=== PATIENT | female | born 1945 | race Hispanic/Latino ===

== ENCOUNTER 2017-07-18 08:02 | Inpatient (IN) | payer MEDICARE, OTHER ==
[2017-07-18 08:16] VITALS: BMI 46.3
--- NOTE | 2017-07-18 08:50 | ED PDOC ---
Arrival/HPI - General Chief Complaint: Lower Extremity Problem/Injury Time Seen by Provider: 07/18/17 08:25 Historian: Patient, Family - History of Present Illness Narrative History of Present Illness (Text): 07/18/17 08:40 72 year old female, whose past medical history include hypertension, diabetes, CVA, chronic renal disorder, and colon polyps, who presents to the emergency department complaining of left leg and foot pain. Family states patient fell out of bed causing the left toe to become injured and has gradually become worse because of erythema and warmth noted. Patient denies fever, nausea, vomiting, or other complaints. PMD: Dr. Thurman Symptom Onset: Gradual Symptom Course: Unchanged Quality: Aching Activities at Onset: Light Context: Home Past Medical History - Provider Review Nursing Documentation Reviewed: Yes - Infectious Disease Hx of Infectious Diseases: None - Tetanus Immunization Tetanus Immunization: Unknown - Reproductive Menopause: Yes - Cardiac Hx Cardiac Disorders: Yes Hx Hypertension: Yes - Pulmonary Hx Respiratory Disorders: No - Neurological HX Cerebrovascular Accident: Yes - HEENT Hx HEENT Disorder: Yes (CATARACT SX) Hx Blind: Yes (RIGHT EYE,HAS RIGHT EYE TUMOR,) - Renal Hx Renal Disorder: No - Endocrine/Metabolic Hx Diabetes Mellitus Type 2: Yes - Hematological/Oncological Hx Blood Disorders: Yes Hx Anemia: Yes - Integumentary Hx Dermatological Disorder: No - Musculoskeletal/Rheumatological Hx Musculoskeletal Disorders: No Hx Falls: Yes - Gastrointestinal Hx Gastrointestinal Disorders: Yes (POLYPS REMOVED,HEMICOLECTOMY 06-28-16) - Genitourinary/Gynecological Hx Genitourinary Disorders: No - Psychiatric Hx Emotional Abuse: No Hx Physical Abuse: No Hx Substance Use: No - Surgical History Other/Comment: LEFT OPEN HEMICOLECTOMY 06-28-16 - Anesthesia Hx Anesthesia Reactions: No Hx Malignant Hyperthermia: No - Suicidal Assessment Feels Threatened In Home Enviroment: No Family/Social History - Physician Review Nursing Documentation Reviewed: Yes Family/Social History: Unknown Family HX Smoking Status: Never Smoked Hx Alcohol Use: No Hx Substance Use: No Hx Substance Use Treatment: No Allergies/Home Meds Allergies/Adverse Reactions: Allergies No Known Allergies Allergy (Verified 06/28/16 22:22) Home Medications: Home Meds Medication Instructions Recorded Confirmed Carvedilol [Coreg] 3.125 mg PO BID 07/18/17 07/18/17 Furosemide [Lasix] 40 mg PO DAILY 07/18/17 07/18/17 Gabapentin [Neurontin] 100 mg PO DAILY 07/18/17 07/18/17 Mirtazapine [Remeron] 15 mg PO HS 07/18/17 07/18/17 Vit D2 50,000 iu PO QWK 07/18/17 07/18/17 hydrALAZINE [hydralazine 10 mg PO TID 07/18/17 07/18/17 Hydrochloride] Review of Systems - Review of Systems Constitutional: absent: Fevers Eyes: absent: Vision Changes Respiratory: absent: SOB Cardiovascular: absent: Chest Pain Gastrointestinal: absent: Abdominal Pain Genitourinary Female: absent: Dysuria Musculoskeletal: Other (left leg and foot pain) Skin: Other (erythema, warmth, on left toe) Neurological: absent: Headache Endocrine: absent: Diaphoresis Physical Exam Vital Signs Reviewed: Yes Vital Signs Temp Pulse Resp BP Pulse Ox 07/18/17 13:12 78 17 147/92 H 99 07/18/17 11:00 81 19 166/78 H 100 07/18/17 10:40 90 163/109 H 07/18/17 10:38 89 18 163/109 H 97 07/18/17 08:42 97.9 F 89 16 148/98 H 98 07/18/17 08:22 98.4 F 94 H 18 183/106 H 100 Temperature: Afebrile Blood Pressure: Hypertensive Pulse: Tachycardic Respiratory Rate: Normal Appearance: Positive for: Well-Appearing, Non-Toxic, Comfortable Pain Distress: None Mental Status: Positive for: Alert and Oriented X 3 Finger Stick Blood Glucose: 363 - Systems Exam Head: Present: Atraumatic, Normocephalic Pupils: Present: PERRL Extroacular Muscles: Present: EOMI Conjunctiva: Present: Normal Respiratory/Chest: Present: Clear to Auscultation, Good Air Exchange. No: Respiratory Distress, Accessory Muscle Use, Wheezes, Rales, Retracting, Rhonchi Cardiovascular: Present: Regular Rate and Rhythm, Normal S1, S2. No: Murmurs Abdomen: Present: Normal Bowel Sounds. No: Tenderness, Distention, Peritoneal Signs, Rebound, Guarding Lower Extremity: Present: Normal ROM, Tenderness (tenderness, redness, and warmth on left foot), Erythema, Neurovascularly Intact, Other (tenderness, redness, and warmth. 1cm area of eschar on left 1st toe and superficial ulcer on 2nd toe) Neurological: Present: GCS=15, CN II-XII Intact, Speech Normal Skin: Present: Warm, Dry, Normal Color. No: Rashes Psychiatric: Present: Alert, Oriented x 3, Normal Insight, Normal Concentration Medical Decision Making ED Course and Treatment: 07/18/17 Impression: 72 year old female with tenderness, redness, and warmth on left foot. 1cm area of eschar on left 1st toe and superficial ulcer on 2nd toe. Differential Diagnosis included but are not limited to: left foot infection r/ o osteomyelitus Plan: -- Labs -- Urinalysis -- Left Foot x-ray -- Ultrasound lower extremity -- Tylenol -- Reassess and disposition Progress Notes: 07/18/17 09:[address] Flores, felt cutting machine operator, who recommends calling the resident. Case discussed with Dr. Scruggs, felt cutting machine operator resident, who will evaluate patient at bedside. 07/18/17 11:34 Dr. Scruggs came to evaluate patient and with doppler identified dorsal pedal pulse. Arterial ultrasound ordered by Podiatry and Dr. Leos and Resident will f/u . They agree with abx regiment and will f/u. Case was discussed with Dr. Thurman for admission. - Lab Interpretations Microbiology Results: Microbiology Results 07/18/17 10:00 Blood Blood Culture - Preliminary NO GROWTH AFTER 4 DAYS 07/18/17 10:00 Blood Blood Culture - Preliminary NO GROWTH AFTER 4 DAYS 07/18/17 08:53 Urine Urine Culture - Final Escherichia Coli Lab Results: 07/18/17 10:00 07/18/17 10:00 Lab Results 07/18/17 11:31: POC Glucose (mg/dL) 284 H 07/18/17 10:00: Sodium 138, Chloride 102, Potassium 4.9, Carbon Dioxide 23, Anion Gap 18, BUN 27 H, Creatinine 1.8 H, Est GFR ( Amer) 34, Est GFR ( Non-Af Amer) 28, Random Glucose 342 H* D, Calcium 9.3, Phosphorus 4.1, Magnesium 1.9, Total Bilirubin 0.4, AST 26, ALT 18, Alkaline Phosphatase 108, Total Protein 8.2, Albumin 3.6, Globulin 4.6, Albumin/Globulin Ratio 0.8 L 07/18/17 10:00: pO2 115 H, VBG pH 7.43, VBG pCO2 38.0 L, VBG HCO3 25.2, VBG Total CO2 26.4, VBG O2 Sat (Calc) 99.4 H, VBG Base Excess 1.0, VBG Potassium 5.0 , Sodium 137.0, Chloride 104.0, Glucose 362 H, Lactate 2.7 H, FiO2 21.0, Venous Blood Potassium 5.0 07/18/17 10:00: PT 11.3, INR 0.98, APTT 27.6 07/18/17 10:00: WBC 10.8, RBC 3.13 L, Hgb 9.6 L, Hct 28.8 L, MCV 92.0, MCH 30.7 , MCHC 33.3, RDW 13.3, Plt Count 230, MPV 10.5, Gran % 81.5 H, Lymph % (Auto) 13.1 L, [place] % (Auto) 3.9, Eos % (Auto) 1.1 L, Baso % (Auto) 0.4, Gran # 8.80 H , Lymph # (Auto) 1.4, [place] # (Auto) 0.4, Eos # (Auto) 0.1, Baso # (Auto) 0.04 07/18/17 08:53: Urine Color Light yellow, Urine Appearance Slight-cloudy, Urine pH 6.5, Ur Specific [place] 1.020, Urine Protein >=300 H, Urine Glucose (UA) 500 H, Urine Ketones 15 H, Urine Blood Moderate H, Urine Nitrate Negative, Urine Bilirubin Negative, Urine Urobilinogen 0.2, Ur Leukocyte Esterase Trace H , Urine RBC 20 - 25, Urine WBC 5 - 10, Ur Epithelial Cells 4 - 5, Amorphous Sediment Few, Urine Bacteria Large, Urine Other Uyeast 07/18/17 08:19: POC Glucose (mg/dL) 363 H I have reviewed the lab results: Yes - RAD Interpretation Radiology Orders: 07/18/17 08:44 DUPLEX LOWER EXTRM VEIN BILAT [US] Stat 07/18/17 08:56 FOOT LEFT 3 VIEWS ROUTINE [RAD] Stat 07/18/17 10:51 LOWER EXT ART NON-INV COMPL [US] Routine Garbage Collector: Radiologist - Medication Orders Current Medication Orders: Amlodipine Besylate (Norvasc) 10 mg PO DAILY [facility] Last Admin: 07/22/17 10:45 Dose: 10 mg MAR Blood Pressure Document 07/22/17 10:45 DSZ (Rec: 07/22/17 10:45 Z [place] [id number]) Blood Pressure Blood Pressure (100/60-150/90) 160/78 Carvedilol (Coreg) 3.125 mg PO BID [facility] Last Admin: 07/22/17 10:44 Dose: 3.125 mg MAR Pulse and Blood Pressure Document 07/22/17 10:44 DSZ (Rec: 07/22/17 10:45 Z [place] [id number]) Pulse Pulse Rate (60-90) 78 Blood Pressure Blood Pressure (100/60-150/90) 160/76 Doxycycline Hyclate (Doryx) 100 mg PO Q12 [facility] PRN Reason: Protocol Last Admin: 07/22/17 10:44 Dose: 100 mg Enoxaparin Sodium (Lovenox) 30 mg SC DAILY [facility] PRN Reason: Protocol Gabapentin (Neurontin) 100 mg PO DAILY [facility] PRN Reason: Protocol Last Admin: 07/22/17 10:45 Dose: 100 mg Behavioural Document 07/22/17 10:45 DS (Rec: 07/22/17 10:45 Z [place] [id number]) Maintenance Maintenance Dose Yes Re-Assess: Reassess Psych Meds Document 07/22/17 11:45 DSZ (Rec: 07/22/17 12:20 DSZ [place] [id number]) Reassess Psych Med Effective Hydralazine HCl (Apresoline) 25 mg PO TID [facility] Last Admin: 07/22/17 13:54 Dose: 25 mg MAR Pulse and Blood Pressure Document 07/22/17 13:54 DSZ (Rec: 07/22/17 13:54 [place] [id number]) Pulse Pulse Rate (60-90) 81 Blood Pressure Blood Pressure (100/60-150/90) 170/60 Piperacillin Sod/Tazobactam Sod (Zosyn 2.25 Gm In 0.9% 100 Ml) 2.25 gm in 100 mls @ 100 mls/hr IVPB Q6 EBEN Stop: 07/26/17 12:01 Last Admin: 07/22/17 12:20 Dose: 100 mls/hr eMAR Start Stop Document 07/22/17 12:20 DSZ (Rec: 07/22/17 12:20 DSZ [facility] [id number]) Intravenous Solution Start Date 07/22/17 Start Time 12:20 Insulin Human Regular (Humulin R Med) 0 units SC ACHS [facility] PRN Reason: Protocol Last Admin: 07/22/17 12:19 Dose: 3 units MAR Blood Glucose Document 07/22/17 12:19 DSZ (Rec: 07/22/17 12:20 DSZ [facility] [id number]) Blood Glucose Finger Stick Blood Glucose (70-120) 222 Subcutaneous Administrations Document 07/22/17 12:19 DSZ (Rec: 07/22/17 12:20 DSZ [facility] [id number]) Injection Site MAR Injection Site Right Arm Charges for Administration # of Subcutaneous Administrations 1 Insulin Lispro Protam/Lispro Human (Humalog Mix 75/25) 12 units SC ACBD [facility] Last Admin: 07/22/17 10:49 Dose: 12 units MAR Blood Glucose Document 07/22/17 10:49 DSZ (Rec: 07/22/17 10:49 DSZ [facility] [id number]) Blood Glucose Finger Stick Blood Glucose (70-120) 217 Subcutaneous Administrations Document 07/22/17 10:49 DSZ (Rec: 07/22/17 10:49 DSZ [facility] [id number]) Injection Site MAR Injection Site Left Arm Charges for Administration # of Subcutaneous Administrations 1 Mirtazapine (Remeron) 15 mg PO HS [facility] Last Admin: 07/21/17 22:51 Dose: 15 mg Mupirocin (Bactroban Ointment) 0 gm TOP DAILY [facility] Last Admin: 07/22/17 10:49 Dose: 1 applic Nystatin (Nystop Topical Powder) 0 gm TOP TID [facility] Last Admin: 07/22/17 10:45 Dose: 1 appl Discontinued Medications Acetaminophen (Tylenol 325mg Tab) 650 mg PO STAT STA Stop: 07/18/17 08:44 Last Admin: 07/18/17 10:40 Dose: 650 mg MAR Pain/Vitals Document 07/18/17 10:40 SF (Rec: 07/18/17 10:40 SF [id number]) Pain Reassessment Is This A Pain ReAssessment? Yes Sleep Is patient sleeping during reassessment? No Presence of Pain Presence of Pain No Enoxaparin Sodium (Lovenox) 40 mg SC DAILY [facility] PRN Reason: Protocol Last Admin: 07/22/17 10:46 Dose: Hydralazine HCl (Apresoline) 10 mg PO TID [facility] Last Admin: 07/20/17 15:17 Dose: Not Given Non-Admin Reason: BP Parameters Not Met Vancomycin HCl (Vancomycin 1gm) 1 gm in 250 mls @ 167 mls/hr IVPB STAT STA PRN Reason: Protocol Stop: 07/18/17 12:10 Last Admin: 07/18/17 11:40 Dose: 167 mls/hr eMAR Start Stop Document 07/18/17 11:40 SF (Rec: 07/18/17 11:41 SF [id number]) Intravenous Solution Start Date 07/18/17 Start Time 11:40 End Date 07/18/17 End time 13:15 Total Infusion Time 95 Piperacillin Sod/Tazobactam Sod (Zosyn 4.5 Gm In Ns 100ml) 4.5 gm in 100 mls @ 200 mls/hr IVPB STAT STA PRN Reason: Protocol Stop: 07/18/17 11:11 Last Admin: 07/18/17 11:00 Dose: 200 mls/hr eMAR Start Stop Document 07/18/17 11:00 SF (Rec: 07/18/17 11:00 SF [id number]) Intravenous Solution Start Date 07/18/17 Start Time 11:00 End Date 07/18/17 End time 11:30 Total Infusion Time 30 Piperacillin Sod/Tazobactam Sod (Zosyn 2.25 Gm Iv Premix) 2.25 gm in 50 mls @ 200 mls/hr IVPB Q6 [facility]EN PRN Reason: Protocol Stop: 07/26/17 12:01 Last Admin: 07/19/17 11:51 Dose: 200 mls/hr eMAR Start Stop Document 07/19/17 11:51 DSZ (Rec: 07/19/17 11:51 DSZ [id number]) Intravenous Solution Start Date 07/19/17 Start Time 11:51 Insulin Human Regular (Humulin R) 5 units SC STAT STA Stop: 07/18/17 11:21 Last Admin: 07/18/17 11:41 Dose: 5 units MAR Blood Glucose Document 07/18/17 11:41 SF (Rec: 07/18/17 11:41 SF [id number]) Blood Glucose Finger Stick Blood Glucose (70-120) 284 Subcutaneous Administrations Document 07/18/17 11:41 SF (Rec: 07/18/17 11:41 SF [id number]) Injection Site MAR Injection Site Left Deltoid Charges for Administration # of Subcutaneous Administrations 1 Insulin Lispro Protam/Lispro Human (Humalog Mix 75/25) 10 units SC ACBD [facility] Last Admin: 07/21/17 07:30 Dose: 10 units Subcutaneous Administrations Document 07/21/17 07:30 ID (Rec: 07/21/17 10:02 ID [facility] [id number]) Charges for Administration # of Subcutaneous Administrations 1 Labetalol HCl (Trandate) 20 mg IV STAT STA Stop: 07/18/17 08:59 Last Admin: 07/18/17 10:40 Dose: 20 mg eMAR Start Stop Document 07/18/17 10:40 SF (Rec: 07/18/17 10:41 SF [id number]) Intravenous Solution Start Date 07/18/17 Start Time 10:41 MAR Pulse and Blood Pressure Document 07/18/17 10:40 SF (Rec: 07/18/17 10:41 SF [id number]) Pulse Pulse Rate (60-90) 90 Blood Pressure Blood Pressure (100/60-150/90) 163/109 Mupirocin (Bactroban Ointment) 1 gm TOP ONCE ONE Stop: 07/18/17 10:52 Last Admin: 07/18/17 11:41 Dose: 1 gm - Scribe Statement The provider has reviewed the documentation as recorded by the Zeynep Aguilar Provider Scribe Attestation: All medical record entries made by the Scribe were at my direction and personally dictated by me. I have reviewed the chart and agree that the record accurately reflects my personal performance of the history, physical exam, medical decision making, and the department course for this patient. I have also personally directed, reviewed, and agree with the discharge instructions and disposition. Disposition/Present on Arrival - Present on Arrival Any Indicators Present on Arrival: No History of DVT/PE: No History of Uncontrolled Diabetes: No Urinary Catheter: No History of Decub. Ulcer: No History Surgical Site Infection Following: None - Disposition Have Diagnosis and Disposition been Completed?: Yes Diagnosis: Foot ulcer due to secondary DM Disposition: HOSPITALIZED Disposition Time: 15:08 Patient Plan: Admission Condition: FAIR
[2017-07-18] MEDS ORDERED: Labetalol 5 mg/ml Inj 20ML IV STA (08:58)
[2017-07-18 09:21] LABS: PH,URINE 6.5 (4.7-8.0); URINE BILIRUBIN NEGATIVE (NEGATIVE); URINE BLOOD MODERATE (NEGATIVE); URINE GLUCOSE (UA) 500 mg/dL (NEGATIVE); URINE LEUKOCYTE ESTERASE TRACE Leu/uL (NEGATIVE); URINE NITRATE NEGATIVE (NEGATIVE); URINE PROTEIN >=300 mg/dL (<30 mg/dL); URINE UROBILINOGEN 0.2 E.U./dL (<1 E.U./dL)
[2017-07-18 09:22] LABS: URINE APPEARANCE SLIGHT-CLOUDY (CLEAR); URINE COLOR LIGHT YELLOW (YELLOW)
[2017-07-18 09:29] LABS: URINE RBC 20 - 25 /hpf (0-2)
[2017-07-18 09:30] LABS: URINE AMORPHOUS SEDIMENT FEW; URINE BACTERIA LARGE (NEG)
[2017-07-18 10:27] LABS: VENOUS BLOOD GAS PO2 115 mm/Hg (30-55); VENOUS BLOOD PH 7.43 (7.32-7.43)
[2017-07-18 10:30] LABS: BASO # 0.04 K/mm3 (0.0-2.0); BASO % 0.4 % (0.0-3.0); EOS # 0.1 (0.0-0.7); EOS % 1.1 % (1.5-5.0); GRAN # 8.8 (1.4-6.5); GRAN % 81.5 % (50.0-68.0); HEMOGLOBIN 9.6 g/dL (12.0-16.0); LYMPH # 1.4 (1.2-3.4); LYMPH % 13.1 % (22.0-35.0); MEAN CORPUSCULAR HEMOGLOBIN 30.7 pg (25.0-35.0); MEAN CORPUSCULAR HGB CONC 33.3 g/dl (31.0-37.0); MEAN PLATELET VOLUME 10.5 fl (7.0-11.0); MONO # 0.4 (0.1-0.6); MONO % 3.9 % (1.0-6.0); RBC 3.13 10^6/uL (3.5-6.1); RED CELL DISTRIBUTION WIDTH 13.3 % (11.5-14.5); WHITE BLOOD COUNT 10.8 10^3/ul (4.5-11.0)
[2017-07-18 10:38] LABS: INR 0.98 (0.93-1.08); PARTIAL THROMBOPLASTIN TIME 27.6 Seconds (25.1-36.5); PROTHROMBIN TIME 11.3 SECONDS (9.4-12.5)
[2017-07-18] MEDS ORDERED: Vancomycin 1gm in NS 250ml 1 GM/250 ML BAG IVPB STA (10:41)
[2017-07-18] MEDS ORDERED: Piperacill/Tazo 4.5gm in NS 4.5 GM/100 ML BAG IVPB STA (10:42)
--- NOTE | 2017-07-18 11:01 | CP.PCM.CON ---
History of Present Illness - History of Present Illness History of Present Illness: Podiatry Consult Note- Dr. Leso 72 y.o female with PMH of DM, HTN, HLD seen and evaluated in the ED. Patient reports having a sore left big toe for the last week. Patient denies trauma or injury but also reports that she does not remember. She reports soreness to her left big toe. She reports that she thinks the toe is looking more red but can't tell because she can't see too well. She denies n/v/sob/cp/chills or f. 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 PMH: DM, HLD, HTN PSH: appendectomy, cataract surgery, right hallux distal tip amputation SH: denies smoking, drinking or illicit drug use; lives with mother, not , no children ALL: NKDA MEDS: see medication list Past Patient History - Infectious Disease Hx of Infectious Diseases: None - Tetanus Immunizations Tetanus Immunization: Unknown - Past Social History Smoking Status: Never Smoked - CARDIAC Hx Cardiac Disorders: Yes Hx Hypertension: Yes - PULMONARY Hx Respiratory Disorders: No - NEUROLOGICAL HX Cerebrovascular Accident: Yes - HEENT Hx HEENT Problems: Yes (CATARACT SX) Hx Blind: Yes (RIGHT EYE,HAS RIGHT EYE TUMOR,) - RENAL Hx Chronic Kidney Disease: No - ENDOCRINE/METABOLIC Hx Diabetes Mellitus Type 2: Yes - HEMATOLOGICAL/ONCOLOGICAL Hx Blood Disorders: Yes Hx Anemia: Yes - INTEGUMENTARY Hx Dermatological Problems: No - MUSCULOSKELETAL/RHEUMATOLOGICAL Hx Musculoskeletal Disorders: No Hx Falls: Yes - GASTROINTESTINAL Hx Gastrointestinal Disorders: Yes (POLYPS REMOVED,HEMICOLECTOMY 06-28-16) - GENITOURINARY/GYNECOLOGICAL Hx Genitourinary Disorders: No - PSYCHIATRIC Hx Emotional Abuse: No Hx Physical Abuse: No Hx Substance Use: No - SURGICAL HISTORY Other/Comment: LEFT OPEN HEMICOLECTOMY 06-28-16 - ANESTHESIA Hx Anesthesia Reactions: No Hx Malignant Hyperthermia: No Meds Allergies/Adverse Reactions: Allergies Allergy/AdvReac Type Severity Reaction Status Date / Time No Known Allergies Allergy Verified 06/28/16 22:22 - Medications Medications: Current Medications Vancomycin HCl (Vancomycin 1gm) 1 gm in 250 mls @ 167 mls/hr IVPB STAT STA PRN Reason: Protocol Stop: 03/01/18 12:10 Piperacillin Sod/Tazobactam Sod (Zosyn 4.5 Gm In Ns 100ml) 4.5 gm in 100 mls @ 200 mls/hr IVPB STAT STA PRN Reason: Protocol Stop: 07/18/17 11:11 Physical Exam - Constitutional Appears: Well, Non-toxic, No Acute Distress - Extremities Exam Additional comments: Vasc: DP and PT unpalpable. DP dopplerable monophasic bilaterally. CFT delayed to the digits. Temperature gradient cool to cool. Left hallux slightly warm. Mild edema noted to the left forefoot Ortho: pain with palpation to the left hallux Neuro: protective sensation diminished, gross sensation intact Derm: Necrotic tissue noted to the medial aspect of the left hallux measuring approximately about 1 x 1 cm. There is no open ulceration noted to the left hallux; Erythema noted to the skin surrounding the circumferential necrotic tissue, no drainage, no malodor, no tunneling, or undermining noted. Lateral aspect of 2nd digit with superficial ulceration noted, measuring approximately x. 3 x .3 x .1. Mild erythema noted, no drainage, no malodor, no tunneling or undermining noted. No probe to bone - Neurological Exam Neurological exam: Alert, Oriented x3 - Psychiatric Exam Psychiatric exam: Normal Affect, Normal Mood Results - Vital Signs Recent Vital Signs: Last Vital Signs Temp 98.4 F 07/18/17 08:22 Pulse 90 07/18/17 10:40 Resp 18 07/18/17 10:38 BP 163/109 H 07/18/17 10:40 Pulse Ox 97 07/18/17 10:38 - Labs Result Diagrams: 07/18/17 10:00 07/18/17 10:00 Labs: Laboratory Results - last 24 hr 07/18/17 07/18/17 07/18/17 08:19 08:53 10:00 WBC 10.8 RBC 3.13 L Hgb 9.6 L Hct 28.8 L MCV 92.0 MCH 30.7 MCHC 33.3 RDW 13.3 Plt Count 230 MPV 10.5 Gran % 81.5 H Lymph % (Auto) 13.1 L [place] % (Auto) 3.9 Eos % (Auto) 1.1 L Baso % (Auto) 0.4 Gran # 8.80 H Lymph # (Auto) 1.4 [place] # (Auto) 0.4 Eos # (Auto) 0.1 Baso # (Auto) 0.04 PT INR APTT pO2 VBG pH VBG pCO2 VBG HCO3 VBG Total CO2 VBG O2 Sat (Calc) VBG Base Excess VBG Potassium Sodium Chloride Glucose Lactate FiO2 POC Glucose (mg/dL) 363 H Venous Blood Potassium Urine Color Light yellow Urine Appearance Slight-cloudy Urine pH 6.5 Ur Specific [place] 1.020 Urine Protein >=300 H Urine Glucose (UA) 500 H Urine Ketones 15 H Urine Blood Moderate H Urine Nitrate Negative Urine Bilirubin Negative Urine Urobilinogen 0.2 Ur Leukocyte Esterase Trace H Urine RBC 20 - 25 Urine WBC 5 - 10 Ur Epithelial Cells 4 - 5 Amorphous Sediment Few Urine Bacteria Large Urine Other Uyeast 07/18/17 07/18/17 10:00 10:00 WBC RBC Hgb Hct MCV MCH MCHC RDW Plt Count MPV Gran % Lymph % (Auto) [place] % (Auto) Eos % (Auto) Baso % (Auto) Gran # Lymph # (Auto) [place] # (Auto) Eos # (Auto) Baso # (Auto) PT 11.3 INR 0.98 APTT 27.6 pO2 115 H VBG pH 7.43 VBG pCO2 38.0 L VBG HCO3 25.2 VBG Total CO2 26.4 VBG O2 Sat (Calc) 99.4 H VBG Base Excess 1.0 VBG Potassium 5.0 Sodium 137.0 Chloride 104.0 Glucose 362 H Lactate 2.7 H FiO2 21.0 POC Glucose (mg/dL) Venous Blood Potassium 5.0 Urine Color Urine Appearance Urine pH Ur Specific [place] Urine Protein Urine Glucose (UA) Urine Ketones Urine Blood Urine Nitrate Urine Bilirubin Urine Urobilinogen Ur Leukocyte Esterase Urine RBC Urine WBC Ur Epithelial Cells Amorphous Sediment Urine Bacteria Urine Other Assessment & Plan - Assessment and Plan (Free Text) Assessment: 72 y.o female with PMH of DM, HTN, HLD with infected necrotic tissue vs deep tissue injury noted to the left hallux and superficial ulceration to lateral left 2nd digit. Plan: Patient examined and evaluated Discussed plan in detail with attending Dr. Leos Labs, charts, vitals reviewed- afebrile and absent leukocytosis X-rays reviewed - diffuse osteopenia noted, no bony erosion or destruction noted Left hallux cleansed with saline solution and dressed with bactroban, dsd, and cling Ordered OLAMIDE/arterial duplex to check vascular supply C/w empirical abx Recommends Infectious Disease consult once on floors Patient may WBAT to the left foot Ordered forefoot offloading shoe Physical therapy consulted- WBAT to forefoot offloading shoe Podiatry will continue to follow while patient is in house Thank you for allowing us to take part of patient's care.
[2017-07-18 11:12] LABS: ALB/GLOB RATIO 0.8 (1.1-1.8); ALBUMIN 3.6 g/dL (3.0-4.8); CALCIUM 9.3 mg/dL (8.4-10.5); MAGNESIUM 1.9 mg/dL (1.7-2.2)
[2017-07-18] MEDS ORDERED: Insulin Regular 1 UNITS/0.01 ML ML SC STA (11:20)
--- NOTE | 2017-07-18 11:22 | RAD ---
PROCEDURE: Left Foot Radiographs. HISTORY: left 1st 2nd two infection r/o osteo COMPARISON: 05/14/2016 FINDINGS: BONES: Normal. No fracture. JOINTS: Degenerative changes are seen in the midfoot SOFT TISSUES: Normal. OTHER FINDINGS: None. IMPRESSION: No evidence of osteomyelitis
[2017-07-18 16:30] LABS: VENOUS BLOOD GAS BASE EXCESS 1.9 mmol/L (0.0-2.0); VENOUS BLOOD GAS PO2 48 mm/Hg (30-55); VENOUS BLOOD PH 7.42 (7.32-7.43)
--- NOTE | 2017-07-18 19:17 | US ---
PROCEDURE: Lower extremity OLAMIDE exam HISTORY: Peripheral vascular disease with pain and ulceration. Diabetes. PHYSICIAN(S): Doron Garcia MD. FINDINGS: The resting OLAMIDE's are moderately to severely abnormal: Right, 0.49 and left, 0.60 The brachial systolic pressures are symmetric. The low thigh pressures and waveforms are relatively normal. The calf PVR waveforms have relatively normal upstrokes. However, the PVR waveforms do not augment. This could represent subtle bilateral SFA disease. There are significant gradients across both lower legs. This is consistent with bilateral tibial disease. The ankle PVR waveforms are pulsatile. IMPRESSION: 1. Moderately to severely abnormal ABIs at rest. 2. Bilateral tibial disease. The ankle waveforms are pulsatile. 3. Possible bilateral SFA disease.
--- NOTE | 2017-07-18 19:18 | US ---
HISTORY: Leg pain and swelling. Evaluate for DVT PHYSICIAN(S): Doron Garcia MD. TECHNIQUE: Duplex sonography and color-flow Doppler with graded compression were used to evaluate the deep venous systems of both lower extremities. The exam is limited by body habitus and edema. The tibial veins are not well seen. FINDINGS: The visualized deep venous systems of both lower extremities are sonographically normal and compressible. Normal wave forms and augmentation are seen. There is no sonographic evidence for deep venous thrombosis in the visualized segments of both lower extremities. IMPRESSION: No sonographic evidence for deep venous thrombosis in the visualized segments of both lower extremities. Very limited study
[2017-07-19] MEDS: Insulin Reg-MEDIUM-Coverage SC SCH ×5 (00:51→22:02)
[2017-07-19 08:10] LABS: IRON 56 ug/dL (45-180)
[2017-07-19 08:19] LABS: % IRON SATURATION 30 % (20-55); TOTAL IRON BINDING CAPACITY 189 ug/dL (265-497)
--- NOTE | 2017-07-19 11:46 | MRI ---
PROCEDURE: MRI of the left foot without contrast HISTORY: rule out osteomyelitis COMPARISON: TECHNIQUE: MRI of the left foot was performed in multiple planes using multiple pulse sequences. FINDINGS: Degenerative changes are seen with lateral angulation of all of the toes. There is no evidence of marrow edema to suggest osteomyelitis. There is no evidence of cellulitis IMPRESSION: No evidence of osteomyelitis
[2017-07-19] MEDS ORDERED: Piperacill/Tazo 2.25gm in Dex 2.25 GM/50 ML BAG IVPB SCH (12:00)
[2017-07-19] MEDS: Nystatin 100,000 Units/gm Topical Pow(15 gm) TOP SCH (17:27)
[2017-07-19] MEDS: Piperacillin/Tazobact 2.25gm 2.25 GM/100 ML BAG IVPB SCH ×2 (17:44→23:35)
--- NOTE | 2017-07-19 21:50 | CP.PCM.CON ---
History of Present Illness - History of Present Illness History of Present Illness: 72 year old female with PMH of DM, HTN, dyslipidemia comes in to [facility] complaining of soreness on the left hallux for about a week now. She does not recall trauma to the said toe, does not walk barefoot, no soaking of feet in water, no animal contacts. She denies fever or chills, no nausea or vomiting, no headache or dizziness, no discharge from the toe, no abdominal pain, no sore throat, no cough or colds, no diarrhea, no dysuria. Infectious Diseases consult is requested to further evaluate and manage. Review of Systems - Review of Systems All systems: reviewed and no additional remarkable complaints except (as per HPI ) Past Patient History - Infectious Disease Hx of Infectious Diseases: None - Tetanus Immunizations Tetanus Immunization: Unknown - Past Social History Smoking Status: Never Smoked - CARDIAC Hx Cardiac Disorders: Yes Hx Hypercholesterolemia: Yes Hx Hypertension: Yes - PULMONARY Hx Respiratory Disorders: No - NEUROLOGICAL HX Cerebrovascular Accident: Yes Other/Comment: Confused at times. - HEENT Hx HEENT Problems: Yes (CATARACT SX) Hx Blind: Yes (RIGHT EYE,HAS RIGHT EYE TUMOR,) - RENAL Hx Chronic Kidney Disease: No - ENDOCRINE/METABOLIC Hx Diabetes Mellitus Type 2: Yes - HEMATOLOGICAL/ONCOLOGICAL Hx Blood Disorders: Yes Hx Anemia: Yes - INTEGUMENTARY Hx Dermatological Problems: No Other/Comment: Right hallux distal tip amputation. Necrotic area on Left bit toe (07/18/2017). - MUSCULOSKELETAL/RHEUMATOLOGICAL Hx Musculoskeletal Disorders: No Hx Falls: Yes Hx Unsteady Gait: Yes - GASTROINTESTINAL Hx Gastrointestinal Disorders: Yes (POLYPS REMOVED,HEMICOLECTOMY 06-28-16) - GENITOURINARY/GYNECOLOGICAL Hx Genitourinary Disorders: No - PSYCHIATRIC Hx Emotional Abuse: No Hx Physical Abuse: No - SURGICAL HISTORY Hx Surgeries: Yes Hx Amputation: Yes (Right hallux distal tip) Other/Comment: LEFT OPEN HEMICOLECTOMY 06-28-16 - ANESTHESIA Hx Anesthesia Reactions: No Hx Malignant Hyperthermia: No Meds Allergies/Adverse Reactions: Allergies Allergy/AdvReac Type Severity Reaction Status Date / Time No Known Allergies Allergy Verified 06/28/16 22:22 - Medications Medications: Current Medications Amlodipine Besylate (Norvasc) 10 mg PO DAILY [facility] Last Admin: 07/18/17 18:18 Dose: 10 mg Carvedilol (Coreg) 3.125 mg PO BID [facility] Last Admin: 07/18/17 18:18 Dose: 3.125 mg Gabapentin (Neurontin) 100 mg PO DAILY [facility] PRN Reason: Protocol Last Admin: 07/18/17 18:18 Dose: 100 mg Hydralazine HCl (Apresoline) 10 mg PO TID [facility] Last Admin: 07/18/17 18:19 Dose: 10 mg Insulin Human Regular (Humulin R Med) 0 units SC ACHS [facility] PRN Reason: Protocol Last Admin: 07/19/17 00:51 Dose: Not Given Mirtazapine (Remeron) 15 mg PO [facility] Last Admin: 07/18/17 21:48 Dose: 15 mg Physical Exam - Constitutional Appears: Chronically Ill - Head Exam Head Exam: NORMAL INSPECTION - ENT Exam ENT Exam: Mucous Membranes Moist - Neck Exam Neck exam: Negative for: Meningismus - Respiratory Exam Respiratory Exam: Decreased Breath Sounds - Cardiovascular Exam Cardiovascular Exam: +S1, +S2 - GI/Abdominal Exam GI & Abdominal Exam: Soft. absent: Tenderness - Extremities Exam Additional comments: right hallux with dressings in place Results - Vital Signs Recent Vital Signs: Last Vital Signs Temp 97.9 F 07/18/17 15:53 Pulse 82 07/18/17 18:19 Resp 20 07/18/17 15:53 BP 175/74 H 07/18/17 18:19 Pulse Ox 98 07/18/17 15:53 - Labs Result Diagrams: 07/18/17 10:00 07/18/17 10:00 Labs: Laboratory Results - last 24 hr 07/18/17 07/18/17 07/18/17 16:00 16:15 21:31 pO2 48 VBG pH 7.42 VBG pCO2 41.0 VBG HCO3 26.6 VBG Total CO2 27.9 VBG O2 Sat (Calc) 88.5 H VBG Base Excess 1.9 VBG Potassium 4.5 Sodium 139.0 Chloride 106.0 Glucose 213 H Lactate 3.1 H FiO2 21.0 POC Glucose (mg/dL) 188 H 177 H Venous Blood Potassium 4.5 Assessment & Plan - Assessment and Plan (Free Text) Plan: Assessment Right hallux skin and skin structure infection, with no evidence of osteomyelitis on MRI DM HTN dyslipidemia Plan Gave a dose of IV vancomycin and started Zosyn and will monitor clinically follow up vascular studies follow up further Podiatry recommendations
[2017-07-20] MEDS: Piperacillin/Tazobact 2.25gm 2.25 GM/100 ML BAG IVPB SCH ×4 (06:01→23:27)
--- NOTE | 2017-07-20 06:07 | HP ---
DATE OF EXAM: 07/19/2017 CHIEF COMPLAINT AND HISTORY OF PRESENT ILLNESS: This is a 72-year-old female, who is coming into the hospital with a left toe ulcer. The patient has a past medical history of hypertension, diabetes type 2, chronic kidney disease, CVA, colon polyps. The patient states that she has been having left leg pain. She states that she had fallen out of bed and that is what caused her left toe to be injured. She denies any discharge. She has poor vision, and so she is not sure whether she has worsening of her ulcer. She has no complaints of any chest pain or shortness of breath. No nausea, no vomiting. No fevers, headaches or chills. REVIEW OF SYSTEMS: All other review of symptoms are within normal limits except as mentioned. ALLERGIES: NO KNOWN DRUG ALLERGIES. HOME MEDICATIONS: Had been reviewed on the [facility]. PAST MEDICAL HISTORY: As above. PAST SURGICAL HISTORY: Appendectomy, cataract surgery, right toe amputation of the tip. SOCIAL HISTORY: She denies smoking, drinking or drugs. She lives with her mother. She is not . She has no children. PHYSICAL EXAMINATION: VITAL SIGNS: Patient has a temperature of 97.9, pulse of 83, blood pressure 160/63, respirations 20, O2 saturation 96%. Height is 5 feet 1 inches, weight is 240 pounds, BMI is 46.3. GENERAL: The patient lying in bed, uncomfortable, and in no acute distress. HEENT: Atraumatic and normocephalic. Anicteric sclerae. Moist mucosa. [place] conjunctivae. No oral lesions. NECK: No JVD, anterior and posterior adenopathy, thyromegaly, or bruits. CARDIOVASCULAR: S1 and S2 regular. No murmur, rubs, or gallop. LUNGS: Clear to auscultation bilaterally. No wheezes, rales, or rhonchi. ABDOMEN: Bowel sounds are positive. Soft, nontender and nondistended. No hepatosplenomegaly. No rebound and no guarding EXTREMITIES: No cyanosis, clubbing, or edema. In the left foot, there is a stage 2 ulcer. It is clean. There is no erythema. No discharge. NEUROLOGIC: No facial asymmetry. Tongue is midline. No uvula deviation. Power is 5/5 upper extremity and lower extremity. Sensation intact in upper extremity and lower extremity. PSYCHIATRIC: She is awake, alert and oriented x3. No anxiety or depression. She has normal affect. GENITOURINARY: No CVA tenderness. VASCULAR: 2+ pulses in the carotid pulses and pedal pulses. SKIN: No erythema or nodules SPINE: Shows normal curvature. LABORATORY DATA: White count of 10.8, hemoglobin 9.6, platelet count is 230. INR is 0.98. Chemistry has been reviewed. The patient has creatinine of 1.8. The patient has iron saturation of 30%. Ferritin is 73. Urine shows blood is moderate, glucose in urine of 500 , proteins in urine of 300. X-ray of the left foot shows no evidence of osteomyelitis. Lower extremity arterial Doppler showed [id number] abnormal ABIs. ASSESSMENT: 1. Left toe ulcer. 2. Chronic kidney disease stage 3. 3. Hypertension. 4. Diabetes type 2. 5. Colon polyps. 6. Obesity with body mass index of 46.3. PLAN; The patient is admitted to the hospital. She is going to be seen by ID and Podiatry. The patient is on insulin for diabetes. She is on Norvasc for hypertension. She is on Remeron. She is going to continue with antibiotic Zosyn. The patient is on sliding scale. She has PTH that has been ordered. She has blood cultures, urine cultures and wound cultures have been done. She may need to go to subacute rehab. If the patient is accepted, the patient may be discharged. The patient had an MRI done that shows no significant abnormalities or signs of osteomyelitis. She was seen by neonatal social worker and family service caseworker and possible discharge on Saturday. Moe Thurman MD
[2017-07-20] MEDS: Insulin Reg-MEDIUM-Coverage SC SCH ×3 (08:59→17:56)
--- NOTE | 2017-07-20 10:37 | CP.PCM.PN ---
<Nely Godinez - Last Filed: 07/20/17 10:33> Subjective - Date & Time of Evaluation Date of Evaluation: 07/20/17 Time of Evaluation: 07:50 - Subjective Subjective: Podiatry Progress Note- Dr. Monroy 72 y/o female seen and evaluated at bedside with attending, Dr. Monroy. Prognosis and presentation of left big toe sore evaluated. She reports soreness to her left big toe, graded 2/10 on VAS pain scale. She denies and acute overnight events. She denies n/v/sob/cp/chills or f. Objective - Vital Signs/Intake and Output Vital Signs (last 24 hours): Temp Pulse Resp BP Pulse Ox 98.4 F 85 20 169/80 H 96 07/20/17 07:30 07/20/17 07:30 07/20/17 07:30 07/20/17 07:30 07/20/17 07:30 Intake and Output: 07/20/17 07/20/17 06:59 18:59 Intake Total 540 Output Total 1100 Balance -560 - Medications Medications: Current Medications Amlodipine Besylate (Norvasc) 10 mg PO DAILY [facility] Last Admin: 07/19/17 09:57 Dose: 10 mg Carvedilol (Coreg) 3.125 mg PO BID [facility] Last Admin: 07/19/17 17:25 Dose: 3.125 mg Gabapentin (Neurontin) 100 mg PO DAILY [facility] PRN Reason: Protocol Last Admin: 07/19/17 09:57 Dose: 100 mg Hydralazine HCl (Apresoline) 10 mg PO TID [facility] Last Admin: 07/19/17 17:26 Dose: 10 mg Piperacillin Sod/Tazobactam Sod (Zosyn 2.25 Gm In 0.9% 100 Ml) 2.25 gm in 100 mls @ 100 mls/hr IVPB Q6 [facility] Stop: 07/26/17 12:01 Last Admin: 07/20/17 06:01 Dose: 100 mls/hr Insulin Human Regular (Humulin R Med) 0 units SC ACHS [facility] PRN Reason: Protocol Last Admin: 07/20/17 08:59 Dose: 3 units Mirtazapine (Remeron) 15 mg PO HS [facility] Last Admin: 07/19/17 21:42 Dose: 15 mg Mupirocin (Bactroban Ointment) 0 gm TOP DAILY [facility] Nystatin (Nystop Topical Powder) 0 gm TOP TID [facility] Last Admin: 07/19/17 17:27 Dose: 1 appl - Labs Labs: PT 11.3 SECONDS (9.4-12.5) 07/18/17 10:00 INR 0.98 (0.93-1.08) 07/18/17 10:00 APTT 27.6 Seconds (25.1-36.5) 07/18/17 10:00 - Constitutional Appears: Well, Non-toxic, No Acute Distress - Extremities Exam Additional comments: Vasc: DP and PT unpalpable. DP dopplerable monophasic bilaterally. CFT delayed to the digits. Temperature gradient cool to cool. Left hallux slightly warm. Mild edema noted to the left forefoot Ortho: pain with palpation to the left hallux Neuro: protective sensation diminished, gross sensation intact Derm: Necrotic tissue noted to the medial aspect of the left hallux measuring approximately about 1 x 1 cm. There is no open ulceration noted to the left hallux; Erythema noted to the skin surrounding the circumferential necrotic tissue, no drainage, no malodor, no tunneling, or undermining noted. Lateral aspect of 2nd digit with superficial ulceration noted, measuring approximately x. 3 x .3 x .1. Mild erythema noted, no drainage, no malodor, no tunneling or undermining noted. No probe to bone - Neurological Exam Neurological Exam: Alert, Awake, Oriented x3 - Psychiatric Exam Psychiatric exam: Normal Affect, Normal Mood Assessment and Plan - Assessment and Plan (Free Text) Assessment: 72 y.o female with 1)infected superficial ulceration of left hallux, secondary to diabetic neuropathy 2) and superficial ulceration to lateral left 2nd digit. Plan: Patient examined and evaluated with attending, Dr. Monroy. Labs, charts, vitals reviewed- afebrile and absent leukocytosis ESR= 150 X-rays reviewed - diffuse osteopenia noted, no bony erosion or destruction noted Left foot MRI- negative for osteomyelitis. OLAMIDE/arterial duplex- results show OLAMIDE: Right= 0.49, Left=0.60 with bilateral tibial disease with pulsitile blood flow. C/w empirical IV abx, per ID Vascular Consult placed with Dr. Garcia. Aseptically sharply debrided all non-viable hyperkeratotic and fibrotic tissue approx 1 sq cm down to level of vascular dermal tissue from medial aspect of left hallux. Left hallux cleansed with saline solution and dressed with bactroban, dsd, and cling Patient may WBAT to the left foot Ordered forefoot offloading shoe Physical therapy consulted- WBAT to forefoot offloading shoe Podiatry will continue to follow while patient is in house <Jason Monroy - Last Filed: 07/20/17 11:07> Objective - Vital Signs/Intake and Output Vital Signs (last 24 hours): Temp Pulse Resp BP Pulse Ox 98.4 F 85 20 172/80 H 96 07/20/17 07:30 07/20/17 07:30 07/20/17 07:30 07/20/17 09:53 07/20/17 07:30 Intake and Output: 07/20/17 07/20/17 06:59 18:59 Intake Total 540 Output Total 1100 Balance -560 - Medications Medications: Current Medications Amlodipine Besylate (Norvasc) 10 mg PO DAILY [facility] Last Admin: 07/20/17 09:53 Dose: 10 mg Carvedilol (Coreg) 3.125 mg PO BID [facility] Last Admin: 07/20/17 09:53 Dose: 3.125 mg Gabapentin (Neurontin) 100 mg PO DAILY [facility] PRN Reason: Protocol Last Admin: 07/20/17 09:53 Dose: 100 mg Hydralazine HCl (Apresoline) 10 mg PO TID [facility] Last Admin: 07/20/17 10:39 Dose: 10 mg Piperacillin Sod/Tazobactam Sod (Zosyn 2.25 Gm In 0.9% 100 Ml) 2.25 gm in 100 mls @ 100 mls/hr IVPB Q6 [facility] Stop: 07/26/17 12:01 Last Admin: 07/20/17 06:01 Dose: 100 mls/hr Insulin Human Regular (Humulin R Med) 0 units SC ACHS [facility] PRN Reason: Protocol Last Admin: 07/20/17 08:59 Dose: 3 units Mirtazapine (Remeron) 15 mg PO HS [facility] Last Admin: 07/19/17 21:42 Dose: 15 mg Mupirocin (Bactroban Ointment) 0 gm TOP DAILY [facility] Nystatin (Nystop Topical Powder) 0 gm TOP TID [facility] Last Admin: 07/20/17 10:41 Dose: 1 appl - Labs Labs: PT 11.3 SECONDS (9.4-12.5) 07/18/17 10:00 INR 0.98 (0.93-1.08) 07/18/17 10:00 APTT 27.6 Seconds (25.1-36.5) 07/18/17 10:00 Attending/Attestation - Attestation I have personally seen and examined this patient.: Yes I have fully participated in the care of the patient.: Yes I have reviewed all pertinent clinical information, including history, physical exam and plan: Yes
[2017-07-20] MEDS: Nystatin 100,000 Units/gm Topical Pow(15 gm) TOP SCH ×3 (10:41→19:02)
[2017-07-20] MEDS: Enoxaparin 40 mg Syringe SC SCH (15:15)
--- NOTE | 2017-07-20 15:32 | CP.PCM.PN ---
Subjective - Date & Time of Evaluation Date of Evaluation: 07/20/17 Time of Evaluation: 12:45 - Subjective Subjective: No fevers, not in distress, afebrile. Objective - Vital Signs/Intake and Output Vital Signs (last 24 hours): Temp Pulse Resp BP Pulse Ox 97.9 F 83 20 160/63 H 96 07/19/17 16:05 07/19/17 17:26 07/19/17 16:05 07/19/17 17:26 07/19/17 16:05 Intake and Output: 07/19/17 07/20/17 18:59 06:59 Intake Total 540 Output Total 200 Balance 340 - Medications Medications: Current Medications Amlodipine Besylate (Norvasc) 10 mg PO DAILY [facility] Last Admin: 07/19/17 09:57 Dose: 10 mg Carvedilol (Coreg) 3.125 mg PO BID [facility] Last Admin: 07/19/17 17:25 Dose: 3.125 mg Gabapentin (Neurontin) 100 mg PO DAILY [facility] PRN Reason: Protocol Last Admin: 07/19/17 09:57 Dose: 100 mg Hydralazine HCl (Apresoline) 10 mg PO TID [facility] Last Admin: 07/19/17 17:26 Dose: 10 mg Piperacillin Sod/Tazobactam Sod (Zosyn 2.25 Gm In 0.9% 100 Ml) 2.25 gm in 100 mls @ 100 mls/hr IVPB Q6 [facility] Stop: 07/26/17 12:01 Last Admin: 07/19/17 17:44 Dose: 100 mls/hr Insulin Human Regular (Humulin R Med) 0 units SC ACHS [facility] PRN Reason: Protocol Last Admin: 07/19/17 16:52 Dose: 3 units Mirtazapine (Remeron) 15 mg PO HS [facility] Last Admin: 07/19/17 21:42 Dose: 15 mg Mupirocin (Bactroban Ointment) 0 gm TOP DAILY [facility] Nystatin (Nystop Topical Powder) 0 gm TOP TID [facility] Last Admin: 07/19/17 17:27 Dose: 1 appl - Labs Labs: PT 11.3 SECONDS (9.4-12.5) 07/18/17 10:00 INR 0.98 (0.93-1.08) 07/18/17 10:00 APTT 27.6 Seconds (25.1-36.5) 07/18/17 10:00 - Constitutional Appears: Chronically Ill - Head Exam Head Exam: NORMAL INSPECTION - ENT Exam ENT Exam: Mucous Membranes Moist - Neck Exam Neck Exam: absent: Meningismus - Respiratory Exam Respiratory Exam: Decreased Breath Sounds - Cardiovascular Exam Cardiovascular Exam: +S1, +S2 - GI/Abdominal Exam GI & Abdominal Exam: Soft. absent: Tenderness - Extremities Exam Additional comments: right foot with dressings in place Assessment and Plan - Assessment and Plan (Free Text) Plan: Assessment Right hallux skin and skin structure infection, with no evidence of osteomyelitis on MRI but with probable peripheral arterial disease DM HTN dyslipidemia Plan Gave a dose of IV vancomycin and continue Zosyn day 2 and will continue to monitor clinically follow up vascular consult follow up further Podiatry recommendations
--- NOTE | 2017-07-20 16:35 | PN ---
DATE: SUBJECTIVE: The patient is a 72-year-old white female, who came in because of increasing left foot pain and increasing swelling of her left big toe. Admitted for IV antibiotic and further wound care. PHYSICAL EXAMINATION: GENERAL: She is awake, alert, oriented, communicative, answers appropriately. VITAL SIGNS: She is afebrile, pulse 85, respirations 20, blood pressure 172/80. LUNGS: Bilateral fair airflow. No rhonchi or crackle. HEART: S1 and S2 audible. ABDOMEN: Soft, obese, nontender. No rebound. No guarding. EXTREMITIES: Right foot, she has severe onychomycosis. Left foot is in the dressing. LABORATORY DATA: ESR is 150. Chemistry: Blood sugar is 247. Urine is positive for E. coli. Blood cultures are negative. ASSESSMENT: 1. Morbid obesity. 2. Poorly-controlled diabetes. 3. Hypertension. 4. Left big toe ulcer. 5. Hyperlipidemia. 6. Chronic kidney disease. PLAN: I will increase the patient's hydralazine to 25 t.i.d. since her blood pressure is running in the high side. She is on Coreg. Blood sugar is being monitored and she is on Zofran as recommended by ID. I will start her on small dose of insulin. Monitor her blood sugar closely. She is on DVT prophylaxis. Out of bed to chair. Sage Dickey MD
[2017-07-20] MEDS: Insulin Lispro (humaLOG) MIX 75/25(10 ml) SC SCH (18:15)
[2017-07-21] MEDS: Insulin Reg-MEDIUM-Coverage SC SCH ×5 (00:07→22:52)
[2017-07-21] MEDS: Piperacillin/Tazobact 2.25gm 2.25 GM/100 ML BAG IVPB SCH ×2 (06:05→12:49)
[2017-07-21] MEDS: Insulin Lispro (humaLOG) MIX 75/25(10 ml) SC SCH ×2 (07:30→16:40)
[2017-07-21] MEDS: Enoxaparin 40 mg Syringe SC SCH (10:32)
[2017-07-21] MEDS: Nystatin 100,000 Units/gm Topical Pow(15 gm) TOP SCH ×3 (10:41→17:57)
--- NOTE | 2017-07-21 15:55 | CP.PCM.PN ---
Subjective - Date & Time of Evaluation Date of Evaluation: 07/21/17 Time of Evaluation: 14:40 - Subjective Subjective: Podiatry Progress Note- Dr. Leos 72 y/o female seen at bedside. Prognosis and presentation of left big toe ulceration evaluated. She reports continued soreness to her left big toe, graded 2/10 on VAS pain scale. She denies and acute overnight events. She denies n/v/sob/cp/chills or f. Objective - Vital Signs/Intake and Output Vital Signs (last 24 hours): Temp Pulse Resp BP Pulse Ox 98.8 F 80 20 156/77 H 95 07/21/17 07:30 07/21/17 14:27 07/21/17 07:30 07/21/17 14:27 07/21/17 07:30 Intake and Output: 07/21/17 07/21/17 06:59 18:59 Intake Total 180 480 Output Total 100 Balance 180 380 - Medications Medications: Current Medications Amlodipine Besylate (Norvasc) 10 mg PO DAILY [facility] Last Admin: 07/21/17 10:41 Dose: 10 mg Carvedilol (Coreg) 3.125 mg PO BID [facility] Last Admin: 07/21/17 10:31 Dose: 3.125 mg Doxycycline Hyclate (Doryx) 100 mg PO Q12 [facility] PRN Reason: Protocol Last Admin: 07/21/17 10:32 Dose: 100 mg Enoxaparin Sodium (Lovenox) 40 mg SC DAILY [facility] PRN Reason: Protocol Last Admin: 07/21/17 10:32 Dose: 40 mg Gabapentin (Neurontin) 100 mg PO DAILY [facility] PRN Reason: Protocol Last Admin: 07/21/17 10:31 Dose: 100 mg Hydralazine HCl (Apresoline) 25 mg PO TID [facility] Last Admin: 07/21/17 14:27 Dose: 25 mg Piperacillin Sod/Tazobactam Sod (Zosyn 2.25 Gm In 0.9% 100 Ml) 2.25 gm in 100 mls @ 100 mls/hr IVPB Q6 [facility] Stop: 07/26/17 12:01 Last Admin: 07/21/17 12:49 Dose: 100 mls/hr Insulin Human Regular (Humulin R Med) 0 units SC ACHS [facility] PRN Reason: Protocol Last Admin: 07/21/17 12:22 Dose: 3 units Insulin Lispro Protam/Lispro Human (Humalog Mix 75/25) 12 units SC ACBD [facility] Mirtazapine (Remeron) 15 mg PO HS [facility] Last Admin: 07/20/17 22:08 Dose: 15 mg Mupirocin (Bactroban Ointment) 0 gm TOP DAILY [facility] Last Admin: 07/21/17 10:33 Dose: 1 applic Nystatin (Nystop Topical Powder) 0 gm TOP TID [facility] Last Admin: 07/21/17 14:30 Dose: 1 appl - Labs Labs: PT 11.3 SECONDS (9.4-12.5) 07/18/17 10:00 INR 0.98 (0.93-1.08) 07/18/17 10:00 APTT 27.6 Seconds (25.1-36.5) 07/18/17 10:00 - Constitutional Appears: Well, Non-toxic, No Acute Distress - Extremities Exam Additional comments: Vasc: DP and PT unpalpable. DP dopplerable monophasic bilaterally. CFT delayed to the digits. Temperature gradient cool to cool. Left hallux slightly warm. Mild edema noted to the left forefoot Ortho: pain with palpation to the left hallux. Tenderness to anterior, posterior and lateral muscle bellies. Lower leg and pedal muscle strenght graded as follows: anterior group: right side=4/5 , left side= 3/5; posterior group: right side= 3/5, left side= 3/5; medial group: right side= 4/5 , left side= 3/5; lateral group: right side= 3/5, left side= 3/5. Neuro: protective sensation diminished, gross sensation intact Derm: Necrotic tissue noted to the medial aspect of the left hallux measuring approximately about 1 x 1 cm. There is no open ulceration noted to the left hallux; Erythema noted to the skin surrounding the circumferential necrotic tissue, no drainage, no malodor, no tunneling, or undermining noted. Lateral aspect of 2nd digit with superfici - Neurological Exam Neurological Exam: Alert, Awake, Oriented x3 - Psychiatric Exam Psychiatric exam: Normal Affect, Normal Mood Assessment and Plan - Assessment and Plan (Free Text) Assessment: 72 y.o female with 1)infected superficial ulceration of left hallux, secondary to diabetic neuropathy 2) and superficial ulceration to lateral left 2nd digit. 3) bilateral lower leg myositis. Plan: Patient examined and evaluated with attending, Dr. Monroy. Labs, charts, vitals reviewed- afebrile and absent leukocytosis ESR (07/19/17)= 150 X-rays reviewed - diffuse osteopenia noted, no bony erosion or destruction noted Left foot MRI- negative for osteomyelitis. OLAMIDE/arterial duplex- results show OLAMIDE: Right= 0.49, Left=0.60 with bilateral tibial disease with pulsitile blood flow. C/w empirical IV abx, per ID Vascular Consult placed with Dr. Garcia. Left hallux cleansed with saline solution and dressed with bactroban, dsd, and cling Physical therapy consulted- WBAT to forefoot offloading shoe Pursue lower extremity reconditioning and strengthening, Podiatry will continue to follow while patient is in house
--- NOTE | 2017-07-21 18:56 | PN ---
DATE: SUBJECTIVE: The patient is a 72 years old, seen and examined, lying in bed, seems to be comfortable. No complaint of nausea, no vomiting. Does have diarrhea according to nursing staff, seems like C. diff. So, stool is being sent for C. diff. PHYSICAL EXAMINATION VITAL SIGNS: She is afebrile, pulse 84, respirations 20, blood pressure is 156/77. LUNGS: Bilaterally good airflow. No rhonchi or crackle. HEART: S1 and S2 audible. ABDOMEN: Soft, obese, nontender. No rebound. No guarding. NEUROLOGIC: She is awake, alert, oriented, communicative. Moves all extremities. Bilateral legs +2 edema. Left foot is in the dressing. LABORATORY DATA: Chemistry: Blood sugar is 210. Urine is growing E. coli. Stool for C. diff is negative. ASSESSMENT: 1. Left foot diabetic ulcer. 2. No evidence of osteomyelitis. 3. Khl-jahacie-dyhyjedfy diabetes. 4. Hypertension. 5. Morbid obesity. 6. Hyperlipidemia. 7. Chronic kidney disease. 8. Diarrhea. Negative for stool for Clostridium difficile. PLAN: The patient is currently on Coreg. She is on doxycycline. Blood sugar is being monitored. We will increase her insulin from 10 to 12 units before breakfast and dinner. Monitor it closely. Out of bed to chair. Currently she is on Zosyn as per ID recommendation. She is on DVT prophylaxis. Sage Dickey MD
[2017-07-22] MEDS: Piperacillin/Tazobact 2.25gm 2.25 GM/100 ML BAG IVPB SCH ×5 (00:24→23:23)
[2017-07-22] MEDS: Insulin Reg-MEDIUM-Coverage SC SCH ×4 (08:05→23:20)
--- NOTE | 2017-07-22 08:13 | PN ---
DATE: SUBJECTIVE: The patient has no complaints of any chest pain. No shortness of breath. No headaches or dizziness. PHYSICAL EXAMINATION VITAL SIGNS: Temperature is 98.1, pulse of 60, blood pressure is 110/58, respirations 18. GENERAL: The patient is lying in bed, flat, comfortable. HEENT: No oral lesion. Anicteric sclerae. Moist mucosa. NECK: No JVD, adenopathy, or thyromegaly. CARDIOVASCULAR: S1 and S2, regular. No murmurs, rubs, or gallops. LUNGS: Clear to auscultation bilaterally. No wheeze, rales, or rhonchi. ABDOMEN: Bowel sounds are positive. Soft, nontender and nondistended. EXTREMITIES: No cyanosis, clubbing or edema. LABORATORY DATA: White count of 10.8, hemoglobin 9.6. Creatinine is 1.8. ASSESSMENT 1. Left foot ulcer. 2. Chronic kidney disease stage 3. 3. Diabetes type 2. 4. Hypertension. 5. Colon polyps. 6. Obesity with body mass index of 46. PLAN: The patient is currently comfortable. She is being treated for her diabetic foot ulcer. There is no signs of osteomyelitis. She is on carvedilol. She is going to continue with doxycycline for her antibiotics. She is on Lovenox for DVT prophylaxis. She is on Neurontin for neuropathy. The patient is on Zosyn for antibiotics. She may possibly need to go to subacute rehab. I will speak with social work assistant and classification case manager. Moe Thurman MD
[2017-07-22] MEDS: Nystatin 100,000 Units/gm Topical Pow(15 gm) TOP SCH ×3 (10:45→18:19)
[2017-07-22] MEDS: Enoxaparin 40 mg Syringe SC SCH (10:46)
[2017-07-22] MEDS: Insulin Lispro (humaLOG) MIX 75/25(10 ml) SC SCH ×2 (10:49→18:17)
--- NOTE | 2017-07-22 16:36 | CP.PCM.PN ---
Subjective - Date & Time of Evaluation Date of Evaluation: 07/22/17 Time of Evaluation: 12:30 - Subjective Subjective: Comfortable, no fevers. Objective - Vital Signs/Intake and Output Vital Signs (last 24 hours): Temp Pulse Resp BP Pulse Ox 98.4 F 85 20 172/80 H 96 07/20/17 07:30 07/20/17 07:30 07/20/17 07:30 07/20/17 09:53 07/20/17 07:30 Intake and Output: 07/20/17 07/20/17 06:59 18:59 Intake Total 540 640 Output Total 1100 600 Balance -560 40 - Medications Medications: Current Medications Amlodipine Besylate (Norvasc) 10 mg PO DAILY [facility] Last Admin: 07/20/17 09:53 Dose: 10 mg Carvedilol (Coreg) 3.125 mg PO BID [facility] Last Admin: 07/20/17 09:53 Dose: 3.125 mg Enoxaparin Sodium (Lovenox) 40 mg SC DAILY [facility] PRN Reason: Protocol Last Admin: 07/20/17 15:15 Dose: 40 mg Gabapentin (Neurontin) 100 mg PO DAILY [facility] PRN Reason: Protocol Last Admin: 07/20/17 09:53 Dose: 100 mg Hydralazine HCl (Apresoline) 25 mg PO TID [facility] Last Admin: 07/20/17 15:16 Dose: 25 mg Piperacillin Sod/Tazobactam Sod (Zosyn 2.25 Gm In 0.9% 100 Ml) 2.25 gm in 100 mls @ 100 mls/hr IVPB Q6 [facility] Stop: 07/26/17 12:01 Last Admin: 07/20/17 12:19 Dose: 100 mls/hr Insulin Human Regular (Humulin R Med) 0 units SC ACHS [facility] PRN Reason: Protocol Last Admin: 07/20/17 12:32 Dose: 3 units Insulin Lispro Protam/Lispro Human (Humalog Mix 75/25) 10 units SC ACBD [facility] Mirtazapine (Remeron) 15 mg PO HS [facility] Last Admin: 07/19/17 21:42 Dose: 15 mg Mupirocin (Bactroban Ointment) 0 gm TOP DAILY [facility] Last Admin: 07/20/17 09:53 Dose: 1 applic Nystatin (Nystop Topical Powder) 0 gm TOP TID [facility] Last Admin: 07/20/17 14:50 Dose: 1 appl - Labs Labs: PT 11.3 SECONDS (9.4-12.5) 07/18/17 10:00 INR 0.98 (0.93-1.08) 07/18/17 10:00 APTT 27.6 Seconds (25.1-36.5) 07/18/17 10:00 - Constitutional Appears: Chronically Ill - Head Exam Head Exam: NORMAL INSPECTION - ENT Exam ENT Exam: Mucous Membranes Moist - Neck Exam Neck Exam: absent: Meningismus - Respiratory Exam Respiratory Exam: Decreased Breath Sounds - Cardiovascular Exam Cardiovascular Exam: +S1, +S2 - GI/Abdominal Exam GI & Abdominal Exam: Soft. absent: Tenderness - Extremities Exam Additional comments: right foot with dressings in place Assessment and Plan - Assessment and Plan (Free Text) Plan: Assessment Right hallux skin and skin structure infection, with no evidence of osteomyelitis on MRI but with probable peripheral arterial disease DM HTN dyslipidemia Plan Gave a dose of IV vancomycin and continue Zosyn day 4 and will continue to monitor clinically follow up vascular consult and work up follow up further Podiatry recommendations
[2017-07-22 18:25] VITALS: RESP 20
--- NOTE | 2017-07-22 18:58 | CP.PCM.PN ---
Subjective - Date & Time of Evaluation Date of Evaluation: 07/22/17 Time of Evaluation: 18:54 - Subjective Subjective: Podiatry Progress Note- Dr. Leos 72 year old female seen and evaluated at bedside for left hallux ulceration. Patient is seen resting comfortably in bed, in NAD, and AA0x3. Patient reports the same sore to her left foot. She denies and acute overnight events. She denies n/v/sob/cp/chills or f. Objective - Vital Signs/Intake and Output Vital Signs (last 24 hours): Temp Pulse Resp BP Pulse Ox 98 F 83 20 172/77 H 98 07/22/17 14:00 07/22/17 18:18 07/22/17 14:00 07/22/17 18:18 07/22/17 14:00 Intake and Output: 07/22/17 07/22/17 06:59 18:59 Intake Total 1020 480 Output Total 100 Balance 920 480 - Medications Medications: Current Medications Amlodipine Besylate (Norvasc) 10 mg PO DAILY [facility] Last Admin: 07/22/17 10:45 Dose: 10 mg Aspirin (Aspirin Chewable) 81 mg PO DAILY [facility] Carvedilol (Coreg) 3.125 mg PO BID [facility] Last Admin: 07/22/17 18:18 Dose: 3.125 mg Doxycycline Hyclate (Doryx) 100 mg PO Q12 [facility] PRN Reason: Protocol Last Admin: 07/22/17 10:44 Dose: 100 mg Enoxaparin Sodium (Lovenox) 30 mg SC DAILY [facility] PRN Reason: Protocol Gabapentin (Neurontin) 100 mg PO DAILY [facility] PRN Reason: Protocol Last Admin: 07/22/17 10:45 Dose: 100 mg Hydralazine HCl (Apresoline) 25 mg PO TID [facility] Last Admin: 07/22/17 18:09 Dose: 25 mg Piperacillin Sod/Tazobactam Sod (Zosyn 2.25 Gm In 0.9% 100 Ml) 2.25 gm in 100 mls @ 100 mls/hr IVPB Q6 [facility] Stop: 07/26/17 12:01 Last Admin: 07/22/17 18:05 Dose: 100 mls/hr Insulin Human Regular (Humulin R Med) 0 units SC ACHS [facility] PRN Reason: Protocol Last Admin: 07/22/17 14:18 Dose: Not Given Insulin Lispro Protam/Lispro Human (Humalog Mix 75/25) 12 units SC ACBD [facility] Last Admin: 07/22/17 18:17 Dose: 12 units Mirtazapine (Remeron) 15 mg PO HS [facility] Last Admin: 07/21/17 22:51 Dose: 15 mg Mupirocin (Bactroban Ointment) 0 gm TOP DAILY [facility] Last Admin: 07/22/17 10:49 Dose: 1 applic Nystatin (Nystop Topical Powder) 0 gm TOP TID [facility] Last Admin: 07/22/17 18:19 Dose: 1 appl - Labs Labs: PT 11.3 SECONDS (9.4-12.5) 07/18/17 10:00 INR 0.98 (0.93-1.08) 07/18/17 10:00 APTT 27.6 Seconds (25.1-36.5) 07/18/17 10:00 - Constitutional Appears: Well, Non-toxic, No Acute Distress - Extremities Exam Additional comments: Vasc: DP and PT unpalpable. DP dopplerable monophasic bilaterally. CFT delayed to the digits. Temperature gradient cool to cool. Left hallux slightly warm. Mild edema noted to the left forefoot Ortho: pain with palpation to the left hallux. Tenderness to anterior, posterior and lateral muscle bellies. Lower leg and pedal muscle strenght graded as follows: anterior group: right side=4/5 , left side= 3/5; posterior group: right side= 3/5, left side= 3/5; medial group: right side= 4/5 , left side= 3/5; lateral group: right side= 3/5, left side= 3/5. Neuro: protective sensation diminished, gross sensation intact Derm: Necrotic tissue noted to the medial aspect of the left hallux measuring approximately about 1 x 1 cm. Erythema noted to the skin surrounding the circumferential necrotic tissue, no drainage, no malodor, no tunneling, or undermining noted. Lateral aspect of 2nd digit with superficial ulceration - Neurological Exam Neurological Exam: Alert, Awake, Oriented x3 - Psychiatric Exam Psychiatric exam: Normal Affect, Normal Mood Assessment and Plan - Assessment and Plan (Free Text) Assessment: 72 y.o female with 1)infected superficial ulceration of left hallux, secondary to diabetic neuropathy 2) and superficial ulceration to lateral left 2nd digit. 3) bilateral lower leg myositis. Plan: Patient examined and evaluated with attending, Dr. Monroy. Labs, charts, vitals reviewed- afebrile and absent leukocytosis ESR (07/19/17)= 150 X-rays reviewed - diffuse osteopenia noted, no bony erosion or destruction noted Left foot MRI- negative for osteomyelitis. OLAMIDE/arterial duplex- results show OLAMIDE: Right= 0.49, Left=0.60 with bilateral tibial disease with pulsitile blood flow. C/w empirical IV abx, per ID Vascular Consult placed with Dr. Garcia. Left hallux cleansed with saline solution and dressed with bactroban and optifoam Physical therapy consulted- WBAT to forefoot offloading shoe Pursue lower extremity reconditioning and strengthening, Podiatry will continue to follow while patient is in house
[2017-07-23] MEDS: Piperacillin/Tazobact 2.25gm 2.25 GM/100 ML BAG IVPB SCH ×2 (05:28→11:32)
[2017-07-23 07:02] VITALS: PULSE 84
[2017-07-23] MEDS: Insulin Reg-MEDIUM-Coverage SC SCH ×3 (08:11→15:58)
[2017-07-23] MEDS: Insulin Lispro (humaLOG) MIX 75/25(10 ml) SC SCH ×2 (08:12→16:09)
[2017-07-23 09:30] VITALS: TEMP 98.8; O2SAT 99
[2017-07-23] MEDS ORDERED: Enoxaparin 30 mg Syringe SC SCH (10:00)
[2017-07-23] MEDS: Nystatin 100,000 Units/gm Topical Pow(15 gm) TOP SCH ×2 (10:29→13:05)
[2017-07-23 10:30] VITALS: BP 160/80
--- NOTE | 2017-07-23 12:06 | CP.PCM.PN ---
<Bhavik Jane - Last Filed: 07/23/17 13:36> Subjective - Date & Time of Evaluation Date of Evaluation: 07/23/17 Time of Evaluation: 11:00 - Subjective Subjective: Podiatry Progress Note- Dr. Monroy 72 year old female seen and evaluated at bedside for left hallux ulceration. Patient is seen resting comfortably in bed, in NAD, and AA0x3. Patient reports the same sore to her left foot. She denies and acute overnight events. She denies n/v/sob/cp/chills or f. No new pedal complaints Objective - Vital Signs/Intake and Output Vital Signs (last 24 hours): Temp Pulse Resp BP Pulse Ox 98.8 F 84 20 160/80 H 99 07/23/17 07:30 07/23/17 07:30 07/23/17 07:30 07/23/17 10:27 07/23/17 07:30 Intake and Output: 07/23/17 07/23/17 06:59 18:59 Intake Total 660 Output Total 800 Balance -140 - Medications Medications: Current Medications Amlodipine Besylate (Norvasc) 10 mg PO DAILY [facility] Last Admin: 07/23/17 10:27 Dose: 10 mg Aspirin (Aspirin Chewable) 81 mg PO DAILY [facility] Last Admin: 07/23/17 10:27 Dose: 81 mg Carvedilol (Coreg) 3.125 mg PO BID [facility] Last Admin: 07/23/17 11:33 Dose: 3.125 mg Doxycycline Hyclate (Doryx) 100 mg PO Q12 [facility] PRN Reason: Protocol Last Admin: 07/23/17 10:27 Dose: 100 mg Enoxaparin Sodium (Lovenox) 30 mg SC DAILY [facility] PRN Reason: Protocol Last Admin: 07/23/17 10:28 Dose: 30 mg Gabapentin (Neurontin) 100 mg PO TID [facility] PRN Reason: Protocol Last Admin: 07/23/17 10:27 Dose: 100 mg Hydralazine HCl (Apresoline) 25 mg PO TID [facility] Last Admin: 07/23/17 10:22 Dose: Not Given Piperacillin Sod/Tazobactam Sod (Zosyn 2.25 Gm In 0.9% 100 Ml) 2.25 gm in 100 mls @ 100 mls/hr IVPB Q6 [facility] Stop: 07/26/17 12:01 Last Admin: 07/23/17 11:32 Dose: 100 mls/hr Insulin Human Regular (Humulin R Med) 0 units SC ACHS [facility] PRN Reason: Protocol Last Admin: 07/23/17 11:33 Dose: 5 units Insulin Lispro Protam/Lispro Human (Humalog Mix 75/25) 12 units SC ACBD [facility] Last Admin: 07/23/17 08:12 Dose: 12 units Mirtazapine (Remeron) 15 mg PO HS [facility] Last Admin: 07/22/17 21:04 Dose: 15 mg Mupirocin (Bactroban Ointment) 0 gm TOP DAILY [facility] Last Admin: 07/23/17 10:22 Dose: 1 applic Nystatin (Nystop Topical Powder) 0 gm TOP TID [facility] Last Admin: 07/23/17 10:29 Dose: 1 appl - Labs Labs: PT 11.3 SECONDS (9.4-12.5) 07/18/17 10:00 INR 0.98 (0.93-1.08) 07/18/17 10:00 APTT 27.6 Seconds (25.1-36.5) 07/18/17 10:00 - Constitutional Appears: Well, Non-toxic, No Acute Distress - Extremities Exam Extremities Exam: absent: Calf Tenderness Additional comments: Vasc: DP and PT unpalpable. DP dopplerable monophasic bilaterally. CFT delayed to the digits. Temperature gradient cool to cool. Left hallux slightly warm. Mild edema noted to the left forefoot Ortho: pain with palpation to the left hallux. Tenderness to anterior, posterior and lateral muscle bellies. Lower leg and pedal muscle strenght graded as follows: anterior group: right side=4/5 , left side= 3/5; posterior group: right side= 3/5, left side= 3/5; medial group: right side= 4/5 , left side= 3/5; lateral group: right side= 3/5, left side= 3/5. Neuro: protective sensation diminished, gross sensation intact Derm: Necrotic tissue noted to the medial aspect of the left hallux measuring approximately about 1 x 1 cm. Erythema noted to the skin surrounding the circumferential necrotic tissue, no drainage, no malodor, no tunneling, or undermining noted. Lateral aspect of 2nd digit with superficial ulceration - Neurological Exam Neurological Exam: Alert, Awake - Psychiatric Exam Psychiatric exam: Normal Affect, Normal Mood Assessment and Plan - Assessment and Plan (Free Text) Assessment: 72 y.o female with 1)infected superficial ulceration of left hallux, secondary to diabetic neuropathy 2) and superficial ulceration to lateral left 2nd digit. 3) bilateral lower leg myositis. Plan: : Patient examined and evaluated with attending, Dr. Monroy. Labs, charts, vitals reviewed- afebrile and absent leukocytosis ESR (07/19/17)= 150 X-rays reviewed - diffuse osteopenia noted, no bony erosion or destruction noted Left foot MRI- negative for osteomyelitis. OLAMIDE/arterial duplex- results show OLAMIDE: Right= 0.49, Left=0.60 with bilateral tibial disease with pulsitile blood flow. C/w empirical IV abx, per ID Vascular Consult placed with Dr. Garcia. Left hallux cleansed with saline solution and dressed with bactroban and optifoam Physical therapy consulted- WBAT to forefoot offloading shoe Pursue lower extremity reconditioning and strengthening, Podiatry will continue to follow while patient is in house <Jason Monroy - Last Filed: 07/23/17 16:21> Objective - Vital Signs/Intake and Output Vital Signs (last 24 hours): Temp Pulse Resp BP Pulse Ox 98.8 F 84 20 160/80 H 99 07/23/17 07:30 07/23/17 07:30 07/23/17 07:30 07/23/17 10:27 07/23/17 07:30 Intake and Output: 07/23/17 07/23/17 06:59 18:59 Intake Total 660 560 Output Total 800 Balance -140 560 - Medications Medications: Current Medications Amlodipine Besylate (Norvasc) 10 mg PO DAILY [facility] Last Admin: 07/23/17 10:27 Dose: 10 mg Aspirin (Aspirin Chewable) 81 mg PO DAILY [facility] Last Admin: 07/23/17 10:27 Dose: 81 mg Carvedilol (Coreg) 3.125 mg PO BID [facility] Last Admin: 07/23/17 11:33 Dose: 3.125 mg Doxycycline Hyclate (Doryx) 100 mg PO Q12 [facility] PRN Reason: Protocol Last Admin: 07/23/17 10:27 Dose: 100 mg Enoxaparin Sodium (Lovenox) 30 mg SC DAILY [facility] PRN Reason: Protocol Last Admin: 07/23/17 10:28 Dose: 30 mg Gabapentin (Neurontin) 100 mg PO TID [facility] PRN Reason: Protocol Last Admin: 07/23/17 13:05 Dose: 100 mg Hydralazine HCl (Apresoline) 25 mg PO TID [facility] Last Admin: 07/23/17 13:05 Dose: 25 mg Piperacillin Sod/Tazobactam Sod (Zosyn 2.25 Gm In 0.9% 100 Ml) 2.25 gm in 100 mls @ 100 mls/hr IVPB Q6 [facility] Stop: 07/26/17 12:01 Last Admin: 07/23/17 11:32 Dose: 100 mls/hr Insulin Human Regular (Humulin R Med) 0 units SC ACHS [facility] PRN Reason: Protocol Last Admin: 07/23/17 15:58 Dose: Not Given Insulin Lispro Protam/Lispro Human (Humalog Mix 75/25) 12 units SC ACBD [facility] Last Admin: 07/23/17 16:09 Dose: 12 units Mirtazapine (Remeron) 15 mg PO HS [facility] Last Admin: 07/22/17 21:04 Dose: 15 mg Mupirocin (Bactroban Ointment) 0 gm TOP DAILY [facility] Last Admin: 07/23/17 10:22 Dose: 1 applic Nystatin (Nystop Topical Powder) 0 gm TOP TID [facility] Last Admin: 07/23/17 13:05 Dose: 1 appl - Labs Labs: PT 11.3 SECONDS (9.4-12.5) 07/18/17 10:00 INR 0.98 (0.93-1.08) 07/18/17 10:00 APTT 27.6 Seconds (25.1-36.5) 07/18/17 10:00 Attending/Attestation - Attestation I have personally seen and examined this patient.: Yes I have fully participated in the care of the patient.: Yes I have reviewed all pertinent clinical information, including history, physical exam and plan: Yes
--- NOTE | 2017-07-23 13:24 | DS ---
HISTORY OF PRESENT ILLNESS: The patient is a 72-year-old female who had come in to the hospital because of a left toe ulcer. The patient was seen by Infectious Disease and Podiatry. The patient had local wound care and MRI done, did not show any signs of osteomyelitis. The patient had lower extremity Doppler study done that showed peripheral arterial disease. She is awaiting to be seen by Dr. Doron Garcia. The patient has no complaints of any chest pain or shortness of breath. No headaches or dizziness. She is willing to go to Transitional Care Unit as well. PHYSICAL EXAMINATION: VITAL SIGNS: Temperature is 97.7, pulse of 78, blood pressure is 168/72. GENERAL: The patient is lying in bed, flat, comfortable. HEENT: No oral lesion. Anicteric sclerae. Moist mucosa. NECK: No JVD, adenopathy, or thyromegaly. CARDIOVASCULAR: S1 and S2, regular. No murmurs, rubs, or gallops. LUNGS: Clear to auscultation bilaterally. No wheeze, rales, or rhonchi. ABDOMEN: Bowel sounds are positive, soft, nontender and nondistended. EXTREMITIES: No cyanosis, clubbing, or edema. ASSESSMENT: 1. Left toe ulcer/superficial. 2. Diabetic neuropathy. 3. Peripheral arterial disease. 4. Chronic kidney disease, stage 3. 5. Diabetes type 2. 6. Hypertension. 7. Obesity with a body mass index of 46. 8. Colon polyps. PLAN: The patient is on aspirin for her peripheral arterial disease. She is going to continue with Coreg. She is on hydralazine for her hypertension. She is on doxycycline for antibiotics. She is on insulin for her diabetes. She is on Neurontin for her neuropathy. I will increase her gabapentin for her neuropathy. I did speak to the patient's sister yesterday to give an update on the patient 's diagnosis and plan of care. She is going to continue her Remeron. She is on Zosyn for antibiotics. She is on a carbohydrate consistent diet. Moe Thurman MD
--- NOTE | 2017-07-23 22:58 | PN ---
DATE: SUBJECTIVE: The patient is seen in bed, in no acute distress, was seen early this morning in 561, bed 2. PHYSICAL EXAMINATION: VITAL SIGNS: On exam, temperature 98, blood pressure is 160/80, respiratory rate of 18, heart rate of 84. HEENT: Unremarkable. NECK: Supple. LUNGS: Have decreased breath sounds. HEART: Normal S1 and S2. ABDOMEN: Soft. LABORATORY DATA: Reveals the patient's white count of 10,000. Chemistries are noted and BUN of 27, creatinine of 1.8. Urinalysis is noted. Microbiology reveals E. coli in the urine. Sensitivity is reviewed, pansensitive E. coli, and blood cultures are negative. Stool for C. diff antigen and toxin are both negative. ASSESSMENT AND PLAN: This is a 72-year-old female who was seen early this morning in room 561 bed 2, who was admitted with right hallux skin and skin structure infection with no evidence of osteo on MRI, with probable peripheral arterial disease and diabetic, hypertensive, and with Escherichia coli in the urine and on Zosyn day #5, in patient with dyslipidemia. Vascular workup and podiatry recommendations, and urinalysis only 5 to 10 wbcs, large bacteria. We will follow with you. Delano Mohan MD
--- NOTE | 2017-07-24 02:46 | CON ---
DATE: 07/23/2017 TIME: 6:40 p.m. CHIEF COMPLAINT/HISTORY OF PRESENT ILLNESS: This is a 72-year-old female admitted with an ischemic ulcer of her left great toe. The patient states the ulceration may have been present before . It is a punched-out 2 cm ischemic ulcer with a gangrenous base. She states that the toe sometimes bothers her, but it is not particularly painful. PAST MEDICAL HISTORY: Significant for type 2 diabetes, hypertension, and renal insufficiency. She has had a previous CVA. PHYSICAL EXAMINATION: She has palpable femoral and popliteal pulses. Her pedal pulses are not palpable. Her recent OLAMIDE/PVR exam demonstrates bilateral tibial disease. IMPRESSION AND PLAN: I had a discussion with the patient and Dr. Thurman. This likely represents the manifestation of her diabetes and small vessel disease. Unfortunately, her creatinine is elevated at approximately 1.8. We will hydrate her and perform a limited left lower extremity angiogram to see if any distal revascularization can be obtained. The risks were discussed with the patient. Doron Garcia MD [facility]
== END 2017-07-23 16:15 | DRG 300 ==
LOC: ED 08:02 → ERH 11:32 → 5RSO 13:34 → 5RNO 07-23 11:30
PROVIDERS: ADMIT Internal Medicine Nephrology; ATTEND Internal Medicine Nephrology
PROC: 0HBNXZZ Excision of Left Foot Skin, External Approach (ICD-10-PCS; principal; 2017-07-20)
DX: E11.52 Type 2 diabetes mellitus with diabetic peripheral angiopathy with gangrene (principal); E11.22 Type 2 diabetes mellitus with diabetic chronic kidney disease; E11.40 Type 2 diabetes mellitus with diabetic neuropathy, unspecified; Z68.42 Body mass index [BMI] 45.0-49.9, adult; E11.621 Type 2 diabetes mellitus with foot ulcer; L97.529 Non-pressure chronic ulcer of other part of left foot with unspecified severity; I12.9 Hypertensive chronic kidney disease with stage 1 through stage 4 chronic kidney disease, or unspecified chronic kidney disease; N18.3 Chronic kidney disease, stage 3 (moderate); E66.01 Morbid (severe) obesity due to excess calories; E78.00 Pure hypercholesterolemia, unspecified; E11.65 Type 2 diabetes mellitus with hyperglycemia; M60.9 Myositis, unspecified; B96.20 Unspecified Escherichia coli [E. coli] as the cause of diseases classified elsewhere; Z79.4 Long term (current) use of insulin; Z86.73 Personal history of transient ischemic attack (TIA), and cerebral infarction without residual deficits; Z86.010 Personal history of colon polyps; Z91.81 History of falling

== ENCOUNTER 2017-07-23 16:52 | Inpatient (IN) | payer OTHER ==
[2017-07-23 17:01] VITALS: BMI 27.1
[2017-07-23] MEDS: Piperacillin/Tazobact 2.25gm 2.25 GM/100 ML BAG IVPB SCH (18:21)
[2017-07-23] MEDS ORDERED: Insulin Reg-MEDIUM-Coverage SC SCH ×2 (18:24→22:00)
[2017-07-23] MEDS: Insulin Reg-MEDIUM-Coverage SC SCH ×2 (18:29→22:25)
[2017-07-23] MEDS: Nystatin 100,000 Units/gm Topical Pow(15 gm) TOP SCH (18:42)
[2017-07-24] MEDS ORDERED: Pneumococcal 23-Valent Vaccine IM ONE (00:51)
[2017-07-24] MEDS ORDERED: Influenza Vaccine 60 mcg/0.5 mL SYR (4YR UP) IM ONE (00:51)
[2017-07-24] MEDS: Piperacillin/Tazobact 2.25gm 2.25 GM/100 ML BAG IVPB SCH ×2 (00:54→22:28)
[2017-07-24] MEDS: Enoxaparin 30 mg Syringe SC SCH (06:28)
[2017-07-24] MEDS ORDERED: Insulin Lispro (humaLOG) MIX 75/25(10 ml) SC SCH (06:30)
[2017-07-24] MEDS: Insulin Reg-MEDIUM-Coverage SC SCH ×4 (06:39→22:53)
[2017-07-24] MEDS: Nystatin 100,000 Units/gm Topical Pow(15 gm) TOP SCH ×2 (10:46→14:46)
--- NOTE | 2017-07-24 11:59 | CP.PCM.PN ---
Subjective - Date & Time of Evaluation Date of Evaluation: 07/24/17 Time of Evaluation: 16:42 - Subjective Subjective: Podiatry Progress Note-Dr. Leos 72 year old female was seen working with physical therapy during visitation. Patient is awake and alert. Patient is seen wearing forefoot offloading shoe having somewhat difficulty walking in shoes with ambulatory aid. Dressing to the LE is c/d/i without strikethrough. Objective - Vital Signs/Intake and Output Vital Signs (last 24 hours): Temp Pulse Resp BP Pulse Ox 98.5 F 91 H 18 193/86 H 98 07/24/17 00:13 07/24/17 10:44 07/24/17 00:13 07/24/17 10:46 07/23/17 16:55 - Medications Medications: Current Medications Amlodipine Besylate (Norvasc) 10 mg PO DAILY [facility] PRN Reason: Protocol Last Admin: 07/24/17 10:46 Dose: 10 mg Aspirin (Ecotrin) 81 mg PO 0800 [facility] PRN Reason: Protocol Last Admin: 07/24/17 08:23 Dose: 81 mg Carvedilol (Coreg) 3.125 mg PO 0800,1800 [facility] PRN Reason: Protocol Last Admin: 07/24/17 08:23 Dose: 3.125 mg Doxycycline Hyclate (Doryx) 100 mg PO Q12 [facility] PRN Reason: Protocol Last Admin: 07/24/17 10:45 Dose: 100 mg Enoxaparin Sodium (Lovenox) 30 mg SC 0600 [facility] PRN Reason: Protocol Last Admin: 07/24/17 06:28 Dose: 30 mg Gabapentin (Neurontin) 100 mg PO TID [facility] PRN Reason: Protocol Last Admin: 07/24/17 10:45 Dose: 100 mg Hydralazine HCl (Apresoline) 25 mg PO TID [facility] PRN Reason: Protocol Last Admin: 07/24/17 10:44 Dose: 25 mg Insulin Human Regular (Humulin R Med) 0 units SC ACHS [facility] PRN Reason: Protocol Last Admin: 07/24/17 06:39 Dose: Not Given Insulin Lispro Protam/Lispro Human (Humalog Mix 75/25) 12 units SC 0630,1700 [facility] PRN Reason: Protocol Mirtazapine (Remeron) 15 mg PO HS [facility] PRN Reason: Protocol Last Admin: 07/23/17 22:26 Dose: 15 mg Mupirocin (Bactroban Ointment) 1 gm TOP DAILY [facility] PRN Reason: Protocol Last Admin: 07/24/17 10:45 Dose: 1 applic Nystatin (Nystop Topical Powder) 1 gm TOP TID [facility] PRN Reason: Protocol Last Admin: 07/24/17 10:46 Dose: 1 applic - Constitutional Appears: Well, Non-toxic, No Acute Distress - Extremities Exam Extremities Exam: absent: Calf Tenderness Additional comments: Dressing is c/d/i - Neurological Exam Neurological Exam: Alert, Awake, Oriented x3 - Psychiatric Exam Psychiatric exam: Normal Affect, Normal Mood Assessment and Plan - Assessment and Plan (Free Text) Assessment: 72 y.o female with 1)infected superficial ulceration of left hallux, secondary to diabetic neuropathy 2) and superficial ulceration to lateral left 2nd digit. 3) bilateral lower leg myositis. Plan: Patient examined and evaluated with attending, Dr. Leos Labs, charts, vitals reviewed- afebrile and absent leukocytosis ESR (07/19/17)= 150 X-rays reviewed - diffuse osteopenia noted, no bony erosion or destruction noted Left foot MRI- negative for osteomyelitis. OLAMIDE/arterial duplex- results show OLAMIDE: Right= 0.49, Left=0.60 with bilateral tibial disease with pulsitile blood flow. C/w empirical IV abx, per ID Vascular recommendations appreciated- will hydrate patient given elevated creatinine and perform limited left LE angiogram to see if any distal revaszularization can be obtained Dressing is c/d/i Will bring nail nippers to cut elongated toenails tomorrow Physical therapy consulted- WBAT to surgical shoe -Discussed with physical therapy, patient unstable with forefoot relief offloading shoe -WBAT to surgical shoe -Pursue lower extremity reconditioning and strengthening, Podiatry will continue to follow while patient is in house
[2017-07-24] MEDS: Insulin Lispro (humaLOG) MIX 75/25(10 ml) SC SCH (17:29)
--- NOTE | 2017-07-24 21:00 | PN ---
DATE: 07/24/2017 SUBJECTIVE: The patient has no complaints of any chest pain. No shortness of breath. No headaches or dizziness. I initial H and P was reviewed and I agreed with. OBJECTIVE: VITAL SIGNS: Temperature is 97.9, pulse of 85, blood pressure is 122/81, respirations 20. GENERAL: The patient is lying in bed, flat, comfortable. HEENT: No oral lesion. Anicteric sclerae. Moist mucosa. NECK: No JVD, adenopathy, or thyromegaly. CARDIOVASCULAR: S1 and S2, regular. No murmurs, rubs, or gallops. LUNGS: Clear to auscultation bilaterally. No wheeze, rales, or rhonchi. ABDOMEN: Bowel sounds are positive. Soft, nontender and nondistended. EXTREMITIES: No cyanosis, clubbing or edema. Before this, initial H and P was reviewed and I agreed with. ASSESSMENT: 1. Left toe ulcer. 2. Diabetic neuropathy. 3. Peripheral arterial disease. 4. Chronic kidney disease, stage 3. 5. Diabetes type 2. 6. Hypertension. 7. Obesity with a body mass index of 46. 8. Colon polyps. PLAN: The patient is on hydralazine for her blood pressure. She is on carvedilol. She is going to continue with doxycycline for antibiotics. She is being followed by Dr. Mohan and Dr. Leos. For her ulcer, she is to get angiogram on her legs on Saturday. She is on Lovenox for DVT prophylaxis. She is on Norvasc for hypertension. She is going to be on IV fluids on Saturday night blood work on Saturday morning. Moe Thurman MD MTDStella
[2017-07-24] MEDS ORDERED: Piperacillin/Tazobact 2.25gm 2.25 GM/100 ML BAG IVPB SCH ×2 (22:00)
--- NOTE | 2017-07-25 05:06 | CON ---
DATE: 07/24/2017 CHIEF COMPLAINT: Weakness times several days. HISTORY OF PRESENT ILLNESS: This is a 72-year-old female, transferred from an acute care with past medical history significant for diabetes mellitus, peripheral artery disease, hypertension, was found to have E. coli in the urine and had a right hallux foot cellulitis. MRI was negative for osteo. The patient was transferred to transitional care for further IV antibiotics and management. REVIEW OF SYSTEMS: Revealed the patient has no fevers and chills. No chest pain, shortness of breath or cough. No abdominal pain, diarrhea or constipation. PAST MEDICAL HISTORY: Significant for diabetes, hypertension, hyperlipidemia and cerebrovascular accident. PAST SURGICAL HISTORY: Significant for polyps removed, hemicolectomy. ALLERGIES: THE PATIENT HAS NO KNOWN ALLERGIES. MEDICATIONS: Reviewed. PHYSICAL EXAMINATION: GENERAL: The patient is in bed, no acute distress, answering questions appropriately. VITAL SIGNS: Temperature of 98, blood pressure is 120/80, respiratory rate of 20, heart rate of 85. HEENT: Examination of HEENT is unremarkable. NECK: Supple. LUNGS: Have decreased breath sounds. HEART: Normal S1 and S2. ABDOMEN: Soft. EXTREMITIES: Examinations of the foot reveals the patient to have significant erythema with a central ecchymotic area. LABORATORY DATA: Laboratory examination reveals a white count of 10,000, hemoglobin of 9, platelets of 230. Chemistries are noted. The creatinine is 1.8. Microbiology reveals that there is E. coli in the urine. The blood cultures are negative. ASSESSMENT AND PLAN: A 72-year-old female with a right hallux skin and skin structure infection. No evidence of osteomyelitis on MRI. Day #6 of Zosyn with renal insufficiency. We will continue Zosyn. Still significant findings on physical exam. Review of medications reveals the patient to be on Apresoline, Coreg. The patient is also on p.o. doxycycline. We will discuss with Podiatry. We will follow with you. Delano Mohna MD
[2017-07-25] MEDS: Piperacillin/Tazobact 2.25gm 2.25 GM/100 ML BAG IVPB SCH ×3 (05:37→21:29)
[2017-07-25] MEDS: Enoxaparin 30 mg Syringe SC SCH (05:37)
[2017-07-25] MEDS: Insulin Lispro (humaLOG) MIX 75/25(10 ml) SC SCH ×2 (07:01→17:24)
[2017-07-25] MEDS: Insulin Reg-MEDIUM-Coverage SC SCH ×4 (07:01→21:42)
[2017-07-25] MEDS: Nystatin 100,000 Units/gm Topical Pow(15 gm) TOP SCH ×3 (09:38→17:29)
--- NOTE | 2017-07-25 14:16 | CP.PCM.PN ---
Subjective - Date & Time of Evaluation Date of Evaluation: 07/25/17 Time of Evaluation: 14:12 - Subjective Subjective: Podiatry Progress Note-Dr. Leos 72 year old female was seen with attending Dr. Leos. Patient is sitting comfortaby in chair, in NAD, and AA0x3. . Dressing to the LE is c/d/i without strikethrough. Objective - Vital Signs/Intake and Output Vital Signs (last 24 hours): Temp Pulse Resp BP Pulse Ox 97.8 F 81 18 188/89 H 95 07/25/17 11:41 07/25/17 13:22 07/25/17 11:41 07/25/17 13:22 07/25/17 11:41 - Medications Medications: Current Medications Acetylcysteine (Mucomyst 20% Inhal Amarilis (30ml)) 3 ml PO BID [facility] Stop: 07/29/17 18:00 Amlodipine Besylate (Norvasc) 10 mg PO DAILY [facility] PRN Reason: Protocol Last Admin: 07/25/17 09:38 Dose: 10 mg Aspirin (Ecotrin) 81 mg PO 0800 [facility] PRN Reason: Protocol Last Admin: 07/25/17 09:38 Dose: 81 mg Carvedilol (Coreg) 3.125 mg PO 0800,1800 [facility] PRN Reason: Protocol Last Admin: 07/25/17 09:37 Dose: 3.125 mg Doxycycline Hyclate (Doryx) 100 mg PO Q12 [facility] PRN Reason: Protocol Last Admin: 07/25/17 09:37 Dose: 100 mg Enoxaparin Sodium (Lovenox) 30 mg SC 0600 [facility] PRN Reason: Protocol Last Admin: 07/25/17 05:37 Dose: 30 mg Gabapentin (Neurontin) 100 mg PO TID [facility] PRN Reason: Protocol Last Admin: 07/25/17 13:22 Dose: 100 mg Hydralazine HCl (Apresoline) 25 mg PO TID [facility] PRN Reason: Protocol Last Admin: 07/25/17 13:22 Dose: 25 mg Sodium Chloride (Sodium Chloride 0.9%) 1,000 mls @ 75 mls/hr IV .[id number] [facility] Stop: 07/29/17 23:01 Piperacillin Sod/Tazobactam Sod (Zosyn 2.25 Gm In 0.9% 100 Ml) 2.25 gm in 100 mls @ 100 mls/hr IVPB Q8 [facility] Stop: 08/01/17 22:01 Last Admin: 07/25/17 13:25 Dose: 100 mls/hr Insulin Human Regular (Humulin R Med) 0 units SC ACHS [facility] PRN Reason: Protocol Last Admin: 07/25/17 12:27 Dose: 3 units Insulin Lispro Protam/Lispro Human (Humalog Mix 75/25) 12 units SC 0630,1700 [facility] PRN Reason: Protocol Last Admin: 07/25/17 07:01 Dose: 12 unit Mirtazapine (Remeron) 15 mg PO HS [facility] PRN Reason: Protocol Last Admin: 07/24/17 21:57 Dose: 15 mg Mupirocin (Bactroban Ointment) 1 gm TOP DAILY [facility] PRN Reason: Protocol Last Admin: 07/25/17 09:37 Dose: 1 applic Nystatin (Nystop Topical Powder) 1 gm TOP TID [facility] PRN Reason: Protocol Last Admin: 07/25/17 13:22 Dose: 1 applic - Constitutional Appears: Well, Non-toxic, No Acute Distress - Extremities Exam Extremities Exam: absent: Calf Tenderness Additional comments: Vasc: DP and PT unpalpable. DP dopplerable monophasic bilaterally. CFT delayed to the digits. Temperature gradient cool to cool. Left hallux slightly warm. Mild edema noted to the left forefoot Ortho: pain with palpation to the left hallux. Tenderness to anterior, posterior and lateral muscle bellies. Lower leg and pedal muscle strenght graded as follows: anterior group: right side=4/5 , left side= 3/5; posterior group: right side= 3/5, left side= 3/5; medial group: right side= 4/5 , left side= 3/5; lateral group: right side= 3/5, left side= 3/5. Neuro: protective sensation diminished, gross sensation intact Derm: Necrotic tissue noted to the medial aspect of the left hallux measuring approximately about 1 x 1 cm. Tissue appears more macerated. Erythema noted to the skin surrounding the circumferential necrotic tissue, mild drainage, no malodor, no tunneling, or undermining noted. Lateral aspect of 2nd digit with superficial ulceration - Neurological Exam Neurological Exam: Alert, Awake, Oriented x3 - Psychiatric Exam Psychiatric exam: Normal Affect, Normal Mood Assessment and Plan - Assessment and Plan (Free Text) Assessment: 72 y.o female with 1)infected superficial ulceration of left hallux, secondary to diabetic neuropathy 2) and superficial ulceration to lateral left 2nd digit. 3) bilateral lower leg myositis. Plan: Patient examined and evaluated with attending, Dr. Leos Labs, charts, vitals reviewed- afebrile and absent leukocytosis ESR (07/19/17)= 150 X-rays reviewed - diffuse osteopenia noted, no bony erosion or destruction noted Left foot MRI- negative for osteomyelitis. OLAMIDE/arterial duplex- results show OLAMIDE: Right= 0.49, Left=0.60 with bilateral tibial disease with pulsitile blood flow. Discussed with Vascular, will likely go revascurization next week after C/w empirical IV abx, per ID Left hallux cleansed with saline solution and dress with maxosorb and optifoam Discontinue bactroban Physical therapy consulted- WBAT to forefoot offloading shoe Pursue lower extremity reconditioning and strengthening, Podiatry will continue to follow while patient is in house
--- NOTE | 2017-07-25 21:07 | PN ---
DATE: 07/25/2017 SUBJECTIVE: Patient is in bed, in no acute distress, nontoxic. PHYSICAL EXAMINATION: VITAL SIGNS: Temperature is 97, blood pressure is 180/80, respiratory rate of 18, heart rate of 81. HEENT: Unremarkable. NECK: Supple. LUNGS: Have decreased breath sounds. HEART: Normal S1, S2. ABDOMEN: Soft, nontender. REVIEW OF MEDICATIONS: Reveals the patient to be on doxycycline and Zosyn. ASSESSMENT AND PLAN: A 72-year-old female seen earlier this morning in room 303, with a right hallux skin and skin structure infection. No evidence of osteo on MRI, day #7 of Zosyn and doxycycline, significant erythema still on the toe with central necrosis and Podiatry progress note is reviewed and appreciated. Patient has infected superficial ulcer of the left hallux and diabetic neuropathy. We will follow based on clinical findings and physical examination of the foot. Delano Mohan MD
[2017-07-26] MEDS: Piperacillin/Tazobact 2.25gm 2.25 GM/100 ML BAG IVPB SCH ×3 (05:15→21:36)
[2017-07-26] MEDS: Enoxaparin 30 mg Syringe SC SCH (05:15)
[2017-07-26] MEDS: Insulin Reg-MEDIUM-Coverage SC SCH ×4 (06:30→22:37)
[2017-07-26] MEDS: Insulin Lispro (humaLOG) MIX 75/25(10 ml) SC SCH ×2 (06:30→17:34)
[2017-07-26] MEDS: Nystatin 100,000 Units/gm Topical Pow(15 gm) TOP SCH ×3 (09:10→17:36)
--- NOTE | 2017-07-26 10:17 | PN ---
DATE: 07/26/2017 SUBJECTIVE: The patient has no complaints of any chest pain, no shortness of breath, no headaches or dizziness. PHYSICAL EXAMINATION VITAL SIGNS: Temperature is 98, pulse of 81, blood pressure is 184/78, respirations 18. GENERAL: The patient is lying in bed, flat, comfortable. HEENT: No oral lesion. Anicteric sclerae. Moist mucosa. NECK: No JVD, adenopathy, or thyromegaly. CARDIOVASCULAR: S1 and S2, regular. No murmurs, rubs, or gallops. LUNGS: Clear to auscultation bilaterally. No wheeze, rales, or rhonchi. ABDOMEN: Bowel sounds are positive, soft, nontender and nondistended. EXTREMITIES: No cyanosis, clubbing or edema. ASSESSMENT: 1. Hypertension. 2. Left toe ulcer. 3. Diabetic neuropathy. 4. Peripheral arterial disease. 5. Chronic kidney disease, stage III. 6. Diabetes type 2. 7. Obesity with a body mass index of 46. 8. Colon polyps. PLAN: The patient is currently comfortable. However, the patient's blood pressure is elevated. The patient is on Norvasc and hydralazine. She is going to be started on IV fluids on Saturday evening as well as Mucomyst for an angiogram of her legs by Dr. Doron Garcia on Saturday morning. The patient is on Lovenox. I will discontinue the Lovenox because of the chronic kidney disease and is to place the patient on heparin instead. The patient is on Coreg and is going to continue with aspirin for her cardiac disease. She is on Remeron. She is doing well with physical therapy. I did review the notes from Dr. Mohan. I appreciate his input. Moe Thurman MD
--- NOTE | 2017-07-26 16:03 | CP.PCM.PN ---
Subjective - Date & Time of Evaluation Date of Evaluation: 07/26/17 Time of Evaluation: 11:45 - Subjective Subjective: Improved pain on the right foot, no fevers, no nausea, no diarrhea. Objective - Vital Signs/Intake and Output Vital Signs (last 24 hours): Temp Pulse Resp BP Pulse Ox 98 F 81 18 172/70 H 97 07/25/17 17:20 07/26/17 09:07 07/25/17 17:20 07/26/17 09:10 07/25/17 17:20 - Medications Medications: Current Medications Acetylcysteine (Mucomyst 20% Inhal Amarilis (30ml)) 3 ml PO BID [facility] Stop: 07/29/17 18:00 Amlodipine Besylate (Norvasc) 10 mg PO DAILY [facility] PRN Reason: Protocol Last Admin: 07/26/17 09:50 Dose: Not Given Aspirin (Ecotrin) 81 mg PO 0800 [facility] PRN Reason: Protocol Last Admin: 07/26/17 08:26 Dose: 81 mg Carvedilol (Coreg) 3.125 mg PO 0800,1800 [facility] PRN Reason: Protocol Last Admin: 07/26/17 08:26 Dose: 3.125 mg Doxycycline Hyclate (Doryx) 100 mg PO Q12 [facility] PRN Reason: Protocol Last Admin: 07/26/17 09:09 Dose: 100 mg Furosemide (Lasix) 40 mg PO DAILY [facility] Last Admin: 07/26/17 09:10 Dose: 40 mg Gabapentin (Neurontin) 100 mg PO TID [facility] PRN Reason: Protocol Last Admin: 07/26/17 09:10 Dose: 100 mg Heparin Sodium (Porcine) (Heparin) 5,000 units SC Q12 [facility] PRN Reason: Protocol Hydralazine HCl (Apresoline) 25 mg PO TID [facility] PRN Reason: Protocol Last Admin: 07/26/17 09:07 Dose: 25 mg Sodium Chloride (Sodium Chloride 0.9%) 1,000 mls @ 75 mls/hr IV .[id number] [facility] Stop: 07/29/17 23:01 Piperacillin Sod/Tazobactam Sod (Zosyn 2.25 Gm In 0.9% 100 Ml) 2.25 gm in 100 mls @ 100 mls/hr IVPB Q8 [facility] Stop: 08/01/17 22:01 Last Admin: 07/26/17 05:15 Dose: 100 mls/hr Insulin Human Regular (Humulin R Med) 0 units SC ACHS [facility] PRN Reason: Protocol Last Admin: 07/26/17 06:30 Dose: Not Given Insulin Lispro Protam/Lispro Human (Humalog Mix 75/25) 12 units SC 0630,1700 [facility] PRN Reason: Protocol Last Admin: 07/26/17 06:30 Dose: Not Given Mirtazapine (Remeron) 15 mg PO HS [facility] PRN Reason: Protocol Last Admin: 07/25/17 21:28 Dose: 15 mg Mupirocin (Bactroban Ointment) 1 gm TOP DAILY [facility] PRN Reason: Protocol Last Admin: 07/26/17 09:08 Dose: 1 applic Nystatin (Nystop Topical Powder) 1 gm TOP TID [facility] PRN Reason: Protocol Last Admin: 07/26/17 09:10 Dose: 1 applic - Constitutional Appears: Non-toxic, Chronically Ill - Head Exam Head Exam: NORMAL INSPECTION - Neck Exam Neck Exam: absent: Meningismus - Respiratory Exam Respiratory Exam: Decreased Breath Sounds - Cardiovascular Exam Cardiovascular Exam: +S1, +S2 - GI/Abdominal Exam GI & Abdominal Exam: Soft. absent: Tenderness Assessment and Plan - Assessment and Plan (Free Text) Plan: Assessment Right hallux skin and skin structure infection, with no evidence of osteomyelitis on MRI but with probable peripheral arterial disease DM HTN dyslipidemia Plan continue Zosyn and Doxycycline day 8 - for possible revascularization procedure next week will continue to monitor clinically
--- NOTE | 2017-07-26 16:11 | CP.PCM.PN ---
<Bhavik Jane - Last Filed: 07/26/17 16:06> Subjective - Date & Time of Evaluation Date of Evaluation: 07/26/17 Time of Evaluation: 16:07 - Subjective Subjective: Podiatry Progress Note-Dr. Monroy 72 yo female seen and evaluated for left hallux ulceration. Patient is seen resting comfortably in chair, in NAD, and AA0x3. Patient denies acute overnight events. Denies n/v/sob/cp/chills or d. No new pedal complaints. Objective - Vital Signs/Intake and Output Vital Signs (last 24 hours): Temp Pulse Resp BP Pulse Ox 97.5 F L 88 20 178/79 H 99 07/26/17 11:59 07/26/17 11:59 07/26/17 11:59 07/26/17 13:28 07/26/17 11:59 - Medications Medications: Current Medications Acetylcysteine (Acetylcysteine 20%) 3 ml PO BID [facility] Stop: 07/30/17 18:00 Amlodipine Besylate (Norvasc) 10 mg PO DAILY [facility] PRN Reason: Protocol Last Admin: 07/26/17 09:50 Dose: Not Given Aspirin (Ecotrin) 81 mg PO 0800 [facility] PRN Reason: Protocol Last Admin: 07/26/17 08:26 Dose: 81 mg Carvedilol (Coreg) 3.125 mg PO 0800,1800 [facility] PRN Reason: Protocol Last Admin: 07/26/17 08:26 Dose: 3.125 mg Doxycycline Hyclate (Doryx) 100 mg PO Q12 [facility] PRN Reason: Protocol Last Admin: 07/26/17 09:09 Dose: 100 mg Furosemide (Lasix) 40 mg PO DAILY [facility] Last Admin: 07/26/17 09:10 Dose: 40 mg Gabapentin (Neurontin) 100 mg PO TID [facility] PRN Reason: Protocol Last Admin: 07/26/17 13:29 Dose: 100 mg Heparin Sodium (Porcine) (Heparin) 5,000 units SC Q12 [facility] PRN Reason: Protocol Last Admin: 07/26/17 10:41 Dose: 5,000 units Hydralazine HCl (Apresoline) 25 mg PO TID [facility] PRN Reason: Protocol Last Admin: 07/26/17 13:28 Dose: 25 mg Piperacillin Sod/Tazobactam Sod (Zosyn 2.25 Gm In 0.9% 100 Ml) 2.25 gm in 100 mls @ 100 mls/hr IVPB Q8 [facility] Stop: 08/01/17 22:01 Last Admin: 07/26/17 13:36 Dose: 100 mls/hr Sodium Chloride (Sodium Chloride 0.9%) 1,000 mls @ 75 mls/hr IV .[id number] [facility] Stop: 07/30/17 23:01 Insulin Human Regular (Humulin R Med) 0 units SC ACHS [facility] PRN Reason: Protocol Last Admin: 07/26/17 12:18 Dose: 3 units Insulin Lispro Protam/Lispro Human (Humalog Mix 75/25) 12 units SC 0630,1700 [facility] PRN Reason: Protocol Last Admin: 07/26/17 06:30 Dose: Not Given Mirtazapine (Remeron) 15 mg PO HS [facility] PRN Reason: Protocol Last Admin: 07/25/17 21:28 Dose: 15 mg Mupirocin (Bactroban Ointment) 1 gm TOP DAILY [facility] PRN Reason: Protocol Last Admin: 07/26/17 09:08 Dose: 1 applic Nystatin (Nystop Topical Powder) 1 gm TOP TID [facility] PRN Reason: Protocol Last Admin: 07/26/17 13:29 Dose: 1 applic - Constitutional Appears: Well, Non-toxic, No Acute Distress - Extremities Exam Extremities Exam: absent: Calf Tenderness Additional comments: Vasc: DP and PT unpalpable. DP dopplerable monophasic bilaterally. CFT delayed to the digits. Temperature gradient cool to cool. Left hallux slightly warm. Mild edema noted to the left forefoot Ortho: pain with palpation to the left hallux. Tenderness to anterior, posterior and lateral muscle bellies. Lower leg and pedal muscle strenght graded as follows: anterior group: right side=4/5 , left side= 3/5; posterior group: right side= 3/5, left side= 3/5; medial group: right side= 4/5 , left side= 3/5; lateral group: right side= 3/5, left side= 3/5. Neuro: protective sensation diminished, gross sensation intact Derm: Necrotic tissue noted to the medial aspect of the left hallux measuring approximately about 1 x 1 cm. Ulceration less macerated. Erythema noted to the skin surrounding the circumferential necrotic tissue, mild drainage, no malodor , no tunneling, or undermining noted. Lateral aspect of 2nd digit with superficial ulceration - Neurological Exam Neurological Exam: Alert, Awake, Oriented x3 - Psychiatric Exam Psychiatric exam: Depressed, Normal Affect Assessment and Plan - Assessment and Plan (Free Text) Assessment: 72 y.o female with 1)infected superficial ulceration of left hallux, secondary to diabetic neuropathy 2) and superficial ulceration to lateral left 2nd digit. 3) bilateral lower leg myositis. Plan: Patient examined and evaluated with attending, Dr. Monroy Labs, charts, vitals reviewed- afebrile and absent leukocytosis ESR (07/19/17)= 150 X-rays reviewed - diffuse osteopenia noted, no bony erosion or destruction noted Left foot MRI- negative for osteomyelitis. OLAMIDE/arterial duplex- results show OLAMIDE: Right= 0.49, Left=0.60 with bilateral tibial disease with pulsitile blood flow. Discussed with Vascular, will likely go revascurization next week after C/w empirical IV abx, per ID Left hallux cleansed with saline solution and dress with maxosorb and optifoam Discontinue bactroban Physical therapy consulted- WBAT to forefoot offloading shoe Pursue lower extremity reconditioning and strengthening, Podiatry will continue to follow while patient is in house <Jason Monroy - Last Filed: 07/26/17 17:55> Objective - Vital Signs/Intake and Output Vital Signs (last 24 hours): Temp Pulse Resp BP Pulse Ox 98.1 F 82 18 167/84 H 98 07/26/17 16:33 07/26/17 16:33 07/26/17 16:33 07/26/17 17:33 07/26/17 16:33 - Medications Medications: Current Medications Acetylcysteine (Acetylcysteine 20%) 3 ml PO BID [facility] Stop: 07/30/17 18:00 Amlodipine Besylate (Norvasc) 10 mg PO DAILY [facility] PRN Reason: Protocol Last Admin: 07/26/17 09:50 Dose: Not Given Aspirin (Ecotrin) 81 mg PO 0800 [facility] PRN Reason: Protocol Last Admin: 07/26/17 08:26 Dose: 81 mg Carvedilol (Coreg) 3.125 mg PO 0800,1800 [facility] PRN Reason: Protocol Last Admin: 07/26/17 17:33 Dose: 3.125 mg Doxycycline Hyclate (Doryx) 100 mg PO Q12 [facility] PRN Reason: Protocol Last Admin: 07/26/17 09:09 Dose: 100 mg Furosemide (Lasix) 40 mg PO DAILY [facility] Last Admin: 07/26/17 09:10 Dose: 40 mg Gabapentin (Neurontin) 100 mg PO TID [facility] PRN Reason: Protocol Last Admin: 07/26/17 17:36 Dose: 100 mg Heparin Sodium (Porcine) (Heparin) 5,000 units SC Q12 [facility] PRN Reason: Protocol Last Admin: 07/26/17 10:41 Dose: 5,000 units Hydralazine HCl (Apresoline) 25 mg PO TID [facility] PRN Reason: Protocol Last Admin: 07/26/17 17:33 Dose: 25 mg Piperacillin Sod/Tazobactam Sod (Zosyn 2.25 Gm In 0.9% 100 Ml) 2.25 gm in 100 mls @ 100 mls/hr IVPB Q8 [facility] Stop: 08/01/17 22:01 Last Admin: 07/26/17 13:36 Dose: 100 mls/hr Sodium Chloride (Sodium Chloride 0.9%) 1,000 mls @ 75 mls/hr IV .[id number] [facility] Stop: 07/30/17 23:01 Insulin Human Regular (Humulin R Med) 0 units SC ACHS [facility] PRN Reason: Protocol Last Admin: 07/26/17 17:35 Dose: 3 units Insulin Lispro Protam/Lispro Human (Humalog Mix 75/25) 12 units SC 0630,1700 [facility] PRN Reason: Protocol Last Admin: 07/26/17 17:34 Dose: 12 unit Mirtazapine (Remeron) 15 mg PO HS [facility] PRN Reason: Protocol Last Admin: 07/25/17 21:28 Dose: 15 mg Mupirocin (Bactroban Ointment) 1 gm TOP DAILY [facility] PRN Reason: Protocol Last Admin: 07/26/17 09:08 Dose: 1 applic Nystatin (Nystop Topical Powder) 1 gm TOP TID [facility] PRN Reason: Protocol Last Admin: 07/26/17 17:36 Dose: 1 applic Attending/Attestation - Attestation I have personally seen and examined this patient.: Yes I have fully participated in the care of the patient.: Yes I have reviewed all pertinent clinical information, including history, physical exam and plan: Yes
[2017-07-27] MEDS: Piperacillin/Tazobact 2.25gm 2.25 GM/100 ML BAG IVPB SCH ×3 (05:31→21:31)
[2017-07-27] MEDS: Insulin Reg-MEDIUM-Coverage SC SCH ×4 (06:47→21:30)
[2017-07-27] MEDS: Insulin Lispro (humaLOG) MIX 75/25(10 ml) SC SCH ×2 (06:48→17:28)
--- NOTE | 2017-07-27 10:03 | CP.PCM.PN ---
<Eamon Lindsey - Last Filed: 07/27/17 09:59> Subjective - Date & Time of Evaluation Date of Evaluation: 07/27/17 Time of Evaluation: 09:59 - Subjective Subjective: Podiatry Progress Note - Dr. Monroy 72 yo female seen and evaluated for left hallux ulceration. Patient is seen resting comfortably in chair, in NAD, and AA0x3. Patient denies acute overnight events. Denies n/v/sob/cp/chills or d. No new pedal complaints. Objective - Vital Signs/Intake and Output Vital Signs (last 24 hours): Temp Pulse Resp BP Pulse Ox 98.1 F 75 18 132/62 98 07/26/17 16:33 07/27/17 07:54 07/26/17 16:33 07/27/17 07:54 07/26/17 16:33 - Medications Medications: Current Medications Acetylcysteine (Acetylcysteine 20%) 3 ml PO BID [facility] Stop: 07/30/17 18:00 Amlodipine Besylate (Norvasc) 10 mg PO DAILY [facility] PRN Reason: Protocol Last Admin: 07/26/17 09:50 Dose: Not Given Aspirin (Ecotrin) 81 mg PO 0800 [facility]EN PRN Reason: Protocol Last Admin: 07/27/17 07:55 Dose: 81 mg Carvedilol (Coreg) 3.125 mg PO 0800,1800 [facility]EN PRN Reason: Protocol Last Admin: 07/27/17 07:54 Dose: 3.125 mg Doxycycline Hyclate (Doryx) 100 mg PO Q12 [facility]EN PRN Reason: Protocol Last Admin: 07/26/17 21:36 Dose: 100 mg Furosemide (Lasix) 40 mg PO DAILY [facility]EN Last Admin: 07/26/17 09:10 Dose: 40 mg Gabapentin (Neurontin) 100 mg PO TID [facility]EN PRN Reason: Protocol Last Admin: 07/26/17 17:36 Dose: 100 mg Heparin Sodium (Porcine) (Heparin) 5,000 units SC Q12 [facility]EN PRN Reason: Protocol Last Admin: 07/26/17 21:36 Dose: 5,000 units Hydralazine HCl (Apresoline) 25 mg PO TID EBEN PRN Reason: Protocol Last Admin: 07/26/17 17:33 Dose: 25 mg Piperacillin Sod/Tazobactam Sod (Zosyn 2.25 Gm In 0.9% 100 Ml) 2.25 gm in 100 mls @ 100 mls/hr IVPB Q8 REPLACED BY [facility] Stop: 08/01/17 22:01 Last Admin: 07/27/17 05:31 Dose: 100 mls/hr Sodium Chloride (Sodium Chloride 0.9%) 1,000 mls @ 75 mls/hr IV .[id number] REPLACED BY [facility] Stop: 07/30/17 23:01 Insulin Human Regular (Humulin R Med) 0 units SC ACHS EBEN PRN Reason: Protocol Last Admin: 07/27/17 06:47 Dose: Not Given Insulin Lispro Protam/Lispro Human (Humalog Mix 75/25) 12 units SC 0630,1700 [facility]EN PRN Reason: Protocol Last Admin: 07/27/17 06:48 Dose: 12 unit Mirtazapine (Remeron) 15 mg PO HS EBEN PRN Reason: Protocol Last Admin: 07/26/17 22:05 Dose: 15 mg Mupirocin (Bactroban Ointment) 1 gm TOP DAILY [facility]EN PRN Reason: Protocol Last Admin: 07/26/17 09:08 Dose: 1 applic Nystatin (Nystop Topical Powder) 1 gm TOP TID EBEN PRN Reason: Protocol Last Admin: 07/26/17 17:36 Dose: 1 applic - Constitutional Appears: Well, Non-toxic, No Acute Distress - Extremities Exam Additional comments: Vasc: DP and PT unpalpable. DP dopplerable monophasic bilaterally. CFT delayed to the digits. Temperature gradient cool to cool. Left hallux slightly warm. Mild edema noted to the left forefoot Ortho: pain with palpation to the left hallux. Tenderness to anterior, posterior and lateral muscle bellies. Lower leg and pedal muscle strenght graded as follows: anterior group: right side=4/5 , left side= 3/5; posterior group: right side= 3/5, left side= 3/5; medial group: right side= 4/5 , left side= 3/5; lateral group: right side= 3/5, left side= 3/5. Neuro: protective sensation diminished, gross sensation intact Derm: Necrotic tissue noted to the medial aspect of the left hallux measuring approximately about 1 x 1 cm. Ulceration less macerated. Erythema noted to the skin surrounding the circumferential necrotic tissue, mild drainage, no malodor , no tunneling, or undermining noted. Lateral aspect of 2nd digit with superficial ulceration - Neurological Exam Neurological Exam: Alert, Awake, Oriented x3 - Psychiatric Exam Psychiatric exam: Normal Affect, Normal Mood Assessment and Plan - Assessment and Plan (Free Text) Assessment: 72 y.o female with 1)infected superficial ulceration of left hallux, secondary to diabetic neuropathy 2) and superficial ulceration to lateral left 2nd digit. 3) bilateral lower leg myositis. Plan: Patient examined and evaluated with attending, Dr. Monroy Labs, charts, vitals reviewed- afebrile and absent leukocytosis ESR (07/19/17)= 150 X-rays reviewed - diffuse osteopenia noted, no bony erosion or destruction noted Left foot MRI- negative for osteomyelitis. OLAMIDE/arterial duplex- results show OLAMIDE: Right= 0.49, Left=0.60 with bilateral tibial disease with pulsitile blood flow. Discussed with Vascular, will likely go revascurization next week after C/w empirical IV abx, per ID Left hallux cleansed with saline solution and dress with maxosorb and optifoam Order [facility] Physical therapy consulted- WBAT to forefoot offloading shoe Pursue lower extremity reconditioning and strengthening, Podiatry will continue to follow while patient is in house <Jason Monroy - Last Filed: 07/27/17 10:21> Objective - Vital Signs/Intake and Output Vital Signs (last 24 hours): Temp Pulse Resp BP Pulse Ox 98.1 F 75 18 132/62 98 07/26/17 16:33 07/27/17 07:54 07/26/17 16:33 07/27/17 07:54 07/26/17 16:33 - Medications Medications: Current Medications Acetylcysteine (Acetylcysteine 20%) 3 ml PO BID [facility] Stop: 07/30/17 18:00 Amlodipine Besylate (Norvasc) 10 mg PO DAILY [facility]EN PRN Reason: Protocol Last Admin: 07/26/17 09:50 Dose: Not Given Aspirin (Ecotrin) 81 mg PO 0800 EBEN PRN Reason: Protocol Last Admin: 07/27/17 07:55 Dose: 81 mg Carvedilol (Coreg) 3.125 mg PO 0800,1800 EBEN PRN Reason: Protocol Last Admin: 07/27/17 07:54 Dose: 3.125 mg Collagenase (Santyl) 1 gm TOP DAILY REPLACED BY [facility] Doxycycline Hyclate (Doryx) 100 mg PO Q12 EBEN PRN Reason: Protocol Last Admin: 07/26/17 21:36 Dose: 100 mg Furosemide (Lasix) 40 mg PO DAILY REPLACED BY [facility] Last Admin: 07/26/17 09:10 Dose: 40 mg Gabapentin (Neurontin) 100 mg PO TID EBEN PRN Reason: Protocol Last Admin: 07/26/17 17:36 Dose: 100 mg Heparin Sodium (Porcine) (Heparin) 5,000 units SC Q12 [facility] PRN Reason: Protocol Last Admin: 07/26/17 21:36 Dose: 5,000 units Hydralazine HCl (Apresoline) 25 mg PO TID EBEN PRN Reason: Protocol Last Admin: 07/26/17 17:33 Dose: 25 mg Piperacillin Sod/Tazobactam Sod (Zosyn 2.25 Gm In 0.9% 100 Ml) 2.25 gm in 100 mls @ 100 mls/hr IVPB Q8 REPLACED BY [facility] Stop: 08/01/17 22:01 Last Admin: 07/27/17 05:31 Dose: 100 mls/hr Sodium Chloride (Sodium Chloride 0.9%) 1,000 mls @ 75 mls/hr IV .[id number] REPLACED BY [facility] Stop: 07/30/17 23:01 Insulin Human Regular (Humulin R Med) 0 units SC ACHS [facility]EN PRN Reason: Protocol Last Admin: 07/27/17 06:47 Dose: Not Given Insulin Lispro Protam/Lispro Human (Humalog Mix 75/25) 12 units SC 0630,1700 [facility] PRN Reason: Protocol Last Admin: 07/27/17 06:48 Dose: 12 unit Mirtazapine (Remeron) 15 mg PO HS [facility]EN PRN Reason: Protocol Last Admin: 07/26/17 22:05 Dose: 15 mg Mupirocin (Bactroban Ointment) 1 gm TOP DAILY REPLACED BY [facility] PRN Reason: Protocol Last Admin: 07/26/17 09:08 Dose: 1 applic Nystatin (Nystop Topical Powder) 1 gm TOP TID EBEN PRN Reason: Protocol Last Admin: 07/26/17 17:36 Dose: 1 applic Attending/Attestation - Attestation I have personally seen and examined this patient.: Yes I have fully participated in the care of the patient.: Yes I have reviewed all pertinent clinical information, including history, physical exam and plan: Yes
[2017-07-27] MEDS: Nystatin 100,000 Units/gm Topical Pow(15 gm) TOP SCH ×4 (10:58→17:31)
--- NOTE | 2017-07-27 17:03 | PN ---
DATE: 07/27/2017 SUBJECTIVE: The patient is seen earlier in room 303 and no fevers, no chills. PHYSICAL EXAMINATION VITAL SIGNS: Temperature is 97, blood pressure is 180/80, respiratory rate 20, heart rate of 85. HEENT: Unremarkable. NECK: Supple. LUNGS: Have decreased breath sounds. HEART: Normal S1, S2. ABDOMEN: Soft. EXTREMITIES: Examination of the foot was noted. Laboratory examination is reviewed. ASSESSMENT AND PLAN: This is a 72-year-old female seen earlier this morning in 303 with a right hallux skin and skin structure infection, no evidence of osteomyelitis on the MRI, but the patient does have peripheral arterial disease, diabetic, hypertension, dyslipidemia, on Zosyn and doxycycline, possible revascularization procedure next week. Today is being #9. The wound is slowly improving, concerned about the vascular supply. Delano Mohan MD
[2017-07-28] MEDS: Piperacillin/Tazobact 2.25gm 2.25 GM/100 ML BAG IVPB SCH (05:47)
[2017-07-28] MEDS: Insulin Reg-MEDIUM-Coverage SC SCH ×4 (06:55→21:39)
[2017-07-28] MEDS: Insulin Lispro (humaLOG) MIX 75/25(10 ml) SC SCH ×2 (06:56→17:14)
[2017-07-28] MEDS: Collagenase 250 Units/gm Ointment(30 gm) TOP SCH (09:33)
[2017-07-28] MEDS: Nystatin 100,000 Units/gm Topical Pow(15 gm) TOP SCH ×3 (09:33→17:22)
[2017-07-28] MEDS ORDERED: Acetylcysteine 20% Inhal Sol (30ml) PO SCH (10:00)
--- NOTE | 2017-07-28 13:54 | PN ---
DATE: 07/28/2017 SUBJECTIVE: The patient is in bed, in no acute distress, nontoxic. PHYSICAL EXAMINATION: VITAL SIGNS: Temperature is 97, blood pressure is 160/70, respiratory rate of 18. HEENT: Unremarkable. NECK: Supple. LUNGS: Have decreased breath sounds. HEART: Normal S1, S2. ABDOMEN: Soft, nontender. LABORATORY DATA: Noted. ASSESSMENT AND PLAN: A 72-year-old female who was seen earlier this morning with patient with a right hallux skin structure infection. No evidence of osteomyelitis on MRI. Does have peripheral arterial disease, diabetic, hypertension, dyslipidemia, on Zosyn and doxycycline, possible revascularization and actually the toe is markedly improved and erythema is almost resolved. There is a central dry necrotic area. We will discontinue the antibiotics at this point. No further antibiotics. Local wound care and we will follow with you. Delano Mohan MD
--- NOTE | 2017-07-28 14:19 | CP.PCM.PN ---
Subjective - Date & Time of Evaluation Date of Evaluation: 07/28/17 Time of Evaluation: 14:16 - Subjective Subjective: Podiatry Progress Note - Dr. Monroy/Dr. Leos 72 yo female seen and evaluated for left hallux ulceration. Patient is seen resting comfortably in chair, in NAD, and AA0x3. Patient denies acute overnight events. Denies n/v/sob/cp/chills or d. No new pedal complaints. Objective - Vital Signs/Intake and Output Vital Signs (last 24 hours): Temp Pulse Resp BP Pulse Ox 97.2 F L 80 20 164/81 H 93 L 07/27/17 17:30 07/28/17 13:20 07/27/17 17:30 07/28/17 13:20 07/27/17 17:30 - Medications Medications: Current Medications Acetylcysteine (Acetylcysteine 20%) 3 ml PO BID [facility] Stop: 07/30/17 18:00 Amlodipine Besylate (Norvasc) 10 mg PO DAILY [facility]EN PRN Reason: Protocol Last Admin: 07/28/17 09:23 Dose: 10 mg Aspirin (Ecotrin) 81 mg PO 0800 EBEN PRN Reason: Protocol Last Admin: 07/28/17 09:31 Dose: 81 mg Carvedilol (Coreg) 3.125 mg PO 0800,1800 [facility]EN PRN Reason: Protocol Last Admin: 07/28/17 09:31 Dose: 3.125 mg Collagenase (Santyl) 1 gm TOP DAILY [facility]EN Last Admin: 07/28/17 09:33 Dose: 1 applic Furosemide (Lasix) 40 mg PO DAILY [facility]EN Last Admin: 07/28/17 09:31 Dose: 40 mg Gabapentin (Neurontin) 100 mg PO TID [facility]EN PRN Reason: Protocol Last Admin: 07/28/17 13:19 Dose: 100 mg Heparin Sodium (Porcine) (Heparin) 5,000 units SC Q12 [facility]EN PRN Reason: Protocol Last Admin: 07/28/17 09:33 Dose: 5,000 units Hydralazine HCl (Apresoline) 25 mg PO TID EBEN PRN Reason: Protocol Last Admin: 07/28/17 13:20 Dose: 25 mg Sodium Chloride (Sodium Chloride 0.9%) 1,000 mls @ 75 mls/hr IV .[id number] [facility] Stop: 07/30/17 23:01 Insulin Human Regular (Humulin R Med) 0 units SC ACHS EBEN PRN Reason: Protocol Last Admin: 07/28/17 11:59 Dose: 1 units Insulin Lispro Protam/Lispro Human (Humalog Mix 75/25) 12 units SC 0630,1700 EBEN PRN Reason: Protocol Last Admin: 07/28/17 06:56 Dose: Not Given Mirtazapine (Remeron) 15 mg PO HS [facility]EN PRN Reason: Protocol Last Admin: 07/27/17 21:30 Dose: 15 mg Mupirocin (Bactroban Ointment) 1 gm TOP DAILY [facility]EN PRN Reason: Protocol Last Admin: 07/28/17 09:32 Dose: 1 applic Nystatin (Nystop Topical Powder) 1 gm TOP TID [facility]EN PRN Reason: Protocol Last Admin: 07/28/17 13:21 Dose: 1 applic - Constitutional Appears: Well, Non-toxic, No Acute Distress - Extremities Exam Additional comments: Vasc: DP and PT unpalpable. DP dopplerable monophasic bilaterally. CFT delayed to the digits. Temperature gradient cool to cool. Left hallux slightly warm. Mild edema noted to the left forefoot Ortho: pain with palpation to the left hallux. Tenderness to anterior, posterior and lateral muscle bellies. Lower leg and pedal muscle strenght graded as follows: anterior group: right side=4/5 , left side= 3/5; posterior group: right side= 3/5, left side= 3/5; medial group: right side= 4/5 , left side= 3/5; lateral group: right side= 3/5, left side= 3/5. Neuro: protective sensation diminished, gross sensation intact Derm: Necrotic tissue noted to the medial aspect of the left hallux measuring approximately about 1 x 1 cm. Ulceration less macerated. Erythema noted to the skin surrounding the circumferential necrotic tissue, mild drainage, no malodor , no tunneling, or undermining noted. Lateral aspect of 2nd digit with superficial ulceration - Neurological Exam Neurological Exam: Alert, Awake, Oriented x3 - Psychiatric Exam Psychiatric exam: Normal Affect, Normal Mood Assessment and Plan - Assessment and Plan (Free Text) Assessment: 72 y.o female with 1)infected superficial ulceration of left hallux, secondary to diabetic neuropathy 2) and superficial ulceration to lateral left 2nd digit. 3) bilateral lower leg myositis. Plan: Patient examined and evaluated Discussed with attending, Dr. Leos Labs, charts, vitals reviewed- afebrile and absent leukocytosis ESR (07/19/17)= 150 X-rays reviewed - diffuse osteopenia noted, no bony erosion or destruction noted Left foot MRI- negative for osteomyelitis. OLAMIDE/arterial duplex- results show OLAMIDE: Right= 0.49, Left=0.60 with bilateral tibial disease with pulsitile blood flow. Discussed with Vascular, will likely go revascurization next week after C/w empirical IV abx, per ID Left hallux cleansed with saline solution and dress with Syntal and optifoam Physical therapy consulted- WBAT to forefoot offloading shoe Pursue lower extremity reconditioning and strengthening, Podiatry will continue to follow while patient is in house
[2017-07-28] MEDS ORDERED: Sodium Chloride 0.9% 1,000 ML IV SCH (23:00)
[2017-07-29 05:51] LABS: HEMOGLOBIN 9.5 g/dL (12.0-16.0); MEAN CELL VOLUME 93.3 fl (80.0-105.0); MEAN CORPUSCULAR HEMOGLOBIN 30.3 pg (25.0-35.0); MEAN CORPUSCULAR HGB CONC 32.4 g/dl (31.0-37.0); MEAN PLATELET VOLUME 10.4 fl (7.0-11.0); RBC 3.14 10^6/uL (3.5-6.1); RED CELL DISTRIBUTION WIDTH 13.9 % (11.5-14.5); WHITE BLOOD COUNT 7.3 10^3/ul (4.5-11.0)
[2017-07-29] MEDS: Insulin Reg-MEDIUM-Coverage SC SCH ×5 (06:56→22:01)
[2017-07-29] MEDS: Insulin Lispro (humaLOG) MIX 75/25(10 ml) SC SCH ×2 (06:57→17:13)
[2017-07-29 07:06] LABS: ALB/GLOB RATIO 0.7 (1.1-1.8); ALBUMIN 3.1 g/dL (3.0-4.8); CALCIUM 9.2 mg/dL (8.4-10.5)
--- NOTE | 2017-07-29 07:47 | PN ---
DATE: SUBJECTIVE: The patient has no complaints of any chest pain. No shortness of breath. No headaches or dizziness. PHYSICAL EXAMINATION VITAL SIGNS: Temperature is 98.4, pulse of 82, blood pressure is 159/84, respirations 20. GENERAL: The patient is lying in bed, flat, comfortable. HEENT: No oral lesion. Anicteric sclerae. Moist mucosa. NECK: No JVD, adenopathy, or thyromegaly. CARDIOVASCULAR: S1 and S2, regular. No murmurs, rubs, or gallops. LUNGS: Clear to auscultation bilaterally. No wheeze, rales, or rhonchi. ABDOMEN: Bowel sounds are positive. Soft, nontender and nondistended. EXTREMITIES: No cyanosis, clubbing or edema. ASSESSMENT 1. Hypertension. 2. Left toe ulcer. 3. Diabetes type 2. 4. Peripheral arterial disease. 5. Chronic kidney disease stage III. 6. Obesity with a body mass index of 46. 7. Colon polyps. PLAN: The patient is currently on hydralazine. She is currently getting acetylcysteine in preparation for her angiogram of the lower extremities. The patient is on carvedilol, she might continue. She is on insulin for her diabetes. She is on Lasix daily. She is on Neurontin for neuropathy. She is on Norvasc for hypertension. She is scheduled for her procedure tomorrow. Moe Thurman MD
[2017-07-29] MEDS: Collagenase 250 Units/gm Ointment(30 gm) TOP SCH (10:18)
[2017-07-29] MEDS: Nystatin 100,000 Units/gm Topical Pow(15 gm) TOP SCH ×3 (10:18→17:19)
[2017-07-29] MEDS: Acetylcysteine 20% Inhal Soln (4ml) PO SCH ×2 (14:49→19:07)
--- NOTE | 2017-07-29 16:32 | CP.PCM.PN ---
Subjective - Date & Time of Evaluation Date of Evaluation: 07/29/17 Time of Evaluation: 16:29 - Subjective Subjective: Podiatry Progress Note - Dr. Monroy/Dr. Leos 72 yo female seen and evaluated for left hallux ulceration. Patient is seen resting comfortably in chair, in NAD, and AA0x3. Patient denies acute overnight events. Denies n/v/sob/cp/chills or d. Patient has no new pedal complaints. Objective - Vital Signs/Intake and Output Vital Signs (last 24 hours): Temp Pulse Resp BP Pulse Ox 97.1 F L 84 20 126/54 L 97 07/29/17 10:00 07/29/17 14:55 07/29/17 10:00 07/29/17 14:55 07/29/17 10:00 - Medications Medications: Current Medications Acetylcysteine (Acetylcysteine 20%) 3 ml PO BID [facility] Stop: 07/30/17 18:00 Last Admin: 07/29/17 14:49 Dose: 3 ml Amlodipine Besylate (Norvasc) 10 mg PO DAILY [facility]EN PRN Reason: Protocol Last Admin: 07/29/17 10:17 Dose: 10 mg Aspirin (Ecotrin) 81 mg PO 0800 [facility]EN PRN Reason: Protocol Last Admin: 07/29/17 08:02 Dose: 81 mg Carvedilol (Coreg) 3.125 mg PO 0800,1800 [facility]EN PRN Reason: Protocol Last Admin: 07/29/17 08:02 Dose: 3.125 mg Collagenase (Santyl) 1 gm TOP DAILY [facility] Last Admin: 07/29/17 10:18 Dose: 1 applic Furosemide (Lasix) 40 mg PO DAILY [facility] Last Admin: 07/29/17 10:17 Dose: 40 mg Gabapentin (Neurontin) 100 mg PO TID [facility]EN PRN Reason: Protocol Last Admin: 07/29/17 14:55 Dose: 100 mg Heparin Sodium (Porcine) (Heparin) 5,000 units SC Q12 [facility]EN PRN Reason: Protocol Last Admin: 07/29/17 10:17 Dose: 5,000 units Hydralazine HCl (Apresoline) 25 mg PO TID [facility]EN PRN Reason: Protocol Last Admin: 07/29/17 14:55 Dose: 25 mg Sodium Chloride (Sodium Chloride 0.9%) 1,000 mls @ 75 mls/hr IV .[id number] [facility] Stop: 07/30/17 23:01 Insulin Human Regular (Humulin R Med) 0 units SC ACHS [facility]EN PRN Reason: Protocol Last Admin: 07/29/17 12:27 Dose: 5 units Insulin Lispro Protam/Lispro Human (Humalog Mix 75/25) 12 units SC 0630,1700 EBEN PRN Reason: Protocol Last Admin: 07/29/17 06:57 Dose: Not Given Mirtazapine (Remeron) 15 mg PO HS [facility]EN PRN Reason: Protocol Last Admin: 07/28/17 21:35 Dose: 15 mg Mupirocin (Bactroban Ointment) 1 gm TOP DAILY [facility] PRN Reason: Protocol Last Admin: 07/29/17 10:16 Dose: 1 applic Nystatin (Nystop Topical Powder) 1 gm TOP TID [facility]EN PRN Reason: Protocol Last Admin: 07/29/17 14:55 Dose: 1 applic - Labs Labs: 07/29/17 05:20 07/29/17 05:20 - Constitutional Appears: Well, Non-toxic, No Acute Distress - Extremities Exam Extremities Exam: absent: Calf Tenderness Additional comments: Vasc: DP and PT unpalpable. DP dopplerable monophasic bilaterally. CFT delayed to the digits. Temperature gradient cool to cool. Left hallux slightly warm. Mild edema noted to the left forefoot Ortho: pain with palpation to the left hallux. Tenderness to anterior, posterior and lateral muscle bellies. Lower leg and pedal muscle strenght graded as follows: anterior group: right side=4/5 , left side= 3/5; posterior group: right side= 3/5, left side= 3/5; medial group: right side= 4/5 , left side= 3/5; lateral group: right side= 3/5, left side= 3/5. Neuro: protective sensation diminished, gross sensation intact Derm: Necrotic tissue noted to the medial aspect of the left hallux measuring approximately about 1 x 1 cm. Ulceration less macerated. Erythema noted to the skin surrounding the circumferential necrotic tissue, mild drainage, no malodor , no tunneling, or undermining noted. Lateral aspect of 2nd digit with superficial ulceration - Neurological Exam Neurological Exam: Alert, Awake, Oriented x3 - Psychiatric Exam Psychiatric exam: Normal Affect, Normal Mood Assessment and Plan - Assessment and Plan (Free Text) Assessment: 72 y.o female with 1)infected superficial ulceration of left hallux, secondary to diabetic neuropathy 2) and superficial ulceration to lateral left 2nd digit. 3) bilateral lower leg myositis. Plan: Patient examined and evaluated Discussed with attending, Dr. Leos Labs, charts, vitals reviewed- afebrile and absent leukocytosis WBC = 7.3 ESR (07/19/17)= 150 X-rays reviewed - diffuse osteopenia noted, no bony erosion or destruction noted Left foot MRI- negative for osteomyelitis. OLAMIDE/arterial duplex- results show OLAMIDE: Right= 0.49, Left=0.60 with bilateral tibial disease with pulsitile blood flow. Discussed with Vascular, will likely go revascurization this week C/w empirical IV abx, per ID Left hallux cleansed with saline solution and dress with Syntal and optifoam Physical therapy consulted- WBAT to forefoot offloading shoe Pursue lower extremity reconditioning and strengthening, Podiatry will continue to follow while patient is in house
[2017-07-29 17:31] VITALS: RESP 18
[2017-07-30] MEDS: Sodium Chloride 0.9% 1,000 ML IV SCH ×2 (00:03→12:25)
[2017-07-30] MEDS: Insulin Lispro (humaLOG) MIX 75/25(10 ml) SC SCH ×2 (06:35→18:37)
[2017-07-30] MEDS: Insulin Reg-MEDIUM-Coverage SC SCH ×4 (06:35→22:34)
[2017-07-30 07:31] LABS: HEMOGLOBIN 9.2 g/dL (12.0-16.0); MEAN CELL VOLUME 92.7 fl (80.0-105.0); MEAN CORPUSCULAR HEMOGLOBIN 30.6 pg (25.0-35.0); MEAN PLATELET VOLUME 10.1 fl (7.0-11.0); RBC 3.01 10^6/uL (3.5-6.1); RED CELL DISTRIBUTION WIDTH 13.8 % (11.5-14.5); WHITE BLOOD COUNT 8.6 10^3/ul (4.5-11.0)
[2017-07-30 07:38] LABS: INR 1.07 (0.93-1.08); PARTIAL THROMBOPLASTIN TIME 28.6 Seconds (25.1-36.5); PROTHROMBIN TIME 12.3 SECONDS (9.4-12.5)
[2017-07-30 07:59] LABS: CALCIUM 9.3 mg/dL (8.4-10.5)
[2017-07-30] MEDS: Acetylcysteine 20% Inhal Soln (4ml) PO SCH ×2 (10:58→18:46)
[2017-07-30] MEDS: Nystatin 100,000 Units/gm Topical Pow(15 gm) TOP SCH ×3 (10:59→18:47)
[2017-07-30] MEDS: Collagenase 250 Units/gm Ointment(30 gm) TOP SCH (10:59)
[2017-07-30] MEDS: Sodium Chloride 0.45% 1,000 ML IV SCH (22:03)
[2017-07-31] MEDS: Insulin Lispro (humaLOG) MIX 75/25(10 ml) SC SCH ×2 (06:50→17:20)
[2017-07-31] MEDS: Insulin Reg-MEDIUM-Coverage SC SCH ×4 (06:51→21:54)
[2017-07-31 07:02] LABS: CALCIUM 8.9 mg/dL (8.4-10.5)
[2017-07-31] MEDS: Sodium Chloride 0.45% 1,000 ML IV SCH (08:17)
[2017-07-31] MEDS: Collagenase 250 Units/gm Ointment(30 gm) TOP SCH (10:09)
[2017-07-31] MEDS: Nystatin 100,000 Units/gm Topical Pow(15 gm) TOP SCH ×3 (10:09→17:22)
--- NOTE | 2017-07-31 15:31 | CP.PCM.PN ---
Subjective - Date & Time of Evaluation Date of Evaluation: 07/31/17 Time of Evaluation: 11:45 - Subjective Subjective: Comfortable, no fevers, not in distress. Objective - Vital Signs/Intake and Output Vital Signs (last 24 hours): Temp Pulse Resp BP Pulse Ox 97.2 F L 93 H 18 168/82 H 95 07/31/17 10:00 07/31/17 14:51 07/31/17 10:00 07/31/17 14:51 07/31/17 10:00 Intake and Output: 07/31/17 07/31/17 06:59 18:59 Output Total 600 Balance -600 - Medications Medications: Current Medications Amlodipine Besylate (Norvasc) 10 mg PO DAILY EBEN PRN Reason: Protocol Last Admin: 07/31/17 10:08 Dose: 10 mg Aspirin (Ecotrin) 81 mg PO 0800 EBEN PRN Reason: Protocol Last Admin: 07/31/17 08:17 Dose: 81 mg Carvedilol (Coreg) 3.125 mg PO 0800,1800 EBEN PRN Reason: Protocol Last Admin: 07/31/17 08:16 Dose: 3.125 mg Collagenase (Santyl) 1 gm TOP DAILY EBEN Last Admin: 07/31/17 10:09 Dose: 1 applic Furosemide (Lasix) 40 mg PO DAILY EBEN Last Admin: 07/31/17 10:08 Dose: 40 mg Gabapentin (Neurontin) 100 mg PO TID EBEN PRN Reason: Protocol Last Admin: 07/31/17 14:50 Dose: 100 mg Heparin Sodium (Porcine) (Heparin) 5,000 units SC Q12 EBEN PRN Reason: Protocol Last Admin: 07/31/17 10:21 Dose: 5,000 units Hydralazine HCl (Apresoline) 25 mg PO TID EBEN PRN Reason: Protocol Last Admin: 07/31/17 14:51 Dose: 25 mg Insulin Human Regular (Humulin R Med) 0 units SC ACHS EBEN PRN Reason: Protocol Last Admin: 07/31/17 12:45 Dose: 5 units Insulin Lispro Protam/Lispro Human (Humalog Mix 75/25) 12 units SC 0630,1700 EBEN PRN Reason: Protocol Last Admin: 07/31/17 06:50 Dose: Not Given Mirtazapine (Remeron) 15 mg PO HS EBEN PRN Reason: Protocol Last Admin: 07/30/17 22:03 Dose: Not Given Mupirocin (Bactroban Ointment) 1 gm TOP DAILY EBEN PRN Reason: Protocol Last Admin: 07/31/17 10:07 Dose: 1 applic Nystatin (Nystop Topical Powder) 1 gm TOP TID EBEN PRN Reason: Protocol Last Admin: 07/31/17 14:51 Dose: 1 applic - Labs Labs: 07/30/17 06:45 07/31/17 06:30 PT 12.3 SECONDS (9.4-12.5) 07/30/17 06:45 INR 1.07 (0.93-1.08) 07/30/17 06:45 APTT 28.6 Seconds (25.1-36.5) 07/30/17 06:45 - Constitutional Appears: Non-toxic, Chronically Ill - Head Exam Head Exam: NORMAL INSPECTION - ENT Exam ENT Exam: Mucous Membranes Moist - Neck Exam Neck Exam: absent: Meningismus - Respiratory Exam Respiratory Exam: Decreased Breath Sounds - Cardiovascular Exam Cardiovascular Exam: +S1, +S2 - GI/Abdominal Exam GI & Abdominal Exam: Soft. absent: Tenderness Assessment and Plan - Assessment and Plan (Free Text) Plan: Assessment S/P Right hallux skin and skin structure infection, with no evidence of osteomyelitis on MRI but with probable peripheral arterial disease DM HTN dyslipidemia Plan S/P treatment with antibiotics - will continue to monitor clinically since she is at risk for nosocomial infections
[2017-07-31 17:33] VITALS: TEMP 98.4; O2SAT 98
--- NOTE | 2017-07-31 18:51 | CP.PCM.PN ---
Subjective - Date & Time of Evaluation Date of Evaluation: 07/31/17 Time of Evaluation: 18:48 - Subjective Subjective: Podiatry Progress Note - Dr. Monroy/Dr. Leos 72 yo female seen and evaluated for left hallux ulceration. Patient is s/p revascularization. Patient is seen resting comfortably in chair, in NAD, and AA0x3. She was enjoying dinner during the time of visitiation. Patient denies acute overnight events. Denies n/v/sob/cp/chills or d. Patient has no new pedal complaints. Patient reports that she may be going home tomorrow. Reports that she feels good that she will be going home. Objective - Vital Signs/Intake and Output Vital Signs (last 24 hours): Temp Pulse Resp BP Pulse Ox 98.4 F 84 18 141/72 98 07/31/17 17:32 07/31/17 17:32 07/31/17 17:32 07/31/17 17:32 07/31/17 17:32 Intake and Output: 07/31/17 07/31/17 06:59 18:59 Output Total 600 375 Balance -600 -375 - Medications Medications: Current Medications Amlodipine Besylate (Norvasc) 10 mg PO DAILY EBEN PRN Reason: Protocol Last Admin: 07/31/17 10:08 Dose: 10 mg Aspirin (Ecotrin) 81 mg PO 0800 EBEN PRN Reason: Protocol Last Admin: 07/31/17 08:17 Dose: 81 mg Carvedilol (Coreg) 3.125 mg PO 0800,1800 EBEN PRN Reason: Protocol Last Admin: 07/31/17 17:21 Dose: 3.125 mg Collagenase (Santyl) 1 gm TOP DAILY EBEN Last Admin: 07/31/17 10:09 Dose: 1 applic Furosemide (Lasix) 40 mg PO DAILY EBEN Last Admin: 07/31/17 10:08 Dose: 40 mg Gabapentin (Neurontin) 100 mg PO TID EBEN PRN Reason: Protocol Last Admin: 07/31/17 17:22 Dose: 100 mg Heparin Sodium (Porcine) (Heparin) 5,000 units SC Q12 EBEN PRN Reason: Protocol Last Admin: 07/31/17 10:21 Dose: 5,000 units Hydralazine HCl (Apresoline) 25 mg PO TID EBEN PRN Reason: Protocol Last Admin: 07/31/17 17:21 Dose: 25 mg Insulin Human Regular (Humulin R Med) 0 units SC ACHS EBEN PRN Reason: Protocol Last Admin: 07/31/17 17:20 Dose: 1 units Insulin Lispro Protam/Lispro Human (Humalog Mix 75/25) 12 units SC 0630,1700 EBEN PRN Reason: Protocol Last Admin: 07/31/17 17:20 Dose: 12 unit Mirtazapine (Remeron) 15 mg PO HS EBEN PRN Reason: Protocol Last Admin: 07/30/17 22:03 Dose: Not Given Mupirocin (Bactroban Ointment) 1 gm TOP DAILY EBEN PRN Reason: Protocol Last Admin: 07/31/17 10:07 Dose: 1 applic Nystatin (Nystop Topical Powder) 1 gm TOP TID EBEN PRN Reason: Protocol Last Admin: 07/31/17 17:22 Dose: 1 applic - Labs Labs: 07/30/17 06:45 07/31/17 06:30 PT 12.3 SECONDS (9.4-12.5) 07/30/17 06:45 INR 1.07 (0.93-1.08) 07/30/17 06:45 APTT 28.6 Seconds (25.1-36.5) 07/30/17 06:45 - Constitutional Appears: Well, Non-toxic, No Acute Distress - Extremities Exam Extremities Exam: absent: Calf Tenderness Additional comments: Vasc: DP and PT palpable. CFT delayed to the digits. Temperature gradient ti the LE is WNL. Left hallux slightly warm. Mild edema noted to the left forefoot Ortho: pain with palpation to the left hallux. Tenderness to anterior, posterior and lateral muscle bellies. Lower leg and pedal muscle strenght graded as follows: anterior group: right side=4/5 , left side= 3/5; posterior group: right side= 3/5, left side= 3/5; medial group: right side= 4/5 , left side= 3/5; lateral group: right side= 3/5, left side= 3/5. Neuro: protective sensation diminished, gross sensation intact Derm: Necrotic tissue noted to the medial aspect of the left hallux measuring approximately about .8 x 1 cm. Ulceration maceration has resolved. Decrease erythema noted to the skin surrounding the circumferential necrotic tissue, mild drainage, no malodor, no tunneling, or undermining noted. Lateral aspect of 2nd digit with superficial ulceration - Neurological Exam Neurological Exam: Alert, Awake, Oriented x3 Assessment and Plan - Assessment and Plan (Free Text) Assessment: 72 y.o female with 1)infected superficial ulceration of left hallux, secondary to diabetic neuropathy 2) and superficial ulceration to lateral left 2nd digit. 3) bilateral lower leg myositis 1 day s/p LE revascularization Plan: Patient examined and evaluated Discussed with attending, Dr. Leos Labs, charts, vitals reviewed- afebrile and absent leukocytosis WBC = 8.6 ESR (07/19/17)= 150 X-rays reviewed - diffuse osteopenia noted, no bony erosion or destruction noted Left foot MRI- negative for osteomyelitis. OLAMIDE/arterial duplex- results show OLAMIDE: Right= 0.49, Left=0.60 with bilateral tibial disease with pulsitile blood flow. Patient went for revascularization, 1 day s/p Will debride ulceration tomorrow at bedside C/w empirical IV abx, per ID Physical therapy consulted- WBAT to surgical shoe Pursue lower extremity reconditioning and strengthening Podiatry will continue to follow while patient is in house
--- NOTE | 2017-08-01 02:07 | PN ---
DATE: 07/31/2017 SUBJECTIVE: The patient has no complaints of any chest pain. No shortness of breath. No headaches or dizziness. PHYSICAL EXAMINATION: VITAL SIGNS: Temperature is 98.4, pulse of 84, blood pressure 141/72, respirations 18. GENERAL: The patient is lying in bed, flat, comfortable. HEENT: No oral lesion. Anicteric sclerae. Moist mucosa. NECK: No JVD, adenopathy, or thyromegaly. CARDIOVASCULAR: S1 and S2, regular. No murmurs, rubs, or gallops. LUNGS: Clear to auscultation bilaterally. No wheeze, rales, or rhonchi. ABDOMEN: Bowel sounds are positive, soft, nontender and nondistended. EXTREMITIES: No cyanosis, clubbing or edema. LABORATORY DATA: White count of 8.6, hemoglobin 9.2. Creatinine is 1.9. ASSESSMENT: 1. Hypertension. 2. Left toe ulcer. 3. Diabetes type 2. 4. Peripheral arterial disease. 5. Chronic kidney disease stage 3. 6. Obesity with a body mass index of 46. 7. Colon polyps. PLAN: The patient is currently comfortable. She had her procedure done with Dr. Doron Garcia yesterday. The patient's creatinine is 1.9 today; it was 1.9 yesterday. She is on hydralazine for her hypertension. She is going to be on Coreg. She is on aspirin daily. She is going to be on heparin for DVT prophylaxis. She is on Lasix daily. She is on Norvasc for hypertension. She is going to be on Santyl for her wound. She had intervention by Dr. Doron Garcia. Moe Thurman MD
[2017-08-01 06:32] LABS: CALCIUM 8.7 mg/dL (8.4-10.5)
[2017-08-01] MEDS: Insulin Reg-MEDIUM-Coverage SC SCH (07:50)
[2017-08-01] MEDS: Insulin Lispro (humaLOG) MIX 75/25(10 ml) SC SCH (07:57)
[2017-08-01 08:49] VITALS: BP 149/69
[2017-08-01] MEDS: Collagenase 250 Units/gm Ointment(30 gm) TOP SCH (09:14)
[2017-08-01] MEDS: Nystatin 100,000 Units/gm Topical Pow(15 gm) TOP SCH (09:14)
[2017-08-01 09:19] VITALS: PULSE 77
--- NOTE | 2017-08-02 02:18 | DS ---
HISTORY OF PRESENT ILLNESS: The patient is a 72-year-old female who had come to the [facility] for rehab. The patient has been feeling well. She had a lower extremity angiogram done to rule out peripheral arterial disease. The patient was seen by Dr. Doron Garcia, who performed the procedure. There was successful left anterior tibial artery angioplasty and a drug-eluting balloon angioplasty at the distal SFA and left popliteal artery below the knee that was done. The patient was given contrast and repeat blood work shows that the creatinine had been stable at 1.9. She was delayed in being discharged in order to follow her creatinine. PHYSICAL EXAMINATION: VITAL SIGNS: Temperature is 98.4, pulse of 84, blood pressure 141/72, respirations 18, O2 saturation 98%. GENERAL: The patient is lying in bed, flat, comfortable. HEENT: No oral lesion. Anicteric sclerae. Moist mucosa. NECK: No JVD, adenopathy, or thyromegaly. CARDIOVASCULAR: S1 and S2, regular. No murmurs, rubs, or gallops. LUNGS: Clear to auscultation bilaterally. No wheeze, rales, or rhonchi. ABDOMEN: Bowel sounds are positive, soft, nontender and nondistended. EXTREMITIES: No cyanosis, clubbing or edema. ASSESSMENT: 1. Peripheral arterial disease, status post angioplasty of left anterior tibial artery and distal left superficial femoral artery and left popliteal artery below the knee. 2. Hypertension. 3. Left toe ulcer. 4. Diabetes type 2. 5. Peripheral arterial disease. 6. Chronic kidney disease, stage 3. 7. Obesity with elevated body mass index of 46. 8. Colon polyps. PLAN: The patient is currently comfortable. She is on hydralazine for her hypertension. She is going to continue with aspirin. She is on heparin for DVT prophylaxis. She is on insulin for her diabetes. She is on Neurontin for her neuropathy. The patient is going to be on Remeron. CONDITION: Stable. ACTIVITIES: Increase as tolerated. Moe Thurman MD
== END 2017-08-01 13:19 | disposition home health service (06) | DRG 300 ==
LOC: TRCU 16:52
PROVIDERS: ADMIT Internal Medicine Nephrology; ATTEND Internal Medicine Nephrology
PROC: F07Z9FZ Gait Training/Functional Ambulation Treatment using Assistive, Adaptive, Supportive or Protective Equipment (ICD-10-PCS; principal; 2017-07-24)
PROC: F07M6ZZ Therapeutic Exercise Treatment of Musculoskeletal System - Whole Body (ICD-10-PCS; 2017-07-24)
PROC: F08Z2ZZ Grooming/Personal Hygiene Treatment (ICD-10-PCS; 2017-07-24)
PROC: F08Z1ZZ Dressing Techniques Treatment (ICD-10-PCS; 2017-07-24)
PROC: F08Z0ZZ Bathing/Showering Techniques Treatment (ICD-10-PCS; 2017-07-24)
PROC: F08Z4ZZ Home Management Treatment (ICD-10-PCS; 2017-07-24)
DX: E11.51 Type 2 diabetes mellitus with diabetic peripheral angiopathy without gangrene (principal); Z68.42 Body mass index [BMI] 45.0-49.9, adult; E11.22 Type 2 diabetes mellitus with diabetic chronic kidney disease; E11.40 Type 2 diabetes mellitus with diabetic neuropathy, unspecified; L03.115 Cellulitis of right lower limb; E11.621 Type 2 diabetes mellitus with foot ulcer; E66.9 Obesity, unspecified; N18.3 Chronic kidney disease, stage 3 (moderate); E78.5 Hyperlipidemia, unspecified; I12.9 Hypertensive chronic kidney disease with stage 1 through stage 4 chronic kidney disease, or unspecified chronic kidney disease; K63.5 Polyp of colon; Z86.73 Personal history of transient ischemic attack (TIA), and cerebral infarction without residual deficits; M60.9 Myositis, unspecified; L97.529 Non-pressure chronic ulcer of other part of left foot with unspecified severity

== ENCOUNTER 2017-07-30 07:30 | Day surgery (SDC) | payer MEDICARE ==
[2017-07-26 13:22] VITALS: BMI 31.4
[2017-07-30] MEDS ORDERED: Lidocaine 2% Inj (20ml) ONE (09:46)
[2017-07-30] MEDS ORDERED: Midazolam 2 MG/2 ML VIAL ONE ×2 (09:53→10:07)
[2017-07-30] MEDS ORDERED: Iodixanol 320 MG/ML 100 ML BOTTLE IV ONE (09:53)
[2017-07-30] MEDS ORDERED: Iodixanol 320 MG/ML 200 ML BOTTLE IV ONE (09:53)
[2017-07-30] MEDS ORDERED: Nitroglycerin 50mg in D5W 50 MG/250 ML BOTTLE IV ONE (09:54)
[2017-07-30] MEDS ORDERED: HEPARIN SODIUM/NS 2,000 ML IV ONE (09:54)
[2017-07-30] MEDS ORDERED: Oxycodone/Acetaminophen 5/325 mg Tab PO PRN (11:43)
[2017-07-30] MEDS ORDERED: Sodium Chloride 0.45% 1,000 ML IV SCH (11:45)
[2017-07-30 13:16] VITALS: TEMP 97.9
--- NOTE | 2017-07-30 15:40 | VASCULAR ---
PROCEDURE: 1. Abdominal aortogram and left lower extremity selective runoff 2. Distal left SFA and popliteal artery drug-eluting balloon angioplasty 3. Long segment left anterior tibial artery angioplasty HISTORY: Diabetes. Severe peripheral vascular disease. Nonhealing painful ischemic ulcer left great toe. Renal insufficiency. PHYSICIAN(S): Doron Garcia M.D. TECHNIQUE: The relative risks and indications of the procedure were explained to the patient and her sister and consent obtained. The patient was hydrated prior to the procedure and the appropriate labs drawn. The patient was placed supine on the arteriogram table and the right groin prepped and draped in the usual sterile fashion. Conscious sedation and monitoring were provided throughout the procedure by a nurse. Via a right common femoral artery approach, a 5 Nigerien sheath was placed in the right groin. Through the sheath and over a guidewire, a 5 Nigerien flush catheter was placed in the abdominal aorta at the level bifurcation and an LPO DSA abdominal and pelvic arteriogram performed. Due to the patient's renal insufficiency, a selective left lower extremity runoff was performed tube limit contrast. A 0.035 angled Glidewire was advanced over the bifurcation and placed in the distal left SFA. A 6 Nigerien 70 cm Raabe sheath was placed in the mid left SFA. Heparin 6500 units IV and nitroglycerin in 250 mcg aliquots were given. The multi focal disease in the terminal left popliteal artery was crossed with an angled glidewire and 5 Nigerien catheter the long segment occlusion of the left anterior tibial artery required multiple 0 point 018 and 0.014 guidewires. Eventually a 0.014 guidewire was placed in the left dorsalis pedis artery. The distal left anterior tibial artery was pre dilated with a 2.0 mm balloon. Next a tapered 2.5-3 0.0 mm x 210 mm balloon was used in the left anterior tibial artery. The proximal left anterior tibial artery was dilated with a 3.5 mm balloon. The left popliteal artery below the knee was dilated with a 4.0 mm drug-eluting balloon. The focal stenosis in the left SFA in the adductor canal was dilated with a 6 mm drug-eluting balloon. Limited completion angiograms were obtained. The sheath was removed and hemostasis obtained with a Perclose device. The patient tolerated the procedure well. FINDINGS: The distal abdominal aorta and aortic bifurcation widely patent and normal. The common and external iliac arteries are moderately tortuous and widely patent. The internal iliac arteries are patent bilaterally. Right lower extremity: There is a proximal take-off to the 2 right profunda femoral branches. The proximal right SFA is patent. Additional imaging on the right was not obtained due to the patient's renal insufficiency P Left lower extremity: Left common femoral artery is patent. The left profunda femoral artery is patent. The left superficial femoral artery is patent with a 60 percent focal stenosis in the adductor canal.. Critical disease with a tapered appearance is noted in the left below-knee popliteal artery. There is severe left trifurcation and tibial occlusive disease. 3 vessels are occluded proximally. Small chronic collaterals are present. There is reconstitution of the terminal left anterior tibial artery. The left dorsalis pedis artery is patent. The the plantar arch is fed from the dorsalis pedis artery and metatarsal arch. IMPRESSION: 1.Successful long segment left anterior tibial artery angioplasty as described above. 2. Drug-eluting balloon angioplasty of the distal left SFA and left popliteal artery below the knee.
[2017-07-30 17:45] VITALS: RESP 20
[2017-07-30 17:46] VITALS: BP 147/80; PULSE 78; O2SAT 96
== END 2017-07-30 18:20 ==
LOC: SDSVAS 07:30
PROVIDERS: ATTEND Radiology Vascular & Interventional Radiology
DX: I70.213 Atherosclerosis of native arteries of extremities with intermittent claudication, bilateral legs (principal); E11.51 Type 2 diabetes mellitus with diabetic peripheral angiopathy without gangrene; E11.621 Type 2 diabetes mellitus with foot ulcer; L97.529 Non-pressure chronic ulcer of other part of left foot with unspecified severity; I10 Essential (primary) hypertension; I25.10 Atherosclerotic heart disease of native coronary artery without angina pectoris; J45.909 Unspecified asthma, uncomplicated; N28.9 Disorder of kidney and ureter, unspecified; Z86.73 Personal history of transient ischemic attack (TIA), and cerebral infarction without residual deficits
CPT/HCPCS: 37224; 37228; 75710; 75716; 99152; 99153; C1725 ×9; C1760; C1769 ×6; C1887; C1892; C1894; J1644 ×2; J1940; J2250; J2405; J3010; J7030 ×2; Q9967

== ENCOUNTER 2017-08-13 12:29 | Emergency (ER) | payer MEDICARE, OTHER ==
[2017-08-13 12:43] VITALS: BMI 40.2
[2017-08-13 13:37] VITALS: RESP 18
[2017-08-13 13:38] VITALS: O2SAT 100
--- NOTE | 2017-08-13 13:44 | ED PDOC ---
Arrival/HPI - General Chief Complaint: Lower Extremity Problem/Injury Time Seen by Provider: 08/13/17 13:34 Historian: Patient, Family - History of Present Illness Narrative History of Present Illness (Text): you were treated in the ED today for hx of HTN, Diabetes, artery disease and recent left anterior tibial angioplasty/left SFA/left popliteal and now with left lower leg pain and otherwise without any trauma/injury/nausea/vomiting/ headache/dizziness/difficulty breathing/chest pain/abdomen pain/numbness/ tingling/loss of limb function/pain with urination. 08/13/17 13:39 Time/Duration: 24 hours Past Medical History - Provider Review Nursing Documentation Reviewed: Yes - Travel History Have you recently traveled outside [place] w/in the past 3 mons?: No - Infectious Disease Hx of Infectious Diseases: None - Tetanus Immunization Tetanus Immunization: Unknown - Cardiac Hx Pacemaker: No - Pulmonary Hx Respiratory Disorders: No - Neurological Hx Paralysis: No - HEENT Hx HEENT Disorder: Yes (CATARACT SX) Hx Blind: Yes (RIGHT EYE,HAS RIGHT EYE TUMOR,) - Renal Hx Renal Disorder: No - Endocrine/Metabolic Hx Diabetes Mellitus Type 2: Yes - Hematological/Oncological Hx Blood Transfusions: No Hx Blood Transfusion Reaction: No - Integumentary Hx Dermatological Disorder: No - Musculoskeletal/Rheumatological Hx Musculoskeletal Disorders: Yes - Gastrointestinal Hx Gastrointestinal Disorders: No - Genitourinary/Gynecological Hx Genitourinary Disorders: No Hx Reproductive Disorders: No - Psychiatric Hx Emotional Abuse: No Hx Physical Abuse: No Hx Substance Use: No - Surgical History Other/Comment: LEFT OPEN HEMICOLECTOMY 06-28-16 - Anesthesia Hx Anesthesia Reactions: No Hx Malignant Hyperthermia: No - Suicidal Assessment Feels Threatened In Home Enviroment: No Family/Social History - Physician Review Nursing Documentation Reviewed: Yes Family/Social History: No Known Family HX Smoking Status: Never Smoked Hx Alcohol Use: No Hx Substance Use: No Hx Substance Use Treatment: No Allergies/Home Meds Allergies/Adverse Reactions: Allergies No Known Allergies Allergy (Verified 06/28/16 22:22) Home Medications: Home Meds Medication Instructions Recorded Confirmed Carvedilol [Coreg] 3.125 mg PO BID 07/18/17 07/25/17 Furosemide [Lasix] 40 mg PO DAILY 07/18/17 07/25/17 Gabapentin [Neurontin] 100 mg PO DAILY 07/18/17 07/25/17 Mirtazapine [Remeron] 15 mg PO HS 07/18/17 07/25/17 Vit D2 50,000 iu PO QWK 07/18/17 07/25/17 hydrALAZINE [Apresoline] 10 mg PO TID 07/18/17 07/25/17 Review of Systems - Review of Systems Constitutional: Normal Eyes: Normal ENT: Normal Respiratory: Normal Cardiovascular: Normal Gastrointestinal: Normal Genitourinary Female: Normal Musculoskeletal: Other (left lower leg pain/swelling) Skin: Normal, Other (except for left toe) Neurological: Normal Endocrine: Normal Hemo/Lymphatic: Normal Psychiatric: Normal Physical Exam Vital Signs Reviewed: Yes Vital Signs Pulse Resp BP Pulse Ox 08/13/17 17:14 79 18 158/69 H 100 08/13/17 15:48 86 18 164/75 H 100 08/13/17 13:37 92 H 18 170/78 H 100 Appearance: Positive for: Non-Toxic, Uncomfortable Mental Status: Positive for: Alert and Oriented X 3 - Systems Exam Head: Present: Atraumatic, Normocephalic Pupils: Present: PERRL Extroacular Muscles: Present: EOMI Conjunctiva: Present: Normal Ears: Present: Normal Mouth: Present: Moist Mucous Membranes Pharnyx: Present: Normal Nose (External): Present: Atraumatic Nose (Internal): Present: Normal Inspection Neck: Present: Normal Range of Motion, Other (no c-t-l spinal or paraspinal tenderness) Respiratory/Chest: Present: Clear to Auscultation, Good Air Exchange Cardiovascular: Present: Regular Rate and Rhythm Abdomen: No: Tenderness, Distention, Normal Bowel Sounds, Peritoneal Signs, Rebound, Guarding, McBurney's Point Tender, Rovsing's Sign Present, Hernias, Feeding Tubes, Ostomy Tubes, Mass/Organomegaly, Scars, Other Back: Present: Normal Inspection Upper Extremity: Present: Normal Inspection Lower Extremity: Present: Other (both lower leg warm/sensation/pink and dopplarable dp/pt on left and dp on right and left with with toe ulceration without change from prior) Neurological: Present: GCS=15, CN II-XII Intact, Speech Normal, Motor Func Grossly Intact Skin: Present: Warm, Normal Color, Other (see le) Psychiatric: Present: Alert, Oriented x 3, Normal Insight, Normal Concentration Medical Decision Making ED Course and Treatment: 08/13/17 13:45 you were treated in the ED today for hx of HTN, Diabetes, artery disease and recent left anterior tibial angioplasty/left SFA/left popliteal and now with left lower leg pain which caused you to fall but and otherwise without any head injury/neck pain/loss of consciousness/injury/nausea/vomiting/headache/dizziness /difficulty breathing/chest pain/abdomen pain/numbness/tingling/loss of limb function/pain with urination. You were otherwise breathing easily, talking with your sister easily, good strength/sensation, walking easily, clear lungs, no abdomen tenderness, both lower leg warm/sensation/pink/ultrasound pulses noted of the both lower extremities and left with with toe ulceration without change from prior, no spinal or any other bony tenderness, no fever temp 98.4, stable heart rate 92, stable breathing rate 18, excellent oxygen level 100% room air, elevated blood pressure 170/78 which we recommend repeat in 2-3 days primary care office to determine further treatment, you have blood tests no infection count 9.5, stable blood level hemoglobin 9.9/platelets 305, stable chemistry, creatinine 1.6 improved from 2.0 (08/01/17), heart blood test negative less than 0.01, radiology ultrasound both lower leg preliminary negative, ECG normal sinus rhythm similar to prior, tylenol, observation done in the ED with improvement and you wanted to go home, had a long discussion with Dr. Parmar vascular surgery who came and evaluated you and stated you have nice blood flow to the lower extremities and recommended discharge home with followup with Dr. Thurman for further evaluation and coordinated wound care for the left toe ulceration, counselled to monitor symptoms and thus discharged home and your sister Dina was notified [phone] and who felt comfortable as well. 1. Recommend tylenol as directed for pain. 2. Recommend follow-up primary care Dr. Thurman 1-2 days to review symptoms, get final ultrasound report, referral for left toe wound care. 3. If any worsening pain, fever, chills, nausea, vomiting, difficulty breathing, numbness, loss of limb function, pain with urination or any medical condition then return to the ED. 08/13/17 18:33 Reassessment Condition: Re-examined, Improved - Lab Interpretations Lab Results: 08/13/17 15:17 08/13/17 15:05 Lab Results 08/13/17 16:58: Urine Color Yellow, Urine Appearance Sl cloudy, Urine pH 6.0, Ur Specific [place] 1.020, Urine Protein 100 H, Urine Glucose (UA) 250 H, Urine Ketones Negative, Urine Blood Trace-intact H, Urine Nitrate Negative, Urine Bilirubin Negative, Urine Urobilinogen 0.2, Ur Leukocyte Esterase Trace H, Urine RBC 0 - 2, Urine WBC 10 - 15, Ur Epithelial Cells 1 - 3, Urine Bacteria Many 08/13/17 15:17: PT 10.8, INR 0.95, APTT 29.0 08/13/17 15:17: WBC 9.5, RBC 3.22 L, Hgb 9.9 L, Hct 29.6 L, MCV 91.9, MCH 30.7, MCHC 33.4, RDW 14.0, Plt Count 305, MPV 9.6, Gran % 74.4 H, Lymph % (Auto) 18.0 L, Mckenzie % (Auto) 4.9, Eos % (Auto) 2.4, Baso % (Auto) 0.3, Gran # 7.04 H, Lymph # (Auto) 1.7, Mckenzie # (Auto) 0.5, Eos # (Auto) 0.2, Baso # (Auto) 0.03 08/13/17 15:05: Sodium 136, Potassium 4.8, Chloride 101, Carbon Dioxide 22, Anion Gap 17, BUN 23 H, Creatinine 1.6 H, Est GFR ( Amer) 38, Est GFR ( Non-Af Amer) 32, Random Glucose 293 H, Calcium 9.7, Magnesium 1.9, Total Bilirubin 0.2, AST 27, ALT 22, Alkaline Phosphatase 103, Lactate Dehydrogenase 423, Total Creatine Kinase 92, Troponin I < 0.01, Total Protein 7.9, Albumin 3.6 , Globulin 4.4, Albumin/Globulin Ratio 0.8 L I have reviewed the lab results: Yes - RAD Interpretation Radiology Orders: 08/13/17 13:35 DUPLEX LOWER EXTRM VEIN BILAT [US] Stat Policy Change 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 Ulcer: No History Surgical Site Infection Following: None - Disposition Have Diagnosis and Disposition been Completed?: Yes Diagnosis: Leg pain, left Disposition: HOME/ ROUTINE Disposition Time: 18:32 Patient Plan: Discharge Condition: IMPROVED Additional Instructions: you were treated in the ED today for hx of HTN, Diabetes, artery disease and recent left anterior tibial angioplasty/left SFA/left popliteal and now with left lower leg pain which caused you to fall but and otherwise without any head injury/neck pain/loss of consciousness/injury/nausea/vomiting/headache/dizziness /difficulty breathing/chest pain/abdomen pain/numbness/tingling/loss of limb function/pain with urination. You were otherwise breathing easily, talking with your sister easily, good strength/sensation, walking easily, clear lungs, no abdomen tenderness, both lower leg warm/sensation/pink/ultrasound pulses noted of the both lower extremities and left with with toe ulceration without change from prior, no spinal or any other bony tenderness, no fever temp 98.4, stable heart rate 92, stable breathing rate 18, excellent oxygen level 100% room air, elevated blood pressure 170/78 which we recommend repeat in 2-3 days primary care office to determine further treatment, you have blood tests no infection count 9.5, stable blood level hemoglobin 9.9/platelets 305, stable chemistry, creatinine 1.6 improved from 2.0 (08/01/17), heart blood test negative less than 0.01, radiology ultrasound both lower leg preliminary negative, ECG normal sinus rhythm similar to prior, tylenol, observation done in the ED with improvement and you wanted to go home, had a long discussion with Dr. Parmar vascular surgery who came and evaluated you and stated you have nice blood flow to the lower extremities and recommended discharge home with followup with Dr. Thurman for further evaluation and coordinated wound care for the left toe ulceration, counselled to monitor symptoms and thus discharged home and your sister Dina was notified [phone] and who felt comfortable as well. 1. Recommend tylenol as directed for pain. 2. Recommend follow-up primary care Dr. Thurman 1-2 days to review symptoms, get final ultrasound report, referral for left toe wound care. 3. If any worsening pain, fever, chills, nausea, vomiting, difficulty breathing, numbness, loss of limb function, pain with urination or any medical condition then return to the ED. Referrals: Moe Thurman MD [Primary Care Provider] - Follow up with primary Forms: [employer] (Dominican)
[2017-08-13 15:36] LABS: TROPONIN I < 0.01 ng/mL
[2017-08-13 15:37] LABS: BASO # 0.03 K/mm3 (0.0-2.0); BASO % 0.3 % (0.0-3.0); EOS # 0.2 (0.0-0.7); EOS % 2.4 % (1.5-5.0); GRAN # 7.04 (1.4-6.5); GRAN % 74.4 % (50.0-68.0); HEMOGLOBIN 9.9 g/dL (12.0-16.0); LYMPH # 1.7 (1.2-3.4); MEAN CELL VOLUME 91.9 fl (80.0-105.0); MEAN CORPUSCULAR HEMOGLOBIN 30.7 pg (25.0-35.0); MEAN CORPUSCULAR HGB CONC 33.4 g/dl (31.0-37.0); MEAN PLATELET VOLUME 9.6 fl (7.0-11.0); MONO # 0.5 (0.1-0.6); MONO % 4.9 % (1.0-6.0); RBC 3.22 10^6/uL (3.5-6.1); WHITE BLOOD COUNT 9.5 10^3/ul (4.5-11.0)
[2017-08-13 15:39] LABS: INR 0.95 (0.93-1.08); PROTHROMBIN TIME 10.8 SECONDS (9.4-12.5)
[2017-08-13 16:05] LABS: ALB/GLOB RATIO 0.8 (1.1-1.8); ALBUMIN 3.6 g/dL (3.0-4.8); ALT/SGPT 22 U/L (7-56); AST/SGOT 27 U/L (14-36); BLOOD UREA NITROGEN 23 mg/dL (7-21); CALCIUM 9.7 mg/dL (8.4-10.5); GFR AFRICAN-AMERICAN 38; GFR NON-AFRICAN AMERICAN 32
--- NOTE | 2017-08-13 17:09 | US ---
HISTORY: Leg pain and swelling. Evaluate for DVT PHYSICIAN(S): Doron Garcia MD. TECHNIQUE: Duplex sonography and color-flow Doppler with graded compression were used to evaluate the deep venous systems of both lower extremities. The exam is very limited by body habitus and edema. The calf veins are not well seen FINDINGS: The visualized deep venous systems of both lower extremities are sonographically normal and compressible. Normal wave forms and augmentation are seen. There is no sonographic evidence for deep venous thrombosis in the visualized segments of both lower extremities. IMPRESSION: No sonographic evidence for deep venous thrombosis in the visualized segments of both lower extremities. Very limited study
[2017-08-13 17:10] LABS: URINE BILIRUBIN NEGATIVE (NEGATIVE); URINE BLOOD TRACE-INTACT (NEGATIVE); URINE GLUCOSE (UA) 250 mg/dL (NEGATIVE); URINE LEUKOCYTE ESTERASE TRACE Leu/uL (NEGATIVE); URINE PROTEIN 100 mg/dL (<30 mg/dL); URINE UROBILINOGEN 0.2 E.U./dL (<1 E.U./dL)
[2017-08-13 17:13] LABS: URINE APPEARANCE SL CLOUDY (CLEAR); URINE COLOR YELLOW (YELLOW)
[2017-08-13 17:22] LABS: URINE RBC 0 - 2 /hpf (0-2)
[2017-08-13 17:23] LABS: URINE BACTERIA MANY (NEG)
[2017-08-13 18:29] VITALS: TEMP 98.4
--- NOTE | 2017-08-13 20:45 | CARD ---
APPROVED REPORT EKG Measurement Heart [id number] <Conclusion> Normal sinus rhythm Incomplete right bundle branch block Left anterior fascicular block Possible Lateral infarct, age undetermined Cannot rule out Inferior infarct (masked by fascicular block?), age undetermined Abnormal ECG
[2017-08-13 20:56] VITALS: BP 148/72; PULSE 82
== END 2017-08-13 20:56 | disposition home or self-care (01) ==
LOC: ED 12:29
DX: M79.605 Pain in left leg (principal); I10 Essential (primary) hypertension; E11.9 Type 2 diabetes mellitus without complications

== ENCOUNTER 2017-09-17 10:25 | Inpatient (IN) | payer MEDICARE, OTHER ==
[2017-09-17 10:49] VITALS: BMI 41.5
--- NOTE | 2017-09-17 11:43 | RAD ---
HISTORY: r/o infiltrate COMPARISON: 06/22/2016. FINDINGS: LUNGS: The lungs are well inflated and clear. No focal consolidation. PLEURA: No significant pleural effusion identified, no pneumothorax apparent. CARDIOVASCULAR: The heart is normal in size. OSSEOUS STRUCTURES: No significant abnormalities. VISUALIZED UPPER ABDOMEN: Normal. OTHER FINDINGS: None. IMPRESSION: No active pulmonary disease.
[2017-09-17 11:58] LABS: BASO # 0.04 K/mm3 (0.0-2.0); BASO % 0.4 % (0.0-3.0); EOS # 0.4 (0.0-0.7); EOS % 4.1 % (1.5-5.0); GRAN # 6.6 (1.4-6.5); GRAN % 72.3 % (50.0-68.0); HEMOGLOBIN 9.8 g/dL (12.0-16.0); LYMPH # 1.8 (1.2-3.4); LYMPH % 19.3 % (22.0-35.0); MEAN CELL VOLUME 90.4 fl (80.0-105.0); MEAN CORPUSCULAR HEMOGLOBIN 31.2 pg (25.0-35.0); MEAN CORPUSCULAR HGB CONC 34.5 g/dl (31.0-37.0); MEAN PLATELET VOLUME 10.4 fl (7.0-11.0); MONO # 0.4 (0.1-0.6); MONO % 3.9 % (1.0-6.0); RBC 3.14 10^6/uL (3.5-6.1); RED CELL DISTRIBUTION WIDTH 13.3 % (11.5-14.5); WHITE BLOOD COUNT 9.1 10^3/ul (4.5-11.0)
[2017-09-17 12:18] LABS: ALB/GLOB RATIO 0.9 (1.1-1.8); ALBUMIN 4.1 g/dL (3.0-4.8); ALT/SGPT 24 U/L (7-56); AST/SGOT 24 U/L (14-36); BLOOD UREA NITROGEN 25 mg/dL (7-21); CALCIUM 9.5 mg/dL (8.4-10.5); GFR AFRICAN-AMERICAN 36; GFR NON-AFRICAN AMERICAN 30
[2017-09-17 12:19] LABS: B-TYPE NATRIURETIC PEPTIDE 661 pg/mL (0-450)
[2017-09-17 12:23] LABS: TROPONIN I < 0.01 ng/mL
[2017-09-17 12:38] LABS: PH,URINE 6.5 (4.7-8.0); URINE BILIRUBIN NEGATIVE (NEGATIVE); URINE BLOOD TRACE-LYSED (NEGATIVE); URINE GLUCOSE (UA) 100 mg/dL (NEGATIVE); URINE LEUKOCYTE ESTERASE TRACE Leu/uL (NEGATIVE); URINE PROTEIN 100 mg/dL (<30 mg/dL); URINE UROBILINOGEN 0.2 E.U./dL (<1 E.U./dL)
[2017-09-17 12:41] LABS: URINE APPEARANCE CLEAR (CLEAR); URINE COLOR YELLOW (YELLOW)
[2017-09-17 12:48] LABS: URINE BACTERIA MANY (NEG)
[2017-09-17 12:49] LABS: URINE FINE GRANULAR CAST 0 - 2 /hpf (0-2)
[2017-09-17 12:50] LABS: URINE AMORPHOUS SEDIMENT FEW
[2017-09-17] MEDS ORDERED: cefTRIAXone 1 gm 1 GM/100 ML BAG IVPB STA (13:21)
[2017-09-17] MEDS ORDERED: Sodium Chloride 0.9% 1,000 ML IV SCH (13:30)
--- NOTE | 2017-09-17 14:22 | US ---
PROCEDURE: Left lower extremity venous US HISTORY: Leg pain and swelling. Evaluate for DVT. PHYSICIAN(S): Doron Garcia MD. TECHNIQUE: Duplex sonography and color-flow Doppler with graded compression were used to evaluate the deep venous system of the left lower extremity. The exam is limited by body habitus and edema. FINDINGS: The visualized deep venous system of the left lower extremity is sonographically normal and compressible. Normal wave forms and augmentation are seen. There is no sonographic evidence for deep venous thrombosis in the visualized segments of the left lower extremity. IMPRESSION: 1. No sonographic evidence for deep venous thrombosis in the visualized segments of the left lower extremity. 2. Limited study.
--- NOTE | 2017-09-17 15:23 | ED PDOC ---
Arrival/HPI - General Chief Complaint: Weakness/Neurological Deficit Time Seen by Provider: 09/17/17 11:07 Historian: Patient, Family (Daughter) - History of Present Illness Narrative History of Present Illness (Text): 09/17/17 15:20 A 72 year old female presents to the emergency department accompanied by daughter complaining of increased generalized weakness and decrease appetite over the past few days. Daughter reports new open ulcer on left great toe which she noticed yesterday. Patient notes chronic left leg pain but denies any fever , chills, nausea, vomiting, abdominal pain, urinary symptoms, hematouria, hematochezia, chest pain, shortness of breath, cough or any other complaints. Time/Duration: Other (few days) Symptom Course: Unchanged Context: Home Past Medical History - Provider Review Nursing Documentation Reviewed: Yes - Infectious Disease Hx of Infectious Diseases: None - Tetanus Immunization Tetanus Immunization: Unknown - Cardiac Hx Pacemaker: No - Pulmonary Hx Respiratory Disorders: No - Neurological Hx Dizziness: Yes Hx Paralysis: No - HEENT Hx HEENT Disorder: Yes (CATARACT SX) Hx Blind: Yes (RIGHT EYE,HAS RIGHT EYE TUMOR,) - Renal Hx Renal Disorder: No - Endocrine/Metabolic Hx Diabetes Mellitus Type 2: Yes - Hematological/Oncological Hx Blood Transfusions: No Hx Blood Transfusion Reaction: No - Integumentary Hx Dermatological Disorder: No - Musculoskeletal/Rheumatological Hx Musculoskeletal Disorders: Yes - Gastrointestinal Hx Gastrointestinal Disorders: No - Genitourinary/Gynecological Hx Genitourinary Disorders: No Hx Reproductive Disorders: No - Psychiatric Hx Emotional Abuse: No Hx Physical Abuse: No Hx Substance Use: No - Surgical History Hx Angioplasty: Yes Other/Comment: LEFT OPEN HEMICOLECTOMY 06-28-16 - Anesthesia Hx Anesthesia Reactions: No Hx Malignant Hyperthermia: No - Suicidal Assessment Feels Threatened In Home Enviroment: No Family/Social History - Physician Review Nursing Documentation Reviewed: Yes Family/Social History: No Known Family HX Smoking Status: Never Smoked Hx Alcohol Use: No Hx Substance Use: No Hx Substance Use Treatment: No Allergies/Home Meds Allergies/Adverse Reactions: Allergies No Known Allergies Allergy (Verified 09/17/17 14:09) Home Medications: Home Meds Medication Instructions Recorded Confirmed Carvedilol [Coreg] 3.125 mg PO BID 07/18/17 09/17/17 Furosemide [Lasix] 40 mg PO DAILY 07/18/17 09/17/17 Gabapentin [Neurontin] 100 mg PO DAILY 07/18/17 09/17/17 Mirtazapine [Remeron] 15 mg PO HS 07/18/17 09/17/17 hydrALAZINE [Apresoline] 10 mg PO TID 07/18/17 09/17/17 Ergocalciferol (Vitamin D2) 50,000 unit PO QWK 09/17/17 09/17/17 [Vitamin D2] Review of Systems - Physician Review All systems were reviewed & negative as marked: Yes - Review of Systems Constitutional: Other (increased generalized weakness). absent: Fevers, Night Sweats Respiratory: absent: SOB, Cough Cardiovascular: absent: Chest Pain Gastrointestinal: Appetite Changes (decrease). absent: Abdominal Pain, Nausea, Vomiting, Hematochezia Genitourinary Female: absent: Dysuria, Frequency, Hematuria Musculoskeletal: Other (chronic left leg pain) Skin: Other (open ulcer to left great toe) Physical Exam Vital Signs Reviewed: Yes Vital Signs Temp Pulse Resp BP Pulse Ox 09/17/17 13:16 177/89 H 09/17/17 13:01 85 18 158/86 H 100 09/17/17 10:46 97.8 F 89 18 166/90 H 100 Temperature: Afebrile Blood Pressure: Hypertensive Pulse: Regular Respiratory Rate: Normal Appearance: Positive for: Well-Appearing, Non-Toxic, Comfortable Pain Distress: None Mental Status: Positive for: Alert and Oriented X 3 Finger Stick Blood Glucose: 214 - Systems Exam Head: Present: Atraumatic, Normocephalic Pupils: Present: PERRL Extroacular Muscles: Present: EOMI Conjunctiva: Present: Normal, Other (right eye cataract) Mouth: Present: Moist Mucous Membranes Neck: Present: Normal Range of Motion Respiratory/Chest: Present: Clear to Auscultation, Good Air Exchange. No: Respiratory Distress, Accessory Muscle Use Cardiovascular: Present: Murmurs (systolic), Normal S1, S2 Abdomen: No: Tenderness, Distention, Peritoneal Signs Back: Present: Normal Inspection Upper Extremity: Present: Normal Inspection, Normal ROM. No: Cyanosis, Edema Lower Extremity: Present: CALF TENDERNESS (diffuse left calf tenderness), NORMAL PULSES. No: Edema Neurological: Present: GCS=15, CN II-XII Intact, Speech Normal Skin: Present: Warm, Dry, Normal Color, Other (1 cm open ulcer to left great toe , no active drainage). No: Rashes Psychiatric: Present: Alert, Oriented x 3, Normal Insight, Normal Concentration Medical Decision Making ED Course and Treatment: 09/17/17 15:20 Impression: A 72 year old female with increased generalized weakness and decrease appetite. Also complains of open ulcer to left great toe and chronic left leg pain. Plan: -- Duplex lower extremity ultrasound -- Chest xray -- EKG -- Labs -- Urine culture and Urinalysis -- Rocephine and IV fluids -- Reassess and disposition Progress Notes: EKG shows NSR at 85 BPM with LAD, bifascicular block. Interpreted by me. Report Date : 09/17/2017 11:41:28 Procedure: Chest xray Dictator : Liane Howard MD IMPRESSION: No active pulmonary disease. PROCEDURE: Left lower extremity venous US Report Date : 09/17/2017 14:21:04 Dictator : Doron Ibarra MD IMPRESSION: 1. No sonographic evidence for deep venous thrombosis in the visualized segments of the left lower extremity. 2. Limited study. Case discussed with Dr. Thurman, who is aware of and in agreement with admission for dehydration, UTI and weakness. - Lab Interpretations Lab Results: 09/17/17 11:45 09/17/17 11:45 Lab Results 09/17/17 12:30: Urine Color Yellow, Urine Appearance Clear, Urine pH 6.5, Ur Specific [place] 1.020, Urine Protein 100 H, Urine Glucose (UA) 100 H, Urine Ketones Negative, Urine Blood Trace-lysed H, Urine Nitrate Positive H, Urine Bilirubin Negative, Urine Urobilinogen 0.2, Ur Leukocyte Esterase Trace H, Urine RBC 2 - 5, Urine WBC 5 - 10, Ur Epithelial Cells 4 - 5, Amorphous Sediment Few, Urine Bacteria Many, Fine Granular Casts 0 - 2, Urine Other Uyeast 09/17/17 11:45: Sodium 138, Potassium 4.4, Chloride 102, Carbon Dioxide 21, Anion Gap 20, BUN 25 H, Creatinine 1.7 H, Est GFR ( Amer) 36, Est GFR ( Non-Af Amer) 30, Random Glucose 220 H, Calcium 9.5, Magnesium 1.7, Total Bilirubin 0.3, AST 24, ALT 24, Alkaline Phosphatase 109, Lactate Dehydrogenase 507, Total Creatine Kinase 44, Troponin I < 0.01, NT-Pro-B Natriuret Pep 661 H, Total Protein 8.7 H, Albumin 4.1, Globulin 4.6, Albumin/Globulin Ratio 0.9 L 09/17/17 11:45: WBC 9.1, RBC 3.14 L, Hgb 9.8 L, Hct 28.4 L, MCV 90.4, MCH 31.2, MCHC 34.5, RDW 13.3, Plt Count 227, MPV 10.4, Gran % 72.3 H, Lymph % (Auto) 19.3 L, Sullivan % (Auto) 3.9, Eos % (Auto) 4.1, Baso % (Auto) 0.4, Gran # 6.60 H, Lymph # (Auto) 1.8, Sullivan # (Auto) 0.4, Eos # (Auto) 0.4, Baso # (Auto) 0.04 09/17/17 10:43: POC Glucose (mg/dL) 214 H I have reviewed the lab results: Yes - RAD Interpretation Radiology Orders: 09/17/17 11:12 CHEST PORTABLE [RAD] Stat 09/17/17 11:13 DUPLEX LOWER EXTRM VEIN LEFT [US] Stat - Medication Orders Current Medication Orders: Amlodipine Besylate (Norvasc) 10 mg PO DAILY [facility] Last Admin: 09/17/17 13:16 Dose: 10 mg MAR Blood Pressure Document 09/17/17 13:16 AJ (Rec: 09/17/17 17:17 [id number]) Blood Pressure Blood Pressure (100/60-150/90) 177/89 Carvedilol (Coreg) 3.125 mg PO BID [facility] Last Admin: 09/17/17 17:16 Dose: 3.125 mg MAR Pulse and Blood Pressure Document 09/17/17 17:16 AJ (Rec: 09/17/17 17:16 [id number]) Pulse Pulse Rate (60-90) 72 Blood Pressure Blood Pressure (100/60-150/90) 165/87 Furosemide (Lasix) 40 mg PO DAILY [facility] Gabapentin (Neurontin) 100 mg PO TID [facility] PRN Reason: Protocol Last Admin: 09/17/17 17:16 Dose: 100 mg Behavioural Document 09/17/17 17:16 AJ (Rec: 09/17/17 17:16 [id number]) Maintenance Maintenance Dose Yes Nonmedicinal Nonmedicinal Interventions Redirect Therapeutic Communication Activity Behavior Behavior for Medication: Anxiety Hydralazine HCl (Apresoline) 10 mg PO TID [facility] Last Admin: 09/17/17 17:15 Dose: 10 mg MAR Pulse and Blood Pressure Document 09/17/17 17:15 AJ (Rec: 09/17/17 17:16 [id number]) Pulse Pulse Rate (60-90) 82 Blood Pressure Blood Pressure (100/60-150/90) 165/87 Sodium Chloride (Sodium Chloride 0.9%) 1,000 mls @ 75 mls/hr IV .[id number] [facility] Last Admin: 09/17/17 13:49 Dose: 75 mls/hr eMAR Start Stop Document 09/17/17 13:49 MS (Rec: 09/17/17 13:49 MS [id number]) Intravenous Solution Start Date 09/17/17 Start Time 13:49 Mirtazapine (Remeron) 15 mg PO HS [facility] Last Admin: 09/17/17 21:36 Dose: 15 mg Discontinued Medications Ceftriaxone Sodium (Rocephin 1 Gram Ivpb) 1 gm in 100 mls @ 100 mls/hr IVPB STAT STA PRN Reason: Protocol Stop: 09/17/17 14:20 Last Admin: 09/17/17 13:47 Dose: 100 mls/hr eMAR Start Stop Document 09/17/17 13:47 MS (Rec: 09/17/17 13:49 MS [id number]) Intravenous Solution Start Date 09/17/17 Start Time 13:49 End Date 09/17/17 End time 14:49 Total Infusion Time 60 Pneumococcal Polyvalent Vaccine (Pneumovax 23 Vaccine) 0.5 ml IM .ONCE ONE Stop: 09/17/17 19:44 - Scribe Statement The provider has reviewed the documentation as recorded by the Zeynep Washington Provider Scribe Attestation: All medical record entries made by the Scribe were at my direction and personally dictated by me. I have reviewed the chart and agree that the record accurately reflects my personal performance of the history, physical exam, medical decision making, and the department course for this patient. I have also personally directed, reviewed, and agree with the discharge instructions and disposition. Disposition/Present on Arrival - Present on Arrival Any Indicators Present on Arrival: No History of DVT/PE: No History of Uncontrolled Diabetes: Yes Urinary Catheter: No History of Decub. Ulcer: No History Surgical Site Infection Following: None - Disposition Have Diagnosis and Disposition been Completed?: Yes Diagnosis: Dehydration, UTI (urinary tract infection) Disposition: HOSPITALIZED Disposition Time: 12:50 Condition: STABLE
--- NOTE | 2017-09-17 18:35 | CARD ---
APPROVED REPORT EKG Measurement Heart [id number] FL [id number] <Conclusion> Normal sinus rhythm Right bundle branch block Left anterior fascicular block Bifascicular block Cannot rule out Inferior infarct (masked by fascicular block?), age undetermined Abnormal ECG
[2017-09-17] MEDS ORDERED: Pneumococcal 23-Valent Vaccine IM ONE (19:43)
--- NOTE | 2017-09-18 07:06 | CON ---
DATE: 09/17/2017 TIME: 7:30 p.m. CHIEF COMPLAINT AND HISTORY OF PRESENT ILLNESS: Ms. Rosado was admitted after a fall. There is a superficial ulcer on her left great toe. She had an arteriogram with LLE intervention in early July. She had extensive tibial disease and we were able to angioplasty her anterior tibial artery and her distal left SFA and popliteal artery. The great toe ulcer was present and remains superficial. Ms. Rosado denies pain in the left toe, but is neuropathic. She has a palpable left femoral and popliteal pulse. Her pedal pulse is not palpable. Her left foot is warm with good capillary refill. I will obtain an OLAMIDE/PVR exam and limited duplex of the lower extremities. I will compare these with her prior exam. Currently, no further intervention is necessary unless there is evidence of subacute thrombosis of the angioplasty sites. Doron Garcia MD MTDD
--- NOTE | 2017-09-18 11:35 | RAD ---
PROCEDURE: Left Foot Radiographs. HISTORY: left hallux ulcer COMPARISON: None. FINDINGS: BONES: Normal. No fracture. JOINTS: Normal. SOFT TISSUES: Normal. OTHER FINDINGS: None. IMPRESSION: No evidence of osteomyelitis
[2017-09-18] MEDS: Cefepime 1gm in NS 100ml 1 GM/100 ML BAG IVPB SCH ×2 (13:00→15:00)
[2017-09-18] MEDS: Vancomycin 1gm in NS 250ml 1 GM/250 ML BAG IVPB STA ×2 (14:40→15:35)
--- NOTE | 2017-09-18 16:18 | CP.PCM.CON ---
History of Present Illness - History of Present Illness History of Present Illness: 72 year old female with PMH of DM, HTN, dyslipidemia, morbid obesity with BMI 42 was brought in [place] [facility] [place] of generalized weakness and decreased appetite for the past several days. The patient is now more awake and alert and is not complaining of fever or chills, no nausea or vomiting. She is complaining of pain on the left foot hallux with associated open ulcer with some brownish discharge. She is also complaining of some urinary frequency. She denies abdominal pain, no flank pain, no chest pain, no SOB, no cough or rhinorrhea, no sore throat, no diarrhea, no dysuria. Infectious Diseases consult is requested to further evaluate and manage. Review of Systems - Review of Systems All systems: reviewed and no additional remarkable complaints except (as per HPI ) Past Patient History - Infectious Disease Hx of Infectious Diseases: None - Tetanus Immunizations Tetanus Immunization: Unknown - Past Social History Smoking Status: Never Smoked - CARDIAC Hx Pacemaker: No - PULMONARY Hx Respiratory Disorders: No - NEUROLOGICAL Hx Dizziness: Yes Hx Paralysis: No - HEENT Hx HEENT Problems: Yes (CATARACT SX) Hx Blind: Yes (RIGHT EYE,HAS RIGHT EYE TUMOR,) - RENAL Hx Chronic Kidney Disease: No - ENDOCRINE/METABOLIC Hx Diabetes Mellitus Type 2: Yes - HEMATOLOGICAL/ONCOLOGICAL Hx Blood Transfusions: No Hx Blood Transfusion Reaction: No - INTEGUMENTARY Hx Dermatological Problems: No - MUSCULOSKELETAL/RHEUMATOLOGICAL Hx Musculoskeletal Disorders: Yes - GASTROINTESTINAL Hx Gastrointestinal Disorders: No - GENITOURINARY/GYNECOLOGICAL Hx Genitourinary Disorders: No Hx Reproductive Disorders: No - PSYCHIATRIC Hx Emotional Abuse: No Hx Physical Abuse: No Hx Substance Use: No - SURGICAL HISTORY Hx Angioplasty: Yes Other/Comment: LEFT OPEN HEMICOLECTOMY 06-28-16 - ANESTHESIA Hx Anesthesia Reactions: No Hx Malignant Hyperthermia: No Meds Allergies/Adverse Reactions: Allergies Allergy/AdvReac Type Severity Reaction Status Date / Time No Known Allergies Allergy Verified 09/17/17 14:09 - Medications Medications: Current Medications Amlodipine Besylate (Norvasc) 10 mg PO DAILY [facility] Carvedilol (Coreg) 3.125 mg PO BID [facility] Furosemide (Lasix) 40 mg PO DAILY [facility] Gabapentin (Neurontin) 100 mg PO TID [facility] PRN Reason: Protocol Hydralazine HCl (Apresoline) 10 mg PO TID [facility] Sodium Chloride (Sodium Chloride 0.9%) 1,000 mls @ 75 mls/hr IV .[id number] [facility] Last Admin: 09/17/17 13:49 Dose: 75 mls/hr Mirtazapine (Remeron) 15 mg PO HS [facility] Physical Exam - Constitutional Appears: Non-toxic, Chronically Ill - Head Exam Head Exam: NORMAL INSPECTION - ENT Exam ENT Exam: Mucous Membranes Moist - Neck Exam Neck exam: Negative for: Meningismus - Respiratory Exam Respiratory Exam: Decreased Breath Sounds - Cardiovascular Exam Cardiovascular Exam: +S1, +S2 - GI/Abdominal Exam GI & Abdominal Exam: Soft. absent: Tenderness - Extremities Exam Additional comments: left hallux with medial open ulcer without discharge currently Results - Vital Signs Recent Vital Signs: Last Vital Signs Temp 97.8 F 09/17/17 10:46 Pulse 85 09/17/17 13:01 Resp 18 09/17/17 13:01 BP 158/86 H 09/17/17 13:01 Pulse Ox 100 09/17/17 13:01 - Labs Result Diagrams: 09/17/17 11:45 09/17/17 11:45 Assessment & Plan - Assessment and Plan (Free Text) Plan: Assessment Left hallux infected ulcer R/O osteomyelitis, in this patient with probable peripheral arterial disease consider UTI with gram negative bacilli chronic renal failure history of right hallux skin and skin structure infection DM HTN dyslipidemia Plan gave a dose of IV Vancomycin and started Cefepime pending blood cx, wound cx, identification and sensitivities of the gram negative bacilli in the urine foot xrays are negative for osteomyelitis - patient may need foot MRI follow up Podiatry recommendations
--- NOTE | 2017-09-18 16:33 | US ---
PROCEDURE: Lower extremity OLAMIDE exam HISTORY: Peripheral vascular disease with pain and left 1st toe ulceration. Recent left lower extremity intervention. Evaluate for subacute thrombosis. PHYSICIAN(S): Doron Garcia MD. FINDINGS: The resting OLAMIDE's are severely abnormal: Right, 0.42 and left, 0.44 the left ABIs of not improve significantly since the intervention. The brachial systolic pressures are symmetric. The high thigh pressures are noncompressible. The high thigh PVR waveforms are normal and symmetric The calf PVR waveforms augment normally. The calf PVR waveforms are normal and symmetric. The ankle and metatarsal waveforms are moderately to severely blunted and symmetric. This is consistent with bilateral tibial occlusive disease IMPRESSION: 1. Bilateral tibial occlusive disease. 2. Overall, the left OLAMIDE is not improved since the previous intervention
--- NOTE | 2017-09-18 16:35 | US ---
PROCEDURE: Duplex arterial ultrasound of the left lower extremity HISTORY: Recent left popliteal and anterior tibial artery angioplasty. Evaluate for subacute thrombosis. PHYSICIAN(S): Doron Garcia MD. FINDINGS: Extensive atherosclerotic change is appreciated. The distal left SFA in visualized left popliteal arteries are patent with biphasic waveforms. Limited segments of the proximal left anterior tibial artery are visualized and patent. IMPRESSION: 1. No obvious thrombosis noted in the left popliteal artery and proximal left anterior tibial artery.
--- NOTE | 2017-09-18 17:08 | CP.PCM.CON ---
<Ashlie Grace - Last Filed: 09/18/17 17:08> History of Present Illness - History of Present Illness History of Present Illness: 72 y/o female known to Dr. Leos/[facility] service seen at bedside for L hallux ulceration. Pt resting in bedside chair at time of visit in [facility]. States she has chronic pain to the left leg and foot and occasional pain in the site of her ulcer. Also admits that her legs sometimes feel restless. Denies any F/C/ N/V/CP/SOB at present. Review of Systems - Review of Systems All systems: reviewed and no additional remarkable complaints except (per HPI) Past Patient History - Infectious Disease Hx of Infectious Diseases: None - Tetanus Immunizations Tetanus Immunization: Unknown - Past Social History Smoking Status: Never Smoked - CARDIAC Hx Pacemaker: No - PULMONARY Hx Respiratory Disorders: No - NEUROLOGICAL Hx Dizziness: Yes Hx Paralysis: No - HEENT Hx HEENT Problems: Yes (CATARACT SX) Hx Blind: Yes (RIGHT EYE,HAS RIGHT EYE TUMOR,) - RENAL Hx Chronic Kidney Disease: No - ENDOCRINE/METABOLIC Hx Diabetes Mellitus Type 2: Yes - HEMATOLOGICAL/ONCOLOGICAL Hx Blood Transfusions: No Hx Blood Transfusion Reaction: No - INTEGUMENTARY Hx Dermatological Problems: No - MUSCULOSKELETAL/RHEUMATOLOGICAL Hx Musculoskeletal Disorders: Yes - GASTROINTESTINAL Hx Gastrointestinal Disorders: No - GENITOURINARY/GYNECOLOGICAL Hx Genitourinary Disorders: No Hx Reproductive Disorders: No - PSYCHIATRIC Hx Emotional Abuse: No Hx Physical Abuse: No Hx Substance Use: No - SURGICAL HISTORY Hx Angioplasty: Yes Other/Comment: LEFT OPEN HEMICOLECTOMY 06-28-16 - ANESTHESIA Hx Anesthesia Reactions: No Hx Malignant Hyperthermia: No Meds Allergies/Adverse Reactions: Allergies Allergy/AdvReac Type Severity Reaction Status Date / Time No Known Allergies Allergy Verified 09/17/17 14:09 - Medications Medications: Current Medications Amlodipine Besylate (Norvasc) 10 mg PO DAILY [facility] Last Admin: 09/18/17 11:28 Dose: 10 mg Carvedilol (Coreg) 3.125 mg PO BID [facility] Last Admin: 09/18/17 11:28 Dose: 3.125 mg Furosemide (Lasix) 40 mg PO DAILY [facility] Last Admin: 09/18/17 11:27 Dose: 40 mg Gabapentin (Neurontin) 300 mg PO BID [facility] PRN Reason: Protocol Hydralazine HCl (Apresoline) 10 mg PO TID [facility] Last Admin: 09/18/17 15:27 Dose: 10 mg Cefepime HCl (Maxipime 1gm) 1 gm in 100 mls @ 100 mls/hr IVPB Q12 [facility] PRN Reason: Protocol Last Admin: 09/18/17 13:00 Dose: 100 mls/hr Mirtazapine (Remeron) 15 mg PO HS [facility] Last Admin: 09/17/17 21:36 Dose: 15 mg Physical Exam - Constitutional Appears: Well, Non-toxic, No Acute Distress - Extremities Exam Additional comments: Left lower extremity focused: Vasc: PT 1/4, DP non-palpable. CFT delayed to the digits. Temperature gradient warm to cool from prox to distsal. Mild edema noted to the left forefoot Ortho: mild pain with palpation to the left hallux Neuro: protective sensation diminished, gross sensation intact Derm: Fibrotic circular ulceration approx 0.8cm in diameter noted to the medial aspect of the left hallux. Mild active serosanguinous drainage noted to wound bed. No fluctuance, no malodor, no tunneling, or undermining noted. - Neurological Exam Neurological exam: Alert, Oriented x3 - Psychiatric Exam Psychiatric exam: Normal Affect, Normal Mood Results - Vital Signs Recent Vital Signs: Last Vital Signs Temp 97.6 F 09/18/17 14:50 Pulse 96 H 09/18/17 15:27 Resp 18 09/18/17 14:50 BP 173/86 H 09/18/17 15:27 Pulse Ox 100 09/18/17 14:50 - Labs Result Diagrams: 09/17/17 11:45 09/17/17 11:45 Labs: Laboratory Results - last 24 hr 09/17/17 09/17/17 19:04 19:04 ESR 150 H C-Reactive Protein 8.00 Assessment & Plan - Assessment and Plan (Free Text) Assessment: 72 y.o female with 1) superficial ulceration of left hallux, secondary to diabetic neuropathy Patient examined and evaluated with attending, Dr. Leos Labs, charts, vitals reviewed- afebrile, WBC 9.1 New L foot x-rays (-) for osteomyelitis Vascular Dr. Garcia on board, recommends OLAMIDE/PVR studies and limited duplex Wound culture of L hallux pending Continue IV abx as per ID - Cefepime Left hallux cleansed with saline solution and dressed with maxorb and 4x4 gauze Pt may be full WB with use of surgical shoe to L foot Podiatry will continue to follow while patient is in house <Irma Leos - Last Filed: 09/22/17 17:46> Results - Vital Signs Recent Vital Signs: Last Vital Signs Temp 98.3 F 09/20/17 07:00 Pulse 75 09/20/17 07:00 Resp 20 09/20/17 07:00 BP 126/66 09/20/17 10:44 Pulse Ox 97 09/20/17 07:00 - Labs Result Diagrams: 09/17/17 11:45 09/17/17 11:45 Attending/Attestation - Attestation I have personally seen and examined this patient.: Yes I have fully participated in the care of the patient.: Yes I have reviewed all pertinent clinical information: Yes Notes (Text): 09/22/17 17:46 I have seen and evaluated the patient with the resident and formulated the plan of care
--- NOTE | 2017-09-18 20:34 | HP ---
HISTORY OF PRESENT ILLNESS: This is a 72-year-old female who was coming into the hospital complaining of left-sided leg pain. She states that the pain has been getting worse over the past few weeks. She is still having difficulty with ambulation. I had spoken with the visiting nurses as well as the physical therapist who states that she has been having left leg pain. The patient does have a history of peripheral arterial disease and had an angioplasty of the left leg. She also has peripheral neuropathy. She had a wound on her left toe that is being followed by Dr. Monroy. The patient has no complaints of any fevers or chills. No nausea. No vomiting. No dysuria or frequency. No abdominal pain. No back pain. No weakness in the arms or the legs. She states it is mostly numbness and tingling that she has in the left leg, goes from the left proximal part of the leg to the distal part. REVIEW OF SYMPTOMS: All other review of symptoms are within normal limits except that was mentioned. PAST MEDICAL HISTORY: 1. Peripheral arterial disease, status post angioplasty of the left anterior tibial artery and distal left superficial femoral artery and left popliteal artery below the knee. 2. Hypertension. 3. Left toe ulcer. 4. Diabetes type 2. 5. CKD stage 3. 6. Obesity with a BMI of 46. 7. Colon polyps. ALLERGIES: NO KNOWN DRUG ALLERGIES. PAST SURGICAL HISTORY: 1. Appendectomy. 2. Cataract surgery. 3. Right toe amputation of the tip. SOCIAL HISTORY: The patient denies smoking, drinking or drugs. She is not . PHYSICAL EXAMINATION: VITAL SIGNS: Temperature is 98.5, pulse of 80, blood pressure is 160/71, respirations 19, O2 saturation is 97%. Height is 5 feet 1 inches. Weight is 220 pounds. BMI is 41.6. GENERAL: The patient lying in bed, uncomfortable, and in no acute distress. HEENT: Atraumatic and normocephalic. Anicteric sclerae. Moist mucosa. [place] conjunctivae. No oral lesions. NECK: No JVD, anterior and posterior adenopathy, thyromegaly, or bruits. CARDIOVASCULAR: S1 and S2 regular. No murmur, rubs, or gallop. LUNGS: Clear to auscultation bilaterally. No wheezes, rales, or rhonchi. ABDOMEN: Bowel sounds are positive. Soft, nontender and nondistended. No hepatosplenomegaly. No rebound and no guarding. EXTREMITIES: Left ulcer 1 cm, it is stage 2. No discharge. NEUROLOGIC: No facial asymmetry. Tongue is midline. No uvula deviation. Power is 5/5 upper extremity and lower extremity. Sensation intact in upper extremity and lower extremity. PSYCHIATRIC: She is awake, alert and oriented x3. No anxiety or depression. She has normal affect. GENITOURINARY: No CVA tenderness. VASCULAR: 2+ pulses in the carotid pulses and pedal pulses. SKIN: No erythema or nodules SPINE: Shows normal curvature. LABORATORY DATA: White count of 9.1, hemoglobin 9.8, platelet count 227. ESR is 150. Chemistry shows creatinine of 1.7, albumin is 4.1. Urine shows glucose of 100, protein of 100, nitrites is positive. Chest x-ray, no active infiltrates. The patient's lower extremity venous ultrasound shows no evidence of DVT. His EKG shows sinus rhythm, right bundle branch block. ASSESSMENT: 1. Left leg pain. 2. Peripheral arterial disease with angioplasty of left anterior tibial artery, left superficial femoral artery and left popliteal artery. 3. Hypertension. 4. Left toe ulcer, chronic. 5. Diabetes type 2. 6. Chronic kidney disease stage 3. 7. Obesity with a body mass index of 41. 8. Colon polyps. PLAN: The patient is going to be admitted to the hospital. She is still having pain in the leg. She does have history of leg pain. The differential diagnosis can be peripheral neuropathy, arthritis, neuropathy, peripheral arterial disease. The patient is going to be seen by Dr. Monroy for the foot ulcer. I will get Dr. Doron Garcia to evaluate the patient's arterial circulation and a lower extremity arterial Doppler has been ordered. The patient will need ID evaluation from Dr. Mohan for the foot ulcer. The patient is going to continue with hydralazine for hypertension. The patient is on carvedilol. The patient is on Neurontin, continue her Neurontin. She is on Norvasc for hypertension. The patient is on IV fluids, I will discontinue the patient's IV fluids at this point. She is going to need physical therapy. We will await further input from the consultants. I think most likely this is secondary to the patient's neuropathy and she has had intervention for her peripheral arterial disease about two months ago. Moe Thurman MD [facility] # [id number]
[2017-09-19] MEDS: Cefepime 1gm in NS 100ml 1 GM/100 ML BAG IVPB SCH ×2 (06:29→12:00)
[2017-09-19 08:21] VITALS: RESP 20
--- NOTE | 2017-09-19 12:10 | CP.PCM.PN ---
<SanjayAshlie - Last Filed: 09/19/17 12:10> Subjective - Date & Time of Evaluation Date of Evaluation: 09/19/17 Time of Evaluation: 12:08 - Subjective Subjective: 72 y/o female seen at bedside with attending Dr. Leos for L hallux ulceration. Pt resting in bedside chair at time of visit in [facility]. Pt's sister at bedside at time of visit. Denies any pain in the left foot today.Says she had her left foot MRI done earlier today. Denies any F/C/N/V/CP/SOB at present. Objective - Vital Signs/Intake and Output Vital Signs (last 24 hours): Temp Pulse Resp BP Pulse Ox 98.5 F 76 20 172/82 H 95 09/19/17 06:00 09/19/17 06:00 09/19/17 06:00 09/19/17 09:47 09/19/17 06:00 Intake and Output: 09/19/17 09/19/17 06:59 18:59 Intake Total 660 Balance 660 - Medications Medications: Current Medications Amlodipine Besylate (Norvasc) 10 mg PO DAILY [facility] Last Admin: 09/19/17 09:47 Dose: 10 mg Carvedilol (Coreg) 3.125 mg PO BID [facility] Last Admin: 09/19/17 09:46 Dose: 3.125 mg Furosemide (Lasix) 40 mg PO DAILY [facility] Last Admin: 09/18/17 11:27 Dose: 40 mg Gabapentin (Neurontin) 300 mg PO BID [facility] PRN Reason: Protocol Last Admin: 09/19/17 09:47 Dose: 300 mg Hydralazine HCl (Apresoline) 10 mg PO TID [facility] Last Admin: 09/19/17 09:46 Dose: 10 mg Cefepime HCl (Maxipime 1gm) 1 gm in 100 mls @ 100 mls/hr IVPB Q12 EBEN PRN Reason: Protocol Last Admin: 09/19/17 06:29 Dose: 100 mls/hr Mirtazapine (Remeron) 15 mg PO HS [facility] Last Admin: 09/18/17 21:58 Dose: 15 mg - Constitutional Appears: Well, Non-toxic, No Acute Distress - Extremities Exam Additional comments: Left lower extremity focused: Vasc: PT 1/4, DP non-palpable. CFT delayed to the digits. Temperature gradient warm to cool from prox to distsal. Mild edema noted to the left forefoot Ortho: mild pain with palpation to the left hallux Neuro: protective sensation diminished, gross sensation intact Derm: Fibrotic circular ulceration approx 0.8cm in diameter noted to the medial aspect of the left hallux. Mild active serosanguinous drainage noted to wound bed. No fluctuance, no malodor, no tunneling, or undermining noted. - Neurological Exam Neurological Exam: Alert, Awake, Oriented x3 - Psychiatric Exam Psychiatric exam: Normal Affect, Normal Mood Assessment and Plan - Assessment and Plan (Free Text) Assessment: 72 y/o female with 1) superficial ulceration of left hallux, secondary to diabetic neuropathy Patient examined and evaluated with attending, Dr. Leos Labs, charts, vitals reviewed- afebrile, WBC 9.1 New L foot x-rays (-) for osteomyelitis Vascular Dr. Garcia on board, recommends OLAMIDE/PVR studies and limited duplex Wound culture of L hallux pending MRI ordered of LLE to r/o osteomyelitis of L hallux Continue IV abx as per ID - Cefepime Left hallux cleansed with saline solution and dressed with maxorb and 4x4 gauze Pt may be full WB with use of surgical shoe to L foot Podiatry will continue to follow while patient is in house <Irma Leos - Last Filed: 09/22/17 17:53> Objective - Vital Signs/Intake and Output Vital Signs (last 24 hours): Temp Pulse Resp BP Pulse Ox 98.3 F 75 20 126/66 97 09/20/17 07:00 09/20/17 07:00 09/20/17 07:00 09/20/17 10:44 09/20/17 07:00 Attending/Attestation - Attestation I have personally seen and examined this patient.: Yes I have fully participated in the care of the patient.: Yes I have reviewed all pertinent clinical information, including history, physical exam and plan: Yes
--- NOTE | 2017-09-19 12:21 | MRI ---
PROCEDURE: MRI of the left foot without contrast HISTORY: ulcer left hallux COMPARISON: TECHNIQUE: MRI of the left foot was performed in multiple planes using multiple pulse sequences. FINDINGS: There is a mild hallux valgus deformity. There is some soft tissue edema and thickening in the big toe but there is no evidence of marrow edema to suggest osteomyelitis. The remaining toes are unremarkable. The metatarsals are unremarkable. There is a small amount of subcutaneous edema over the dorsum of the foot. There is some edema in the plantar muscles of the foot. Significance uncertain IMPRESSION: No evidence of osteomyelitis
[2017-09-19] MEDS: Amoxicillin-Clav 875-125 mg Tab PO SCH (21:24)
--- NOTE | 2017-09-19 22:24 | PN ---
DATE: 09/19/2017 SUBJECTIVE: The patient has no complaints of any chest pain or shortness of breath. She continues to have pain in the left leg. PHYSICAL EXAMINATION: VITAL SIGNS: Temperature is 97.8, pulse of 88, blood pressure of 175/73, last night blood pressure was 149/78, respirations 20, O2 saturation is 100%. GENERAL: The patient is lying in bed, flat, comfortable. HEENT: No oral lesion. Anicteric sclerae. Moist mucosa. NECK: No JVD, adenopathy, or thyromegaly. CARDIOVASCULAR: S1 and S2, regular. No murmurs, rubs, or gallops. LUNGS: Clear to auscultation bilaterally. No wheeze, rales, or rhonchi. ABDOMEN: Bowel sounds are positive, soft, nontender, and nondistended. EXTREMITIES: No cyanosis, clubbing, or edema. In the left leg, she has good range of motion, but states that the pain occurs when she moves her leg. She is able to wiggle her toes. Power is 4-5/5. . MRI done shows no evidence of osteomyelitis of the left lower extremity. ASSESSMENT: 1. Left leg pain. 2. Peripheral arterial disease with angioplasty of left anterior tibial artery, left superficial femoral artery, and left popliteal artery. 3. Hypertension. 4. Diabetic neuropathy. 5. Left toe ulcer, chronic. 6. Diabetes type 2. 7. Chronic kidney disease, stage III. 8. Obesity with a body mass index of 41. 9. Colon polyps. 10. Urinary tract infection secondary to Escherichia coli. PLAN: The patient is currently on carvedilol. She is on cefepime for antibiotics. She is being followed by Podiatry. She has a urine culture that is positive for E. coli. She does not have dysuria. She is on Remeron; this will be continued. Her Neurontin was increased to 300 mg b.i.d. I did speak to the patient's sister to give an update on the patient's diagnoses and plan of care. She is interested in having the patient go to the transitional care unit if she qualifies. I did put a TCU order in. The patient was also seen by Physical Therapy and their evaluation states that the patient may go to TCU for further rehab. CONDITION: Stable. ACTIVITY: Increase as tolerated. Moe Thurman MD
--- NOTE | 2017-09-19 22:34 | PN ---
DATE: 09/19/2017 LOCATION: The patient is in room 576, bed 2. SUBJECTIVE: She was seen earlier this morning, doing well. OBJECTIVE: VITAL SIGNS: Temperature is 98, blood pressure is 175/70, respiratory rate of 20, heart rate of 76. HEENT: Examination of HEENT is unremarkable. NECK: Supple. LUNGS: Have decreased breath sounds. HEART: Normal S1, S2. ABDOMEN: Soft, nontender. LABORATORY EXAMINATION: Reveals the white count of 9.1, hemoglobin of 9, platelets of 227. Sed rate is 150 with a BUN of 25, creatinine of 1.7 with BNP of 661, glucose of 214. Urinalysis is noted. Microbiology reveals blood cultures are negative, stool cultures are pending. The urine culture has E. coli. The E. coli in the urine is pansensitive. The patient had an MRI of the foot, which shows no evidence of osteomyelitis and review of orders revealed the patient to be on cefepime with C-reactive protein is on the 8. ASSESSMENT AND PLAN: This is a 72-year-old female seen earlier this morning with left hallux infected ulcer with a negative MRI for osteomyelitis with Escherichia coli in the urine, chronic renal failure, history of right hallux skin and soft tissue infection, diabetes, hypertension, dyslipidemia, currently on cefepime. We will discuss with Podiatry and make further recommendations. Delano Mohan MD
[2017-09-20 09:10] VITALS: BP 126/66; PULSE 75; TEMP 98.3; O2SAT 97
[2017-09-20] MEDS: Amoxicillin-Clav 875-125 mg Tab PO SCH (10:42)
[2017-09-20] MEDS ORDERED: Amoxicillin-Clav 500-125 mg Tab PO SCH (11:18)
--- NOTE | 2017-09-20 13:52 | CP.PCM.PN ---
<SanjayAshlie - Last Filed: 09/20/17 13:52> Subjective - Date & Time of Evaluation Date of Evaluation: 09/20/17 Time of Evaluation: 13:50 - Subjective Subjective: 72 y/o female seen at bedside with attending Dr. Monroy for L hallux ulceration. Pt resting in bedside chair at time of visit in [facility]. Denies any pain in the left foot today. Awaits the results of her MRI to the L foot. Denies any F/C/N/V/CP/SOB at present. Objective - Vital Signs/Intake and Output Vital Signs (last 24 hours): Temp Pulse Resp BP Pulse Ox 98.3 F 75 20 126/66 97 09/20/17 07:00 09/20/17 07:00 09/20/17 07:00 09/20/17 10:44 09/20/17 07:00 Intake and Output: 09/20/17 09/20/17 06:59 18:59 Intake Total 840 Balance 840 - Medications Medications: Current Medications Acetaminophen (Tylenol 325mg Tab) 650 mg PO Q4H PRN PRN Reason: Pain, Mild (1-3) Last Admin: 09/19/17 21:21 Dose: 650 mg Amlodipine Besylate (Norvasc) 10 mg PO DAILY [facility] Last Admin: 09/20/17 10:44 Dose: 10 mg Amoxicillin/Clavulanate Potassium (Augmentin 500 Mg-125 Mg Tab) 1 tab PO Q12 EBEN PRN Reason: Protocol Stop: 09/24/17 22:01 Carvedilol (Coreg) 3.125 mg PO BID [facility] Last Admin: 09/20/17 10:42 Dose: 3.125 mg Furosemide (Lasix) 40 mg PO DAILY [facility] Last Admin: 09/20/17 10:43 Dose: 40 mg Gabapentin (Neurontin) 300 mg PO BID [facility] PRN Reason: Protocol Last Admin: 09/20/17 10:44 Dose: 300 mg Hydralazine HCl (Apresoline) 10 mg PO TID [facility] Last Admin: 09/20/17 10:42 Dose: 10 mg Mirtazapine (Remeron) 15 mg PO HS [facility] Last Admin: 09/19/17 21:20 Dose: 15 mg - Constitutional Appears: Well, Non-toxic, No Acute Distress - Extremities Exam Additional comments: Left lower extremity focused: Vasc: PT 1/4, DP non-palpable. CFT delayed to the digits. Temperature gradient warm to cool from prox to distal. Mild edema noted to the left forefoot Ortho: mild pain with palpation to the left hallux Neuro: protective sensation diminished, gross sensation intact Derm: Fibrotic circular ulceration approx 0.8cm in diameter noted to the medial aspect of the left hallux. Mild active serosanguinous drainage noted to wound bed. Minimal trever wound erythema <0.5cm in margins. No fluctuance, no malodor, no tunneling, or undermining noted. - Neurological Exam Neurological Exam: Alert, Awake, Oriented x3 - Psychiatric Exam Psychiatric exam: Normal Affect, Normal Mood Assessment and Plan - Assessment and Plan (Free Text) Assessment: 72 y/o female with 1) superficial ulceration of left hallux, secondary to diabetic neuropathy Plan: Patient examined and evaluated with attending, Labs, charts, vitals reviewed- afebrile, WBC 9.1 New L foot x-rays (-) for osteomyelitis L foot MRI (-) for osteomyelitis Vascular Dr. Garcia on board, recommends OLAMIDE/PVR studies and limited duplex Wound culture of L hallux shows growth of Corynebacterium species, coag neg Staph ID on board - continue IV abx regimen Left hallux cleansed with saline solution and dressed with maxorb and 4x4 gauze Pt may be full WB with use of surgical shoe to L foot Podiatry will continue to follow while patient is in house <Jason Monroy - Last Filed: 09/20/17 15:41> Objective - Vital Signs/Intake and Output Vital Signs (last 24 hours): Temp Pulse Resp BP Pulse Ox 98.3 F 75 20 126/66 97 09/20/17 07:00 09/20/17 07:00 09/20/17 07:00 09/20/17 10:44 09/20/17 07:00 Intake and Output: 09/20/17 09/20/17 06:59 18:59 Intake Total 840 Balance 840 Attending/Attestation - Attestation I have personally seen and examined this patient.: Yes I have fully participated in the care of the patient.: Yes I have reviewed all pertinent clinical information, including history, physical exam and plan: Yes
--- NOTE | 2017-09-20 14:00 | PN ---
DATE: 09/20/2017 SUBJECTIVE: The patient is in bed, in no acute distress and nontoxic. PHYSICAL EXAMINATION: VITAL SIGNS: Temperature is 97, blood pressure is 140/60, respiratory rate of 20, and heart rate of 88. HEENT: Unremarkable. NECK: Supple. LUNGS: Have decreased breath sounds. HEART: Normal S1 and S2. ABDOMEN: Soft. LABORATORY DATA: Reveals the sed rate of 150 and C-reactive protein is 8. Urinalysis is noted. Microbiology reveals E. coli in the urine. The blood cultures are negative. The stool cultures are still pending. Review of orders reveals the patient to be on Augmentin. MRI is negative. ASSESSMENT AND PLAN: This is a 72-year-old female who was seen earlier this morning with a left hallux infected ulcer with a negative MRI for osteomyelitis with Escherichia coli in the urine, chronic renal failure and history of right skin and skin soft tissue infection. The patient is now on p.o. Augmentin, IV access was a problem and we will check on the identification and sensitivity of organism that did came from the wound culture, which is still pending. Delano Mohan MD
--- NOTE | 2017-09-21 03:42 | DS ---
HISTORY OF PRESENT ILLNESS: This is a 72-year-old female who had come to the hospital because of complaints of left leg pain. The patient was thought to have diabetic neuropathy as well as arthritis that is causing the pain. She does have a history of peripheral arterial disease, but evaluation does not show. She should have significant rest pain because she had an angioplasty that was done in the recent past. Patient has no complaints of any headaches or dizziness. No nausea, no vomiting. Her Neurontin was increased. PHYSICAL EXAMINATION: VITAL SIGNS: Temperature is 97.8, pulse of 88, blood pressure is 142/69, respirations 20. GENERAL: The patient is lying in bed, flat, comfortable. HEENT: No oral lesion. Anicteric sclerae. Moist mucosa. NECK: No JVD, adenopathy, or thyromegaly. CARDIOVASCULAR: S1 and S2, regular. No murmurs, rubs, or gallops. LUNGS: Clear to auscultation bilaterally. No wheeze, rales, or rhonchi. ABDOMEN: Bowel sounds are positive, soft, nontender, and nondistended. EXTREMITIES: No cyanosis, clubbing, or edema. ASSESSMENT: 1. Left leg pain secondary to diabetic neuropathy. 2. Peripheral arterial disease. 3. Hypertension. 4. Diabetic neuropathy. 5. Left toe ulcer, chronic. 6. Diabetes type 2. 7. Chronic kidney disease, stage III. 8. Obesity with a body mass index of 41. 9. Colon polyps. 10. Urinary tract infection secondary to Escherichia coli. PLAN: The patient is currently on Augmentin for antibiotics. She is going to continue with Lasix daily. She is on Neurontin 300 mg b.i.d. She is on Norvasc for her hypertension. She is Remeron, which will be continued. CONDITION: Stable. ACTIVITIES: Increase as tolerated. DISPOSITION: She is waiting for transitional care unit acceptance. If she is accepted, she will be transferred to the transitional care unit; otherwise, she will go home. I did speak to the patient's sister to give an update. I did advise that this pain is multifactorial secondary to her diabetic neuropathy as well as her osteoarthritis. She does not ambulate well and she is mostly homebound. Moe Thurman MD [facility] # [id number]
== END 2017-09-20 14:10 | DRG 74 ==
LOC: ED 10:25 → ERH 13:22 → 5RSO 15:07
PROVIDERS: ADMIT Internal Medicine Nephrology; ATTEND Internal Medicine Nephrology
DX: E11.40 Type 2 diabetes mellitus with diabetic neuropathy, unspecified (principal); N39.0 Urinary tract infection, site not specified; Z68.41 Body mass index [BMI] 40.0-44.9, adult; E11.51 Type 2 diabetes mellitus with diabetic peripheral angiopathy without gangrene; B96.20 Unspecified Escherichia coli [E. coli] as the cause of diseases classified elsewhere; E11.22 Type 2 diabetes mellitus with diabetic chronic kidney disease; E11.621 Type 2 diabetes mellitus with foot ulcer; L97.529 Non-pressure chronic ulcer of other part of left foot with unspecified severity; I12.9 Hypertensive chronic kidney disease with stage 1 through stage 4 chronic kidney disease, or unspecified chronic kidney disease; N18.3 Chronic kidney disease, stage 3 (moderate); E78.5 Hyperlipidemia, unspecified; G89.29 Other chronic pain; E66.9 Obesity, unspecified; E86.0 Dehydration

== ENCOUNTER 2017-09-20 14:18 | Inpatient (IN) | payer OTHER ==
[2017-09-20] MEDS ORDERED: Amoxicillin-Clav 500-125 mg Tab PO SCH (14:45)
[2017-09-20] MEDS: Amoxicillin-Clav 500-125 mg Tab PO SCH (17:47)
[2017-09-21] MEDS: Amoxicillin-Clav 500-125 mg Tab PO SCH ×2 (05:22→17:14)
--- NOTE | 2017-09-21 14:33 | HP ---
DATE OF EXAM: 09/21/2017 ADMISSION NOTE HISTORY OF PRESENT ILLNESS: Ms. Rosado is 72-year-old female, who presented to the ED with left-sided leg pain, getting worse. She has a history of peripheral arterial disease and she follows with Dr. Monroy. She also found to have UTI, hypertension, chronic kidney disease, morbid obesity, colonic polyp. She was evaluated by Dr. Doron Garcia. ID also evaluated during last hospitalization. She is transferred to Transitional Care Unit for deconditioning and gait strengthening. REVIEW OF SYSTEMS: As per HPI. Rest of 12-point review of systems is reviewed and negative. She had few bowels of diarrhea, semi soft stools. No abdominal pain. PAST MEDICAL HISTORY: Peripheral arterial disease; hypertension; left toe ulcer; diabetes mellitus type 2; chronic kidney disease, stage 3; obesity; colonic polyp. ALLERGIES: NO KNOWN DRUG ALLERGIES. PAST SURGICAL HISTORY: Appendectomy, cataract surgery, right toe amputation. SOCIAL HISTORY: Denies any smoking, history of alcohol abuse. PHYSICAL EXAMINATION: GENERAL: Comfortable in bed, in no acute distress. VITAL SIGNS: Temperature 98.7, heart rate 85 minute, blood pressure 130/70, oxygen saturation 98% on room air. HEENT: Normal. NECK: No lymphadenopathy. CHEST: Air entry present and equal bilaterally. No added sounds. CARDIOVASCULAR: S1, S2 normal. No murmur. No gallop. ABDOMEN: Soft, nontender. No hepatosplenomegaly. LABORATORY DATA: White count 9.1, hemoglobin 9.8, platelet count 227. Creatinine 1.7. Chest x-ray, no infiltrate. ASSESSMENT AND PLAN: Left leg pain; morbid obesity; deconditioning; chronic kidney disease, stage 3; chronic anemia; hypertension. PLAN: percocet every 4 hours for leg pain, Norvasc 10 mg daily. She is to continue Augmentin 1 tablet every 12 hours, Coreg 3.125 mg b.i.d., Lasix 40 mg daily, Neurontin 300 mg p.o. b.i.d, to continue hydralazine 10 mg p.o. t.i.d., Remeron 15 mg p.o. at bedtime. C. diff on stool sample to be sent, unlike C. diff clinically will continue to monitor. We will order labs in the a.m. Daniela Rhodes MD [facility] # [id number] MTDStella
[2017-09-22] MEDS: Amoxicillin-Clav 500-125 mg Tab PO SCH ×2 (05:42→17:29)
[2017-09-23] MEDS: Amoxicillin-Clav 500-125 mg Tab PO SCH ×2 (05:29→17:40)
--- NOTE | 2017-09-23 08:53 | PN ---
DATE: 09/23/2017 SUBJECTIVE: The patient has no complaints of any chest pain or shortness of breath. No headaches or dizziness. PHYSICAL EXAMINATION: VITAL SIGNS: Temperature is 98, pulse of 80, blood pressure is 152/69, respirations 16. GENERAL: The patient is lying in bed, flat, comfortable. HEENT: No oral lesion. Anicteric sclerae. Moist mucosa. NECK: No JVD, adenopathy, or thyromegaly. CARDIOVASCULAR: S1 and S2, regular. No murmurs, rubs, or gallops. LUNGS: Clear to auscultation bilaterally. No wheeze, rales, or rhonchi. ABDOMEN: Bowel sounds are positive, soft, nontender and nondistended. EXTREMITIES: no cyanosis, clubbing or edema. ASSESSMENT: 1. Peripheral arterial disease. 2. Diabetic neuropathy. 3. Hypertension. 4. Left toe ulcer, chronic. 5. Diabetes type 2. 6. Chronic kidney disease, stage III. 7. Obesity with body mass index of 41. 8. Colon polyps. 9. Urinary tract infection secondary to Escherichia coli, resolved. PLAN: The patient is currently comfortable. She is on Augmentin for antibiotics and continue with hydralazine for hypertension. The patient is on Lasix daily. She is on Neurontin for neuropathy. She is on Norvasc for hypertension. She is receiving Remeron. She is on a heart-healthy diet. She is getting physical therapy in transitional care unit. She continues to have pain in the left leg which is multifactorial including neuropathy and arthritis. Moe Thurman MD
--- NOTE | 2017-09-23 10:11 | RAD ---
PROCEDURE: Left Hip and pelvis X-ray Radiographs. HISTORY: Left hip pain COMPARISON: None. FINDINGS: BONES: Normal. No fracture. JOINTS: Normal. SOFT TISSUES: Normal. OTHER FINDINGS: None. IMPRESSION: No acute findings
[2017-09-23] MEDS ORDERED: Bupivacaine 0.5% Inj(30mL) IJ ONE (15:53)
[2017-09-23] MEDS ORDERED: MethylPREDNISolone Depo 40 mg/ml Inj IM ONE (15:53)
--- NOTE | 2017-09-24 02:34 | CON ---
DATE: 09/23/2017 ORTHOPEDIC CONSULTATION REPORT LOCATION: In room 327, bed 1. HISTORY OF PRESENT ILLNESS: Patient seen in CCU floor for pain in her left hip. On examination she has very much trigger point tenderness to the left hip bursa more so on the left than the right and she states she has had this for several months. Significant past histories besides diabetic neuropathy, she falls frequently especially to the left when she gets up out of bed and that could be the reason for the trochanteric bursitis of the left hip when she lands on that. she well-padded from her obesity and she has refusing Depo-Medrol injection, which would help the inflammation of the left hip bursa so, we will just have to depend on slight warm compresses to the left hip and ambulation with the walker. If she changes her mind, I would be great to inject the left hip bursa with Depo-Medrol and Marcaine. Follow with elevated blood sugar slightly. FINAL DIAGNOSIS: Left hip greater trochanteric bursitis with referred pain to the thigh and we will treated her conservatively with warm compresses therapy, ambulate with a walker and if she needs cortisone injection for pain relief, she give me a call. El Vogel DO ELLEN
[2017-09-24] MEDS: Amoxicillin-Clav 500-125 mg Tab PO SCH ×2 (05:44→17:25)
[2017-09-25] MEDS: Amoxicillin-Clav 500-125 mg Tab PO SCH ×2 (06:48→17:37)
--- NOTE | 2017-09-25 11:07 | PN ---
DATE: 09/25/2017 SUBJECTIVE: The patient has no complaints of any chest pain. No shortness of breath. No headaches or dizziness. PHYSICAL EXAMINATION: VITAL SIGNS: Temperature is 98, pulse of 88, blood pressure is 137/73, respirations 16. GENERAL: The patient is lying in bed, flat, comfortable. HEENT: No oral lesion. Anicteric sclerae. Moist mucosa. NECK: No JVD, adenopathy, or thyromegaly. CARDIOVASCULAR: S1 and S2, regular. No murmurs, rubs, or gallops. LUNGS: Clear to auscultation bilaterally. No wheeze, rales, or rhonchi. ABDOMEN: Bowel sounds are positive. Soft, nontender and nondistended. EXTREMITIES: No cyanosis, clubbing, LABORATORY DATA: X-ray of the left leg showed no acute findings. ASSESSMENT: 1. Peripheral arterial disease. 2. Diabetic neuropathy. 3. Hypertension. 4. Left toe ulcer, chronic. 5. Diabetes type 2. 6. Chronic kidney disease, stage 3. 7. Obesity with body mass index of 41. 8. Colon polyps. 9. Urinary tract infection secondary to Escherichia coli. PLAN: The patient is currently comfortable. She continues to have pain in the left leg that is multifactorial. Her abnormalities. She was seen by . She has received the Depo-Medrol injection to help with possible inflammation of the left hip. She is on antibiotics with Augmentin. She is on hydralazine. She is going to continue with Lasix daily. She is on Neurontin for neuropathy. She is on Norvasc for hypertension. She is on a heart-healthy diet. She is doing well with physical therapy. Moe Thurman MD MTDD
[2017-09-25] MEDS: Insulin Reg-LOW-Coverage SC SCH ×3 (12:15→22:24)
[2017-09-25] MEDS ORDERED: MethylPREDNISolone Depo 40 mg/ml Inj IM ONE (14:10)
[2017-09-25] MEDS ORDERED: Bupivacaine 0.5% Inj(30mL) IJ ONE (14:10)
--- NOTE | 2017-09-25 16:03 | CP.PCM.CON ---
History of Present Illness - History of Present Illness History of Present Illness: Consult note for attending Dr. Leos 72F seen at bedside for ulceration of left hallux. Patient states that she does not know when ulcer began. She states that she has a previous history of partial right hallux amputation due to an ulceration with subsequent bone infection. Patient states that she has not sought any treatment for her current ulceration. Patient is AAO x 3 and NAD at time of visit. Denies any further pedal complaints at this time. Denies any recent N/V/F/C/CP/SOB/D/posterior calf pain when squeezed. Review of Systems - Review of Systems All systems: reviewed and no additional remarkable complaints except Review of Systems: as per HPI Past Patient History - Infectious Disease Hx of Infectious Diseases: None - Tetanus Immunizations Tetanus Immunization: Unknown - Past Social History Smoking Status: Never Smoked - CARDIAC Hx Hypertension: Yes - PULMONARY Hx Respiratory Disorders: No Hx Asthma: Yes Hx Pneumonia: Yes - NEUROLOGICAL Hx Neurological Disorder: Yes HX Cerebrovascular Accident: Yes Hx Dizziness: Yes - HEENT Hx Blind: Yes (r eye) Hx Cataracts: Yes - RENAL Hx Renal Failure: Yes (CKD St III) - ENDOCRINE/METABOLIC Hx Diabetes Mellitus Type 2: Yes - HEMATOLOGICAL/ONCOLOGICAL Hx Blood Disorders: Yes Hx Anemia: Yes - INTEGUMENTARY Hx Dermatological Problems: No - MUSCULOSKELETAL/RHEUMATOLOGICAL Hx Musculoskeletal Disorders: Yes Hx Falls: Yes Hx Unsteady Gait: Yes - GASTROINTESTINAL Hx Gastrointestinal Disorders: No - GENITOURINARY/GYNECOLOGICAL Hx Genitourinary Disorders: No Hx Urinary Tract Infection: Yes - PSYCHIATRIC Hx Psychophysiologic Disorder: No Hx Anxiety: Yes - SURGICAL HISTORY Hx Surgeries: Yes Hx Amputation: Yes (Right hallux distal tip) Hx Appendectomy: Yes - ANESTHESIA Hx Anesthesia Reactions: No Hx Malignant Hyperthermia: No Meds Allergies/Adverse Reactions: Allergies Allergy/AdvReac Type Severity Reaction Status Date / Time No Known Allergies Allergy Verified 09/17/17 14:09 - Medications Medications: Current Medications Acetaminophen (Tylenol 325mg Tab) 650 mg PO Q4H PRN; Protocol PRN Reason: Pain, Mild (1-3) Last Admin: 09/23/17 12:20 Dose: 650 mg Amlodipine Besylate (Norvasc) 10 mg PO DAILY EBEN PRN Reason: Protocol Last Admin: 09/25/17 10:09 Dose: 10 mg Amoxicillin/Clavulanate Potassium (Augmentin 500 Mg-125 Mg Tab) 1 tab PO Q12H EBEN PRN Reason: Protocol Last Admin: 09/25/17 06:48 Dose: 1 tab Carvedilol (Coreg) 3.125 mg PO 0800,1800 EBEN PRN Reason: Protocol Furosemide (Lasix) 40 mg PO 0630 EBEN PRN Reason: Protocol Gabapentin (Neurontin) 300 mg PO BID EBEN PRN Reason: Protocol Last Admin: 09/25/17 10:09 Dose: 300 mg Hydralazine HCl (Apresoline) 10 mg PO TID EBEN PRN Reason: Protocol Last Admin: 09/25/17 13:40 Dose: 10 mg Insulin Human Regular (Humulin R Low) 0 units SC ACHS EBEN PRN Reason: Protocol Last Admin: 09/25/17 12:15 Dose: 3 units Mirtazapine (Remeron) 15 mg PO HS EBEN PRN Reason: Protocol Last Admin: 09/24/17 21:26 Dose: 15 mg Sitagliptin Phosphate (Januvia) 25 mg PO DAILY EBEN Last Admin: 09/25/17 10:11 Dose: 25 mg Physical Exam - Constitutional Appears: Well, Non-toxic, No Acute Distress - Head Exam Head Exam: ATRAUMATIC, NORMOCEPHALIC - ENT Exam ENT Exam: Mucous Membranes Moist, Normal Exam - Respiratory Exam Respiratory Exam: NORMAL BREATHING PATTERN. absent: Respiratory Distress - GI/Abdominal Exam GI & Abdominal Exam: absent: Distended, Firm, Guarding - Extremities Exam Additional comments: LE focused exam: Vasc: DP/PT pulses faintly palpable 1/4 b/l. Skin temperature warm to warm from proximal to distal WNL. CFT < 3 seconds to all digits b/l. Minimal edema noted to periwound area Neuro: Epicritic and protective sensation grossly absent to level of midfoot b/l Derm: Approximately 0.5 cm x 0.3 cm x 0.2 cm ulceration noted to left medial distal hallux. No periwound erythema, no malodor, minimal serous drainage, no tracking, tunneling or undermining, no probe to bone, no underlying fluctuance, no other clinical signs of infection noted. Approximately 0.5 cm x 0.3 cm eschar noted to left plantar heel. No erythema, no malodor, minimal serous drainage, no tracking, tunneling or undermining, no probe to bone, no underlying fluctuance, no other clinical signs of infection noted MSK: POP to heel eschar. Well healed partially amputated right hallux. No other gross deformities noted - Back Exam Back exam: absent: CVA tenderness (L), CVA tenderness (R) - Neurological Exam Neurological exam: Alert, Oriented x3 - Psychiatric Exam Psychiatric exam: Normal Affect, Normal Mood Results - Vital Signs Recent Vital Signs: Last Vital Signs Temp 97.8 F 09/25/17 10:00 Pulse 88 09/25/17 13:40 Resp 18 09/25/17 10:00 BP 171/84 H 09/25/17 13:40 Pulse Ox 97 09/25/17 10:00 - Labs Labs: Laboratory Results - last 24 hr 09/24/17 09/24/17 09/25/17 17:18 21:34 04:52 POC Glucose (mg/dL) 254 H 224 H 199 H 09/25/17 11:31 POC Glucose (mg/dL) 268 H Assessment & Plan - Assessment and Plan (Free Text) Assessment: 72F seen for clinically uninfected distal left hallux ulceration Plan: Patient seen and evaluated Plan discussed with attending Dr. Leos Charts, labs, vitals reviewed Afebrile Hallux wound cleansed with normal saline and dressed with Maxorb and Optifoam Optifoam applied to patient's left heel No plan for surgical intervention at this time Patient is stable from podiatric standpoint Patient to follow up with [facility] upon discharge Podiatry will continue to follow while patient in house - Date & Time Date: 09/25/17 Time: 16:08
[2017-09-26] MEDS: Amoxicillin-Clav 500-125 mg Tab PO SCH ×2 (05:19→17:22)
[2017-09-26] MEDS: Insulin Reg-LOW-Coverage SC SCH ×4 (06:52→21:50)
--- NOTE | 2017-09-26 12:04 | CP.PCM.PN ---
Subjective - Date & Time of Evaluation Date of Evaluation: 09/26/17 Time of Evaluation: 11:30 - Subjective Subjective: Pt seen for f/u left hallux ulceration Pt with severe PVD with 3 vessel occlusion - Had angioplasty with Dr Garcia to [facility] - now with one vessel run off to the foot - pt seen in the chair with surgical shoe on and dressing celan and intact MRI was negative for OM hallux left foot Objective - Vital Signs/Intake and Output Vital Signs (last 24 hours): Temp Pulse Resp BP Pulse Ox 97.8 F 98 H 18 151/61 H 97 09/25/17 10:00 09/26/17 09:46 09/25/17 10:00 09/26/17 09:46 09/25/17 10:00 - Medications Medications: Current Medications Acetaminophen (Tylenol 325mg Tab) 650 mg PO Q4H PRN; Protocol PRN Reason: Pain, Mild (1-3) Last Admin: 09/26/17 05:34 Dose: 650 mg Amlodipine Besylate (Norvasc) 10 mg PO DAILY EBEN PRN Reason: Protocol Last Admin: 09/26/17 09:46 Dose: 10 mg Amoxicillin/Clavulanate Potassium (Augmentin 500 Mg-125 Mg Tab) 1 tab PO Q12H EBEN PRN Reason: Protocol Last Admin: 09/26/17 05:19 Dose: 1 tab Carvedilol (Coreg) 3.125 mg PO 0800,1800 EBEN PRN Reason: Protocol Last Admin: 09/26/17 08:12 Dose: 3.125 mg Furosemide (Lasix) 40 mg PO 0630 EBEN PRN Reason: Protocol Last Admin: 09/26/17 05:31 Dose: 40 mg Gabapentin (Neurontin) 300 mg PO BID EBEN PRN Reason: Protocol Last Admin: 09/26/17 09:46 Dose: 300 mg Hydralazine HCl (Apresoline) 10 mg PO TID EBEN PRN Reason: Protocol Last Admin: 09/26/17 09:46 Dose: 10 mg Insulin Human Regular (Humulin R Low) 0 units SC ACHS EBEN PRN Reason: Protocol Last Admin: 09/26/17 06:52 Dose: 2 units Mirtazapine (Remeron) 15 mg PO HS EBEN PRN Reason: Protocol Last Admin: 09/25/17 21:22 Dose: 15 mg Sitagliptin Phosphate (Januvia) 25 mg PO DAILY [facility] Last Admin: 09/26/17 09:46 Dose: 25 mg - Constitutional Appears: No Acute Distress - Extremities Exam Additional comments: Foot is warm to touch with 3 sec CFT- wound is improved slightly - the erythema and abrasion periwound has resolved however the wound is still open and the wound bed has fibrous tissue - no sinus tract to bone no undermining wound size approximately .6x.3x.2 cm - no cellulitis to the foot or the toe - no malodor noted with dressing change-- heel on left with eschar which was easily removed mechanically - there is a remaining small superficial wound under the scab; there is no tunnelling no sinus or any other signs of infection noted; Assessment and Plan - Assessment and Plan (Free Text) Assessment: DM/PVD/Neuropathy to B/L LE Gutierrez 2 ulcer to the left hallux Resolving stage 2 pressure ulcer to the left heel Plan: Wound care done to the left hallux with betadine and calcium alginate to be done daily heel wound was dressed with optifoam dressing which can be changed [facility] surgical shoe With severe PVD the wound healing is guarded - pt needs to be closely followed post discharg after speaking with her she stated itis difficulty for her to get out of the house referral made to Dr Monroy to do housevisit
--- NOTE | 2017-09-26 12:45 | PROCN ---
DATE: 09/25/2017 LOCATION: A 72-year-old female in room 327, bed 1. I saw the patient on 09/23/2017 for left hip pain. I felt as though she had significant left hip bursitis by clinical means. The patient could feel like crepitus over the left hip bursa and x-rays to confirm that she has a bursitis of her left hip, probably greater trochanter. She refused injection while I last saw her on 09/23/2017, but today on 09/25/2017, she would like to have a cortisone shot to help alleviate the pain of the left hip bursa especially when she lies on and walks. So, with the help of the therapist, I injected her left hip bursa she was prepped and draped the region of the left hip bursa, palpated the spongy tissue of the bursa with crepitus and so we injected with Depo-Medrol and Marcaine. Hopefully, will get some symptomatic relief especially when she walks and lies on it and help her pain, so she could do therapy better. FINAL DIAGNOSIS: Left hip trochanter bursitis, injected with Depo-Medrol and Marcaine. El Vogel DO MTDStella
[2017-09-27] MEDS: Amoxicillin-Clav 500-125 mg Tab PO SCH (05:20)
[2017-09-27] MEDS: Insulin Reg-LOW-Coverage SC SCH ×4 (06:53→21:58)
--- NOTE | 2017-09-27 06:57 | PN ---
DATE: 09/27/2017 SUBJECTIVE: The patient has no complaints of any chest pain. No shortness of breath. No headaches or dizziness. She does complain of left leg pain, which is chronic. PHYSICAL EXAMINATION: VITAL SIGNS: Temperature is 98.2, pulse is 82, blood pressure is 133/67, respirations 18. GENERAL: The patient is lying in bed, flat, comfortable. HEENT: No oral lesion. Anicteric sclerae. Moist mucosa. NECK: No JVD, adenopathy, or thyromegaly. CARDIOVASCULAR: S1 and S2, regular. No murmurs, rubs, or gallops. LUNGS: Clear to auscultation bilaterally. No wheeze, rales, or rhonchi. ABDOMEN: Bowel sounds are positive, soft, nontender and nondistended. EXTREMITIES: No cyanosis, clubbing or edema. ASSESSMENT: 1. Left trochanteric bursitis. 2. Peripheral arterial disease. 3. Diabetic neuropathy. 4. Hypertension. 5. Left toe ulcer, chronic. 6. Diabetes type 2. 7. Chronic kidney disease stage 3. 8. Obesity with a body mass index of 41. 9. Colon polyps. 10. Urinary tract infection secondary to Escherichia coli. PLAN: The patient is currently comfortable. She did receive a steroid injection in the left leg by Dr. Vogel, I appreciate his input. The patient is also being followed by Dr. Leos, who is managing the patient's wound in the left ulcer. She will need close followup. She is home bound, just difficult for her to get home. She also has issue with compliance. She is currently on Januvia for diabetes. She is on Norvasc for hypertension. The patient is on amlodipine for her hypertension. She has finished her antibiotics. I will discontinue her antibiotics at this point. She is due to be discharged home tomorrow. Moe Thumran MD
--- NOTE | 2017-09-27 13:01 | CP.PCM.PN ---
<Ashlie Grace - Last Filed: 09/27/17 12:58> Subjective - Date & Time of Evaluation Date of Evaluation: 09/27/17 Time of Evaluation: 12:58 - Subjective Subjective: 72 y/o female pt seen at bedside today for f/u left hallux ulceration. Pt with severe PVD with 3 vessel occlusion, s/p angioplasty with Dr Garcia to [facility] - now with one vessel run off to the foot. At time of visit, pt seen in the chair with surgical shoe on. States dressing has remained clean dry and intact. Denies any pain to the left lower extremity. Denies F/C/N/V/CP/SOB Objective - Vital Signs/Intake and Output Vital Signs (last 24 hours): Temp Pulse Resp BP Pulse Ox 98.2 F 82 18 179/87 H 100 09/27/17 10:00 09/27/17 10:05 09/27/17 10:00 09/27/17 10:05 09/27/17 10:00 - Medications Medications: Current Medications Acetaminophen (Tylenol 325mg Tab) 650 mg PO Q4H PRN; Protocol PRN Reason: Pain, Mild (1-3) Last Admin: 09/26/17 05:34 Dose: 650 mg Amlodipine Besylate (Norvasc) 10 mg PO DAILY EBEN PRN Reason: Protocol Last Admin: 09/27/17 09:52 Dose: 10 mg Carvedilol (Coreg) 3.125 mg PO 0800,1800 EBEN PRN Reason: Protocol Last Admin: 09/27/17 08:07 Dose: 3.125 mg Furosemide (Lasix) 40 mg PO 0630 EBEN PRN Reason: Protocol Last Admin: 09/27/17 05:35 Dose: 40 mg Gabapentin (Neurontin) 300 mg PO BID EBEN PRN Reason: Protocol Last Admin: 09/27/17 09:51 Dose: 300 mg Hydralazine HCl (Apresoline) 10 mg PO TID EBEN PRN Reason: Protocol Last Admin: 09/27/17 10:05 Dose: 10 mg Insulin Human Regular (Humulin R Low) 0 units SC ACHS EBEN PRN Reason: Protocol Last Admin: 09/27/17 12:11 Dose: 2 units Mirtazapine (Remeron) 15 mg PO HS EBEN PRN Reason: Protocol Last Admin: 05/10/18 21:13 Dose: 15 mg Sitagliptin Phosphate (Januvia) 25 mg PO DAILY [facility] Last Admin: 09/27/17 09:50 Dose: 25 mg - Constitutional Appears: Well, Non-toxic, No Acute Distress - Extremities Exam Additional comments: Left lower extremity exam: Vasc: CFT < 3 sec to all digits. Foot warm to touch. Derm: Medial hallux ulceration measuring approx 0.6cm x 0.4cm x 0.2cm with fibrous wound base; no signs of trever wound erythema, no drainage, no malodor, no fluctuance. No tunneling or undermining. L heel minimal remaining eschar/ scab formation noted. No cellulitic changes noted. Neuro: Protective sensation slightly diminished Ortho: No tenderness to palpation of L hallux or L heel - Neurological Exam Neurological Exam: Alert, Awake, Oriented x3 - Psychiatric Exam Psychiatric exam: Normal Affect, Normal Mood Assessment and Plan - Assessment and Plan (Free Text) Assessment: DM/PVD/Neuropathy to B/L LE Gutierrez 2 ulcer to the left hallux Resolving stage 2 pressure ulcer to the left heel Plan: Pt seen and evaluated at bedside Discussed with attending Dr. Monroy Wound care done to the left hallux with betadine and calcium alginate to be done daily Heel wound with optifoam dressing, which can be changed QOD Cont use of surgical shoe when WB With severe PVD the wound healing is guarded Pt needs to be closely followed post discharge Dr. Monroy to continue to follow pt with house visits for follow up wound care <Jason Monroy - Last Filed: 09/28/17 07:21> Objective - Vital Signs/Intake and Output Vital Signs (last 24 hours): Temp Pulse Resp BP Pulse Ox 97.9 F 84 20 124/67 99 09/27/17 16:00 09/27/17 17:22 09/27/17 16:00 09/28/17 06:15 09/27/17 16:00 - Medications Medications: Current Medications Acetaminophen (Tylenol 325mg Tab) 650 mg PO Q4H PRN; Protocol PRN Reason: Pain, Mild (1-3) Last Admin: 09/26/17 05:34 Dose: 650 mg Amlodipine Besylate (Norvasc) 10 mg PO DAILY EBEN PRN Reason: Protocol Last Admin: 09/27/17 09:52 Dose: 10 mg Carvedilol (Coreg) 3.125 mg PO 0800,1800 EBEN PRN Reason: Protocol Last Admin: 09/27/17 17:22 Dose: 3.125 mg Furosemide (Lasix) 40 mg PO 0630 EBEN PRN Reason: Protocol Last Admin: 09/28/17 06:15 Dose: 40 mg Gabapentin (Neurontin) 300 mg PO BID EBEN PRN Reason: Protocol Last Admin: 09/27/17 17:23 Dose: 300 mg Hydralazine HCl (Apresoline) 10 mg PO TID EBEN PRN Reason: Protocol Last Admin: 09/27/17 17:22 Dose: 10 mg Insulin Human Regular (Humulin R Low) 0 units SC ACHS EBEN PRN Reason: Protocol Last Admin: 09/28/17 06:33 Dose: 1 units Mirtazapine (Remeron) 15 mg PO HS EBEN PRN Reason: Protocol Last Admin: 09/27/17 21:58 Dose: Not Given Sitagliptin Phosphate (Januvia) 25 mg PO DAILY EBEN Last Admin: 09/27/17 09:50 Dose: 25 mg Attending/Attestation - Attestation I have personally seen and examined this patient.: Yes I have fully participated in the care of the patient.: Yes I have reviewed all pertinent clinical information, including history, physical exam and plan: Yes
[2017-09-27 16:43] VITALS: O2SAT 99
--- NOTE | 2017-09-27 17:09 | CP.PCM.PCO ---
Addendum Addendum: I met with patient at bedside. She is alert and oriented to month, location, year and circumstances. She defers on any psychiatric management at this time, indicating that she "never asked to see a psychiatrist, who asked for you to come?". She reports preference to focus on her medical issues, denying any acute psychiatric issues. She is not suicidal and denies thoughts to harm others. Her thought process is clear. Delusions were not elicited. She does not present as an acute danger to herself or others. At this time psychiatry will respect patient's wishes and sign off. Patient aware she may request our f/u at any time if she should change her mind. 09/27/17 17:08
[2017-09-28] MEDS: Insulin Reg-LOW-Coverage SC SCH ×2 (06:33→12:13)
[2017-09-28 10:02] VITALS: BP 175/85; PULSE 93
[2017-09-28 13:53] VITALS: RESP 18; TEMP 98.1
--- NOTE | 2017-09-29 02:13 | DS ---
HISTORY OF PRESENT ILLNESS: Patient is 72 years old, was admitted in TCU on 09/21 for deconditioning, difficulty walking and rehab. Patient was admitted with leg pain. 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 2. Chronic kidney disease. 3. Anemia. 4. Hypertension. Patient's stay in TCU was uneventful and being discharged today. PHYSICAL EXAMINATION: GENERAL: Patient is awake, alert, oriented, communicative. VITAL SIGNS: Patient is afebrile. Pulse 93, respiration 18, blood pressure 124/67. LUNGS: Bilaterally good airflow. No rhonchi or crackle. HEART: S1 and S2 audible. ABDOMEN: Soft, obese, nontender. No rebound. No guarding. NEUROLOGIC: She is awake and alert, able to communicate, ambulatory. LABORATORY DATA: Blood sugar is 299. ASSESSMENT: 1. Non-insulin dependant diabetes. 2. History of left trochanteric bursitis. 3. Diabetic neuropathy. 4. Morbid obesity. 5. Chronic kidney disease. 6. Left foot ulcer that has almost healed. 7. Hypertension. PLAN: Patient is being discharged today. She is going to be discharged home on omeprazole, Lasix, carvedilol, Remeron, hydralazine, amlodipine, and gabapentin. Sage Dickey MD
== END 2017-09-28 13:55 | disposition home or self-care (01) | DRG 556 ==
LOC: TRCU 14:18
PROVIDERS: ADMIT Internal Medicine Nephrology; ATTEND Internal Medicine Nephrology
PROC: F07Z9FZ Gait Training/Functional Ambulation Treatment using Assistive, Adaptive, Supportive or Protective Equipment (ICD-10-PCS; principal; 2017-09-20)
PROC: F08Z4FZ Home Management Treatment using Assistive, Adaptive, Supportive or Protective Equipment (ICD-10-PCS; 2017-09-20)
PROC: 3E0U33Z Introduction of Anti-inflammatory into Joints, Percutaneous Approach (ICD-10-PCS; 2017-09-25)
PROC: 3E0U3BZ Introduction of Anesthetic Agent into Joints, Percutaneous Approach (ICD-10-PCS; 2017-09-25)
DX: R26.2 Difficulty in walking, not elsewhere classified (principal); N39.0 Urinary tract infection, site not specified; Z68.41 Body mass index [BMI] 40.0-44.9, adult; I12.9 Hypertensive chronic kidney disease with stage 1 through stage 4 chronic kidney disease, or unspecified chronic kidney disease; N18.3 Chronic kidney disease, stage 3 (moderate); E11.22 Type 2 diabetes mellitus with diabetic chronic kidney disease; L97.529 Non-pressure chronic ulcer of other part of left foot with unspecified severity; E11.621 Type 2 diabetes mellitus with foot ulcer; E11.51 Type 2 diabetes mellitus with diabetic peripheral angiopathy without gangrene; M70.62 Trochanteric bursitis, left hip; D64.9 Anemia, unspecified; M79.605 Pain in left leg; E11.40 Type 2 diabetes mellitus with diabetic neuropathy, unspecified; L89.622 Pressure ulcer of left heel, stage 2; B96.20 Unspecified Escherichia coli [E. coli] as the cause of diseases classified elsewhere; H54.8 Legal blindness, as defined in USA; E66.01 Morbid (severe) obesity due to excess calories; Z86.010 Personal history of colon polyps

== ENCOUNTER 2018-01-28 15:57 | Emergency (ER) | payer MEDICARE, OTHER ==
[2018-01-28 16:22] VITALS: RESP 18; BMI 52.9
[2018-01-28] MEDS ORDERED: Vancomycin 1gm in NS 250ml 1 GM/250 ML BAG IVPB STA (17:56)
--- NOTE | 2018-01-28 19:05 | ED PDOC ---
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 Patient had been seeing director alumni relations for the past few months because she had a left great toe ulcer. With metahoney and dressing changes, patient's great toe was improving however the past 3 days the nurse noticed wound changes including erythema and drainage. Dr. Fuentes was contacted who recommended patient come into the emergency room. Patient is not experiencing any pain. Denies fever, chills, nausea, vomiting, or difficulty ambulating. She walks with a walker at baseline. (Darian Herring) Past Medical History - Provider Review Nursing Documentation Reviewed: Yes - Infectious Disease Hx of Infectious Diseases: None - Tetanus Immunization Tetanus Immunization: Unknown - Cardiac Hx Cardiac Disorders: Yes Hx Hypertension: Yes - Pulmonary Hx Respiratory Disorders: Yes Hx Asthma: Yes Hx Pneumonia: Yes - Neurological Hx Neurological Disorder: Yes HX Cerebrovascular Accident: Yes Hx Dizziness: Yes - HEENT Hx HEENT Disorder: Yes Hx Blind: Yes (r eye) Hx Cataracts: Yes - Renal Hx Renal Disorder: Yes Hx Renal Failure: Yes (CKD St III) - Endocrine/Metabolic Hx Endocrine Disorders: Yes Hx Diabetes Mellitus Type 2: Yes - Hematological/Oncological Hx Blood Disorders: Yes Hx Anemia: Yes - Integumentary Hx Dermatological Disorder: No - Musculoskeletal/Rheumatological Hx Musculoskeletal Disorders: Yes Hx Falls: Yes Hx Unsteady Gait: Yes - Gastrointestinal Hx Gastrointestinal Disorders: No - Genitourinary/Gynecological Hx Genitourinary Disorders: Yes Hx Urinary Tract Infection: Yes - Psychiatric Hx Psychophysiologic Disorder: Yes Hx Anxiety: Yes Hx Substance Use: No - Surgical History Hx Amputation: Yes (Right hallux distal tip) Hx Appendectomy: Yes - Anesthesia Hx Anesthesia Reactions: No Hx Malignant Hyperthermia: No - Suicidal Assessment Feels Threatened In Home Enviroment: No <Darian Herring - Last Filed: 01/28/18 18:59> Family/Social History - Physician Review Nursing Documentation Reviewed: Yes Family/Social History: Unknown Family HX Smoking Status: Never Smoked Hx Alcohol Use: No Hx Substance Use: No Hx Substance Use Treatment: No <Darian Herring - Last Filed: 01/28/18 18:59> Allergies/Home Meds <Darian Herring - Last Filed: 01/28/18 18:59> <BosompemRaphaelRizwan - Last Filed: 01/28/18 21:46> Allergies/Adverse Reactions: Allergies No Known Allergies Allergy (Verified 01/28/18 16:20) Home Medications: Home Meds Medication Instructions Recorded Confirmed Carvedilol [Coreg] 3.125 mg PO BID 07/18/17 09/20/17 Furosemide [Lasix] 40 mg PO DAILY 07/18/17 09/20/17 Mirtazapine [Remeron] 15 mg PO HS 07/18/17 09/20/17 hydrALAZINE [Apresoline] 10 mg PO TID 07/18/17 09/20/17 Ergocalciferol (Vitamin D2) 50,000 unit PO QWK 09/17/17 09/20/17 [Vitamin D2] Review of Systems - Review of Systems Constitutional: absent: Fevers Eyes: absent: Vision Changes ENT: absent: Hearing Changes Respiratory: absent: SOB, Cough Cardiovascular: absent: Chest Pain, Palpitations Gastrointestinal: absent: Abdominal Pain, Nausea, Vomiting Genitourinary Female: absent: Dysuria, Hematuria Musculoskeletal: absent: Arthralgias Skin: Ulcer Neurological: absent: Headache, Dizziness <Darian Herring - Last Filed: 01/28/18 18:59> Physical Exam Vital Signs Reviewed: Yes Temperature: Afebrile Blood Pressure: Hypertensive Pulse: Regular Respiratory Rate: Normal Appearance: Positive for: Well-Appearing, Non-Toxic, Comfortable Pain Distress: None Mental Status: Positive for: Alert and Oriented X 3 - Systems Exam Head: Present: Atraumatic, Normocephalic Pupils: Present: PERRL Extroacular Muscles: Present: EOMI Mouth: Present: Dry Respiratory/Chest: Present: Clear to Auscultation, Good Air Exchange. No: Respiratory Distress, Accessory Muscle Use Cardiovascular: Present: Regular Rate and Rhythm, Normal S1, S2. No: Murmurs Abdomen: No: Tenderness, Distention, Peritoneal Signs Lower Extremity: Present: Tenderness, Erythema, Other (Left toe ulcer with erythematous edges and bloody drainage. Warm. ). No: NORMAL PULSES, Capillary Refill < 2 s Skin: Present: Warm, Erythematous, Hot Psychiatric: Present: Alert, Oriented x 3 <Darian Herring - Last Filed: 01/28/18 18:59> Vital Signs Temp Pulse Resp BP Pulse Ox 01/28/18 16:20 98.5 F 77 18 165/98 H 100 Medical Decision Making <Darian Herring - Last Filed: 01/28/18 18:59> <Rizwan Koo - Last Filed: 01/28/18 21:46> ED Course and Treatment: 01/28/18 19:07 72F, presents with left great toe ulceration with possible cellulitic changes. CBC CMP ESR Toe x-ray Vancomycin Podiatry consulted to evaluate the left great toe. Further recommendations to follow. (Darian Herring) 01/28/18 20:02 Multiple attempts to obtain IV access unsuccessful. Will alert laborer cook house. Podiatry resident currently at the bedside. Unable to obtain IV access. Will give Cleocin PO. 01/28/18 20:31 Called laborer cook house who states she will come down as soon as she is able to. 01/28/18 21:43 Labs obtained with no leukocytosis noted. Creatinine at baseline in comparison to previous visits. Updated patient with plan to continue wound care and to follow up with RONEY Hinson(podiatry). Scripts provided. Patient is stable for discharge. (Rizwan Koo) - Lab Interpretations Lab Results: 01/28/18 21:11 01/28/18 21:11 Lab Results 01/28/18 21:11: Sodium 139, Potassium 4.3, Chloride 106, Carbon Dioxide 23, Anion Gap 14, BUN 25 H, Creatinine 2.0 H, Est GFR ( Amer) 30, Est GFR ( Non-Af Amer) 25, Random Glucose 249 H, Calcium 8.8, Total Bilirubin 0.2, AST 20 , ALT 13, Alkaline Phosphatase 55, Total Protein 7.5, Albumin 3.5, Globulin 3.9 , Albumin/Globulin Ratio 0.9 L 01/28/18 21:11: WBC 8.1, RBC 2.78 L, Hgb 8.4 L, Hct 25.2 L, MCV 90.6, MCH 30.2, MCHC 33.3, RDW 13.6, Plt Count 241, MPV 10.7, Gran % 64.4, Lymph % (Auto) 25.6, Amelia % (Auto) 6.2 H, Eos % (Auto) 3.4, Baso % (Auto) 0.4, Gran # 5.19, Lymph # ( Auto) 2.1, Amelia # (Auto) 0.5, Eos # (Auto) 0.3, Baso # (Auto) 0.03, ESR Pending - RAD Interpretation Radiology Orders: 01/28/18 16:47 FOOT LEFT GREAT TOE ROUTINE [RAD] Stat - Medication Orders Current Medication Orders: Discontinued Medications Clindamycin HCl (Cleocin) 300 mg PO STAT STA PRN Reason: Protocol Stop: 01/28/18 19:37 Vancomycin HCl (Vancomycin 1gm) 1 gm in 250 mls @ 167 mls/hr IVPB STAT STA PRN Reason: Protocol Stop: 01/28/18 19:25 - PA / LINE APPLIANCE ASSEMBLER / Resident Statement LUIS MANUEL has reviewed & agrees with the documentation as recorded. LUIS MANUEL has examined the patient and agrees with the treatment plan. <Rizwan Koo - Last Filed: 01/28/18 21:46> Disposition/Present on Arrival - Present on Arrival History of DVT/PE: No History of Uncontrolled Diabetes: No Urinary Catheter: No History of Decub. Ulcer: No History Surgical Site Infection Following: None <Darian Herring - Last Filed: 01/28/18 18:59> - Present on Arrival Any Indicators Present on Arrival: No History of Uncontrolled Diabetes: Yes - Disposition Have Diagnosis and Disposition been Completed?: Yes Disposition Time: 21:40 Patient Plan: Discharge <Rizwan Koo - Last Filed: 01/28/18 21:46> - Disposition Diagnosis: Ulcer Disposition: HOME/ ROUTINE Patient Problems: Current Active Problems Problem Status Onset Ulcer Acute Condition: STABLE Prescriptions: Clindamycin [Cleocin] 300 mg PO TID 10 Days #30 cap Referrals: Anderson Rhoades DPM [Non-Staff] - Follow up with primary Aurea Roque MD [Medical Doctor] - Follow up with primary [facility] [place] [Outside] - Follow up with primary Forms: [employer] (Mongolian)
--- NOTE | 2018-01-28 20:03 | CP.PCM.CON ---
Addendum entered and electronically signed by Spenser Encinas DPM 01/28/18 21: 39: Rx; Clidamycin 600 mg tablets TID prescribed by the ED doctor. Original Note: <Spenser Encinas - Last Filed: 01/28/18 21:34> History of Present Illness - History of Present Illness History of Present Illness: Podiatry consult notes for attending Dr. 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 Patient is known to the podiatry service for the past few months because she had a left great toe ulcer which was dressed using medi-honey, silver alginate and dry dressing. Patient is a poor historian so her sister was contacted. Patient sister states that the patient has an ulcer in her left great toe. She states that it was improving by dressing change however the past 3 days the nurse noticed wound changes including erythema and drainage. Patient sister states that the redness got worse. Patient sister states that she contacted Dr. Monroy who recommended patient come into the emergency room. Patient denies any recent F/N/V/C or SOB. Patient denies any pain in her left foot or at the ulcer site. Patient denies any other pedal complaint at this time. 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 PSH: left femoral artery stenting, Appendectomy, cataract surgery, right hallux distal tip amputation Allergies: NKDA Social Hx: Denies smoking, ETOH use or illicit drug use. Review of Systems - Review of Systems Review of Systems: As Per HPI. Past Patient History - Infectious Disease Hx of Infectious Diseases: None - Tetanus Immunizations Tetanus Immunization: Unknown - Past Social History Smoking Status: Never Smoked - CARDIAC Hx Cardiac Disorders: Yes Hx Hypertension: Yes - PULMONARY Hx Respiratory Disorders: Yes Hx Asthma: Yes Hx Pneumonia: Yes - NEUROLOGICAL Hx Neurological Disorder: Yes HX Cerebrovascular Accident: Yes Hx Dizziness: Yes - HEENT Hx HEENT Problems: Yes Hx Blind: Yes (r eye) Hx Cataracts: Yes - RENAL Hx Chronic Kidney Disease: Yes Hx Renal Failure: Yes (CKD St III) - ENDOCRINE/METABOLIC Hx Endocrine Disorders: Yes Hx Diabetes Mellitus Type 2: Yes - HEMATOLOGICAL/ONCOLOGICAL Hx Blood Disorders: Yes Hx Anemia: Yes - INTEGUMENTARY Hx Dermatological Problems: No - MUSCULOSKELETAL/RHEUMATOLOGICAL Hx Musculoskeletal Disorders: Yes Hx Falls: Yes Hx Unsteady Gait: Yes - GASTROINTESTINAL Hx Gastrointestinal Disorders: No - GENITOURINARY/GYNECOLOGICAL Hx Genitourinary Disorders: Yes Hx Urinary Tract Infection: Yes - PSYCHIATRIC Hx Psychophysiologic Disorder: Yes Hx Anxiety: Yes Hx Substance Use: No - SURGICAL HISTORY Hx Amputation: Yes (Right hallux distal tip) Hx Appendectomy: Yes - ANESTHESIA Hx Anesthesia Reactions: No Hx Malignant Hyperthermia: No Meds Allergies/Adverse Reactions: Allergies Allergy/AdvReac Type Severity Reaction Status Date / Time No Known Allergies Allergy Verified 01/28/18 16:20 Physical Exam - Constitutional Appears: Well, Non-toxic, No Acute Distress - Head Exam Head Exam: ATRAUMATIC, NORMOCEPHALIC - Extremities Exam Additional comments: Left LE focused exam: Vasc: DP non-palpable, PT faintly palpanle 1/4. Cap refill < 3 sec to all digits. mild erythema noted at the left hallux. Temop gradient warm to cool from proximal to distal. Neuro: Protective sensation diminished. Derm: Medial hallux ulceration measuring approx 0.5 cm x 0.5cm x 0.2cm with necrotic wound base; mild trever-wound erythema, minimal purulent drainage, no malodor, no fluctuance. No tunneling or undermining. Ortho: No pain to palpation of L hallux or L heel. Muscle power intact 5/5 in all groups - Neurological Exam Neurological exam: Alert - Psychiatric Exam Psychiatric exam: Normal Affect, Normal Mood Results - Vital Signs Recent Vital Signs: Last Vital Signs Temp 98.5 F 01/28/18 16:20 Pulse 77 01/28/18 16:20 Resp 18 01/28/18 16:20 BP 165/98 H 01/28/18 16:20 Pulse Ox 100 01/28/18 16:20 - Labs Result Diagrams: 01/28/18 21:11 01/28/18 21:11 Assessment & Plan - Assessment and Plan (Free Text) Assessment: 72 Y/O F patient seen and evaluated in the ED for left hallux infected ulcer and cellulitis Plan: Patient seen and evaluated in the ED. Plan discussed in details with attending Dr. Monroy. X-ray reviewed; No signs of osteomyelitis. Chart, vitals, and labs reviewed; Afebrile, no leukocytosis (WBCs 8.1) Wound culture collected and sent to the lab. Rx; Clidamycin 300 mg tablets TID prescribed by the ED doctor. Wound dressed using bacitracin, 4X4 gauze and kerlix. Contacted the patient sister to inform her the plan. Patient and her sister educated the signs of active infection. educated that if there is F/N/V/C or SOB she has to come directly to the ED. Patient and her sister expressed verbal understanding. Patient will follow up with dr. Monroy at home this - Date & Time Date: 01/28/18 Time: 19:54 <Jason Monroy - Last Filed: 01/30/18 08:54> Results - Vital Signs Recent Vital Signs: Last Vital Signs Temp 99.0 F 01/29/18 00:00 Pulse 78 01/29/18 01:13 Resp 18 01/29/18 01:13 BP 178/90 H 01/29/18 00:00 Pulse Ox 98 01/29/18 01:13 - Labs Result Diagrams: 01/28/18 21:11 01/28/18 21:11 Attending/Attestation - Attestation I have personally seen and examined this patient.: Yes I have fully participated in the care of the patient.: Yes I have reviewed all pertinent clinical information: Yes
[2018-01-28 21:16] LABS: BASO # 0.03 K/mm3 (0.0-2.0); BASO % 0.4 % (0.0-3.0); EOS # 0.3 (0.0-0.7); EOS % 3.4 % (1.5-5.0); GRAN # 5.19 (1.4-6.5); GRAN % 64.4 % (50.0-68.0); HEMOGLOBIN 8.4 g/dL (12.0-16.0); LYMPH # 2.1 (1.2-3.4); LYMPH % 25.6 % (22.0-35.0); MEAN CELL VOLUME 90.6 fl (80.0-105.0); MEAN CORPUSCULAR HEMOGLOBIN 30.2 pg (25.0-35.0); MEAN CORPUSCULAR HGB CONC 33.3 g/dl (31.0-37.0); MEAN PLATELET VOLUME 10.7 fl (7.0-11.0); MONO # 0.5 (0.1-0.6); MONO % 6.2 % (1.0-6.0); RBC 2.78 10^6/uL (3.5-6.1); RED CELL DISTRIBUTION WIDTH 13.6 % (11.5-14.5); WHITE BLOOD COUNT 8.1 10^3/ul (4.5-11.0)
[2018-01-28 21:29] LABS: ALB/GLOB RATIO 0.9 (1.1-1.8); ALBUMIN 3.5 g/dL (3.0-4.8); CALCIUM 8.8 mg/dL (8.4-10.5)
[2018-01-29 01:22] VITALS: BP 178/90; PULSE 78; TEMP 99; O2SAT 98
--- NOTE | 2018-01-29 12:15 | RAD ---
Date of service: 01/28/2018 PROCEDURE: Left Foot Radiographs. HISTORY: h/o diabetes w/ ulcer on great toe. r/o osteomye COMPARISON: None. FINDINGS: BONES: Normal. No fracture. JOINTS: Mild degenerative changes throughout the foot SOFT TISSUES: Normal. OTHER FINDINGS: None. IMPRESSION: No evidence of osteomyelitis
== END 2018-01-29 01:25 | disposition home or self-care (01) ==
LOC: ED 15:57
DX: L97.529 Non-pressure chronic ulcer of other part of left foot with unspecified severity (principal); I12.9 Hypertensive chronic kidney disease with stage 1 through stage 4 chronic kidney disease, or unspecified chronic kidney disease; N18.3 Chronic kidney disease, stage 3 (moderate); Z86.73 Personal history of transient ischemic attack (TIA), and cerebral infarction without residual deficits

== ENCOUNTER 2018-06-02 10:27 | Inpatient (IN) | payer MEDICARE, OTHER ==
[2018-06-02 11:23] VITALS: BMI 37.8
[2018-06-02] MEDS ORDERED: Vancomycin 1gm in NS 250ml 1 GM/250 ML BAG IVPB STA (11:35)
[2018-06-02] MEDS ORDERED: Sodium Chloride 0.9% 1,000 ML IV STA (11:38)
--- NOTE | 2018-06-02 12:32 | ED PDOC ---
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 Jason Monroy DPM, for left Hallux ulceration with failed outpatient antibiotics. Patient's family at bedside states pt was prescribed different treatment methods such as creams and antibiotics, with no significant relief. Patient reports her wound dressing is changed daily, noting last time was this morning. Family notes that the wound is "yellow inside" and says it sometimes "oozes." Family at bedside states she noticed a lowgrade fever for a while. Patient denies any nausea, vomiting, diarrhea, abdominal pain, shortness of breath, or any other complaints at this time. PMD: Dr. Jason Monroy DPM Time/Duration: Prior to Arrival Symptom Onset: Gradual Symptom Course: Unchanged Activities at Onset: Light Past Medical History - Provider Review Nursing Documentation Reviewed: Yes - Infectious Disease Hx of Infectious Diseases: None - Tetanus Immunization Tetanus Immunization: Unknown - Cardiac Hx Cardiac Disorders: Yes Hx Hypertension: Yes - Pulmonary Hx Respiratory Disorders: No - Neurological Hx Neurological Disorder: Yes HX Cerebrovascular Accident: Yes Hx Dizziness: Yes - HEENT Hx HEENT Disorder: Yes (CATARACT SX) - Renal Hx Renal Disorder: No - Endocrine/Metabolic Hx Endocrine Disorders: Yes Hx Diabetes Mellitus Type 2: Yes - Hematological/Oncological Hx Blood Disorders: Yes Hx Anemia: Yes - Integumentary Hx Dermatological Disorder: No - Musculoskeletal/Rheumatological Hx Musculoskeletal Disorders: Yes Hx Falls: Yes Hx Unsteady Gait: Yes - Gastrointestinal Hx Gastrointestinal Disorders: No - Genitourinary/Gynecological Hx Genitourinary Disorders: No - Psychiatric Hx Psychophysiologic Disorder: No Hx Substance Use: No - Surgical History Hx Amputation: Yes (Right hallux distal tip) Hx Appendectomy: Yes Other/Comment: LLE Stent - Dr Garcia - Anesthesia Hx Anesthesia: Yes Hx Anesthesia Reactions: No Hx Malignant Hyperthermia: No - Suicidal Assessment Feels Threatened In Home Enviroment: No Family/Social History - Physician Review Nursing Documentation Reviewed: Yes Family/Social History: No Known Family HX Smoking Status: Never Smoked Hx Alcohol Use: No Hx Substance Use: No Hx Substance Use Treatment: No Allergies/Home Meds Allergies/Adverse Reactions: Allergies No Known Allergies Allergy (Verified 01/28/18 16:20) Home Medications: Home Meds Medication Instructions Recorded Confirmed Carvedilol [Coreg] 3.125 mg PO BID 07/18/17 09/20/17 Furosemide [Lasix] 40 mg PO DAILY 07/18/17 09/20/17 Mirtazapine [Remeron] 15 mg PO HS 07/18/17 09/20/17 hydrALAZINE [Apresoline] 10 mg PO TID 07/18/17 09/20/17 Ergocalciferol (Vitamin D2) 50,000 unit PO QWK 09/17/17 09/20/17 [Vitamin D2] Review of Systems - Physician Review All systems were reviewed & negative as marked: Yes - Review of Systems Respiratory: Normal. absent: SOB Gastrointestinal: absent: Normal, Abdominal Pain, Diarrhea, Nausea, Vomiting Physical Exam Vital Signs Reviewed: Yes Vital Signs Temp Pulse Resp BP Pulse Ox 06/02/18 12:08 98.3 F 86 18 125/70 98 Temperature: Afebrile Blood Pressure: Normal Pulse: Regular Respiratory Rate: Normal Appearance: Positive for: Well-Appearing, Non-Toxic Pain Distress: None Mental Status: Positive for: Alert and Oriented X 3 Medical Decision Making ED Course and Treatment: 06/02/18 11:30 Impression: 73 year old female sent to the ED by her Aerospace Quality Engineer Dr. Jason Monroy for left Hallux ulceration with failed outpatient antibiotics. Plan: -- Labs -- X-Ray of chest -- IV fluids -- Vancomycin -- Blood culture -- Wound culture and gram stain -- Foot left great toe routine X-Ray -- Urinalysis -- US of duplex lower extremities Prior visits: Patient was last seen here in the ED on 01/28/18 for left toe infection. Patient was discharged in stable condition, directed to follow up with PMD, and prescribed Clindamycin 300mg PO TID 10 days #30 cap. Progress notes: 06/02/18 14:05 Discussed case with Podiatry resident, who said she will come and see patient. 01/14/19 14:[address] Mooney who accepts patient and requests Dr. Monroy (Podiatry), Dr. Mohan (Infectious disease), and Dr. Thurman (Nephrology). - RAD Interpretation Radiology Orders: 06/02/18 11:35 CHEST PORTABLE [RAD] Stat 06/02/18 11:39 FOOT LEFT GREAT TOE ROUTINE [RAD] Stat DUPLEX LOWER EXTRM VEIN BILAT [US] Stat - Medication Orders Current Medication Orders: Vancomycin HCl (Vancomycin 1gm) 1 gm in 250 mls @ 167 mls/hr IVPB STAT STA; Protocol Stop: 06/02/18 13:04 Sodium Chloride (Sodium Chloride 0.9%) 1,000 mls @ 999 mls/hr IV .Q1H1M STA Stop: 06/02/18 12:38 - Scribe Statement The provider has reviewed the documentation as recorded by the Scribe Andra Hein All medical record entries made by the Scribe were at my direction and personally dictated by me. I have reviewed the chart and agree that the record accurately reflects my personal performance of the history, physical exam, medical decision making, and the department course for this patient. I have also personally directed, reviewed, and agree with the discharge instructions and disposition. Disposition/Present on Arrival - Present on Arrival History of DVT/PE: No History of Uncontrolled Diabetes: Yes Urinary Catheter: No History of Decub. Ulcer: No History Surgical Site Infection Following: None - Disposition Forms: [employer] (Namibian)
[2018-06-02 12:38] LABS: BASO # 0.03 K/mm3 (0.0-2.0); BASO % 0.4 % (0.0-3.0); EOS # 0.2 (0.0-0.7); EOS % 2.7 % (1.5-5.0); GRAN # 6.4 (1.4-6.5); GRAN % 76.3 % (50.0-68.0); HEMOGLOBIN 8.7 g/dL (12.0-16.0); LYMPH # 1.2 (1.2-3.4); LYMPH % 13.9 % (22.0-35.0); MEAN CELL VOLUME 96.5 fl (80.0-105.0); MEAN CORPUSCULAR HEMOGLOBIN 30.7 pg (25.0-35.0); MEAN CORPUSCULAR HGB CONC 31.9 g/dl (31.0-37.0); MEAN PLATELET VOLUME 10.6 fl (7.0-11.0); MONO # 0.6 (0.1-0.6); MONO % 6.7 % (1.0-6.0); RBC 2.83 10^6/uL (3.5-6.1); RED CELL DISTRIBUTION WIDTH 14.1 % (11.5-14.5); WHITE BLOOD COUNT 8.4 10^3/uL (4.5-11.0)
[2018-06-02 13:38] LABS: VENOUS BLOOD GAS BASE EXCESS -2.7 mmol/L (0.0-2.0); VENOUS BLOOD GAS PO2 56 mm/Hg (30-55); VENOUS BLOOD PH 7.29 (7.32-7.43)
[2018-06-02 13:48] LABS: INR 1.04
[2018-06-02 13:50] LABS: ALB/GLOB RATIO 0.9 (1.1-1.8); ALBUMIN 4.1 g/dL (3.0-4.8); CALCIUM 9.4 mg/dL (8.4-10.5)
[2018-06-02] MEDS ORDERED: Albuterol 0.083% Inhal Sol (2.5 mg/3 mL) UD INH STA (14:23)
[2018-06-02] MEDS ORDERED: Sodium Bicarbonate (8.4%) 50 Meq Syringe IVP ONE (14:23)
[2018-06-02] MEDS ORDERED: Insulin Regular 1 UNITS/0.01 ML ML IVP ONE (14:24)
[2018-06-02] MEDS ORDERED: Dextrose 50% SYRINGE Inj (50 ml) IVP STA (14:24)
--- NOTE | 2018-06-02 15:27 | CP.PCM.CON ---
<Julianen Lee - Last Filed: 06/02/18 16:01> History of Present Illness - History of Present Illness History of Present Illness: Podiatry Consult Note- Dr. Leos 72 y.o female with PMH of DM, HTN, HLD seen and evaluated in the ED. Patient reports having a wound for a few months on the left hallux. States she has been seeing Dr. Monroy and was advised to come to the hospital for further work up. Patient is a poor historian and is not able to remember her history. She denies n/v/sob/cp/chills or f. PMH: DM, HLD, HTN PSH: appendectomy, cataract surgery, right hallux distal tip amputation SH: denies smoking, drinking or illicit drug use ALL: NKDA Past Patient History - Infectious Disease Hx of Infectious Diseases: None - Tetanus Immunizations Tetanus Immunization: Unknown - Past Social History Smoking Status: Never Smoked - CARDIAC Hx Cardiac Disorders: Yes Hx Hypertension: Yes - PULMONARY Hx Respiratory Disorders: No - NEUROLOGICAL Hx Neurological Disorder: Yes HX Cerebrovascular Accident: Yes Hx Dizziness: Yes - HEENT Hx HEENT Problems: Yes (CATARACT SX) - RENAL Hx Chronic Kidney Disease: No - ENDOCRINE/METABOLIC Hx Endocrine Disorders: Yes Hx Diabetes Mellitus Type 2: Yes - HEMATOLOGICAL/ONCOLOGICAL Hx Blood Disorders: Yes Hx Anemia: Yes - INTEGUMENTARY Hx Dermatological Problems: No - MUSCULOSKELETAL/RHEUMATOLOGICAL Hx Musculoskeletal Disorders: Yes Hx Falls: Yes Hx Unsteady Gait: Yes - GASTROINTESTINAL Hx Gastrointestinal Disorders: No - GENITOURINARY/GYNECOLOGICAL Hx Genitourinary Disorders: No - PSYCHIATRIC Hx Psychophysiologic Disorder: No Hx Substance Use: No - SURGICAL HISTORY Hx Amputation: Yes (Right hallux distal tip) Hx Appendectomy: Yes Other/Comment: DYLAN Stent - Dr Garcia - ANESTHESIA Hx Anesthesia: Yes Hx Anesthesia Reactions: No Hx Malignant Hyperthermia: No Meds Allergies/Adverse Reactions: Allergies Allergy/AdvReac Type Severity Reaction Status Date / Time No Known Allergies Allergy Verified 01/28/18 16:20 Physical Exam - Constitutional Appears: Well, Non-toxic, No Acute Distress - Head Exam Head Exam: ATRAUMATIC, NORMOCEPHALIC - Eye Exam Eye Exam: Normal appearance Pupil Exam: NORMAL ACCOMODATION - ENT Exam ENT Exam: Mucous Membranes Moist - Extremities Exam Additional comments: Left lower extremity exam: Vasc: DP and PT unpalpable. CFT delayed to the digits. Temperature gradient cool to cool. Left hallux slightly warm. Mild edema noted to the left hallux Ortho: pain with palpation to the left hallux Neuro: protective sensation diminished Derm: Open ulceration noted to the medial aspect of the tip of the hallux, dry base noted measuring approximately .3 x .4 x .3 cm, no drainage, no malodor, no tunneling or undermining noted. No probe to bone Results - Vital Signs Recent Vital Signs: Last Vital Signs Temp 98.3 F 06/02/18 12:08 Pulse 86 06/02/18 12:08 Resp 18 06/02/18 12:08 BP 125/70 06/02/18 12:08 Pulse Ox 98 06/02/18 12:08 - Labs Result Diagrams: 06/02/18 12:25 06/02/18 13:20 Labs: Laboratory Results - last 24 hr 06/02/18 06/02/18 06/02/18 12:25 13:20 13:20 WBC 8.4 RBC 2.83 L Hgb 8.7 L Hct 27.3 L MCV 96.5 D MCH 30.7 MCHC 31.9 RDW 14.1 Plt Count 328 MPV 10.6 Gran % 76.3 H Lymph % (Auto) 13.9 L Emery % (Auto) 6.7 H Eos % (Auto) 2.7 Baso % (Auto) 0.4 Gran # 6.40 Lymph # (Auto) 1.2 Emery # (Auto) 0.6 Eos # (Auto) 0.2 Baso # (Auto) 0.03 PT 12.0 INR 1.04 APTT 30.0 pO2 56 H VBG pH 7.29 L VBG pCO2 51.0 VBG HCO3 24.5 VBG Total CO2 26.1 VBG O2 Sat (Calc) 92.1 H VBG Base Excess -2.7 L VBG Potassium 5.0 Sodium 140.0 Chloride 109.0 H Glucose 234 H Lactate 1.1 FiO2 21.0 Potassium Carbon Dioxide Anion Gap BUN Creatinine Est GFR ( Amer) Est GFR (Non-Af Amer) Random Glucose Calcium Phosphorus Magnesium Total Bilirubin AST ALT Alkaline Phosphatase NT-Pro-B Natriuret Pep Total Protein Albumin Globulin Albumin/Globulin Ratio Venous Blood Potassium 5.0 06/02/18 13:20 WBC RBC Hgb Hct MCV MCH MCHC RDW Plt Count MPV Gran % Lymph % (Auto) Emery % (Auto) Eos % (Auto) Baso % (Auto) Gran # Lymph # (Auto) Emery # (Auto) Eos # (Auto) Baso # (Auto) PT INR APTT pO2 VBG pH VBG pCO2 VBG HCO3 VBG Total CO2 VBG O2 Sat (Calc) VBG Base Excess VBG Potassium Sodium 140 Chloride 110 H Glucose Lactate FiO2 Potassium 5.3 H Carbon Dioxide 24 Anion Gap 12 BUN 32 H Creatinine 2.2 H Est GFR ( Amer) 27 Est GFR (Non-Af Amer) 22 Random Glucose 228 H Calcium 9.4 Phosphorus 4.6 H Magnesium 1.9 Total Bilirubin 0.2 AST 29 ALT 22 Alkaline Phosphatase 48 NT-Pro-B Natriuret Pep 2360 H Total Protein 9.0 H Albumin 4.1 Globulin 4.9 Albumin/Globulin Ratio 0.9 L Venous Blood Potassium Assessment & Plan - Assessment and Plan (Free Text) Assessment: 73 y.o female with PMH of DM, HTN, HLD with left hallux ulcer with erythema periwound. Plan: Patient examined and evaluated Discussed plan in detail with attending Dr. Leos Labs, charts, vitals reviewed- afebrile and absent leukocytosis Patient will be admitted under the medicine team Foot X-rays ordered ID on board; appreciate recs Podiatry will continue to follow while patient is in house Thank you for allowing us to take part of patient's care. <Irma Leos - Last Filed: 06/08/18 16:04> Results - Vital Signs Recent Vital Signs: Last Vital Signs Temp 98.1 F 06/06/18 06:00 Pulse 66 06/06/18 06:00 Resp 18 06/06/18 06:00 BP 190/78 H 06/06/18 15:29 Pulse Ox 97 06/06/18 06:00 - Labs Result Diagrams: 06/06/18 07:30 06/06/18 07:30 Attending/Attestation - Attestation I have personally seen and examined this patient.: Yes I have fully participated in the care of the patient.: Yes I have reviewed all pertinent clinical information: Yes
--- NOTE | 2018-06-02 15:42 | US ---
HISTORY: Leg pain and swelling. Evaluate for DVT PHYSICIAN(S): Doron Garcia MD. TECHNIQUE: Duplex sonography and color-flow Doppler with graded compression were used to evaluate the deep venous systems of both lower extremities. The exam is limited by body habitus, edema, inability to tolerate compression. The tibial veins are not well seen FINDINGS: The visualized deep venous systems of both lower extremities are sonographically normal and compressible. Normal wave forms and augmentation are seen. There is no sonographic evidence for deep venous thrombosis in the visualized segments of both lower extremities. IMPRESSION: No sonographic evidence for deep venous thrombosis in the visualized segments of both lower extremities. Limited study
--- NOTE | 2018-06-02 16:02 | RAD ---
Date of service: 06/02/2018 PROCEDURE: CHEST RADIOGRAPH, 1 VIEW HISTORY: Sepsis Patient COMPARISON: 09/17/2017 FINDINGS: LUNGS: Clear. PLEURA: No pneumothorax or pleural fluid seen. CARDIOVASCULAR: No aortic atherosclerotic calcification present. Normal. OSSEOUS STRUCTURES: No significant abnormalities. VISUALIZED UPPER ABDOMEN: Normal. OTHER FINDINGS: None. IMPRESSION: No active disease. No acute/significant interval changes.
--- NOTE | 2018-06-02 16:03 | RAD ---
PROCEDURE: Radiographs of the left great toe. TECHNIQUE:: AP radiograph of the left foot, with oblique and lateral view of the left great toe. COMPARISON: 09/18/2017, 01/28/2018 radiographs left 1st digit FINDINGS: BONES: No radiographic manifestations of osteomyelitis. JOINTS: Hallux valgus deformity, degenerative changes interphalangeal joints. SOFT TISSUES: Normal. OTHER FINDINGS: None. IMPRESSION: No acute findings related to/ accounting for the clinical presentation. No significant interval change compared to the prior examination(s).
[2018-06-02 17:39] LABS: URINE BILIRUBIN NEGATIVE (NEGATIVE); URINE BLOOD TRACE-INTACT (NEGATIVE); URINE COLOR STRAW (YELLOW); URINE GLUCOSE (UA) 100 mg/dL (NEGATIVE); URINE LEUKOCYTE ESTERASE MODERATE Leu/uL (NEGATIVE); URINE PROTEIN 100 mg/dL (<30 mg/dL); URINE UROBILINOGEN 0.2 E.U./dL (<1 E.U./dL)
[2018-06-02 17:40] LABS: URINE APPEARANCE CLOUDY (CLEAR)
[2018-06-02 18:18] LABS: URINE BACTERIA LARGE /hpf; URINE EPITHELIAL CELLS 0 - 2 /hpf (0-5); URINE WBC 25 - 30 /hpf (0-6)
[2018-06-02] MEDS ORDERED: Sod Polystyrene Sulf 15 gm/60 ml Susp PO ONE (18:35)
[2018-06-02 19:43] LABS: IRON 60 ug/dL (45-180)
[2018-06-02 19:52] LABS: % IRON SATURATION 17 % (20-55); TOTAL IRON BINDING CAPACITY 356 ug/dL (265-497)
[2018-06-02] MEDS ORDERED: Pneumococcal 23-Valent Vaccine IM ONE (22:49)
[2018-06-02] MEDS ORDERED: Influenza Vaccine 60 mcg/0.5 mL SYR (4YR UP) IM ONE (22:49)
--- NOTE | 2018-06-03 02:30 | HP ---
DATE OF EXAM: 06/03/2018 The patient was seen and examined at the bedside on 06/03/2018 in the emergency room. CHIEF COMPLAINT: Left foot pain. HISTORY OF PRESENT ILLNESS: Ms. Suzie Rosado, 73-year-old female with past medical history of diabetes mellitus, hypertension, peripheral vascular disease, left leg stent, CVA, left upper extremity weakness, recent MRSA, was sent to ED by Dr. Jason Monroy for left hallux ulceration with failed outpatient antibiotics. The patient and family gave history to ER. I saw the patient in the ER, looking comfortable. The patient complains her mood having low-grade fever. PAST MEDICAL HISTORY: Hypertension, dizziness, CVA, cataract, diabetes mellitus type 2, anemia, fall, unsteady gait, right hallux valgus tip ulceration, left lower extremity stent by Dr. Doron Garcia. FAMILY HISTORY: Father and mother, noncontributory. HABITS: Never smoked. No drugs. No ethanol. ALLERGIES: THE PATIENT IS NOT ALLERGIC WITH ANY MEDICATIONS. HOME MEDICATIONS: Coreg, Lasix, Remeron, hydralazine, vitamin D. REVIEW OF SYSTEMS: The patient was seen and examined at the bedside in ER, looking comfortable. At that movement, no fevers, no chills. No hematuria. No hematochezia. No headaches. No dizziness. No chest pain. No palpitations. PHYSICAL EXAMINATION: VITAL SIGNS: Temperature 98.3, pulse 89, respirations 18, blood pressure 125/70, pulse oximetry 98%. HEENT: Head is normocephalic and atraumatic. Eyes, PERRLA. Extraocular muscles are intact. Conjunctivae clear. Nose patent. NECK: Supple. No carotid bruit. No JVD or thyromegaly. CHEST: Bilaterally symmetrical. HEART: S1 and S2 positive. LUNGS: Clear to auscultation. ABDOMEN: Soft. Bowel sounds present. No organomegaly. EXTREMITIES: No edema. No cyanosis. Foot had dressing. LABORATORY DATA: White blood cell is 8.4, hemoglobin 8.7, hematocrit 27.3, platelets 328. Sodium 140, potassium 5.3, BUN 32, creatinine 2.2, glucose 118, calcium 4.6. Iron saturation of 17. ASSESSMENT AND PLAN: Ms. Suzie Rosado is a 73-year-old lady with anemia, hyperkalemia, hyperchloremia, renal insufficiency, hyperglycemia, hyperphosphatemia, iron deficiency, congestive heart failure, proteinuria, glucosuria, hematuria, urinary tract infection, severe peripheral vascular disease, failed outpatient treatment, history of hypertension, hypercholesterolemia, have wound on the left hallux from couple of months, got different type of antibiotics from podiatry. Now at this time, the patient was advised to come to the emergency, need IV antibiotics. Readmitted the patient. Called podiatry consult and Nephrology consult because the patient has renal insufficiency. Infectious Disease, Dr. Mohan is on the case. Gastrointestinal and deep venous thrombosis prophylaxis. Repeat labs. We will follow up. Elva Mooney MD MTDStella
--- NOTE | 2018-06-03 06:08 | CP.PCM.CON ---
<Callie Cao - Last Filed: 06/03/18 21:44> History of Present Illness - History of Present Illness History of Present Illness: Nephrology Consult for Dr. Thurman Reason for consult: IRWIN Please note patient is a poor historian and is uncertain to why she was admitted. History below as per EMR. 73yo female PMHx HTN, DM2, obesity, HLD, LLE arterial stent, PAD, R eye blindness sent to ED by outpatient podiatry for nonhealing L hallux ulcer. As per charts patient's family had noted drainage from ulcer. No trauma to the area. Patient has been following with Dr. Monroy for several months for her ulcer. On ROS patient denied chest pain, SOB, abd pain, fever, chills. 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 SocHx: Denies alcohol, tobacco, or illicit drug use. Sister is POA ALL: NKDA Meds: as per MAR Review of Systems - Review of Systems All systems: reviewed and no additional remarkable complaints except Review of Systems: as per HPI Past Patient History - Infectious Disease Hx of Infectious Diseases: None - Tetanus Immunizations Tetanus Immunization: Unknown - Past Social History Smoking Status: Never Smoked - CARDIAC Hx Cardiac Disorders: Yes Hx Cardia Arrhythmia: Yes (afib) Hx Hypercholesterolemia: Yes Hx Hypertension: Yes Hx Peripheral Edema: Yes Other/Comment: angioplasty - PULMONARY Hx Respiratory Disorders: Yes Hx Asthma: Yes Hx Pneumonia: Yes - NEUROLOGICAL Hx Neurological Disorder: Yes HX Cerebrovascular Accident: Yes (left upper extremity weakness) Hx Dizziness: Yes Other/Comment: peripheral neuropathy, numb feet and legs - HEENT Hx HEENT Problems: Yes (CATARACT SX) Hx Blind: Yes (right eye cause unknown as per pt) Other/Comment: eyeglassses - RENAL Hx Chronic Kidney Disease: Yes (st II) - ENDOCRINE/METABOLIC Hx Endocrine Disorders: Yes Hx Diabetes Mellitus Type 2: Yes - HEMATOLOGICAL/ONCOLOGICAL Hx Blood Disorders: Yes (hyperkalemia) Hx Anemia: Yes - INTEGUMENTARY Hx Dermatological Problems: Yes Other/Comment: ble/feet crusty dry skin to toes and feet, dry thick toenails, foul smelling fungal red rash to abd fold, b/l groin, under b/l breasts, slight redness to buttocks, hx of gangrenous r great toe, left great toe dry light brown in color, pale red 2cm x 1.5cm surrounded by red skin - MUSCULOSKELETAL/RHEUMATOLOGICAL Hx Musculoskeletal Disorders: Yes Hx Arthritis: Yes (both feet) Hx Falls: Yes Hx Osteoarthritis: Yes Hx Osteomyelitis: Yes (right great toe) Hx Unsteady Gait: Yes (cane/walker/ motor w/ch) - GASTROINTESTINAL Hx Gastrointestinal Disorders: Yes (obese) - GENITOURINARY/GYNECOLOGICAL Hx Genitourinary Disorders: Yes Hx Urinary Tract Infection: Yes - PSYCHIATRIC Hx Psychophysiologic Disorder: Yes Hx Anxiety: Yes Hx Substance Use: No - SURGICAL HISTORY Hx Surgeries: Yes Hx Amputation: Yes (Right hallux distal tip) Hx Appendectomy: Yes Hx Hysterectomy: Yes Other/Comment: LLE Stent - Dr Garcia, colonic lesion with obstruction, excision of r eye tumor - ANESTHESIA Hx Anesthesia: Yes Hx Anesthesia Reactions: No Hx Malignant Hyperthermia: No Meds Allergies/Adverse Reactions: Allergies Allergy/AdvReac Type Severity Reaction Status Date / Time No Known Allergies Allergy Verified 01/28/18 16:20 - Medications Medications: Current Medications Amlodipine Besylate (Norvasc) 10 mg PO DAILY EBEN Carvedilol (Coreg) 3.125 mg PO BID EBEN Ergocalciferol (Drisdol 50,000 Intl Units Cap) cap PO QWK EBEN Furosemide (Lasix) 40 mg PO DAILY EBEN Gabapentin (Neurontin) 300 mg PO BID EBEN; Protocol Hydralazine HCl (Apresoline) 10 mg PO TID EEBN Mirtazapine (Remeron) 15 mg PO HS EBEN Pantoprazole Sodium (Protonix Ec Tab) 40 mg PO ACB EBEN Physical Exam - Constitutional Appears: No Acute Distress, Unkempt - Head Exam Head Exam: ATRAUMATIC, NORMAL INSPECTION, NORMOCEPHALIC - Eye Exam Additional comments: R eye closed - ENT Exam ENT Exam: Mucous Membranes Moist - Neck Exam Neck exam: Positive for: Normal Inspection - Respiratory Exam Respiratory Exam: Clear to Auscultation Bilateral, NORMAL BREATHING PATTERN. absent: Accessory Muscle Use, Rales, Rhonchi, Wheezes, Respiratory Distress - Cardiovascular Exam Cardiovascular Exam: RRR, +S1, +S2 - GI/Abdominal Exam GI & Abdominal Exam: Normal Bowel Sounds, Soft. absent: Firm, Guarding, Tenderness - Extremities Exam Extremities exam: Positive for: pedal edema (trace b/l) Additional comments: left hallux ulcer noted- non draining, non tender - Neurological Exam Neurological exam: Alert Additional comments: ao x [address] - Psychiatric Exam Psychiatric exam: Normal Affect, Normal Mood - Skin Skin Exam: Dry, Normal Color Results - Vital Signs Recent Vital Signs: Last Vital Signs Temp 98.0 F 06/02/18 23:00 Pulse 63 06/02/18 23:00 Resp 19 06/02/18 23:00 BP 148/66 06/02/18 23:00 Pulse Ox 95 06/02/18 23:00 - Labs Result Diagrams: 06/03/18 10:30 06/03/18 08:00 Labs: Laboratory Results - last 24 hr 06/02/18 06/02/18 06/02/18 12:25 13:20 13:20 WBC 8.4 RBC 2.83 L Hgb 8.7 L Hct 27.3 L MCV 96.5 D MCH 30.7 MCHC 31.9 RDW 14.1 Plt Count 328 MPV 10.6 Gran % 76.3 H Lymph % (Auto) 13.9 L Bulloch % (Auto) 6.7 H Eos % (Auto) 2.7 Baso % (Auto) 0.4 Gran # 6.40 Lymph # (Auto) 1.2 Bulloch # (Auto) 0.6 Eos # (Auto) 0.2 Baso # (Auto) 0.03 PT 12.0 INR 1.04 APTT 30.0 pO2 56 H VBG pH 7.29 L VBG pCO2 51.0 VBG HCO3 24.5 VBG Total CO2 26.1 VBG O2 Sat (Calc) 92.1 H VBG Base Excess -2.7 L VBG Potassium 5.0 Sodium 140.0 Chloride 109.0 H Glucose 234 H Lactate 1.1 FiO2 21.0 Potassium Carbon Dioxide Anion Gap BUN Creatinine Est GFR ( Amer) Est GFR (Non-Af Amer) POC Glucose (mg/dL) Random Glucose Calcium Phosphorus Magnesium Iron TIBC % Saturation Total Bilirubin AST ALT Alkaline Phosphatase NT-Pro-B Natriuret Pep Total Protein Albumin Globulin Albumin/Globulin Ratio Venous Blood Potassium 5.0 Urine Color Urine Appearance Urine pH Ur Specific [place] Urine Protein Urine Glucose (UA) Urine Ketones Urine Blood Urine Nitrate Urine Bilirubin Urine Urobilinogen Ur Leukocyte Esterase Urine RBC Urine WBC Ur Epithelial Cells Urine Bacteria 06/02/18 06/02/18 06/02/18 13:20 14:00 16:19 WBC RBC Hgb Hct MCV MCH MCHC RDW Plt Count MPV Gran % Lymph % (Auto) Bulloch % (Auto) Eos % (Auto) Baso % (Auto) Gran # Lymph # (Auto) Bulloch # (Auto) Eos # (Auto) Baso # (Auto) PT INR APTT pO2 VBG pH VBG pCO2 VBG HCO3 VBG Total CO2 VBG O2 Sat (Calc) VBG Base Excess VBG Potassium Sodium 140 Chloride 110 H Glucose Lactate FiO2 Potassium 5.3 H Carbon Dioxide 24 Anion Gap 12 BUN 32 H Creatinine 2.2 H Est GFR ( Amer) 27 Est GFR (Non-Af Amer) 22 POC Glucose (mg/dL) 118 H Random Glucose 228 H Calcium 9.4 Phosphorus 4.6 H Magnesium 1.9 Iron 60 TIBC 356 % Saturation 17 L Total Bilirubin 0.2 AST 29 ALT 22 Alkaline Phosphatase 48 NT-Pro-B Natriuret Pep 2360 H Total Protein 9.0 H Albumin 4.1 Globulin 4.9 Albumin/Globulin Ratio 0.9 L Venous Blood Potassium Urine Color Urine Appearance Urine pH Ur Specific [place] Urine Protein Urine Glucose (UA) Urine Ketones Urine Blood Urine Nitrate Urine Bilirubin Urine Urobilinogen Ur Leukocyte Esterase Urine RBC Urine WBC Ur Epithelial Cells Urine Bacteria 06/02/18 17:20 WBC RBC Hgb Hct MCV MCH MCHC RDW Plt Count MPV Gran % Lymph % (Auto) Bulloch % (Auto) Eos % (Auto) Baso % (Auto) Gran # Lymph # (Auto) Bulloch # (Auto) Eos # (Auto) Baso # (Auto) PT INR APTT pO2 VBG pH VBG pCO2 VBG HCO3 VBG Total CO2 VBG O2 Sat (Calc) VBG Base Excess VBG Potassium Sodium Chloride Glucose Lactate FiO2 Potassium Carbon Dioxide Anion Gap BUN Creatinine Est GFR ( Amer) Est GFR (Non-Af Amer) POC Glucose (mg/dL) Random Glucose Calcium Phosphorus Magnesium Iron TIBC % Saturation Total Bilirubin AST ALT Alkaline Phosphatase NT-Pro-B Natriuret Pep Total Protein Albumin Globulin Albumin/Globulin Ratio Venous Blood Potassium Urine Color Straw Urine Appearance Cloudy Urine pH 6.0 Ur Specific [place]issa 1.025 Urine Protein 100 H Urine Glucose (UA) 100 H Urine Ketones Negative Urine Blood Trace-intact H Urine Nitrate Negative Urine Bilirubin Negative Urine Urobilinogen 0.2 Ur Leukocyte Esterase Moderate H Urine RBC 2 - 5 H Urine WBC 25 - 30 H Ur Epithelial Cells 0 - 2 Urine Bacteria Large Assessment & Plan - Assessment and Plan (Free Text) Assessment: -IRWIN on CKD -L halux ulcer -HTN -DM2 -Obesity -HLD -PAD s/p LLE arterial stent -R eye blindness -Unsteady gait Plan: Patient known to service. f/u random Cr, total protein. Patient given 1 dose IV venofer and Aranesp. Patient also given 1 dose sodium polystyrene. Continue Renagel. As per ID patient to be monitored off abx at this time. Arterial studies and MRI ordered to be f/u. Prelim blood cultures negative x 2. Urine culture negative. Continue local wound care. Continue management of chronic conditions as per primary. Will continue to follow patient during hospital course. Discussed with Dr. Olman Cao PGY3 <Moe Thurman S - Last Filed: 06/04/18 19:14> Meds - Medications Medications: Current Medications Acetylcysteine (Acetylcysteine 20%) 3 ml PO BID [facility] Stop: 06/05/18 18:00 Last Admin: 06/04/18 12:36 Dose: 3 ml Amlodipine Besylate (Norvasc) 10 mg PO DAILY [facility] Last Admin: 06/04/18 10:50 Dose: 10 mg Carvedilol (Coreg) 3.125 mg PO BID [facility] Last Admin: 06/04/18 10:49 Dose: 3.125 mg Ergocalciferol (Drisdol 50,000 Intl Units Cap) 1 cap PO SUN [facility] Furosemide (Lasix) 40 mg PO DAILY [facility] Last Admin: 06/04/18 10:49 Dose: 40 mg Gabapentin (Neurontin) 300 mg PO BID [facility]; Protocol Last Admin: 06/04/18 10:50 Dose: 300 mg Hydralazine HCl (Apresoline) 10 mg PO TID [facility] Last Admin: 06/04/18 10:50 Dose: 10 mg Sodium Chloride (Sodium Chloride 0.45%) 1,000 mls @ 60 mls/hr IV .[id number] [facility] Stop: 06/05/18 18:00 Last Admin: 06/04/18 10:52 Dose: 60 mls/hr Heparin Sodium/Sodium Chloride (Heparin 16305 Units/250ml 1/2 Normal Saline) 25,000 units in 250 mls @ 16.329 mls/hr IV .[id number] PRN; Protocol PRN Reason: ADJUST RATE PER PROTOCOL Stop: 06/06/18 08:00 Last Admin: 06/04/18 17:05 Dose: 18 units/kg/hr, 16.329 mls/hr Insulin Human Regular (Humulin R Low) 0 units SC ACHS EBEN; Protocol Last Admin: 06/04/18 16:38 Dose: Not Given Mirtazapine (Remeron) 15 mg PO HS [facility] Last Admin: 06/03/18 21:18 Dose: 15 mg Mupirocin (Bactroban Ointment) 0 gm TOP BID [facility] Last Admin: 06/04/18 10:51 Dose: 1 applic Nitroglycerin (Nitro-Bid 2% Oint) 2 ea TOP Q8 [facility] Stop: 06/06/18 22:01 Ondansetron HCl (Zofran Inj) 4 mg IVP ONCE PRN PRN Reason: Nausea/Vomiting Pantoprazole Sodium (Protonix Ec Tab) 40 mg PO ACB [facility] Last Admin: 06/04/18 08:35 Dose: 40 mg Sevelamer HCl (Renagel) 800 mg PO AC [facility] Last Admin: 06/04/18 10:50 Dose: 800 mg Results - Vital Signs Recent Vital Signs: Last Vital Signs Temp 98.7 F 06/04/18 18:31 Pulse 71 06/04/18 18:31 Resp 16 06/04/18 18:31 BP 134/52 L 06/04/18 18:31 Pulse Ox 97 06/04/18 06:00 - Labs Result Diagrams: 06/03/18 10:30 06/04/18 07:00 Labs: Laboratory Results - last 24 hr 06/03/18 06/03/18 06/03/18 10:30 20:50 21:20 Sodium Potassium Chloride Carbon Dioxide Anion Gap BUN Creatinine Est GFR ( Amer) Est GFR (Non-Af Amer) POC Glucose (mg/dL) 176 H Random Glucose Calcium Ur Random Creatinine 35 U Random Total Protein Ur L.pneumophila Ag Blood Type A POSITIVE Antibody Screen Negative Crossmatch See Detail BBK History Checked Patient has bt 06/03/18 06/04/18 06/04/18 21:30 06:34 07:00 Sodium 140 Potassium 4.5 Chloride 109 H Carbon Dioxide 24 Anion Gap 12 BUN 24 H Creatinine 2.2 H Est GFR ( Amer) 27 Est GFR (Non-Af Amer) 22 POC Glucose (mg/dL) 153 H Random Glucose 146 H Calcium 9.0 Ur Random Creatinine U Random Total Protein 393 Ur L.pneumophila Ag Blood Type Antibody Screen Crossmatch BBK History Checked 06/04/18 06/04/18 06/04/18 11:35 13:00 16:34 Sodium Potassium Chloride Carbon Dioxide Anion Gap BUN Creatinine Est GFR ( Amer) Est GFR (Non-Af Amer) POC Glucose (mg/dL) 186 H 151 H Random Glucose Calcium Ur Random Creatinine U Random Total Protein Ur L.pneumophila Ag Negative Blood Type Antibody Screen Crossmatch BBK History Checked Assessment & Plan - Assessment and Plan (Free Text) Assessment: Pt seen and examined by me. I have reviewed the note of the medical lab specialist and I agree with it. I have discussed the assessment and plan with the resident. I have reviewed the medications and the last labs. 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 She will need urine to quantify her proteinuria. She has been told in the past about her CKD. She has established PAD. I will also order Iron studies and PTHi. She is beeing seen by podiatry for her foot ulcer that may have osteo. She is at risk of contrast nephropahthy if she requires contrast. Avoid NSAIDs and other nephrotoxic agents if possible.
[2018-06-03] MEDS ORDERED: Vancomycin 2 GM in Sodium Chloride 0.9% 500 ML IVPB ONE (07:05)
[2018-06-03 08:16] LABS: HEMOGLOBIN 7.8 g/dL (12.0-16.0); MEAN CELL VOLUME 95.3 fl (80.0-105.0); MEAN CORPUSCULAR HEMOGLOBIN 30.7 pg (25.0-35.0); MEAN CORPUSCULAR HGB CONC 32.2 g/dl (31.0-37.0); MEAN PLATELET VOLUME 9.8 fl (7.0-11.0); RBC 2.54 10^6/uL (3.5-6.1); WHITE BLOOD COUNT 6.8 10^3/uL (4.5-11.0)
[2018-06-03] MEDS ORDERED: Darbepoetin Alfa 100 mcg/ml Inj SC ONE (08:27)
[2018-06-03 08:38] LABS: ALB/GLOB RATIO 0.8 (1.1-1.8); ALBUMIN 3.3 g/dL (3.0-4.8); CALCIUM 8.7 mg/dL (8.4-10.5)
[2018-06-03] MEDS: Pantoprazole 40 mg EC Tab PO SCH (09:00)
[2018-06-03] MEDS ORDERED: Non Formulary Medication (Omeprazole [Omeprazole] 40 MG) PO SCH (10:00)
--- NOTE | 2018-06-03 10:43 | CP.PCM.CON ---
<Cali Adkins - Last Filed: 06/03/18 13:36> History of Present Illness - History of Present Illness History of Present Illness: ID Consult Note 73 year old female with past medical history of HTN, DM2, obesity, HLD, left lower extremity arterial stent, PAD, and right eye blindness presents to the hospital after being referred by outpatient slide forming machine tender for nonhealing left hallux ulcer. Patient's sister is POA and is at bedside. Patient has been following with Dr. Monroy for the past several months for her ulcer. She states there has been some drainage out of ulcer. She denies any recent trauma to the area. Denies chest pain, shortness of breath, nausea, vomiting, diarrhea, fever, chills, dysuria. Medical Hx: HTN, DM2, obesity, HLD, left lower extremity arterial stent, PAD, and right eye blindness Surgical Hx: Appendectomy, hysterectomy, cataract surgery for the right eye tumo r. Social: Denies alcohol, tobacco, or illicit drug use. Sister is POA Allergy: NKDA Medications: Reviewed, as per MAR Review of Systems - Review of Systems Review of Systems: 12 point ROS as per HPI, otherwise negative Past Patient History - Infectious Disease Hx of Infectious Diseases: None - Tetanus Immunizations Tetanus Immunization: Unknown - Past Social History Smoking Status: Never Smoked - CARDIAC Hx Cardiac Disorders: Yes Hx Cardia Arrhythmia: Yes (afib) Hx Hypercholesterolemia: Yes Hx Hypertension: Yes Hx Peripheral Edema: Yes Other/Comment: angioplasty - PULMONARY Hx Respiratory Disorders: Yes Hx Asthma: Yes Hx Pneumonia: Yes - NEUROLOGICAL Hx Neurological Disorder: Yes HX Cerebrovascular Accident: Yes (left upper extremity weakness) Hx Dizziness: Yes Other/Comment: peripheral neuropathy, numb feet and legs - HEENT Hx HEENT Problems: Yes (CATARACT SX) Hx Blind: Yes (right eye cause unknown as per pt) Other/Comment: eyeglassses - RENAL Hx Chronic Kidney Disease: Yes (st II) - ENDOCRINE/METABOLIC Hx Endocrine Disorders: Yes Hx Diabetes Mellitus Type 2: Yes - HEMATOLOGICAL/ONCOLOGICAL Hx Blood Disorders: Yes (hyperkalemia) Hx Anemia: Yes - INTEGUMENTARY Hx Dermatological Problems: Yes Other/Comment: ble/feet crusty dry skin to toes and feet, dry thick toenails, foul smelling fungal red rash to abd fold, b/l groin, under b/l breasts, slight redness to buttocks, hx of gangrenous r great toe, left great toe dry light brown in color, pale red 2cm x 1.5cm surrounded by red skin - MUSCULOSKELETAL/RHEUMATOLOGICAL Hx Musculoskeletal Disorders: Yes Hx Arthritis: Yes (both feet) Hx Falls: Yes Hx Osteoarthritis: Yes Hx Osteomyelitis: Yes (right great toe) Hx Unsteady Gait: Yes (cane/walker/ motor w/ch) - GASTROINTESTINAL Hx Gastrointestinal Disorders: Yes (obese) - GENITOURINARY/GYNECOLOGICAL Hx Genitourinary Disorders: Yes Hx Urinary Tract Infection: Yes - PSYCHIATRIC Hx Psychophysiologic Disorder: Yes Hx Anxiety: Yes Hx Substance Use: No - SURGICAL HISTORY Hx Surgeries: Yes Hx Amputation: Yes (Right hallux distal tip) Hx Appendectomy: Yes Hx Hysterectomy: Yes Other/Comment: DYLAN Stent - Dr Garcia, colonic lesion with obstruction, excision of r eye tumor - ANESTHESIA Hx Anesthesia: Yes Hx Anesthesia Reactions: No Hx Malignant Hyperthermia: No Meds Allergies/Adverse Reactions: Allergies Allergy/AdvReac Type Severity Reaction Status Date / Time No Known Allergies Allergy Verified 01/28/18 16:20 - Medications Medications: Current Medications Amlodipine Besylate (Norvasc) 10 mg PO DAILY [facility] Last Admin: 06/03/18 09:00 Dose: 10 mg Carvedilol (Coreg) 3.125 mg PO BID [facility] Last Admin: 06/03/18 09:00 Dose: 3.125 mg Ergocalciferol (Drisdol 50,000 Intl Units Cap) 1 cap PO SUN [facility] Furosemide (Lasix) 40 mg PO DAILY [facility] Last Admin: 06/03/18 09:00 Dose: 40 mg Gabapentin (Neurontin) 300 mg PO BID [facility]; Protocol Last Admin: 06/03/18 09:00 Dose: 300 mg Hydralazine HCl (Apresoline) 10 mg PO TID [facility] Last Admin: 06/03/18 09:00 Dose: 10 mg Mirtazapine (Remeron) 15 mg PO HS [facility] Last Admin: 06/03/18 09:12 Dose: Not Given Pantoprazole Sodium (Protonix Ec Tab) 40 mg PO ACB [facility] Last Admin: 06/03/18 09:00 Dose: 40 mg Sevelamer HCl (Renagel) 800 mg PO AC [facility] Physical Exam - Constitutional Appears: Non-toxic, No Acute Distress - Head Exam Head Exam: ATRAUMATIC, NORMAL INSPECTION, NORMOCEPHALIC - Eye Exam Additional comments: Right eye almost completely closed. No vision out of right eye - ENT Exam ENT Exam: Mucous Membranes Moist - Respiratory Exam Respiratory Exam: Clear to Auscultation Bilateral, NORMAL BREATHING PATTERN - Cardiovascular Exam Cardiovascular Exam: RRR, +S1, +S2 - GI/Abdominal Exam GI & Abdominal Exam: Normal Bowel Sounds, Soft. absent: Tenderness - Extremities Exam Extremities exam: Positive for: pedal edema (Trace b/l) Additional comments: Left hallux scabbed ulcer. No drainage or erythema - Neurological Exam Neurological exam: Alert, CN II-XII Intact, Oriented x3 - Psychiatric Exam Psychiatric exam: Normal Affect, Normal Mood - Skin Skin Exam: Intact, Normal Color, Warm Results - Vital Signs Recent Vital Signs: Last Vital Signs Temp 98.2 F 06/03/18 07:00 Pulse 77 06/03/18 09:00 Resp 18 06/03/18 07:00 BP 196/85 H 06/03/18 09:00 Pulse Ox 97 06/03/18 07:00 - Labs Result Diagrams: 06/03/18 10:30 06/03/18 08:00 Labs: Laboratory Results - last 24 hr 06/02/18 06/02/18 06/02/18 12:25 13:20 13:20 WBC 8.4 RBC 2.83 L Hgb 8.7 L Hct 27.3 L MCV 96.5 D MCH 30.7 MCHC 31.9 RDW 14.1 Plt Count 328 MPV 10.6 Gran % 76.3 H Lymph % (Auto) 13.9 L [place] % (Auto) 6.7 H Eos % (Auto) 2.7 Baso % (Auto) 0.4 Gran # 6.40 Lymph # (Auto) 1.2 [place] # (Auto) 0.6 Eos # (Auto) 0.2 Baso # (Auto) 0.03 PT 12.0 INR 1.04 APTT 30.0 pO2 56 H VBG pH 7.29 L VBG pCO2 51.0 VBG HCO3 24.5 VBG Total CO2 26.1 VBG O2 Sat (Calc) 92.1 H VBG Base Excess -2.7 L VBG Potassium 5.0 Sodium 140.0 Chloride 109.0 H Glucose 234 H Lactate 1.1 FiO2 21.0 Potassium Carbon Dioxide Anion Gap BUN Creatinine Est GFR ( Amer) Est GFR (Non-Af Amer) POC Glucose (mg/dL) Random Glucose Calcium Phosphorus Magnesium Iron TIBC % Saturation Total Bilirubin AST ALT Alkaline Phosphatase NT-Pro-B Natriuret Pep Total Protein Albumin Globulin Albumin/Globulin Ratio Venous Blood Potassium 5.0 Urine Color Urine Appearance Urine pH Ur Specific [place] Urine Protein Urine Glucose (UA) Urine Ketones Urine Blood Urine Nitrate Urine Bilirubin Urine Urobilinogen Ur Leukocyte Esterase Urine RBC Urine WBC Ur Epithelial Cells Urine Bacteria 06/02/18 06/02/18 06/02/18 13:20 14:00 16:19 WBC RBC Hgb Hct MCV MCH MCHC RDW Plt Count MPV Gran % Lymph % (Auto) [place] % (Auto) Eos % (Auto) Baso % (Auto) Gran # Lymph # (Auto) [place] # (Auto) Eos # (Auto) Baso # (Auto) PT INR APTT pO2 VBG pH VBG pCO2 VBG HCO3 VBG Total CO2 VBG O2 Sat (Calc) VBG Base Excess VBG Potassium Sodium 140 Chloride 110 H Glucose Lactate FiO2 Potassium 5.3 H Carbon Dioxide 24 Anion Gap 12 BUN 32 H Creatinine 2.2 H Est GFR ( Amer) 27 Est GFR (Non-Af Amer) 22 POC Glucose (mg/dL) 118 H Random Glucose 228 H Calcium 9.4 Phosphorus 4.6 H Magnesium 1.9 Iron 60 TIBC 356 % Saturation 17 L Total Bilirubin 0.2 AST 29 ALT 22 Alkaline Phosphatase 48 NT-Pro-B Natriuret Pep 2360 H Total Protein 9.0 H Albumin 4.1 Globulin 4.9 Albumin/Globulin Ratio 0.9 L Venous Blood Potassium Urine Color Urine Appearance Urine pH Ur Specific [place] Urine Protein Urine Glucose (UA) Urine Ketones Urine Blood Urine Nitrate Urine Bilirubin Urine Urobilinogen Ur Leukocyte Esterase Urine RBC Urine WBC Ur Epithelial Cells Urine Bacteria 06/02/18 06/03/18 06/03/18 17:20 08:00 08:00 WBC 6.8 RBC 2.54 L Hgb 7.8 L Hct 24.2 L MCV 95.3 MCH 30.7 MCHC 32.2 RDW 14.0 Plt Count 255 MPV 9.8 Gran % Lymph % (Auto) [place] % (Auto) Eos % (Auto) Baso % (Auto) Gran # Lymph # (Auto) [place] # (Auto) Eos # (Auto) Baso # (Auto) PT INR APTT pO2 VBG pH VBG pCO2 VBG HCO3 VBG Total CO2 VBG O2 Sat (Calc) VBG Base Excess VBG Potassium Sodium 140 Chloride 111 H Glucose Lactate FiO2 Potassium 5.0 Carbon Dioxide 22 Anion Gap 11 BUN 26 H Creatinine 2.0 H Est GFR ( Amer) 30 Est GFR (Non-Af Amer) 24 POC Glucose (mg/dL) Random Glucose 149 H Calcium 8.7 Phosphorus 4.2 Magnesium 1.7 Iron TIBC % Saturation Total Bilirubin 0.3 AST 25 ALT 22 Alkaline Phosphatase 33 L D NT-Pro-B Natriuret Pep Total Protein 7.5 Albumin 3.3 Globulin 4.2 Albumin/Globulin Ratio 0.8 L Venous Blood Potassium Urine Color Straw Urine Appearance Cloudy Urine pH 6.0 Ur Specific [place] 1.025 Urine Protein 100 H Urine Glucose (UA) 100 H Urine Ketones Negative Urine Blood Trace-intact H Urine Nitrate Negative Urine Bilirubin Negative Urine Urobilinogen 0.2 Ur Leukocyte Esterase Moderate H Urine RBC 2 - 5 H Urine WBC 25 - 30 H Ur Epithelial Cells 0 - 2 Urine Bacteria Large Assessment & Plan - Assessment and Plan (Free Text) Plan: Left hallux ulcer Hx of DM Hx of PAD Hx of left lower extremity arterial stent placement Hx of HLD Hx of Obesity Hx of CVA Plan: Will continue to monitor off of antibiotics at this time Arterial lower extremity dopplers ordered MRI foot pending Previous OLAMIDE showed no improvement after stent placement Local wound care Will follow up results of cultures Continue current medical management Jed, PGY-3 <Justin Stark S - Last Filed: 06/03/18 16:50> Meds - Medications Medications: Current Medications Amlodipine Besylate (Norvasc) 10 mg PO DAILY [facility] Last Admin: 06/03/18 09:00 Dose: 10 mg Carvedilol (Coreg) 3.125 mg PO BID [facility] Last Admin: 06/03/18 09:00 Dose: 3.125 mg Ergocalciferol (Drisdol 50,000 Intl Units Cap) 1 cap PO SUN [facility] Furosemide (Lasix) 40 mg PO DAILY [facility] Last Admin: 06/03/18 09:00 Dose: 40 mg Gabapentin (Neurontin) 300 mg PO BID [facility]; Protocol Last Admin: 06/03/18 09:00 Dose: 300 mg Hydralazine HCl (Apresoline) 10 mg PO TID [facility] Last Admin: 06/03/18 15:43 Dose: 10 mg Mirtazapine (Remeron) 15 mg PO HS [facility] Last Admin: 06/03/18 09:12 Dose: Not Given Mupirocin (Bactroban Ointment) 0 gm TOP BID [facility] Pantoprazole Sodium (Protonix Ec Tab) 40 mg PO ACB [facility] Last Admin: 06/03/18 09:00 Dose: 40 mg Sevelamer HCl (Renagel) 800 mg PO AC [facility] Last Admin: 06/03/18 10:39 Dose: 800 mg Results - Vital Signs Recent Vital Signs: Last Vital Signs Temp 98.2 F 06/03/18 07:00 Pulse 76 06/03/18 15:43 Resp 18 06/03/18 07:00 BP 180/72 H 06/03/18 15:43 Pulse Ox 97 06/03/18 07:00 - Labs Result Diagrams: 06/03/18 10:30 06/03/18 08:00 Labs: Laboratory Results - last 24 hr 06/02/18 06/02/18 06/02/18 13:20 14:00 14:00 WBC RBC Hgb Hct MCV MCH MCHC RDW Plt Count MPV pO2 56 H VBG pH 7.29 L VBG pCO2 51.0 VBG HCO3 24.5 VBG Total CO2 26.1 VBG O2 Sat (Calc) 92.1 H VBG Base Excess -2.7 L VBG Potassium 5.0 Sodium 140.0 Chloride 109.0 H Glucose 234 H Lactate 1.1 FiO2 21.0 Potassium Carbon Dioxide Anion Gap BUN Creatinine Est GFR ( Amer) Est GFR (Non-Af Amer) POC Glucose (mg/dL) Random Glucose Calcium Phosphorus Magnesium Iron 60 TIBC 356 % Saturation 17 L Ferritin 49.9 Total Bilirubin AST ALT Alkaline Phosphatase Total Protein Albumin Globulin Albumin/Globulin Ratio 25-OH Vitamin D Total PTH Intact Whole Molec Venous Blood Potassium 5.0 Urine Color Urine Appearance Urine pH Ur Specific [place] Urine Protein Urine Glucose (UA) Urine Ketones Urine Blood Urine Nitrate Urine Bilirubin Urine Urobilinogen Ur Leukocyte Esterase Urine RBC Urine WBC Ur Epithelial Cells Urine Bacteria Blood Type Antibody Screen Crossmatch BBK History Checked 06/02/18 06/02/1806/03/19 14:00 17:20 08:00 WBC 6.8 RBC 2.54 L Hgb 7.8 L Hct 24.2 L MCV 95.3 MCH 30.7 MCHC 32.2 RDW 14.0 Plt Count 255 MPV 9.8 pO2 VBG pH VBG pCO2 VBG HCO3 VBG Total CO2 VBG O2 Sat (Calc) VBG Base Excess VBG Potassium Sodium Chloride Glucose Lactate FiO2 Potassium Carbon Dioxide Anion Gap BUN Creatinine Est GFR ( Amer) Est GFR (Non-Af Amer) POC Glucose (mg/dL) Random Glucose Calcium Phosphorus Magnesium Iron TIBC % Saturation Ferritin Total Bilirubin AST ALT Alkaline Phosphatase Total Protein Albumin Globulin Albumin/Globulin Ratio 25-OH Vitamin D Total PTH Intact Whole Mole[place] 51 Venous Blood Potassium Urine Color Straw Urine Appearance Cloudy Urine pH 6.0 Ur Specific [place] 1.025 Urine Protein 100 H Urine Glucose (UA) 100 H Urine Ketones Negative Urine Blood Trace-intact H Urine Nitrate Negative Urine Bilirubin Negative Urine Urobilinogen 0.2 Ur Leukocyte Esterase Moderate H Urine RBC 2 - 5 H Urine WBC 25 - 30 H Ur Epithelial Cells 0 - 2 Urine Bacteria Large Blood Type Antibody Screen Crossmatch BBK History Checked 06/03/18 06/03/18 06/03/18 08:00 08:00 10:30 WBC RBC Hgb 9.1 L Hct 28.5 L MCV MCH MCHC RDW Plt Count MPV pO2 VBG pH VBG pCO2 VBG HCO3 VBG Total CO2 VBG O2 Sat (Calc) VBG Base Excess VBG Potassium Sodium 140 Chloride 111 H Glucose Lactate FiO2 Potassium 5.0 Carbon Dioxide 22 Anion Gap 11 BUN 26 H Creatinine 2.0 H Est GFR ( Amer) 30 Est GFR (Non-Af Amer) 24 POC Glucose (mg/dL) Random Glucose 149 H Calcium 8.7 Phosphorus 4.2 Magnesium 1.7 Iron TIBC % Saturation Ferritin Total Bilirubin 0.3 AST 25 ALT 22 Alkaline Phosphatase 33 L D Total Protein 7.5 Albumin 3.3 Globulin 4.2 Albumin/Globulin Ratio 0.8 L 25-OH Vitamin D Total 23.0 L PTH Intact Whole [place]olec Venous Blood Potassium Urine Color Urine Appearance Urine pH Ur Specific [place] Urine Protein Urine Glucose (UA) Urine Ketones Urine Blood Urine Nitrate Urine Bilirubin Urine Urobilinogen Ur Leukocyte Esterase Urine RBC Urine WBC Ur Epithelial Cells Urine Bacteria Blood Type Antibody Screen Crossmatch BBK History Checked 06/03/18 06/03/18 10:30 15:59 WBC RBC Hgb Hct MCV MCH MCHC RDW Plt Count MPV pO2 VBG pH VBG pCO2 VBG HCO3 VBG Total CO2 VBG O2 Sat (Calc) VBG Base Excess VBG Potassium Sodium Chloride Glucose Lactate FiO2 Potassium Carbon Dioxide Anion Gap BUN Creatinine Est GFR ( Amer) Est GFR (Non-Af Amer) POC Glucose (mg/dL) 182 H Random Glucose Calcium Phosphorus Magnesium Iron TIBC % Saturation Ferritin Total Bilirubin AST ALT Alkaline Phosphatase Total Protein Albumin Globulin Albumin/Globulin Ratio 25-OH Vitamin D Total PTH Intact Whole [place]ole[place] Venous Blood Potassium Urine Color Urine Appearance Urine pH Ur Specific [place] Urine Protein Urine Glucose (UA) Urine Ketones Urine Blood Urine Nitrate Urine Bilirubin Urine Urobilinogen Ur Leukocyte Esterase Urine RBC Urine WBC Ur Epithelial Cells Urine Bacteria Blood Type A POSITIVE Antibody Screen Negative Crossmatch See Detail BBK History Checked Patient has bt Assessment & Plan - Assessment and Plan (Free Text) Plan: Infectious diseases Attending Physician Attestation Patient seen and examined, discussed with medical support specialist. I have reviewed the patient's history of present illness, past medical, social, personal and family histories, pertinent physical exam findings, course so far in this hospital admission, pertinent laboratory and imaging results. I agree with the above findings, assessment and plan. In addition, monitor off antibiotics - patient with left hallux ulcer, dry. Would recommend further imaging of the foot (ie MRI) to rule out osteomyelitis and deep cultures to guide antibiotic therapy. Follow up further plans of Podiatry. Patient with PAD which may compromise wound healing.
[2018-06-03 10:55] LABS: HEMOGLOBIN 9.1 g/dL (12.0-16.0)
--- NOTE | 2018-06-03 11:05 | CARD ---
APPROVED REPORT Date of service: 06/02/2018 EKG Measurement Heart [id number] <Conclusion> Normal sinus rhythm Right bundle branch block Left anterior fascicular block Bifascicular block Possible Lateral infarct, age undetermined Abnormal ECG
--- NOTE | 2018-06-03 12:19 | CP.PCM.PN ---
<Julianne Lee - Last Filed: 06/03/18 12:15> Subjective - Date & Time of Evaluation Date of Evaluation: 06/03/18 Time of Evaluation: 12:15 - Subjective Subjective: Podiatry Consult Note- Dr. Leos/ivan 72 y.o female with PMH of DM, HTN, HLD seen and evaluated at bedside A family member is noted to be at bedside. Denies acute overnight events. Denies pain to the foot. She denies n/v/sob/cp/chills or f. Objective - Vital Signs/Intake and Output Vital Signs (last 24 hours): Temp Pulse Resp BP Pulse Ox 98.2 F 77 18 196/85 H 97 06/03/18 07:00 06/03/18 09:00 06/03/18 07:00 06/03/18 09:00 06/03/18 07:00 Intake and Output: 06/03/18 06/03/18 06:59 18:59 Intake Total 360 Balance 360 - Medications Medications: Current Medications Amlodipine Besylate (Norvasc) 10 mg PO DAILY [facility] Last Admin: 06/03/18 09:00 Dose: 10 mg Carvedilol (Coreg) 3.125 mg PO BID [facility] Last Admin: 06/03/18 09:00 Dose: 3.125 mg Ergocalciferol (Drisdol 50,000 Intl Units Cap) 1 cap PO SUN [facility] Furosemide (Lasix) 40 mg PO DAILY [facility] Last Admin: 06/03/18 09:00 Dose: 40 mg Gabapentin (Neurontin) 300 mg PO BID [facility]; Protocol Last Admin: 06/03/18 09:00 Dose: 300 mg Hydralazine HCl (Apresoline) 10 mg PO TID [facility] Last Admin: 06/03/18 09:00 Dose: 10 mg Mirtazapine (Remeron) 15 mg PO HS [facility] Last Admin: 06/03/18 09:12 Dose: Not Given Mupirocin (Bactroban Ointment) 0 gm TOP BID [facility] Pantoprazole Sodium (Protonix Ec Tab) 40 mg PO ACB [facility] Last Admin: 06/03/18 09:00 Dose: 40 mg Sevelamer HCl (Renagel) 800 mg PO AC [facility] Last Admin: 06/03/18 10:39 Dose: 800 mg - Labs Labs: 06/03/18 10:30 01/15/19 08:00 PT 12.0 SECONDS (9.4-12.5) 06/02/18 13:20 INR 1.04 06/02/18 13:20 APTT 30.0 Seconds (25.1-36.5) 06/02/18 13:20 - Constitutional Appears: Well, Non-toxic, No Acute Distress - Head Exam Head Exam: ATRAUMATIC, NORMOCEPHALIC - Eye Exam Eye Exam: Normal appearance Pupil Exam: NORMAL ACCOMODATION - ENT Exam ENT Exam: Mucous Membranes Moist - Extremities Exam Additional comments: Left lower extremity exam: Vasc: DP and PT unpalpable. CFT delayed to the digits. Temperature gradient cool to cool. Left hallux slightly warm. Mild edema noted to the left hallux Ortho: pain with palpation to the left hallux Neuro: protective sensation diminished Derm: Open ulceration noted to the medial aspect of the tip of the hallux, dry base noted measuring approximately .3 x .4 x .3 cm, no drainage, no malodor, no tunneling or undermining noted. No probe to bone - Back Exam Back Exam: NORMAL INSPECTION - Neurological Exam Neurological Exam: Alert, Awake Assessment and Plan - Assessment and Plan (Free Text) Assessment: 73 y.o female with PMH of DM, HTN, HLD with left hallux ulcer with erythema periwound; resolving Plan: Patient examined and evaluated Discussed plan in detail with attending Dr Monroy Labs, charts, vitals reviewed- afebrile and absent leukocytosis Foot X-rays; no osseous changes no DVT OLAMIDE/PVR ordered MRI of the left foot ordered ID on board; appreciate recs Continue IV antibiotics Vascular on board; appreciate recs Podiatry will continue to follow while patient is in house <Jason Monroy - Last Filed: 06/03/18 17:57> Objective - Vital Signs/Intake and Output Vital Signs (last 24 hours): Temp Pulse Resp BP Pulse Ox 98.2 F 76 18 180/72 H 97 06/03/18 07:00 06/03/18 15:43 06/03/18 07:00 06/03/18 15:43 06/03/18 07:00 Intake and Output: 06/03/18 06/03/18 06:59 18:59 Intake Total 360 Balance 360 - Medications Medications: Current Medications Amlodipine Besylate (Norvasc) 10 mg PO DAILY [facility] Last Admin: 06/03/18 09:00 Dose: 10 mg Carvedilol (Coreg) 3.125 mg PO BID [facility] Last Admin: 06/03/18 09:00 Dose: 3.125 mg Ergocalciferol (Drisdol 50,000 Intl Units Cap) 1 cap PO SUN [facility] Furosemide (Lasix) 40 mg PO DAILY [facility] Last Admin: 06/03/18 09:00 Dose: 40 mg Gabapentin (Neurontin) 300 mg PO BID [facility]; Protocol Last Admin: 06/03/18 09:00 Dose: 300 mg Hydralazine HCl (Apresoline) 10 mg PO TID [facility] Last Admin: 06/03/18 15:43 Dose: 10 mg Mirtazapine (Remeron) 15 mg PO HS [facility] Last Admin: 06/03/18 09:12 Dose: Not Given Mupirocin (Bactroban Ointment) 0 gm TOP BID [facility] Pantoprazole Sodium (Protonix Ec Tab) 40 mg PO ACB [facility] Last Admin: 06/03/18 09:00 Dose: 40 mg Sevelamer HCl (Renagel) 800 mg PO AC [facility] Last Admin: 06/03/18 10:39 Dose: 800 mg - Labs Labs: 06/03/18 10:30 06/03/18 08:00 PT 12.0 SECONDS (9.4-12.5) 06/02/18 13:20 INR 1.04 06/02/18 13:20 APTT 30.0 Seconds (25.1-36.5) 06/02/18 13:20 Attending/Attestation - Attestation I have personally seen and examined this patient.: Yes I have fully participated in the care of the patient.: Yes I have reviewed all pertinent clinical information, including history, physical exam and plan: Yes
--- NOTE | 2018-06-03 12:21 | CP.PCM.APN ---
Subjective - Date & Time of Evaluation Date of Evaluation: 06/03/18 Time of Evaluation: 11:30 - Subjective Subjective: Pt seen and examined at bedside. Objective - Vital Signs/Intake and Output Vital Signs (last 24 hours): Temp Pulse Resp BP Pulse Ox 98.2 F 77 18 196/85 H 97 06/03/18 07:00 06/03/18 09:00 06/03/18 07:00 06/03/18 09:00 06/03/18 07:00 Intake and Output: 06/03/18 06/03/18 06:59 18:59 Intake Total 360 Balance 360 - Medications Medications: Current Medications Amlodipine Besylate (Norvasc) 10 mg PO DAILY [facility] Last Admin: 06/03/18 09:00 Dose: 10 mg Carvedilol (Coreg) 3.125 mg PO BID [facility] Last Admin: 06/03/18 09:00 Dose: 3.125 mg Ergocalciferol (Drisdol 50,000 Intl Units Cap) 1 cap PO SUN [facility] Furosemide (Lasix) 40 mg PO DAILY [facility] Last Admin: 06/03/18 09:00 Dose: 40 mg Gabapentin (Neurontin) 300 mg PO BID [facility]; Protocol Last Admin: 06/03/18 09:00 Dose: 300 mg Hydralazine HCl (Apresoline) 10 mg PO TID [facility] Last Admin: 06/03/18 09:00 Dose: 10 mg Mirtazapine (Remeron) 15 mg PO HS [facility] Last Admin: 06/03/18 09:12 Dose: Not Given Mupirocin (Bactroban Ointment) 0 gm TOP BID [facility] Pantoprazole Sodium (Protonix Ec Tab) 40 mg PO ACB [facility] Last Admin: 06/03/18 09:00 Dose: 40 mg Sevelamer HCl (Renagel) 800 mg PO AC [facility] Last Admin: 06/03/18 10:39 Dose: 800 mg - Labs Labs: 06/03/18 10:30 06/03/18 08:00 PT 12.0 SECONDS (9.4-12.5) 06/02/18 13:20 INR 1.04 06/02/18 13:20 APTT 30.0 Seconds (25.1-36.5) 06/02/18 13:20 - Constitutional Appears: Well, No Acute Distress - Head Exam Head Exam: ATRAUMATIC, NORMOCEPHALIC - Neck Exam Neck Exam: Normal Inspection - Respiratory Exam Respiratory Exam: Clear to Ausculation Bilateral, NORMAL BREATHING PATTERN - Cardiovascular Exam Cardiovascular Exam: REGULAR RHYTHM, +S1, +S2 - GI/Abdominal Exam GI & Abdominal Exam: Soft, Normal Bowel Sounds - Rectal Exam Rectal Exam: Deferred - Extremities Exam Additional comments: L hallux ulcer noted without drainage - Neurological Exam Neurological Exam: Alert, Awake, Oriented x3 Assessment and Plan - Assessment and Plan (Free Text) Assessment: Pt is a 73 y.o. female with pmhx of HTN, DM2, obesity, HLD, left lower extremity arterial stent, PAD, and right eye blindness who was referred by Marine Engineering Teacher for nonhealing L hallux ulceration with failed outpatient antibiotic. Impressions Chest X-Ray 06/02/18 11:35 IMPRESSION: No active disease. No acute/significant interval changes. Extremity Ultrasound 06/02/18 11:39 IMPRESSION: No sonographic evidence for deep venous thrombosis in the visualized segments of both lower extremities. Limited study Foot X-Ray 06/02/18 11:39 IMPRESSION: No acute findings related to/ accounting for the clinical presentation. No significant interval change compared to the prior examination(s). Plan: Pending MRI of L foot r/o osteo Pending arterial doppler ID, Podiatry, vascular and Renal on consult Meds per MAR Physical therapy pending Will continue to follow
--- NOTE | 2018-06-03 14:20 | MRI ---
Date of service: 06/03/2018 PROCEDURE: MRI of the left foot without contrast HISTORY: L hallux ulcer, r/o osteo COMPARISON: 06/02/2018 TECHNIQUE: MRI of the left foot was performed in multiple planes using multiple pulse sequences. FINDINGS: There is marrow edema in the 1st distal phalanx which is visible on sagittal images 12 and 13 of series 5. On the coronal and axial images there is fat suppression artifact which makes all of the toes hyperintense. The 1st distal phalanx is the only bone that is hyperintense on the sagittal images which are less affected by artifact. There is a skin ulceration and soft tissue swelling in the medial aspect of the big toe. The metatarsals are normal in signal intensity. IMPRESSION: Probable osteomyelitis in the 1st distal phalanx
[2018-06-03] MEDS: Mupirocin 2% Ointment 15 GM TUBE TOP SCH (17:56)
--- NOTE | 2018-06-03 18:13 | US ---
PROCEDURE: Lower extremity OLAMIDE exam HISTORY: Severe peripheral vascular disease. Previous left lower extremity intervention. Recurrent ischemic left 1st toe ulceration with osteomyelitis. PHYSICIAN(S): Doron Garcia MD. FINDINGS: The resting OLAMIDE's are severely abnormal: Right, 0.42 and left, 0.42 The brachial systolic pressures are symmetric. The low thigh pressures are noncompressible. The low thigh PVR waveforms are relatively normal and symmetric. The calf PVR waveforms augment normally. The calf PVR waveforms are relatively normal and symmetric The ankle and metatarsal waveforms are moderately to severely blunted. Findings are consistent with bilateral tibial and possibly pedal occlusive disease IMPRESSION: 1. Severely abnormal ABIs at rest. 2. Bilateral tibial and small vessel disease.
[2018-06-03] MEDS: Acetylcysteine 20% Inhal Soln (4ml) PO SCH (18:30)
[2018-06-03] MEDS: Sodium Chloride 0.45% 1,000 ML IV SCH (18:40)
--- NOTE | 2018-06-04 02:04 | CON ---
DATE: 06/03/2018 TIME: 6:10 p.m. CHIEF COMPLAINT/HISTORY OF PRESENT ILLNESS: Ms. Rosado is a 73-year-old female with ischemic ulceration and osteomyelitis of the left great toe. I know Ms. Rosado from a LE angiogram performed in 07/2017. At that time, a long segment left anterior tibial artery angioplasty and left popliteal artery drug-eluting angioplasty was performed. Her left toe improved significantly but has deteriorated recently according to Dr. Monroy. A recent MRI demonstrated possible osteomyelitis. She is having a moderate amount of pain in the left foot. PAST MEDICAL HISTORY: Significant for diabetes, hypertension and a previous CVA. Her baseline creatinine is approximately 2. PHYSICAL EXAMINATION: She has palpable femoral and popliteal pulses. His pedal pulses are not easily palpated. I spoke with Dr. Monroy and Deric. He is concerned about salvaging the left foot. Her OLAMIDE/PVR exam demonstrates severely abnormal resting ABIs bilaterally and tibial disease. It is uncertain whether the previously performed intervention is open but it is probably occluded from the clinical exam. I am planning on hydration for Ms. Rosado. A very limited left lower extremity angiogram will be performed. If intervention can be performed at the tibial level, it will be completed. She is not a strong candidate for distal bypass. I spoke with Ms. Rosado about her situation and the risks. Her POA was also contacted. Doron Garcia MD MTDD
--- NOTE | 2018-06-04 05:48 | CP.PCM.PN ---
<Callie Cao - Last Filed: 06/04/18 22:04> Subjective - Date & Time of Evaluation Date of Evaluation: 06/04/18 Time of Evaluation: 09:00 - Subjective Subjective: Pgy3 Medicine note for Dr. Thurman Patient seen and examined at bedside. Nursing reports no acute events overnight. Patient complains of some LLE pain. Denied fever, chills, chest pain, SOB, abd pain. Objective - Vital Signs/Intake and Output Vital Signs (last 24 hours): Temp Pulse Resp BP Pulse Ox 98.9 F 76 18 175/70 H 97 06/03/18 22:09 06/03/18 22:09 06/03/18 22:09 06/03/18 22:09 06/03/18 22:09 Intake and Output: 06/03/18 06/04/18 18:59 06:59 Intake Total 120 Balance 120 - Medications Medications: Current Medications Acetylcysteine (Acetylcysteine 20%) 3 ml PO BID [facility] Stop: 06/05/18 18:00 Amlodipine Besylate (Norvasc) 10 mg PO DAILY [facility] Last Admin: 06/03/18 09:00 Dose: 10 mg Carvedilol (Coreg) 3.125 mg PO BID [facility] Last Admin: 06/03/18 17:55 Dose: 3.125 mg Ergocalciferol (Drisdol 50,000 Intl Units Cap) 1 cap PO SUN [facility] Furosemide (Lasix) 40 mg PO DAILY [facility] Last Admin: 06/03/18 09:00 Dose: 40 mg Gabapentin (Neurontin) 300 mg PO BID [facility]; Protocol Last Admin: 06/03/18 17:50 Dose: 300 mg Hydralazine HCl (Apresoline) 10 mg PO TID [facility] Last Admin: 06/03/18 17:56 Dose: 10 mg Sodium Chloride (Sodium Chloride 0.45%) 1,000 mls @ 60 mls/hr IV .[id number] [facility] Stop: 06/05/18 18:00 Iron Sucrose 200 mg/ Sodium (Chloride) 110 mls @ 110 mls/hr IVPB ONCE ONE Stop: 06/04/18 10:59 Insulin Human Regular (Humulin R Low) 0 units SC [facility]; Protocol Mirtazapine (Remeron) 15 mg PO HS [facility] Last Admin: 06/03/18 21:18 Dose: 15 mg Mupirocin (Bactroban Ointment) 0 gm TOP BID [facility] Last Admin: 06/03/18 17:56 Dose: 1 applic Pantoprazole Sodium (Protonix Ec Tab) 40 mg PO ACB [facility] Last Admin: 06/03/18 09:00 Dose: 40 mg Sevelamer HCl (Renagel) 800 mg PO AC [facility] Last Admin: 06/03/18 17:50 Dose: 800 mg - Labs Labs: 06/03/18 10:30 06/03/18 08:00 PT 12.0 SECONDS (9.4-12.5) 06/02/18 13:20 INR 1.04 06/02/18 13:20 APTT 30.0 Seconds (25.1-36.5) 06/02/18 13:20 - Constitutional Appears: No Acute Distress, Unkempt - Head Exam Head Exam: ATRAUMATIC, NORMAL INSPECTION, NORMOCEPHALIC - Eye Exam Additional comments: R eye closed - ENT Exam ENT Exam: Mucous Membranes Moist - Respiratory Exam Respiratory Exam: Clear to Ausculation Bilateral, NORMAL BREATHING PATTERN. absent: Accessory Muscle Use, Rales, Rhonchi, Wheezes, Respiratory Distress - Cardiovascular Exam Cardiovascular Exam: RRR, +S1, +S2 - GI/Abdominal Exam GI & Abdominal Exam: Soft, Normal Bowel Sounds. absent: Firm, Guarding, Rigid - Extremities Exam Additional comments: left hallux ulcer noted- non draining, non tender - Neurological Exam Neurological Exam: Alert, Awake - Psychiatric Exam Psychiatric exam: Normal Affect, Normal Mood - Skin Skin Exam: Dry, Warm Assessment and Plan - Assessment and Plan (Free Text) Assessment: -IRWIN on CKD -L halux ulcer- r/o osteo -PAD -HTN -DM2 -Obesity -HLD -R eye blindness -Unsteady gait Plan: Patient's blood work, vitals, and imaging have been reviewed. 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 PTHi and iron studies reviewed. Recommend avoiding NSAIDs and other nephrotoxic agents. OLAMIDE/PVR abnl b/l tibial and small vessel disease. Limited L lower extremity angiogram today. MRI L foot reviewed. Continue management as per podiatry, ID, and primary. Nephro will continue to follow. Discussed with Dr. Olman Cao PGY3 <Moe Thurman S - Last Filed: 06/05/18 07:08> Objective - Vital Signs/Intake and Output Vital Signs (last 24 hours): Temp Pulse Resp BP Pulse Ox 98.7 F 75 19 121/50 L 97 06/04/18 20:01 06/04/18 20:01 06/04/18 20:01 06/04/18 20:01 06/04/18 06:00 Intake and Output: 06/05/18 06/05/18 06:59 18:59 Intake Total 1161 Output Total 420 Balance 741 - Medications Medications: Current Medications Acetylcysteine (Acetylcysteine 20%) 3 ml PO BID [facility] Stop: 06/05/18 18:00 Last Admin: 06/04/18 18:00 Dose: 3 ml Amlodipine Besylate (Norvasc) 10 mg PO DAILY [facility] Last Admin: 06/04/18 10:50 Dose: 10 mg Carvedilol (Coreg) 3.125 mg PO BID [facility] Last Admin: 06/04/18 18:00 Dose: 3.125 mg Ergocalciferol (Drisdol 50,000 Intl Units Cap) 1 cap PO SUN [facility] Furosemide (Lasix) 40 mg PO DAILY [facility] Last Admin: 06/04/18 10:49 Dose: 40 mg Gabapentin (Neurontin) 300 mg PO BID [facility]; Protocol Last Admin: 06/04/18 18:00 Dose: 300 mg Hydralazine HCl (Apresoline) 10 mg PO TID [facility] Last Admin: 06/04/18 20:24 Dose: Not Given Sodium Chloride (Sodium Chloride 0.45%) 1,000 mls @ 60 mls/hr IV .[id number] [facility] Stop: 06/05/18 18:00 Last Admin: 06/04/18 20:56 Dose: 60 mls/hr Heparin Sodium/Sodium Chloride (Heparin 39344 Units/250ml 1/2 Normal Saline) 25,000 units in 250 mls @ 16.329 mls/hr IV .[id number] PRN; Protocol PRN Reason: ADJUST RATE PER PROTOCOL Stop: 06/06/18 08:00 Last Titration: 06/04/18 23:57 Dose: 14.66 units/kg/hr, 13.3 mls/hr Insulin Human Regular (Humulin R Low) 0 units SC [facility]; Protocol Last Admin: 06/04/18 22:14 Dose: Not Given Mirtazapine (Remeron) 15 mg PO HS [facility] Last Admin: 06/04/18 22:13 Dose: 15 mg Mupirocin (Bactroban Ointment) 0 gm TOP BID [facility] Last Admin: 06/04/18 20:24 Dose: Not Given Nitroglycerin (Nitro-Bid 2% Oint) 2 ea TOP Q8 [facility] Stop: 06/06/18 22:01 Last Admin: 06/05/18 06:17 Dose: 2 ea Ondansetron HCl (Zofran Inj) 4 mg IVP ONCE PRN PRN Reason: Nausea/Vomiting Pantoprazole Sodium (Protonix Ec Tab) 40 mg PO ACB [facility] Last Admin: 06/04/18 08:35 Dose: 40 mg Sevelamer HCl (Renagel) 800 mg PO AC [facility] Last Admin: 06/04/18 20:24 Dose: Not Given - Labs Labs: 06/04/18 21:00 06/04/18 07:00 PT 12.0 SECONDS (9.4-12.5) 06/02/18 13:20 INR 1.04 06/02/18 13:20 APTT 133.0 Seconds (25.1-36.5) H* 06/04/18 21:00 Assessment and Plan - Assessment and Plan (Free Text) Plan: Pt seen and examined by me. I have reviewed the note of the medical planner and agree with it. The pt has CKD-4 from her diabetic nephropathy. She has proteinuria by quantification of her urine. She is going to have an angiogram. She should be hydrarted. She does understand the risks of the procedure. MRI was reviewed. I reviewed the last labs and her current medications. She has PAD.
--- NOTE | 2018-06-04 08:30 | PN ---
DATE: 06/03/2018 SUBJECTIVE: The patient is a 73-year-old female, the patient was seen and examined at the bedside on 06/03/2018, looking comfortable. No fever. No chills. No hematuria. No hematochezia. No headache. No dizziness. No chest pain. No palpitations. Foot pain is a little bit better. PHYSICAL EXAMINATION: VITAL SIGNS: Temperature 98.2, pulse 77, respiratory rate 18, blood pressure 196/85, and pulse oximetry 97. HEENT: Head is normocephalic and atraumatic. Eyes: PERRLA. Extraocular muscles intact. Conjunctivae clear. Nose patent. Mucous membrane moist. NECK: Supple. No carotid bruit. No JVD or thyromegaly. CHEST: Bilaterally symmetrical. HEART: S1 and S2 positive. LUNGS: Clear to auscultation. ABDOMEN: Soft. Bowel sounds present. No organomegaly. EXTREMITIES: No edema. No cyanosis. NEUROLOGIC: Patient is awake and alert. Moving all 4 extremities. No focal deficits. LABORATORY DATA: Hemoglobin 9.1 and hematocrit 28.5. Sodium 140, potassium 5.0, BUN 23, creatinine 2.0, and glucose 149. ASSESSMENT AND PLAN: Ms. Suzie Rosado is a 73-year-old lady with anemia, hyperchloremia, renal insufficiency, hyperglycemia, history of hypertension, diabetes mellitus, obesity, hypercholesterolemia, left lower extremity arterial stent, peripheral artery disease, and right eye blindness, is seen as outpatient by the internet e commerce specialist, sent to the hospital for nonhealing left hallux ulcer, went for extremity ultrasound, foot MRI. Seen by Dr. Jason Monroy, internet e commerce specialist and Dr. Justin Stark, Infectious Disease. Gastrointestinal and deep venous thrombosis prophylaxis given. Repeat labs. Continue antibiotics. We will follow up. Elva Mooney MD
[2018-06-04] MEDS: Insulin Reg-LOW-Coverage SC SCH ×4 (08:35→22:14)
[2018-06-04] MEDS: Pantoprazole 40 mg EC Tab PO SCH (08:35)
--- NOTE | 2018-06-04 10:01 | CP.PCM.PN ---
<Cali Adkins - Last Filed: 06/04/18 13:18> Subjective - Date & Time of Evaluation Date of Evaluation: 06/04/18 Time of Evaluation: 09:30 - Subjective Subjective: ID Progress Note Patient seen and examined. Patient with no complaints at this time. Denies chest pain, shortness of breath, fevers, chills. Objective - Vital Signs/Intake and Output Vital Signs (last 24 hours): Temp Pulse Resp BP Pulse Ox 98 F 64 18 167/70 H 97 06/04/18 06:00 06/04/18 06:00 06/04/18 06:00 06/04/18 06:00 06/04/18 06:00 Intake and Output: 06/04/18 06/04/18 06:59 18:59 Intake Total 120 Balance 120 - Medications Medications: Current Medications Acetylcysteine (Acetylcysteine 20%) 3 ml PO BID [facility] Stop: 06/05/18 18:00 Amlodipine Besylate (Norvasc) 10 mg PO DAILY [facility] Last Admin: 06/03/18 09:00 Dose: 10 mg Carvedilol (Coreg) 3.125 mg PO BID [facility] Last Admin: 06/03/18 17:55 Dose: 3.125 mg Ergocalciferol (Drisdol 50,000 Intl Units Cap) 1 cap PO SUN [facility] Furosemide (Lasix) 40 mg PO DAILY [facility] Last Admin: 06/03/18 09:00 Dose: 40 mg Gabapentin (Neurontin) 300 mg PO BID [facility]; Protocol Last Admin: 06/03/18 17:50 Dose: 300 mg Hydralazine HCl (Apresoline) 10 mg PO TID [facility] Last Admin: 06/03/18 17:56 Dose: 10 mg Sodium Chloride (Sodium Chloride 0.45%) 1,000 mls @ 60 mls/hr IV .[id number] [facility] Stop: 06/05/18 18:00 Iron Sucrose 200 mg/ Sodium (Chloride) 110 mls @ 110 mls/hr IVPB ONCE ONE Stop: 06/04/18 10:59 Insulin Human Regular (Humulin R Low) 0 units SC [facility]S [facility]; Protocol Last Admin: 06/04/18 08:35 Dose: 1 unit Mirtazapine (Remeron) 15 mg PO [facility] Last Admin: 06/03/18 21:18 Dose: 15 mg Mupirocin (Bactroban Ointment) 0 gm TOP BID [facility] Last Admin: 06/03/18 17:56 Dose: 1 applic Pantoprazole Sodium (Protonix Ec Tab) 40 mg PO ACB [facility] Last Admin: 06/04/18 08:35 Dose: 40 mg Sevelamer HCl (Renagel) 800 mg PO AC [facility] Last Admin: 06/04/18 08:35 Dose: 800 mg - Labs Labs: 06/03/18 10:30 06/04/18 07:00 PT 12.0 SECONDS (9.4-12.5) 06/02/18 13:20 INR 1.04 06/02/18 13:20 APTT 30.0 Seconds (25.1-36.5) 06/02/18 13:20 - Constitutional Appears: Non-toxic, No Acute Distress - Head Exam Head Exam: ATRAUMATIC, NORMAL INSPECTION, NORMOCEPHALIC - Eye Exam Additional comments: Right eye blindness - ENT Exam ENT Exam: Mucous Membranes Moist - Respiratory Exam Respiratory Exam: Clear to Ausculation Bilateral, NORMAL BREATHING PATTERN - Cardiovascular Exam Cardiovascular Exam: RRR, +S1, +S2 - GI/Abdominal Exam GI & Abdominal Exam: Soft, Normal Bowel Sounds. absent: Tenderness - Extremities Exam Extremities Exam: absent: Pedal Edema Additional comments: Left foot bandaged. No erythema or drainage - Neurological Exam Neurological Exam: Alert, Awake, Oriented x3 - Psychiatric Exam Psychiatric exam: Normal Affect, Normal Mood - Skin Skin Exam: Intact, Normal Color, Warm Assessment and Plan - Assessment and Plan (Free Text) Plan: Left hallux osteomyelitis Hx of DM Hx of PAD Hx of left lower extremity arterial stent placement Hx of HLD Hx of Obesity Hx of CVA Plan: Will continue to monitor off of antibiotics at this time Arterial lower extremity dopplers demonstrate severe tibial and small vessel disease MRI foot consistent with 1st digit osteomyelitis Patient scheduled for limited angio of left leg later today Local wound care Blood and urine cultures negative Continue current medical management Jed, PGY-3 <Justin Stark - Last Filed: 06/04/18 20:42> Objective - Vital Signs/Intake and Output Vital Signs (last 24 hours): Temp Pulse Resp BP Pulse Ox 98.7 F 75 19 121/50 L 97 06/04/18 20:06/04/18 20:01 06/04/18 20:01 06/04/18 20:01 06/04/18 06:00 - Medications Medications: Current Medications Acetylcysteine (Acetylcysteine 20%) 3 ml PO BID [facility] Stop: 06/05/18 18:00 Last Admin: 06/04/18 18:00 Dose: 3 ml Amlodipine Besylate (Norvasc) 10 mg PO DAILY [facility] Last Admin: 06/04/18 10:50 Dose: 10 mg Carvedilol (Coreg) 3.125 mg PO BID [facility] Last Admin: 06/04/18 18:00 Dose: 3.125 mg Ergocalciferol (Drisdol 50,000 Intl Units Cap) 1 cap PO SUN [facility] Furosemide (Lasix) 40 mg PO DAILY [facility] Last Admin: 06/04/18 10:49 Dose: 40 mg Gabapentin (Neurontin) 300 mg PO BID [facility]; Protocol Last Admin: 06/04/18 18:00 Dose: 300 mg Hydralazine HCl (Apresoline) 10 mg PO TID [facility] Last Admin: 06/04/18 20:24 Dose: Not Given Sodium Chloride (Sodium Chloride 0.45%) 1,000 mls @ 60 mls/hr IV .[id number] [facility] Stop: 06/05/18 18:00 Last Admin: 06/04/18 10:52 Dose: 60 mls/hr Heparin Sodium/Sodium Chloride (Heparin 66657 Units/250ml 1/2 Normal Saline) 25,000 units in 250 mls @ 16.329 mls/hr IV .[id number] PRN; Protocol PRN Reason: ADJUST RATE PER PROTOCOL Stop: 06/06/18 08:00 Last Admin: 06/04/18 17:05 Dose: 18 units/kg/hr, 16.329 mls/hr Insulin Human Regular (Humulin R Low) 0 units SC ACHS [facility]; Protocol Last Admin: 06/04/18 16:38 Dose: Not Given Mirtazapine (Remeron) 15 mg PO HS [facility] Last Admin: 06/03/18 21:18 Dose: 15 mg Mupirocin (Bactroban Ointment) 0 gm TOP BID [facility] Last Admin: 06/04/18 20:24 Dose: Not Given Nitroglycerin (Nitro-Bid 2% Oint) 2 ea TOP Q8 [facility] Stop: 06/06/18 22:01 Ondansetron HCl (Zofran Inj) 4 mg IVP ONCE PRN PRN Reason: Nausea/Vomiting Pantoprazole Sodium (Protonix Ec Tab) 40 mg PO ACB [facility] Last Admin: 06/04/18 08:35 Dose: 40 mg Sevelamer HCl (Renagel) 800 mg PO AC [facility] Last Admin: 06/04/18 20:24 Dose: Not Given - Labs Labs: 06/03/18 10:30 06/04/18 07:00 PT 12.0 SECONDS (9.4-12.5) 06/02/18 13:20 INR 1.04 06/02/18 13:20 APTT 30.0 Seconds (25.1-36.5) 06/02/18 13:20 Assessment and Plan - Assessment and Plan (Free Text) Plan: Infectious diseases Attending Physician Attestation Patient seen and examined, discussed with medical device engineer. I have reviewed the patient's history of present illness, past medical, social, personal and family histories, pertinent physical exam findings, course so far in this hospital admission, pertinent laboratory and imaging results. I agree with the above findings, assessment and plan. In addition, continue monitor off antibiotics - patient with left hallux ulcer, with probable osteomyelitis on MRI. Would recommend deep cultures to guide antibiotic therapy. Follow up further plans of Podiatry. Patient with PAD which may compromise wound healing and would also recommend Vascular work up and intervention.
[2018-06-04] MEDS: Mupirocin 2% Ointment 15 GM TUBE TOP SCH ×2 (10:51→20:24)
[2018-06-04] MEDS: Sodium Chloride 0.45% 1,000 ML IV SCH ×2 (10:52→20:56)
--- NOTE | 2018-06-04 11:08 | CP.PCM.PCO ---
Physician Communication Note - Physician Communication Note Physician Communication Note: Possible limited L lower ext angiogram today
--- NOTE | 2018-06-04 11:12 | CP.PCM.PN ---
<Julianne Lee - Last Filed: 06/04/18 11:12> Subjective - Date & Time of Evaluation Date of Evaluation: 06/04/18 Time of Evaluation: 11:10 - Subjective Subjective: Podiatry Consult Note- Dr. Leos/ivan 72 y.o female with PMH of DM, HTN, HLD seen and evaluated at bedside A family member is noted to be at bedside. Denies acute overnight events. Denies pain to the foot. She denies n/v/sob/cp/chills or f. Objective - Vital Signs/Intake and Output Vital Signs (last 24 hours): Temp Pulse Resp BP Pulse Ox 98 F 84 18 167/70 H 97 06/04/18 06:00 06/04/18 10:50 06/04/18 06:00 06/04/18 10:50 06/04/18 06:00 Intake and Output: 06/04/18 06/04/18 06:59 18:59 Intake Total 120 Balance 120 - Medications Medications: Current Medications Acetylcysteine (Acetylcysteine 20%) 3 ml PO BID [facility] Stop: 06/05/18 18:00 Amlodipine Besylate (Norvasc) 10 mg PO DAILY [facility] Last Admin: 06/04/18 10:50 Dose: 10 mg Carvedilol (Coreg) 3.125 mg PO BID [facility] Last Admin: 06/04/18 10:49 Dose: 3.125 mg Ergocalciferol (Drisdol 50,000 Intl Units Cap) 1 cap PO SUN [facility] Furosemide (Lasix) 40 mg PO DAILY [facility] Last Admin: 06/04/18 10:49 Dose: 40 mg Gabapentin (Neurontin) 300 mg PO BID [facility]; Protocol Last Admin: 06/04/18 10:50 Dose: 300 mg Hydralazine HCl (Apresoline) 10 mg PO TID [facility] Last Admin: 06/04/18 10:50 Dose: 10 mg Sodium Chloride (Sodium Chloride 0.45%) 1,000 mls @ 60 mls/hr IV .[id number] [facility] Stop: 06/05/18 18:00 Last Admin: 06/04/18 10:52 Dose: 60 mls/hr Insulin Human Regular (Humulin R Low) 0 units SC ACHS [facility]; Protocol Last Admin: 06/04/18 08:35 Dose: 1 unit Mirtazapine (Remeron) 15 mg PO HS [facility] Last Admin: 06/03/18 21:18 Dose: 15 mg Mupirocin (Bactroban Ointment) 0 gm TOP BID [facility] Last Admin: 06/04/18 10:51 Dose: 1 applic Pantoprazole Sodium (Protonix Ec Tab) 40 mg PO ACB [facility] Last Admin: 06/04/18 08:35 Dose: 40 mg Sevelamer HCl (Renagel) 800 mg PO AC [facility] Last Admin: 06/04/18 10:50 Dose: 800 mg - Labs Labs: 06/03/18 10:30 06/04/18 07:00 PT 12.0 SECONDS (9.4-12.5) 06/02/18 13:20 INR 1.04 06/02/18 13:20 APTT 30.0 Seconds (25.1-36.5) 06/02/18 13:20 - Constitutional Appears: Well, Non-toxic, No Acute Distress - Head Exam Head Exam: ATRAUMATIC - Eye Exam Eye Exam: Normal appearance Pupil Exam: NORMAL ACCOMODATION - ENT Exam ENT Exam: Mucous Membranes Moist - Extremities Exam Additional comments: Left lower extremity exam: Vasc: DP and PT unpalpable. CFT delayed to the digits. Temperature gradient cool to cool. Left hallux slightly warm. Mild edema noted to the left hallux Ortho: pain with palpation to the left hallux Neuro: protective sensation diminished Derm: Open ulceration noted to the medial aspect of the tip of the hallux, dry base noted measuring approximately .3 x .4 x .3 cm, no drainage, no malodor, no tunneling or undermining noted. No probe to bone Assessment and Plan - Assessment and Plan (Free Text) Assessment: 73 y.o female with PMH of DM, HTN, HLD with left hallux ulcer with erythema periwound; resolving Plan: Patient examined and evaluated Discussed plan in detail with attending Dr Monroy Labs, charts, vitals reviewed- afebrile and absent leukocytosis Foot X-rays; no osseous changes no DVT OLAMIDE/PVR: abnormal b/l tibial and small vessel disease MRI of the left foot: probable osteomyelitis of the first distal phalanx ID on board; appreciate recs Continue IV antibiotics Multipodus boots to be worn at all times Vascular on board; appreciate recs Podiatry will continue to follow while patient is in house <Irma Leos - Last Filed: 06/08/18 16:03> Objective - Vital Signs/Intake and Output Vital Signs (last 24 hours): Temp Pulse Resp BP Pulse Ox 98.1 F 66 18 190/78 H 97 06/06/18 06:00 06/06/18 06:00 06/06/18 06:00 06/06/18 15:29 06/06/18 06:00 - Labs Labs: 06/06/18 07:30 06/06/18 07:30 PT 12.0 SECONDS (9.4-12.5) 06/02/18 13:20 INR 1.04 06/02/18 13:20 APTT 59.2 Seconds (25.1-36.5) H 06/06/18 07:30 Attending/Attestation - Attestation I have personally seen and examined this patient.: Yes I have fully participated in the care of the patient.: Yes I have reviewed all pertinent clinical information, including history, physical exam and plan: Yes
[2018-06-04] MEDS ORDERED: Lidocaine 2% Inj (20ml) ONE (12:22)
[2018-06-04] MEDS ORDERED: Iodixanol 320 MG/ML 200 ML BOTTLE IV ONE (12:23)
[2018-06-04] MEDS ORDERED: Iodixanol 320 mg/ml 150 ml Bottle IV ONE (12:23)
[2018-06-04] MEDS ORDERED: Nitroglycerin 50mg in D5W 50 MG/250 ML BOTTLE IV ONE (12:23)
[2018-06-04] MEDS: Acetylcysteine 20% Inhal Soln (4ml) PO SCH ×2 (12:36→18:00)
[2018-06-04] MEDS ORDERED: Midazolam 2 MG/2 ML VIAL ONE (13:28)
[2018-06-04] MEDS ORDERED: Verapamil 2 ML ONE (14:26)
[2018-06-04] MEDS ORDERED: Heparin25000 units/250ml 1/2NS 25,000 UNITS/250 ML BAG IV ONE (14:53)
[2018-06-04] MEDS ORDERED: Nitroglycerin 2% Ointment Foilpak UD TOP ONE (14:53)
[2018-06-04] MEDS: Heparin25000 units/250ml 1/2NS 25,000 UNITS/250 ML BAG IV PRN (17:05)
--- NOTE | 2018-06-04 19:02 | VASCULAR ---
Date of service: 06/04/2018 PROCEDURE: 1. Selective left lower extremity arteriogram 2. Long segment left anterior tibial artery angioplasty 3. Left TP trunk drug-eluting balloon angioplasty HISTORY: Severe peripheral vascular disease. Nonhealing ischemic ulcer left great toe with osteomyelitis. Previous left lower extremity intervention in July, with 3 stenosis PHYSICIAN(S): Doron Garcia M.D. TECHNIQUE: The relative risks and indications of the procedure were explained to the patient's power of document review attorney and consent obtained. The patient was hydrated prior to the procedure and the appropriate labs drawn. The patient was placed supine on the arteriogram table and the right groin prepped and draped in the usual sterile fashion. Conscious sedation and monitoring were provided throughout the procedure by a nurse. Due to the patient's chronic renal insufficiency, selective arteriogram was performed. A 5 Martiniquais flush catheter was placed via right common femoral artery approach. A DSA left lower extremity arteriogram was obtained. A 6 Martiniquais 65 cm destination sheath was placed in the distal left SFA. Heparin and nitroglycerin were given. 0 Rather easily, the long segment left anterior tibial artery occlusion was crossed with a 5 Martiniquais catheter and 0.035 glidewire. Exchange was made for a 0.014 support wire in the dorsalis pedis artery The left dorsalis pedis artery was dilated with a 2.0 x 4 cm balloon. The long segment occlusion of the left anterior tibial artery was dilated with 3.0 and 3.5 mm long overlapping balloons. Poor antegrade flow was noted after angioplasty. Imaging failed to demonstrate thrombus or significant spasm. Vasa dilators were given. The severe stenosis in the left tibioperoneal trunk was crossed with a 0.014 guidewire. The left tibioperoneal trunk was dilated with a 4 mm by 8 cm drug-eluting balloon. An excellent angiographic result was obtained. Completion angiograms were obtained. The sheath was removed hemostasis obtained with a Perclose device. Topical nitroglycerin was put on left foot for possible vasospasm. IV heparin will be continued overnight. FINDINGS: The left common femoral artery is patent and normal. Left profunda femoral artery is patent. The left SFA is smoothly calcified patent without radiographically significant stenosis. The left popliteal artery is patent. The left anterior tibial artery which was previously treated in July, is occluded. There are tandem severe stenoses of the left tibioperoneal trunk. The left posterior tibial artery is occluded. The left peroneal artery occludes in its mid segment. The left dorsalis pedis artery is patent. The plantar arch feeds by collaterals from the dorsum. IMPRESSION: 1.Successful angioplasty of the reoccluded left anterior tibial artery. 2. Drug-eluting balloon angioplasty of the left tibioperoneal trunk. 3. 1 vessel left tibial runoff via the anterior tibial artery.
[2018-06-04 21:19] LABS: BASO # 0.03 K/mm3 (0.0-2.0); BASO % 0.3 % (0.0-3.0); EOS # 0.1 (0.0-0.7); EOS % 1.2 % (1.5-5.0); GRAN % 79.6 % (50.0-68.0); HEMOGLOBIN 7.4 g/dL (12.0-16.0); LYMPH # 1.5 (1.2-3.4); LYMPH % 14.7 % (22.0-35.0); MEAN CELL VOLUME 94.7 fl (80.0-105.0); MEAN CORPUSCULAR HEMOGLOBIN 30.3 pg (25.0-35.0); MEAN PLATELET VOLUME 9.7 fl (7.0-11.0); MONO # 0.4 (0.1-0.6); MONO % 4.2 % (1.0-6.0); RBC 2.44 10^6/uL (3.5-6.1); RED CELL DISTRIBUTION WIDTH 13.9 % (11.5-14.5); WHITE BLOOD COUNT 10.1 10^3/uL (4.5-11.0)
[2018-06-04] MEDS: Nitroglycerin 2% Ointment Foilpak UD TOP SCH (22:13)
[2018-06-05] MEDS: Nitroglycerin 2% Ointment Foilpak UD TOP SCH ×3 (06:17→22:22)
[2018-06-05 07:47] LABS: BASO # 0.03 K/mm3 (0.0-2.0); BASO % 0.4 % (0.0-3.0); EOS # 0.2 (0.0-0.7); EOS % 2.8 % (1.5-5.0); GRAN # 5.01 (1.4-6.5); GRAN % 66.1 % (50.0-68.0); HEMOGLOBIN 7.6 g/dL (12.0-16.0); LYMPH # 1.7 (1.2-3.4); LYMPH % 22.6 % (22.0-35.0); MEAN CELL VOLUME 94.4 fl (80.0-105.0); MEAN CORPUSCULAR HEMOGLOBIN 30.3 pg (25.0-35.0); MEAN CORPUSCULAR HGB CONC 32.1 g/dl (31.0-37.0); MEAN PLATELET VOLUME 9.9 fl (7.0-11.0); MONO # 0.6 (0.1-0.6); MONO % 8.1 % (1.0-6.0); RBC 2.51 10^6/uL (3.5-6.1); RED CELL DISTRIBUTION WIDTH 14.1 % (11.5-14.5); WHITE BLOOD COUNT 7.6 10^3/uL (4.5-11.0)
[2018-06-05 08:09] LABS: ALB/GLOB RATIO 0.8 (1.1-1.8); ALBUMIN 3.2 g/dL (3.0-4.8); CALCIUM 8.5 mg/dL (8.4-10.5)
[2018-06-05] MEDS: Insulin Reg-LOW-Coverage SC SCH ×4 (08:18→22:18)
[2018-06-05] MEDS ORDERED: Magnesium Sulfate 1 gm in D5W 1 GM/100 ML BAG IVPB ONE (08:48)
[2018-06-05] MEDS: Heparin25000 units/250ml 1/2NS 25,000 UNITS/250 ML BAG IV PRN (09:29)
[2018-06-05] MEDS: Pantoprazole 40 mg EC Tab PO SCH (09:54)
--- NOTE | 2018-06-05 10:17 | CP.PCM.PN ---
<Sloan Garvey - Last Filed: 06/05/18 10:14> Subjective - Date & Time of Evaluation Date of Evaluation: 06/05/18 Time of Evaluation: 10:14 - Subjective Subjective: Podiatry progress note for Dr. Leos 73F seen and evaluated at bedside with Dr. Leos. Relative at bedside. Reports mild pain to the LLE. Denies N/V/F/C/SOB/CP and has no other acute complaints. States at home she has dressings changed twice a week by nurses but does not follow up at the clinic as her relative states she is homebound. Objective - Vital Signs/Intake and Output Vital Signs (last 24 hours): Temp Pulse Resp BP Pulse Ox 98.3 F 68 18 135/57 L 94 L 06/05/18 06:00 06/05/18 09:31 06/05/18 06:00 06/05/18 09:39 06/05/18 06:00 Intake and Output: 06/05/18 06/05/18 06:59 18:59 Intake Total 1161 100 Output Total 420 Balance 741 100 - Medications Medications: Current Medications Acetylcysteine (Acetylcysteine 20%) 3 ml PO BID [facility] Stop: 06/05/18 18:00 Last Admin: 06/04/18 18:00 Dose: 3 ml Amlodipine Besylate (Norvasc) 10 mg PO DAILY [facility] Last Admin: 06/05/18 09:39 Dose: 10 mg Carvedilol (Coreg) 3.125 mg PO BID [facility] Last Admin: 06/05/18 09:31 Dose: 3.125 mg Ergocalciferol (Drisdol 50,000 Intl Units Cap) 1 cap PO SUN [facility] Furosemide (Lasix) 40 mg PO DAILY [facility] Last Admin: 06/05/18 09:38 Dose: 40 mg Gabapentin (Neurontin) 300 mg PO BID [facility]; Protocol Last Admin: 06/05/18 09:38 Dose: 300 mg Hydralazine HCl (Apresoline) 10 mg PO TID [facility] Last Admin: 06/05/18 09:31 Dose: 10 mg Sodium Chloride (Sodium Chloride 0.45%) 1,000 mls @ 60 mls/hr IV .[id number] [facility] Stop: 06/05/18 18:00 Last Admin: 06/04/18 20:56 Dose: 60 mls/hr Heparin Sodium/Sodium Chloride (Heparin 83845 Units/250ml 1/2 Normal Saline) 25,000 units in 250 mls @ 16.329 mls/hr IV .[id number] PRN; Protocol PRN Reason: ADJUST RATE PER PROTOCOL Stop: 06/06/18 08:00 Last Admin: 06/05/18 09:29 Dose: 14.66 units/kg/hr, 13.3 mls/hr Insulin Human Regular (Humulin R Low) 0 units SC ACHS [facility]; Protocol Last Admin: 06/05/18 08:18 Dose: Not Given Mirtazapine (Remeron) 15 mg PO HS [facility] Last Admin: 06/04/18 22:13 Dose: 15 mg Mupirocin (Bactroban Ointment) 0 gm TOP BID [facility] Last Admin: 06/04/18 20:24 Dose: Not Given Nitroglycerin (Nitro-Bid 2% Oint) 2 ea TOP Q8 [facility] Stop: 06/06/18 22:01 Last Admin: 06/05/18 06:17 Dose: 2 ea Ondansetron HCl (Zofran Inj) 4 mg IVP ONCE PRN PRN Reason: Nausea/Vomiting Pantoprazole Sodium (Protonix Ec Tab) 40 mg PO ACB [facility] Last Admin: 06/05/18 09:54 Dose: 40 mg Sevelamer HCl (Renagel) 800 mg PO AC [facility] Last Admin: 06/05/18 09:54 Dose: 800 mg - Labs Labs: 06/05/18 06:45 06/05/18 06:45 PT 12.0 SECONDS (9.4-12.5) 06/02/18 13:20 INR 1.04 06/02/18 13:20 APTT 73.6 Seconds (25.1-36.5) H 06/05/18 06:45 - Constitutional Appears: Non-toxic, No Acute Distress - Head Exam Head Exam: ATRAUMATIC, NORMOCEPHALIC - Extremities Exam Additional comments: Left lower extremity exam: Vasc: DP and PT unpalpable. CFT delayed to the digits. Temperature gradient cool to cool. Left hallux slightly warm. Mild edema noted to the left hallux Ortho: pain with palpation to the left hallux Neuro: protective sensation diminished Derm: Open ulceration noted to the medial aspect of the tip of the hallux, dry base noted measuring approximately .3 x .4 x .3 cm, no drainage, no malodor, no tunneling or undermining noted. No probe to bone - Neurological Exam Neurological Exam: Alert, Awake - Psychiatric Exam Psychiatric exam: Normal Affect, Normal Mood Assessment and Plan - Assessment and Plan (Free Text) Assessment: 73 y.o female with PMH of DM, HTN, HLD with left hallux ulcer with erythema periwound; resolving Plan: Patient examined and evaluated with Dr. Leos Labs, charts, vitals reviewed- afebrile and absent leukocytosis Foot X-rays; no osseous changes no DVT OLAMIDE/PVR: abnormal b/l tibial and small vessel disease MRI of the left foot: probable osteomyelitis of the first distal phalanx ID on board; appreciate recs Continue IV antibiotics Multipodus boots to be worn at all times Vascular on board; appreciate recs Discussed with Dr. Garcia, will not go for surgery tomorrow due to poor blood flow and healing potential Podiatry will continue to follow while patient is in house <Irma Leos - Last Filed: 06/08/18 15:59> Objective - Vital Signs/Intake and Output Vital Signs (last 24 hours): Temp Pulse Resp BP Pulse Ox 98.1 F 66 18 190/78 H 97 06/06/18 06:00 06/06/18 06:00 06/06/18 06:00 06/06/18 15:29 06/06/18 06:00 - Labs Labs: 06/06/18 07:30 06/06/18 07:30 PT 12.0 SECONDS (9.4-12.5) 06/02/18 13:20 INR 1.04 06/02/18 13:20 APTT 59.2 Seconds (25.1-36.5) H 06/06/18 07:30 Attending/Attestation - Attestation I have personally seen and examined this patient.: Yes I have fully participated in the care of the patient.: Yes I have reviewed all pertinent clinical information, including history, physical exam and plan: Yes
--- NOTE | 2018-06-05 10:23 | CP.PCM.PN ---
<Cali Adkins - Last Filed: 06/05/18 12:50> Subjective - Date & Time of Evaluation Date of Evaluation: 06/05/18 Time of Evaluation: 09:30 - Subjective Subjective: ID Progress Note Patient seen and examine at bedside. Patient with pain in left leg. Denies chest pain, shortness of breath, nausea, vomiting, diarrhea, fever, chills. Objective - Vital Signs/Intake and Output Vital Signs (last 24 hours): Temp Pulse Resp BP Pulse Ox 98.3 F 68 18 135/57 L 94 L 06/05/18 06:00 06/05/18 09:31 06/05/18 06:00 06/05/18 09:39 06/05/18 06:00 Intake and Output: 06/05/18 06/05/18 06:59 18:59 Intake Total 1161 100 Output Total 420 Balance 741 100 - Medications Medications: Current Medications Acetylcysteine (Acetylcysteine 20%) 3 ml PO BID [facility] Stop: 06/05/18 18:00 Last Admin: 06/04/18 18:00 Dose: 3 ml Amlodipine Besylate (Norvasc) 10 mg PO DAILY [facility] Last Admin: 06/05/18 09:39 Dose: 10 mg Carvedilol (Coreg) 3.125 mg PO BID [facility] Last Admin: 06/05/18 09:31 Dose: 3.125 mg Ergocalciferol (Drisdol 50,000 Intl Units Cap) 1 cap PO SUN [facility] Furosemide (Lasix) 40 mg PO DAILY [facility] Last Admin: 06/05/18 09:38 Dose: 40 mg Gabapentin (Neurontin) 300 mg PO BID [facility]; Protocol Last Admin: 06/05/18 09:38 Dose: 300 mg Hydralazine HCl (Apresoline) 10 mg PO TID [facility] Last Admin: 06/05/18 09:31 Dose: 10 mg Sodium Chloride (Sodium Chloride 0.45%) 1,000 mls @ 60 mls/hr IV .[id number] [facility] Stop: 06/05/18 18:00 Last Admin: 06/04/18 20:56 Dose: 60 mls/hr Heparin Sodium/Sodium Chloride (Heparin 60666 Units/250ml 1/2 Normal Saline) 25,000 units in 250 mls @ 16.329 mls/hr IV .[id number] PRN; Protocol PRN Reason: ADJUST RATE PER PROTOCOL Stop: 06/06/18 08:00 Last Admin: 06/05/18 09:29 Dose: 14.66 units/kg/hr, 13.3 mls/hr Insulin Human Regular (Humulin R Low) 0 units SC ACHS [facility]; Protocol Last Admin: 06/05/18 08:18 Dose: Not Given Mirtazapine (Remeron) 15 mg PO HS [facility] Last Admin: 06/04/18 22:13 Dose: 15 mg Mupirocin (Bactroban Ointment) 0 gm TOP BID [facility] Last Admin: 06/04/18 20:24 Dose: Not Given Nitroglycerin (Nitro-Bid 2% Oint) 2 ea TOP Q8 [facility] Stop: 06/06/18 22:01 Last Admin: 06/05/18 06:17 Dose: 2 ea Ondansetron HCl (Zofran Inj) 4 mg IVP ONCE PRN PRN Reason: Nausea/Vomiting Pantoprazole Sodium (Protonix Ec Tab) 40 mg PO ACB [facility] Last Admin: 06/05/18 09:54 Dose: 40 mg Sevelamer HCl (Renagel) 800 mg PO AC [facility] Last Admin: 06/05/18 09:54 Dose: 800 mg - Labs Labs: 06/05/18 06:45 06/05/18 06:45 PT 12.0 SECONDS (9.4-12.5) 06/02/18 13:20 INR 1.04 06/02/18 13:20 APTT 73.6 Seconds (25.1-36.5) H 06/05/18 06:45 - Constitutional Appears: Non-toxic, No Acute Distress - Head Exam Head Exam: ATRAUMATIC, NORMAL INSPECTION, NORMOCEPHALIC - Respiratory Exam Respiratory Exam: Clear to Ausculation Bilateral, NORMAL BREATHING PATTERN - Cardiovascular Exam Cardiovascular Exam: RRR, +S1, +S2 - GI/Abdominal Exam GI & Abdominal Exam: Soft, Normal Bowel Sounds. absent: Tenderness - Extremities Exam Additional comments: Left lower extremity bandaged - Neurological Exam Neurological Exam: Alert, Awake, Oriented x3 - Psychiatric Exam Psychiatric exam: Normal Affect, Normal Mood - Skin Skin Exam: Intact, Normal Color, Warm Assessment and Plan - Assessment and Plan (Free Text) Plan: Left hallux osteomyelitis Hx of DM Hx of PAD Hx of left lower extremity arterial stent placement Hx of HLD Hx of Obesity Hx of CVA Plan: Will continue to monitor off of antibiotics at this time Arterial lower extremity dopplers demonstrate severe tibial and small vessel disease MRI foot consistent with 1st digit osteomyelitis Left anterior tibial angioplasty, POD# 1 Although patient received angioplasty of left lower extremity, blood flow remains limited distally. Antibiotics may help, but patient will likely need a BKA in future. Family should be informed to ensure complete understanding of her diagnosis and prognosis Local wound care Blood and urine cultures negative Continue current medical management Jed, PGY-3 <Justin Stark S - Last Filed: 06/05/18 17:17> Objective - Vital Signs/Intake and Output Vital Signs (last 24 hours): Temp Pulse Resp BP Pulse Ox 98 F 74 18 165/74 H 97 06/05/18 15:37 06/05/18 15:37 06/05/18 15:37 06/05/18 15:37 06/05/18 14:00 Intake and Output: 06/05/18 06/05/18 06:59 18:59 Intake Total 1161 100 Output Total 420 Balance 741 100 - Medications Medications: Current Medications Acetylcysteine (Acetylcysteine 20%) 3 ml PO BID [facility] Stop: 06/05/18 18:00 Last Admin: 06/04/18 18:00 Dose: 3 ml Amlodipine Besylate (Norvasc) 10 mg PO DAILY [facility] Last Admin: 06/05/18 09:39 Dose: 10 mg Carvedilol (Coreg) 3.125 mg PO BID [facility] Last Admin: 06/05/18 09:31 Dose: 3.125 mg Ergocalciferol (Drisdol 50,000 Intl Units Cap) 1 cap PO [facility] Furosemide (Lasix) 40 mg PO DAILY [facility] Last Admin: 06/05/18 09:38 Dose: 40 mg Gabapentin (Neurontin) 300 mg PO BID [facility]; Protocol Last Admin: 06/05/18 09:38 Dose: 300 mg Hydralazine HCl (Apresoline) 10 mg PO TID [facility] Last Admin: 06/05/18 14:26 Dose: 10 mg Sodium Chloride (Sodium Chloride 0.45%) 1,000 mls @ 60 mls/hr IV .[id number] [facility] Stop: 06/05/18 18:00 Last Admin: 06/04/18 20:56 Dose: 60 mls/hr Heparin Sodium/Sodium Chloride (Heparin 41469 Units/250ml 1/2 Normal Saline) 25,000 units in 250 mls @ 16.329 mls/hr IV .[id number] PRN; Protocol PRN Reason: ADJUST RATE PER PROTOCOL Stop: 06/06/18 08:00 Last Admin: 06/05/18 09:29 Dose: 14.66 units/kg/hr, 13.3 mls/hr Insulin Human Regular (Humulin R Low) 0 units SC ACHS [facility]; Protocol Last Admin: 06/05/18 12:00 Dose: 1 unit Mirtazapine (Remeron) 15 mg PO HS [facility] Last Admin: 06/04/18 22:13 Dose: 15 mg Mupirocin (Bactroban Ointment) 0 gm TOP BID [facility] Last Admin: 06/04/18 20:24 Dose: Not Given Nitroglycerin (Nitro-Bid 2% Oint) 2 ea TOP Q8 [facility] Stop: 06/06/18 22:01 Last Admin: 06/05/18 14:25 Dose: 2 ea Ondansetron HCl (Zofran Inj) 4 mg IVP ONCE PRN PRN Reason: Nausea/Vomiting Pantoprazole Sodium (Protonix Ec Tab) 40 mg PO ACB [facility] Last Admin: 06/05/18 09:54 Dose: 40 mg Sevelamer HCl (Renagel) 800 mg PO AC [facility] Last Admin: 06/05/18 12:00 Dose: 800 mg - Labs Labs: 06/05/18 06:45 06/05/18 06:45 PT 12.0 SECONDS (9.4-12.5) 06/02/18 13:20 INR 1.04 06/02/18 13:20 APTT 59.0 Seconds (25.1-36.5) H 06/05/18 14:00 Assessment and Plan - Assessment and Plan (Free Text) Plan: Infectious diseases Attending Physician Attestation Patient seen and examined, discussed with veterinary medical officer. I have reviewed the patient's history of present illness, past medical, social, personal and family histories, pertinent physical exam findings, course so far in this hospital admission, pertinent laboratory and imaging results. I agree with the above findings, assessment and plan. In addition, patient had angioplasty done - still uncertain how blood supply is to the left foot, in this patient with left hallux osteomyelitis with severe PAD. Continue to monitor off antibiotics. Discussion is necessary since the role of antibiotics in terms of curing the osteomyelitis is not clear because of the severe PAD. It would also be ideal to have deep tissue or bone cultures to guide antibiotic therapy if that is to be pursued. There is possibility that amputation may be need in the future.
--- NOTE | 2018-06-05 12:29 | CP.PCM.APN ---
Subjective - Date & Time of Evaluation Date of Evaluation: 06/05/18 Time of Evaluation: 11:00 - Subjective Subjective: Pt seen and examined at bedside. In no acute distress. Denies chest pain or shortness of breath. Objective - Vital Signs/Intake and Output Vital Signs (last 24 hours): Temp Pulse Resp BP Pulse Ox 98.3 F 68 18 135/57 L 94 L 06/05/18 06:00 06/05/18 09:31 06/05/18 06:00 06/05/18 09:39 06/05/18 06:00 Intake and Output: 06/05/18 06/05/18 06:59 18:59 Intake Total 1161 100 Output Total 420 Balance 741 100 - Medications Medications: Current Medications Acetylcysteine (Acetylcysteine 20%) 3 ml PO BID [facility] Stop: 06/05/18 18:00 Last Admin: 06/04/18 18:00 Dose: 3 ml Amlodipine Besylate (Norvasc) 10 mg PO DAILY [facility] Last Admin: 06/05/18 09:39 Dose: 10 mg Carvedilol (Coreg) 3.125 mg PO BID [facility] Last Admin: 06/05/18 09:31 Dose: 3.125 mg Ergocalciferol (Drisdol 50,000 Intl Units Cap) 1 cap PO SUN [facility] Furosemide (Lasix) 40 mg PO DAILY [facility] Last Admin: 06/05/18 09:38 Dose: 40 mg Gabapentin (Neurontin) 300 mg PO BID [facility]; Protocol Last Admin: 06/05/18 09:38 Dose: 300 mg Hydralazine HCl (Apresoline) 10 mg PO TID [facility] Last Admin: 06/05/18 09:31 Dose: 10 mg Sodium Chloride (Sodium Chloride 0.45%) 1,000 mls @ 60 mls/hr IV .[id number] [facility] Stop: 06/05/18 18:00 Last Admin: 06/04/18 20:56 Dose: 60 mls/hr Heparin Sodium/Sodium Chloride (Heparin 12806 Units/250ml 1/2 Normal Saline) 25,000 units in 250 mls @ 16.329 mls/hr IV .[id number] PRN; Protocol PRN Reason: ADJUST RATE PER PROTOCOL Stop: 06/06/18 08:00 Last Admin: 06/05/18 09:29 Dose: 14.66 units/kg/hr, 13.3 mls/hr Insulin Human Regular (Humulin R Low) 0 units SC ACHS [facility]; Protocol Last Admin: 06/05/18 12:00 Dose: 1 unit Mirtazapine (Remeron) 15 mg PO HS [facility] Last Admin: 06/04/18 22:13 Dose: 15 mg Mupirocin (Bactroban Ointment) 0 gm TOP BID [facility] Last Admin: 06/04/18 20:24 Dose: Not Given Nitroglycerin (Nitro-Bid 2% Oint) 2 ea TOP Q8 [facility] Stop: 06/06/18 22:01 Last Admin: 06/05/18 06:17 Dose: 2 ea Ondansetron HCl (Zofran Inj) 4 mg IVP ONCE PRN PRN Reason: Nausea/Vomiting Pantoprazole Sodium (Protonix Ec Tab) 40 mg PO ACB [facility] Last Admin: 06/05/18 09:54 Dose: 40 mg Sevelamer HCl (Renagel) 800 mg PO AC [facility] Last Admin: 06/05/18 12:00 Dose: 800 mg - Labs Labs: 06/05/18 06:45 06/05/18 06:45 PT 12.0 SECONDS (9.4-12.5) 06/02/18 13:20 INR 1.04 06/02/18 13:20 APTT 73.6 Seconds (25.1-36.5) H 06/05/18 06:45 - Constitutional Appears: Well, No Acute Distress - Head Exam Head Exam: ATRAUMATIC - Respiratory Exam Respiratory Exam: Clear to Ausculation Bilateral, NORMAL BREATHING PATTERN - Cardiovascular Exam Cardiovascular Exam: REGULAR RHYTHM, +S1, +S2 - GI/Abdominal Exam GI & Abdominal Exam: Soft, Normal Bowel Sounds - Rectal Exam Rectal Exam: Deferred - Extremities Exam Additional comments: L hallux with wound, no drainage noted - Neurological Exam Neurological Exam: Alert, Awake Assessment and Plan - Assessment and Plan (Free Text) Assessment: Pt is a 73 y.o. female admitted for L hallux ulceration with failed outpatient treatment. Impressions Interventional Vascular Procedure 06/04/18 09:36 IMPRESSION: 1.Successful angioplasty of the reoccluded left anterior tibial artery. 2. Drug-eluting balloon angioplasty of the left tibioperoneal trunk. 3. 1 vessel left tibial runoff via the anterior tibial artery. Foot MRI 06/03/18 11:18 IMPRESSION: Probable osteomyelitis in the 1st distal phalanx Plan: Hgb 7.6 - will transfuse 2units PRBC, consent obtained from POA Pending stool occult blood (no overt bleeding noted) Per Podiatry, no surgery for L hallux wound. No wt bearing restrictions. Mg 1.5 - replaced Podiatry, ID and Vascular on consult Meds per MAR Physical therapy Will continue to follow
[2018-06-05 15:07] VITALS: O2SAT 97
--- NOTE | 2018-06-05 17:04 | PN ---
DATE: 06/04/2018 SUBJECTIVE: The patient is 73 years old female, the patient was seen and examined at the bedside on 06/04/2018, sister was standing on the bedside, also supposed to go for limited angiography by Dr. Doron Garcia. No fever. No chills. No hematuria. No hematochezia. Foot pain is improving. No headache. No dizziness. PHYSICAL EXAMINATION: VITAL SIGNS: Temperature 98, pulse 64, respiratory rate 18, blood pressure 160/70, and pulse oximetry 98. HEENT: Head is normocephalic and atraumatic. Eyes: PERRLA. Extraocular muscles intact. Conjunctivae clear. Nose patent. Mucous membrane moist. NECK: Supple. No carotid bruit. No JVD or thyromegaly. CHEST: Bilaterally symmetrical. HEART: S1 and S2 positive. LUNGS: Clear to auscultation. ABDOMEN: Soft. Bowel sounds present. No organomegaly. EXTREMITIES: No edema. No cyanosis. NEUROLOGIC: Patient is awake and alert. Moving all 4 extremities. No focal deficits. MEDICATIONS: Acetylcysteine, amlodipine, Coreg, vitamin D, Lasix, Neurontin, hydralazine, insulin, Remeron, Protonix, Renagel. LABORATORY DATA: Hemoglobin 9.1 and hematocrit 28.5. Sodium 140, potassium 4.5, BUN 25, with creatinine 2.2, and glucose 146. ASSESSMENT AND PLAN: Ms. Larsen is 73 years old lady with anemia, renal insufficiency, hyperglycemia with history of diabetes mellitus, hypertension, hypercholesterolemia, left hallux ulcers with erythema, trever-wound, resolving. Foot x-ray shows no osseus changes, no deep venous thrombosis, had bilateral tibial small vessel disease in left foot, on the first distal phalanx, Infectious Disease is on the case, continue antibiotics, boots to be worn at all times as per Podiatry., Appreciated Podiatry's input. The patient is supposed to go for limited lower extremity angiogram by Dr. Doron Garcia, we will plan according to that. Meanwhile, gastrointestinal and deep vein thrombosis prophylaxis. Elva Mooney MD MTDD
[2018-06-05 23:17] VITALS: RESP 18
--- NOTE | 2018-06-06 00:56 | PN ---
DATE: 06/05/2018 SUBJECTIVE: The patient has no complaints of any chest pain. No shortness of breath. No headaches. PHYSICAL EXAMINATION: VITAL SIGNS: Temperature is 98.1, pulse is 75, blood pressure 175/84, respirations 17. GENERAL: The patient is lying in bed, flat, comfortable. HEENT: No oral lesion. Anicteric sclerae. Moist mucosa. NECK: No JVD, adenopathy, or thyromegaly. CARDIOVASCULAR: S1 and S2, regular. No murmurs, rubs, or gallops. LUNGS: Clear to auscultation bilaterally. No wheeze, rales, or rhonchi. ABDOMEN: Bowel sounds are positive, soft, nontender and nondistended. EXTREMITIES: No cyanosis, clubbing, or edema. LABS: White count of 7.6, hemoglobin 7.6, creatinine 2.6. ASSESSMENT: 1. Acute kidney injury secondary to contrast nephropathy. 2. Hypomagnesemia. 3. Diabetes type 2. 4. Diabetic nephropathy. 5. Chronic kidney disease, stage 4. 6. Hypertension. 7. Dyslipidemia. 8. Left hallux osteomyelitis. 9. Secondary hyperparathyroidism. PLAN: The patient did have an angioplasty done. She had an angioplasty in the left lower extremity and was given contrast. This is most likely the cause of elevated creatinine. I did speak to Dr. Doron Garcia and Dr. Leos regarding the case. The patient did have an MRI that is consistent with first digit osteomyelitis. The patient is currently on carvedilol. She is receiving vitamin D. She is given iron for her deficiency. She is given magnesium replacement for her hypermagnesemia. The patient is on Neurontin for her diabetic neuropathy. She is on Renagel for secondary hyperparathyroidism. She has significant proteinuria. We will continue to follow and repeat the patient's creatinine. Moe Thurman MD
[2018-06-06 02:23] VITALS: TEMP 98.1
[2018-06-06] MEDS: Heparin25000 units/250ml 1/2NS 25,000 UNITS/250 ML BAG IV PRN (04:40)
[2018-06-06 07:43] LABS: BASO # 0.03 K/mm3 (0.0-2.0); BASO % 0.4 % (0.0-3.0); EOS # 0.4 (0.0-0.7); EOS % 4.8 % (1.5-5.0); GRAN # 5.05 (1.4-6.5); GRAN % 67.4 % (50.0-68.0); LYMPH # 1.5 (1.2-3.4); LYMPH % 20.1 % (22.0-35.0); MEAN CELL VOLUME 92.6 fl (80.0-105.0); MEAN CORPUSCULAR HEMOGLOBIN 29.6 pg (25.0-35.0); MEAN PLATELET VOLUME 10.2 fl (7.0-11.0); MONO # 0.6 (0.1-0.6); MONO % 7.3 % (1.0-6.0); RBC 3.24 10^6/uL (3.5-6.1); RED CELL DISTRIBUTION WIDTH 15.6 % (11.5-14.5); WHITE BLOOD COUNT 7.5 10^3/uL (4.5-11.0)
[2018-06-06 07:46] LABS: HEMOGLOBIN 9.6 g/dL (12.0-16.0)
[2018-06-06 08:03] LABS: ALB/GLOB RATIO 0.8 (1.1-1.8); ALBUMIN 3.3 g/dL (3.0-4.8); CALCIUM 8.8 mg/dL (8.4-10.5)
[2018-06-06 08:09] VITALS: PULSE 66
[2018-06-06] MEDS: Insulin Reg-LOW-Coverage SC SCH ×3 (08:10→16:41)
[2018-06-06] MEDS: Mupirocin 2% Ointment 15 GM TUBE TOP SCH ×2 (10:00→17:13)
[2018-06-06] MEDS: Pantoprazole 40 mg EC Tab PO SCH (11:04)
--- NOTE | 2018-06-06 11:58 | CP.PCM.PN ---
<Sloan Garvey - Last Filed: 06/06/18 11:54> Subjective - Date & Time of Evaluation Date of Evaluation: 06/06/18 Time of Evaluation: 11:54 - Subjective Subjective: Podiatry progress note for Dr. Monroy 73F seen and evaluated at bedside with Dr. Monroy. Relative at bedside. Reports mild pain to the LLE. Denies N/V/F/C/SOB/CP and has no other acute complaints. Objective - Vital Signs/Intake and Output Vital Signs (last 24 hours): Temp Pulse Resp BP Pulse Ox 98.1 F 66 18 150/60 97 06/06/18 06:00 06/06/18 06:00 06/06/18 06:00 06/06/18 11:03 06/06/18 06:00 Intake and Output: 06/06/18 06/06/18 06:59 18:59 Intake Total 929 Output Total 700 Balance 229 - Medications Medications: Current Medications Amlodipine Besylate (Norvasc) 10 mg PO DAILY [facility] Last Admin: 06/06/18 11:03 Dose: 10 mg Carvedilol (Coreg) 3.125 mg PO BID [facility] Last Admin: 06/06/18 11:04 Dose: 3.125 mg Ergocalciferol (Drisdol 50,000 Intl Units Cap) 1 cap PO [facility] Furosemide (Lasix) 40 mg PO DAILY [facility] Last Admin: 06/06/18 11:03 Dose: 40 mg Gabapentin (Neurontin) 300 mg PO BID [facility]; Protocol Last Admin: 06/06/18 11:04 Dose: 300 mg Hydralazine HCl (Apresoline) 10 mg PO TID [facility] Last Admin: 06/06/18 11:03 Dose: 10 mg Insulin Human Regular (Humulin R Low) 0 units SC [facility]; Protocol Last Admin: 06/06/18 08:10 Dose: Not Given Mirtazapine (Remeron) 15 mg PO HS [facility] Last Admin: 06/05/18 22:22 Dose: 15 mg Mupirocin (Bactroban Ointment) 0 gm TOP BID [facility] Last Admin: 06/04/18 20:24 Dose: Not Given Ondansetron HCl (Zofran Inj) 4 mg IVP ONCE PRN PRN Reason: Nausea/Vomiting Pantoprazole Sodium (Protonix Ec Tab) 40 mg PO ACB [facility] Last Admin: 06/06/18 11:04 Dose: 40 mg Sevelamer HCl (Renagel) 800 mg PO AC [facility] Last Admin: 06/06/18 11:04 Dose: 800 mg - Labs Labs: 06/06/18 07:30 06/06/18 07:30 PT 12.0 SECONDS (9.4-12.5) 06/02/18 13:20 INR 1.04 06/02/18 13:20 APTT 59.2 Seconds (25.1-36.5) H 06/06/18 07:30 - Constitutional Appears: Non-toxic, No Acute Distress - Head Exam Head Exam: ATRAUMATIC, NORMOCEPHALIC - Extremities Exam Additional comments: Left lower extremity exam: Vasc: DP and PT unpalpable. CFT delayed to the digits. Temperature gradient cool to cool. Left hallux slightly warm. Mild edema noted to the left hallux Ortho: pain with palpation to the left hallux Neuro: protective sensation diminished Derm: Open ulceration noted to the medial aspect of the tip of the hallux, dry base noted measuring approximately .3 x .4 x .3 cm, no drainage, no malodor, no tunneling or undermining noted. No probe to bone - Neurological Exam Neurological Exam: Alert, Awake - Psychiatric Exam Psychiatric exam: Normal Affect, Normal Mood Assessment and Plan - Assessment and Plan (Free Text) Assessment: 73F with left hallux ulcer with erythema periwound; resolving Plan: Patient examined and evaluated with Dr. Monroy Labs, charts, vitals reviewed- afebrile and absent leukocytosis Foot X-rays; no osseous changes no DVT OLAMIDE/PVR: abnormal b/l tibial and small vessel disease MRI of the left foot: probable osteomyelitis of the first distal phalanx ID on board; appreciate recs Continue IV antibiotics Multipodus boots to be worn at all times Vascular on board; appreciate recs Discussed with Dr. Garcia, will not go for surgery tomorrow due to poor blood flow and healing potential No bone biopsy as could exacerbate already open wound with poor blood flow, low healing potential Podiatry will continue to follow while patient is in house <Jason Monroy - Last Filed: 06/07/18 07:34> Objective - Vital Signs/Intake and Output Vital Signs (last 24 hours): Temp Pulse Resp BP Pulse Ox 98.1 F 66 18 190/78 H 97 06/06/18 06:00 06/06/18 06:00 06/06/18 06:00 06/06/18 15:29 06/06/18 06:00 - Labs Labs: 06/06/18 07:30 06/06/18 07:30 PT 12.0 SECONDS (9.4-12.5) 06/02/18 13:20 INR 1.04 06/02/18 13:20 APTT 59.2 Seconds (25.1-36.5) H 06/06/18 07:30 Attending/Attestation - Attestation I have personally seen and examined this patient.: Yes I have fully participated in the care of the patient.: Yes I have reviewed all pertinent clinical information, including history, physical exam and plan: Yes
--- NOTE | 2018-06-06 13:18 | CP.PCM.PCO ---
Physician Communication Note - Physician Communication Note Physician Communication Note: Per Dr. Mooney, if Dopp RLE is neg pt can be dc to [facility]
--- NOTE | 2018-06-06 14:46 | CP.PCM.PN ---
<Cali Adkins - Last Filed: 06/06/18 14:39> Subjective - Date & Time of Evaluation Date of Evaluation: 06/06/18 Time of Evaluation: 10:15 - Subjective Subjective: ID Progress Note Patient seen and examined. Sister at bedside. Admits to pain in b/l legs. No overnight events. Denies chest pain, shortness of breath, nausea, vomiting, diarrhea, fever, chills. Objective - Vital Signs/Intake and Output Vital Signs (last 24 hours): Temp Pulse Resp BP Pulse Ox 98.1 F 66 18 150/60 97 06/06/18 06:00 06/06/18 06:00 06/06/18 06:00 06/06/18 11:03 06/06/18 06:00 Intake and Output: 06/06/18 06/06/18 06:59 18:59 Intake Total 929 Output Total 700 Balance 229 - Medications Medications: Current Medications Amlodipine Besylate (Norvasc) 10 mg PO DAILY [facility] Last Admin: 06/06/18 11:03 Dose: 10 mg Carvedilol (Coreg) 3.125 mg PO BID [facility] Last Admin: 06/06/18 11:04 Dose: 3.125 mg Ergocalciferol (Drisdol 50,000 Intl Units Cap) 1 cap PO [facility] Furosemide (Lasix) 40 mg PO DAILY [facility] Last Admin: 06/06/18 11:03 Dose: 40 mg Gabapentin (Neurontin) 300 mg PO BID [facility]; Protocol Last Admin: 06/06/18 11:04 Dose: 300 mg Hydralazine HCl (Apresoline) 10 mg PO TID [facility] Last Admin: 06/06/18 11:03 Dose: 10 mg Insulin Human Regular (Humulin R Low) 0 units SC [facility]; Protocol Last Admin: 06/06/18 13:57 Dose: Not Given Mirtazapine (Remeron) 15 mg PO HS [facility] Last Admin: 06/05/18 22:22 Dose: 15 mg Mupirocin (Bactroban Ointment) 0 gm TOP BID [facility] Last Admin: 06/04/18 20:24 Dose: Not Given Ondansetron HCl (Zofran Inj) 4 mg IVP ONCE PRN PRN Reason: Nausea/Vomiting Pantoprazole Sodium (Protonix Ec Tab) 40 mg PO ACB [facility] Last Admin: 06/06/18 11:04 Dose: 40 mg Sevelamer HCl (Renagel) 800 mg PO AC [facility] Last Admin: 06/06/18 13:58 Dose: Not Given - Labs Labs: 06/06/18 07:30 06/06/18 07:30 PT 12.0 SECONDS (9.4-12.5) 06/02/18 13:20 INR 1.04 06/02/18 13:20 APTT 59.2 Seconds (25.1-36.5) H 06/06/18 07:30 - Constitutional Appears: Non-toxic, No Acute Distress - Head Exam Head Exam: ATRAUMATIC, NORMAL INSPECTION, NORMOCEPHALIC - ENT Exam ENT Exam: Mucous Membranes Moist - Respiratory Exam Respiratory Exam: Clear to Ausculation Bilateral, NORMAL BREATHING PATTERN. absent: Rales, Rhonchi, Wheezes - Cardiovascular Exam Cardiovascular Exam: RRR, +S1, +S2 - GI/Abdominal Exam GI & Abdominal Exam: Soft, Normal Bowel Sounds. absent: Tenderness - Extremities Exam Extremities Exam: Pedal Edema (Trace b/l) Additional comments: B/l legs bandaged. No discharge or drainage noted - Neurological Exam Neurological Exam: Alert, Awake, Oriented x3 - Psychiatric Exam Psychiatric exam: Normal Affect, Normal Mood - Skin Skin Exam: Intact, Normal Color, Warm Assessment and Plan - Assessment and Plan (Free Text) Plan: Left hallux osteomyelitis Hx of DM Hx of PAD Hx of left lower extremity arterial stent placement Hx of HLD Hx of Obesity Hx of CVA Plan: Bedside discussion with patient and sister (who is POA) to inform of possible outcomes. It was understood that patient has poor distal blood flow in left lower extremity and thus, low healing potential. No intervention as per podiatry. IV antibiotics may help, but unlikely due to poor perfusion to area of infection. Recommend 4 weeks of Doxycycline 100 mg BID and Levaquin 500 mg every other day Arterial lower extremity dopplers demonstrate severe tibial and small vessel disease MRI foot consistent with 1st digit osteomyelitis Left anterior tibial angioplasty, POD# 2 Local wound care Blood and urine cultures negative Continue current medical management Jed, PGY-3 <Justin Stark - Last Filed: 06/06/18 16:55> Objective - Vital Signs/Intake and Output Vital Signs (last 24 hours): Temp Pulse Resp BP Pulse Ox 98.1 F 66 18 190/78 H 97 06/06/18 06:00 06/06/18 06:00 06/06/18 06:00 06/06/18 15:29 06/06/18 06:00 Intake and Output: 06/06/18 06/06/18 06:59 18:59 Intake Total 929 Output Total 700 Balance 229 - Medications Medications: Current Medications Amlodipine Besylate (Norvasc) 10 mg PO DAILY [facility] Last Admin: 06/06/18 11:03 Dose: 10 mg Carvedilol (Coreg) 3.125 mg PO BID [facility] Last Admin: 06/06/18 11:04 Dose: 3.125 mg Ergocalciferol (Drisdol 50,000 Intl Units Cap) 1 cap PO SUN [facility] Furosemide (Lasix) 40 mg PO DAILY [facility] Last Admin: 06/06/18 11:03 Dose: 40 mg Gabapentin (Neurontin) 300 mg PO BID [facility]; Protocol Last Admin: 06/06/18 11:04 Dose: 300 mg Hydralazine HCl (Apresoline) 10 mg PO TID [facility] Last Admin: 06/06/18 15:29 Dose: 10 mg Insulin Human Regular (Humulin R Low) 0 units SC [facility]; Protocol Last Admin: 06/06/18 16:41 Dose: Not Given Mirtazapine (Remeron) 15 mg PO HS [facility] Last Admin: 06/05/18 22:22 Dose: 15 mg Mupirocin (Bactroban Ointment) 0 gm TOP BID [facility] Last Admin: 06/06/18 10:00 Dose: 1 applic Ondansetron HCl (Zofran Inj) 4 mg IVP ONCE PRN PRN Reason: Nausea/Vomiting Pantoprazole Sodium (Protonix Ec Tab) 40 mg PO ACB [facility] Last Admin: 06/06/18 11:04 Dose: 40 mg Sevelamer HCl (Renagel) 800 mg PO AC [facility] Last Admin: 06/06/18 13:58 Dose: Not Given - Labs Labs: 06/06/18 07:30 06/06/18 07:30 PT 12.0 SECONDS (9.4-12.5) 06/02/18 13:20 INR 1.04 06/02/18 13:20 APTT 59.2 Seconds (25.1-36.5) H 06/06/18 07:30 Assessment and Plan - Assessment and Plan (Free Text) Plan: Infectious diseases Attending Physician Attestation Patient seen and examined, discussed with medical billing manager. I have reviewed the patient's history of present illness, past medical, social, personal and family histories, pertinent physical exam findings, course so far in this hospital admission, pertinent laboratory and imaging results. I agree with the above findings, assessment and plan. In addition, patient had angioplasty done - still uncertain how blood supply is to the left foot, in this patient with left hallux osteomyelitis with severe PAD. Continue to monitor off antibiotics but may consider PO Doxycycline and Levaquin since after discussion with Podiatry, there is no plan for surgery or amputation. We have discussed with the patient and family that the use of antibiotics does not guarantee cure, especially with the compromised blood supply, and there is still a significant change of failure of therapy, and that she may still need amputation eventually. Patient and family understand. Will need to follow up with Podiatry as an outpatient. We are opting for oral antibiotics to decrease complications associated with IV line use.
--- NOTE | 2018-06-06 15:10 | US ---
PROCEDURE: Right lower extremity venous US HISTORY: Leg pain and swelling. Evaluate for DVT. PHYSICIAN(S): Doron Garcia M.D. TECHNIQUE: Duplex sonography and color-flow Doppler with graded compression were used to evaluate the deep venous system of the right lower extremity. The exam is limited by edema. The tibial veins are not well seen FINDINGS: The visualized deep venous system of the right lower extremity is sonographically normal and compressible. Normal waveforms and augmentation are seen. There is no sonographic evidence for deep venous thrombosis in the visualized segments of the right lower extremity. IMPRESSION: 1. No sonographic evidence for deep venous thrombosis in the visualized segments of the right lower extremity. 2. Limited study.
[2018-06-06 15:31] VITALS: BP 190/78
--- NOTE | 2018-06-06 21:13 | PN ---
DATE: 06/06/2018 SUBJECTIVE: The patient has no complaints of any chest pain. No shortness of breath. No headaches. PHYSICAL EXAMINATION: VITAL SIGNS: Temperature of 98.1, pulse of 66, blood pressure 190/78, respirations 18. GENERAL: The patient is lying in bed, flat, comfortable. HEENT: No oral lesion. Anicteric sclerae. Moist mucosa. NECK: No JVD, adenopathy, or thyromegaly. CARDIOVASCULAR: S1 and S2, regular. No murmurs, rubs, or gallops. LUNGS: Clear to auscultation bilaterally. No wheeze, rales, or rhonchi. ABDOMEN: Bowel sounds are positive, soft, nontender and nondistended. EXTREMITIES: no cyanosis, clubbing or edema. LABS: White count of 7.5, hemoglobin 9.6, creatinine is 2.4. Right lower extremity Doppler showed no evidence of DVT. ASSESSMENT: 1. Acute kidney injury secondary to contrast nephropathy. 2. Hypomagnesemia, improved. 3. Diabetes type 2. 4. Diabetic nephropathy. 5. Chronic kidney disease, stage IV. 6. Hypertension. 7. Dyslipidemia. 8. Proteinuria. 9. Left hallux osteomyelitis. 10. Secondary hyperparathyroidism. PLAN: The patient is currently receiving IV antibiotics. She is being followed by Infectious Disease. The patient does have peripheral arterial disease. She is off antibiotics. The patient's creatinine has been improving. The patient's hemoglobin has improved to 9.6 after blood transfusion. She had magnesium replaced. Her baseline creatinine is 2 to 2.2 and it is downtrending. We will recheck her blood work tomorrow. Moe Thurman MD
[2018-06-09] MEDS ORDERED: Ergocalciferol 50,000 Intl Units Cap PO SCH (10:00)
== END 2018-06-06 23:00 | DRG 253 ==
LOC: ED 10:27 → ERH 14:22 → 5RSO 23:04
PROVIDERS: ADMIT Internal Medicine; ATTEND Internal Medicine
PROC: 047U34Z Dilation of Left Peroneal Artery with Drug-eluting Intraluminal Device, Percutaneous Approach (ICD-10-PCS; principal; 2018-06-04)
PROC: 047Q3ZZ Dilation of Left Anterior Tibial Artery, Percutaneous Approach (ICD-10-PCS; 2018-06-04)
PROC: B41GYZZ Fluoroscopy of Left Lower Extremity Arteries using Other Contrast (ICD-10-PCS; 2018-06-04)
DX: E11.51 Type 2 diabetes mellitus with diabetic peripheral angiopathy without gangrene (principal); E11.621 Type 2 diabetes mellitus with foot ulcer; I70.245 Atherosclerosis of native arteries of left leg with ulceration of other part of foot; L97.529 Non-pressure chronic ulcer of other part of left foot with unspecified severity; I13.0 Hypertensive heart and chronic kidney disease with heart failure and stage 1 through stage 4 chronic kidney disease, or unspecified chronic kidney disease; M86.9 Osteomyelitis, unspecified; N39.0 Urinary tract infection, site not specified; N18.4 Chronic kidney disease, stage 4 (severe); N17.9 Acute kidney failure, unspecified; N25.81 Secondary hyperparathyroidism of renal origin; E87.5 Hyperkalemia; E11.22 Type 2 diabetes mellitus with diabetic chronic kidney disease; E11.65 Type 2 diabetes mellitus with hyperglycemia; E11.21 Type 2 diabetes mellitus with diabetic nephropathy; N14.1 Nephropathy induced by other drugs, medicaments and biological substances; T50.8X5A Adverse effect of diagnostic agents, initial encounter; E11.69 Type 2 diabetes mellitus with other specified complication; E83.42 Hypomagnesemia; I50.9 Heart failure, unspecified; I48.91 Unspecified atrial fibrillation; E83.39 Other disorders of phosphorus metabolism; D50.9 Iron deficiency anemia, unspecified; E78.00 Pure hypercholesterolemia, unspecified; H54.61 Unqualified visual loss, right eye, normal vision left eye; E66.9 Obesity, unspecified; Z68.37 Body mass index [BMI] 37.0-37.9, adult; Z86.73 Personal history of transient ischemic attack (TIA), and cerebral infarction without residual deficits

== ENCOUNTER 2018-08-30 11:56 | Inpatient (IN) | payer MEDICARE, OTHER ==
[2018-08-30] MEDS ORDERED: Piperacillin/Tazobact 3.375 gm 100 ML IVPB STA (12:25)
[2018-08-30] MEDS ORDERED: Vancomycin 500mg in NS 500 MG/100 ML BAG IVPB STA (12:25)
[2018-08-30] MEDS: Sodium Chloride 0.9% 1,000 ML IV SCH (12:35)
--- NOTE | 2018-08-30 12:35 | ED PDOC ---
Arrival/HPI - General Chief Complaint: Lower Extremity Problem/Injury Time Seen by Provider: 08/30/18 12:01 Historian: Patient, Family (sister) - History of Present Illness Narrative History of Present Illness (Text): A 73 year old female, whose past medical history includes diabetes, hypertension, PVD with left leg stent, and CVA (2015 with left upper extremity weakness and baseline confusion), sent to the emergency department by Dr. Jason Monroy, patient's medical records clerk, for left foot diabetic ulcer. Per sister, patient was seen by wound care nurse 2 days ago, who noticed a foul odor coming out of left first digit. Today, sister was contacted by Dr. Monroy, who directed for patient to be evaluated immediately at the ER. Sister mentions patient had a mild fever yesterday, however no longer has a fever today. Patient and family denies any pain, leg swelling, any discoloration to toes, abdominal pain, chest pain, shortness of breath, or any other complaints at this time. Lime Trimmer: Dr. Jason Monroy Past Medical History - Provider Review Nursing Documentation Reviewed: Yes - Infectious Disease Hx of Infectious Diseases: None - Tetanus Immunization Tetanus Immunization: Unknown - Cardiac Hx Cardiac Disorders: Yes Hx Hypertension: Yes - Pulmonary Hx Respiratory Disorders: No - Neurological Hx Neurological Disorder: Yes HX Cerebrovascular Accident: Yes Hx Dizziness: Yes - HEENT Hx HEENT Disorder: Yes (CATARACT SX) - Renal Hx Renal Disorder: No - Endocrine/Metabolic Hx Endocrine Disorders: Yes Hx Diabetes Mellitus Type 2: Yes - Hematological/Oncological Hx Blood Disorders: Yes Hx Anemia: Yes - Integumentary Hx Dermatological Disorder: No - Musculoskeletal/Rheumatological Hx Musculoskeletal Disorders: Yes Hx Falls: Yes Hx Unsteady Gait: Yes - Gastrointestinal Hx Gastrointestinal Disorders: No - Genitourinary/Gynecological Hx Genitourinary Disorders: No - Psychiatric Hx Psychophysiologic Disorder: No Hx Substance Use: No - Surgical History Hx Amputation: Yes (Right hallux distal tip) Hx Appendectomy: Yes Other/Comment: DYLAN Stent - Dr Garcia - Anesthesia Hx Anesthesia: Yes Hx Anesthesia Reactions: No Hx Malignant Hyperthermia: No - Suicidal Assessment Feels Threatened In Home Enviroment: No Family/Social History - Physician Review Nursing Documentation Reviewed: Yes Family/Social History: No Known Family HX Smoking Status: Never Smoked Hx Alcohol Use: No Hx Substance Use: No Hx Substance Use Treatment: No Allergies/Home Meds Allergies/Adverse Reactions: Allergies No Known Allergies Allergy (Verified 01/28/18 16:20) Home Medications: Home Meds Medication Instructions Recorded Confirmed Carvedilol [Coreg] 3.125 mg PO BID 07/18/17 08/30/18 Furosemide [Lasix] 40 mg PO DAILY 07/18/17 08/30/18 Mirtazapine [Remeron] 15 mg PO HS 07/18/17 08/30/18 hydrALAZINE [Apresoline] 10 mg PO TID 07/18/17 08/30/18 Ergocalciferol (Vitamin D2) 50,000 unit PO QWK 09/17/17 08/30/18 [Vitamin D2] Insulin Aspart, Recombinant 0 units SC DAILY 08/30/18 08/30/18 [Novolog] Simvastatin 10 mg PO DAILY 08/30/18 08/30/18 Review of Systems - Physician Review All systems were reviewed & negative as marked: Yes - Review of Systems Constitutional: absent: Fevers Eyes: absent: Vision Changes ENT: absent: Hearing Changes Respiratory: absent: SOB Cardiovascular: absent: Chest Pain Gastrointestinal: absent: Abdominal Pain Genitourinary Female: absent: Dysuria Musculoskeletal: absent: Other (no leg swelling) Skin: Ulcer (left first digit diabetic ulcer). absent: Other (no discoloration to toes) Neurological: absent: Headache Physical Exam Vital Signs Reviewed: Yes Vital Signs Temp Pulse Resp BP Pulse Ox 08/30/18 11:59 98.0 F 87 18 153/65 H 100 Temperature: Afebrile Blood Pressure: Normal Pulse: Regular Respiratory Rate: Normal Appearance: Positive for: Well-Appearing, Non-Toxic, Comfortable Pain Distress: None Mental Status: Positive for: Alert and Oriented X 3 - Systems Exam Head: Present: Atraumatic, Normocephalic Pupils: Present: PERRL Extroacular Muscles: Present: EOMI Conjunctiva: Present: Normal Ears: Present: Normal, NORMAL TM Mouth: Present: Moist Mucous Membranes Pharnyx: Present: Normal. No: ERYTHEMA, EXUDATE Nose (Internal): Present: Normal Inspection Neck: Present: Normal Range of Motion. No: Meningeal Signs, MIDLINE TENDERNESS Respiratory/Chest: Present: Clear to Auscultation, Good Air Exchange. No: Respiratory Distress, Accessory Muscle Use Cardiovascular: Present: Regular Rate and Rhythm, Normal S1, S2. No: Murmurs Abdomen: No: Tenderness, Distention, Peritoneal Signs Back: Present: Normal Inspection. No: CVA Tenderness, Midline Tenderness Upper Extremity: Present: Normal Inspection, NORMAL PULSES, Neurovascularly Intact. No: Cyanosis, Edema Lower Extremity: Present: NORMAL PULSES (good distal pulse to b/l lower extremity), Neurovascularly Intact. No: Edema Neurological: Present: GCS=15, CN II-XII Intact, Speech Normal Skin: Present: Other (ulcer to left medial first toe, foul odor noted, no crepitus or streaking, no visible bone. R foot ulcer noted as well, no streaking or crepitus or visible bone. ) Psychiatric: Present: Alert, Oriented x 3, Normal Insight, Normal Concentration Medical Decision Making ED Course and Treatment: 08/30/18 12:36 Impression: 73 year old female with left first toe diabetic ulcer and R heel ulceration. Good dp pulses b/l. No signs of streaking or crepitus. No appreciable drainage noted or visible bone. Likely diabetic foot infection requiring inpt abx. No SIRS vitals noted. Pt in NAD, baseline mentation per family at this time. No other complaints. Plan: -- Venous Blood Gas -- Blood Culture -- Wound Culture -- IV Fluids -- Vancomycin -- Piperacillin -- Labs -- Left Foot X-Ray -- Urinalysis -- Reassess and disposition Progress Notes: 08/30/18 12:[address] Monroy's podiatry resident, who recommends admission for patient, and states will evaluated patient's X-Rays. 08/30/18 13:46 Pt in NAD No leukocytosis, labs largely unremarkable. B/l pulses remain patent Seen by DPM resident bedside: requesting IV abx, admission, no intervention otherwise at thist time Spoke to pts sister (POA) regarding admission: who is ok with Dr. Mooney admitting since pt was seen previously for same issue. Appreciate consult w/ Dr. Mooney: to admit to her service - RAD Interpretation Radiology Orders: 08/30/18 12:15 FOOT LEFT 3 VIEWS ROUTINE [RAD] Stat FOOT LEFT GREAT TOE ROUTINE [RAD] Stat - Medication Orders Current Medication Orders: Sodium Chloride (Sodium Chloride 0.9%) 1,000 mls @ 100 mls/hr IV .Q10H EBEN Vancomycin HCl (Vancomycin 500mg In Ns) 500 mg in 100 mls @ 200 mls/hr IVPB STAT STA; Protocol Stop: 08/30/18 12:54 Piperacillin Sod/Tazobactam Sod (Zosyn 3.375 In Ns 100ml) 100 mls @ 200 mls/hr IVPB STAT STA; Protocol Stop: 08/30/18 12:54 - Scribe Statement The provider has reviewed the documentation as recorded by the Zeynep Arrieta Provider Scribe Attestation: All medical record entries made by the Medhatibesvin were at my direction and personally dictated by me. I have reviewed the chart and agree that the record accurately reflects my personal performance of the history, physical exam, medical decision making, and the department course for this patient. I have also personally directed, reviewed, and agree with the discharge instructions and disposition. Disposition/Present on Arrival - Present on Arrival Any Indicators Present on Arrival: No History of DVT/PE: No History of Uncontrolled Diabetes: Yes Urinary Catheter: No History of Decub. Ulcer: Yes (Left foot) History Surgical Site Infection Following: None - Disposition Have Diagnosis and Disposition been Completed?: Yes Diagnosis: Diabetic foot ulcer Disposition: HOSPITALIZED Disposition Time: 13:54 Condition: STABLE Forms: [employer] ([place])
[2018-08-30 12:42] LABS: VENOUS BLOOD GAS BASE EXCESS -0.9 mmol/L (0.0-2.0); VENOUS BLOOD GAS PO2 26 mm/Hg (30-55); VENOUS BLOOD PH 7.32 (7.32-7.43)
[2018-08-30 12:47] LABS: BASO # 0.03 K/mm3 (0.0-2.0); BASO % 0.3 % (0.0-3.0); EOS # 0.3 (0.0-0.7); EOS % 3.1 % (1.5-5.0); HEMOGLOBIN 9.2 g/dL (12.0-16.0); LYMPH # 1.6 (1.2-3.4); LYMPH % 15.5 % (22.0-35.0); MEAN CELL VOLUME 94.5 fl (80.0-105.0); MEAN CORPUSCULAR HEMOGLOBIN 31.5 pg (25.0-35.0); MEAN CORPUSCULAR HGB CONC 33.3 g/dl (31.0-37.0); MEAN PLATELET VOLUME 10.2 fl (7.0-11.0); MONO # 0.5 (0.1-0.6); MONO % 4.5 % (1.0-6.0); RBC 2.92 10^6/uL (3.5-6.1); RED CELL DISTRIBUTION WIDTH 13.7 % (11.5-14.5); WHITE BLOOD COUNT 10.5 10^3/uL (4.5-11.0)
[2018-08-30 12:55] LABS: INR 1.04; PARTIAL THROMBOPLASTIN TIME 31.9 Seconds (26.9-38.3); PROTHROMBIN TIME 11.8 SECONDS (9.4-12.5)
[2018-08-30 13:00] LABS: ALB/GLOB RATIO 0.8 (1.1-1.8); ALBUMIN 3.6 g/dL (3.0-4.8); CALCIUM 8.5 mg/dL (8.4-10.5)
--- NOTE | 2018-08-30 13:35 | CP.PCM.CON ---
<CeSpenser perez - Last Filed: 08/30/18 13:08> History of Present Illness - History of Present Illness History of Present Illness: Podiatry Consult Note- Dr. Monroy 73 y/o female with PMH of DM, HTN, HLD seen and evaluated in the ED for b/l foot ulcerations. Patient reports having a wounds since few months on the left hallux. Patient states that she is following up with Dr. Monroy. Patient states that she developped an ulceration on her right heel. Patient can't recall when it strarted. Patient deidn't recall any trauma. Patient states that her left heel ulceration is painful specially with touch. Patient. states that the ulcers got worse so her family called Dr. Monroy who advised her to come to the ED. Patient is a poor historian and is not able to remember all of her history. She denies any recent n/v/sob/cp/chills or f. PMH: DM, HLD, HTN PSH: appendectomy, cataract surgery, right hallux distal tip amputation Social Hx: denies smoking, drinking or illicit drug use Allergies: NKDA Review of Systems - Review of Systems Review of Systems: As per HPI - Constitutional Constitutional: As Per HPI Past Patient History - Infectious Disease Hx of Infectious Diseases: None - Tetanus Immunizations Tetanus Immunization: Unknown - Past Social History Smoking Status: Never Smoked - CARDIAC Hx Cardiac Disorders: Yes Hx Hypertension: Yes - PULMONARY Hx Respiratory Disorders: No - NEUROLOGICAL Hx Neurological Disorder: Yes HX Cerebrovascular Accident: Yes Hx Dizziness: Yes - HEENT Hx HEENT Problems: Yes (CATARACT SX) - RENAL Hx Chronic Kidney Disease: No - ENDOCRINE/METABOLIC Hx Endocrine Disorders: Yes Hx Diabetes Mellitus Type 2: Yes - HEMATOLOGICAL/ONCOLOGICAL Hx Blood Disorders: Yes Hx Anemia: Yes - INTEGUMENTARY Hx Dermatological Problems: No - MUSCULOSKELETAL/RHEUMATOLOGICAL Hx Musculoskeletal Disorders: Yes Hx Falls: Yes Hx Unsteady Gait: Yes - GASTROINTESTINAL Hx Gastrointestinal Disorders: No - GENITOURINARY/GYNECOLOGICAL Hx Genitourinary Disorders: No - PSYCHIATRIC Hx Psychophysiologic Disorder: No Hx Substance Use: No - SURGICAL HISTORY Hx Amputation: Yes (Right hallux distal tip) Hx Appendectomy: Yes Other/Comment: LLE Stent - Dr Garcia - ANESTHESIA Hx Anesthesia: Yes Hx Anesthesia Reactions: No Hx Malignant Hyperthermia: No Meds Allergies/Adverse Reactions: Allergies Allergy/AdvReac Type Severity Reaction Status Date / Time No Known Allergies Allergy Verified 08/30/18 18:38 - Medications Medications: Current Medications Sodium Chloride (Sodium Chloride 0.9%) 1,000 mls @ 100 mls/hr IV .Q10H EBEN Last Admin: 08/30/18 12:35 Dose: 100 mls/hr Physical Exam - Constitutional Appears: No Acute Distress - Head Exam Head Exam: ATRAUMATIC - Extremities Exam Additional comments: Left lower extremity exam: Vasc: DP and PT unpalpable. Cap refill delayed to the digits > 3 seconds. Temperature gradient Warm to warm from proximal to distal on the right side and warm to cool from proximal to distal on the left side. Left hallux slightly warm. Mild edema noted to the left hallux and the rigt heel and b/l perimalleolar area. Neuro: protective sensation diminished. Gross sensation intact Derm: Right foot: Left foot: Open ulceration noted to the lateral aspect of the heel. Measuring 3cm X 1.5cmX0.2cm, dry necrotic base, no drainage, no malodor, no tunn eling or undermining noted. No probe to bone. Periwound erythema noted. another area of erythema noted on the lateral aspect of the foot at the level of styloid process Left foot: Open ulceration noted to the medial aspect of the tip of the hallux. Measuring 5cm X 3cmX0.3cm, dry necrotic base, no drainage, no malodor, no tunneling or undermining noted. No probe to bone. Mild periwound erythema noted. MSK: pain with palpation to the left hallux, Sever pain on palpating the left heel. B/L HAV deformities, B/L cavus foot. Muscle power 4/5 to all groups b/l. - Neurological Exam Neurological exam: Alert Results - Vital Signs Recent Vital Signs: Last Vital Signs Temp 98.0 F 08/30/18 11:59 Pulse 87 08/30/18 11:59 Resp 18 08/30/18 11:59 BP 153/65 H 08/30/18 11:59 Pulse Ox 100 08/30/18 11:59 - Labs Result Diagrams: 08/30/18 12:25 08/30/18 12:25 Labs: Laboratory Results - last 24 hr 0408/30/18 08/30/18 12:25 12:25 12:25 WBC 10.5 D RBC 2.92 L Hgb 9.2 L Hct 27.6 L MCV 94.5 MCH 31.5 MCHC 33.3 RDW 13.7 Plt Count 302 MPV 10.2 Neut % (Auto) 76.6 H Lymph % (Auto) 15.5 L [place] % (Auto) 4.5 Eos % (Auto) 3.1 Baso % (Auto) 0.3 Lymph # (Auto) 1.6 [place] # (Auto) 0.5 Eos # (Auto) 0.3 Baso # (Auto) 0.03 Absolute Neuts (auto) 8.02 H PT INR APTT pO2 26 L VBG pH 7.32 VBG pCO2 50.0 VBG HCO3 25.8 VBG Total CO2 27.3 VBG O2 Sat (Calc) 53.6 VBG Base Excess -0.9 L VBG Potassium 4.8 Sodium 138.0 138 Chloride 106.0 104 Glucose 264 H Lactate 1.7 FiO2 21.0 Potassium 5.0 Carbon Dioxide 25 Anion Gap 14 BUN 37 H Creatinine 2.0 H Est GFR ( Amer) 30 Est GFR (Non-Af Amer) 24 Random Glucose 249 H Calcium 8.5 Total Bilirubin 0.3 AST 36 D ALT 7 Alkaline Phosphatase 100 Total Protein 8.4 H Albumin 3.6 Globulin 4.8 Albumin/Globulin Ratio 0.8 L Venous Blood Potassium 4.8 08/30/18 12:25 WBC RBC Hgb Hct MCV MCH MCHC RDW Plt Count MPV Neut % (Auto) Lymph % (Auto) [place] % (Auto) Eos % (Auto) Baso % (Auto) Lymph # (Auto) [place] # (Auto) Eos # (Auto) Baso # (Auto) Absolute Neuts (auto) PT 11.8 INR 1.04 APTT 31.9 pO2 VBG pH VBG pCO2 VBG HCO3 VBG Total CO2 VBG O2 Sat (Calc) VBG Base Excess VBG Potassium Sodium Chloride Glucose Lactate FiO2 Potassium Carbon Dioxide Anion Gap BUN Creatinine Est GFR ( Amer) Est GFR (Non-Af Amer) Random Glucose Calcium Total Bilirubin AST ALT Alkaline Phosphatase Total Protein Albumin Globulin Albumin/Globulin Ratio Venous Blood Potassium Assessment & Plan - Assessment and Plan (Free Text) Assessment: 73 y/o female with PMH of DM, HTN, HLD seen and evaluated in the ED for b/l foot ulcerations. Plan: Patient examined and evaluated in the ED Discussed plan in detail with attending Dr. Monroy Labs, charts, vitals reviewed- afebrile and absent leukocytosis Patient will be admitted under the medicine team B/L Foot X-rays: ID on board; appreciate recs Vasc. on board; reccs appreciated. Ordered b/l surgical shoes. Patient to ampulate in surgical shoes. Ordered Multipodus boot. Patient to stay in multipodus boot all the times while in bed. Wound cultures ordered by the ED DrAustin Ordered ESR/CRP. Ordered Santyl to be added to the dressing starting tomorrow. B/L feet dressed using betadine and DSD. Podiatry will continue to follow while patient is in house Thank you for allowing us to take part of patient's care. - Date & Time Date: 08/30/18 Time: 13:08 <Jason Monroy - Last Filed: 09/02/18 07:47> Meds - Medications Medications: Current Medications Amlodipine Besylate (Norvasc) 10 mg PO DAILY [facility] Last Admin: 09/02/18 05:23 Dose: 10 mg Atorvastatin Calcium (Lipitor) 10 mg PO DIN EBEN Last Admin: 09/01/18 18:42 Dose: 10 mg Carvedilol (Coreg) 3.125 mg PO BID [facility] Last Admin: 09/01/18 18:42 Dose: 3.125 mg Collagenase (Santyl) 1 gm TOP DAILY [facility] Last Admin: 09/01/18 11:04 Dose: 1 applic Ergocalciferol (Drisdol 50,000 Intl Units Cap) 1 cap PO QWK [facility] Furosemide (Lasix) 40 mg PO DAILY [facility] Last Admin: 09/01/18 11:02 Dose: 40 mg Gabapentin (Neurontin) 300 mg PO BID [facility]; Protocol Last Admin: 09/01/18 18:42 Dose: 300 mg Hydralazine HCl (Apresoline) 10 mg PO TID [facility] Last Admin: 09/01/18 18:44 Dose: 10 mg Sodium Chloride (Sodium Chloride 0.9%) 1,000 mls @ 100 mls/hr IV .Q10H EBEN Last Admin: 09/01/18 15:35 Dose: 100 mls/hr Insulin Human Regular (Humulin R Low) 0 units SC ACHS EBEN; Protocol Last Admin: 09/01/18 21:49 Dose: Not Given Mirtazapine (Remeron) 15 mg PO HS EBEN Last Admin: 09/01/18 21:57 Dose: 15 mg Pantoprazole Sodium (Protonix Ec Tab) 40 mg PO ACB EBEN Last Admin: 09/01/18 11:05 Dose: 40 mg Results - Vital Signs Recent Vital Signs: Last Vital Signs Temp 98.3 F 09/01/18 23:16 Pulse 70 09/01/18 23:16 Resp 18 09/01/18 23:16 BP 182/77 H 09/02/18 05:23 Pulse Ox 97 09/01/18 23:16 - Labs Result Diagrams: 09/01/18 07:00 09/01/18 07:00 Labs: Laboratory Results - last 24 hr 09/01/18 09/01/18 09/01/18 07:00 07:00 07:00 POC Glucose (mg/dL) Hemoglobin A1c 7.2 H Vitamin B12 352 Folate > 20.0 TSH 3rd Generation 3.01 09/01/18 09/01/18 09/01/18 11:13 16:20 21:27 POC Glucose (mg/dL) 170 H 143 H 152 H Hemoglobin A1c Vitamin B12 Folate TSH 3rd Generation 09/02/18 06:39 POC Glucose (mg/dL) 158 H Hemoglobin A1c Vitamin B12 Folate TSH 3rd Generation Attending/Attestation - Attestation I have personally seen and examined this patient.: Yes I have fully participated in the care of the patient.: Yes I have reviewed all pertinent clinical information: Yes
[2018-08-30 15:58] LABS: PH,URINE 6.5 (4.7-8.0); URINE BILIRUBIN NEGATIVE (NEGATIVE); URINE BLOOD SMALL (NEGATIVE); URINE GLUCOSE (UA) 250 mg/dL (NEGATIVE); URINE LEUKOCYTE ESTERASE SMALL Leu/uL (NEGATIVE); URINE PROTEIN >=300 mg/dL (<30 mg/dL); URINE UROBILINOGEN 0.2 E.U./dL (<1 E.U./dL)
[2018-08-30 16:07] LABS: URINE APPEARANCE CLEAR (CLEAR); URINE COLOR YELLOW (YELLOW)
[2018-08-30 16:14] LABS: URINE RBC 15 - 20 /hpf (0-2)
--- NOTE | 2018-08-30 16:23 | RAD ---
Date of service: 08/30/2018 PROCEDURE: Right Foot Radiographs. HISTORY: Right heel ulcer COMPARISON: Comparison made with prior study 02/15/2012. TECHNIQUE: 3 views obtained. FINDINGS: BONES: There has been interval amputation of the distal phalanx right great toe. No evidence of acute displaced fracture nor dislocation. No definitive cortical destructive changes are identified at time however the possibility of an early osteomyelitis cannot be excluded. Plantar and posterior calcaneal enthesophyte formation.. JOINTS: Mild hallux valgus deformity with overgrowth of the head of the 1st metatarsal and mild degenerative changes 1st MTP joint. There is prominence of the overlying medial soft tissues as well. Mild extension deformities of the 2nd 3rd 4th and 5th digits. SOFT TISSUES: Mild vascular calcifications are present. Questionable posterior plantar soft tissue swelling; rule out cellulitis. OTHER FINDINGS: None. IMPRESSION: Amputation distal phalanx right great toe. No evidence of acute displaced fracture nor dislocation. No definitive cortical destructive changes are identified at time however the possibility of an early osteomyelitis cannot be excluded. Consider follow-up MRI if cellulitis and/or early osteomyelitis suspected clinically. Questionable posterior plantar soft tissue swelling; rule out cellulitis.
--- NOTE | 2018-08-30 16:32 | RAD ---
Date of service: 08/30/2018 PROCEDURE: Left Foot Radiographs. HISTORY: Infection, foot COMPARISON: Correlation made with concurrent radiographs of the left great toe and prior radiographs of the left foot dated 06/02/2018 and MRI of the foot 06/03/2018.. TECHNIQUE: 3 views obtained. FINDINGS: BONES: No evidence of acute displaced fracture nor dislocation. The osseous structures appear grossly intact with no obvious cortical destructive changes Plantar and posterior calcaneal enthesophyte formation again noted JOINTS: Mild-moderate hallux valgus deformity with overgrowth of the head of the 1st metatarsal and mild DJD 1st MTP joint.. Degenerative changes DIP joint great toe Extension deformities of the 2nd and 5th proximal phalanges SOFT TISSUES: There appears to be diffuse soft tissue swelling left great toe possibly representing a cellulitis. Obvious subcutaneous emphysema. Mild vascular calcifications again noted OTHER FINDINGS: None. IMPRESSION: No evidence of acute displaced fracture nor dislocation. No definitive cortical destructive changes however the possibility of an early osteomyelitis not excluded.. Soft tissue swelling left great toe likely representing cellulitis. Consider follow-up MRI if further evaluation is required
--- NOTE | 2018-08-30 16:33 | RAD ---
PROCEDURE: Radiographs of the left great toe. TECHNIQUE:: AP radiograph of the left foot, with oblique and lateral view of the left great toe. 3 view obtained. COMPARISON: Comparison made with concurrent radiographs left foot FINDINGS: BONES: No evidence of acute displaced fracture nor dislocation. No definitive cortical destructive changes however the possibility of an early osteomyelitis not excluded.. Soft tissue swelling left great toe likely representing cellulitis. Consider follow-up MRI if further evaluation is required JOINTS: Mild-moderate hallux valgus deformity with overgrowth of the head of the 1st metatarsal and mild DJD 1st MTP joint.. Degenerative changes DIP joint great toe SOFT TISSUES: Soft tissue swelling left great toe possibly representing cellulitis. No evidence of subcutaneous emphysema OTHER FINDINGS: None. IMPRESSION: No evidence of acute displaced fracture nor dislocation. No definitive cortical destructive changes however the possibility of an early osteomyelitis not excluded.. Soft tissue swelling left great toe likely representing cellulitis. Consider follow-up MRI if further evaluation is required
[2018-08-30 19:14] VITALS: BMI 38.0
[2018-08-30] MEDS ORDERED: Influenza Vaccine 60 mcg/0.5 mL SYR (4YR UP) IM ONE (19:14)
[2018-08-30] MEDS ORDERED: Pneumococcal 23-Valent Vaccine IM ONE (19:14)
[2018-08-30] MEDS: Insulin Reg-LOW-Coverage SC SCH (23:14)
[2018-08-31] MEDS: Insulin Reg-LOW-Coverage SC SCH ×4 (08:11→21:50)
[2018-08-31] MEDS: Pantoprazole 40 mg EC Tab PO SCH (09:38)
--- NOTE | 2018-08-31 11:37 | CP.PCM.PN ---
<Spenser Encinas - Last Filed: 08/31/18 11:27> Subjective - Date & Time of Evaluation Date of Evaluation: 08/31/18 Time of Evaluation: 11:28 - Subjective Subjective: Podiatry Consult Note- Dr. Monroy 73 y/o female seen and evaluated in the bedside for b/l foot ulcerations. Patient states that her right foot is still painful at the heel and the outide.Patient sister was at the bedside. Patient is a poor historian and is not able to provide full history. As per her chart there was no overnight n/v/sob/cp/chills or f. Objective - Vital Signs/Intake and Output Vital Signs (last 24 hours): Temp Pulse Resp BP Pulse Ox 98.7 F 75 18 155/78 H 95 08/31/18 08:24 08/31/18 08:24 08/31/18 08:24 08/31/18 09:38 08/31/18 08:24 - Medications Medications: Current Medications Amlodipine Besylate (Norvasc) 10 mg PO DAILY [facility] Last Admin: 08/31/18 09:38 Dose: 10 mg Atorvastatin Calcium (Lipitor) 10 mg PO DIN [facility] Carvedilol (Coreg) 3.125 mg PO BID [facility] Last Admin: 08/31/18 09:38 Dose: 3.125 mg Collagenase (Santyl) 1 gm TOP DAILY [facility] Ergocalciferol (Drisdol 50,000 Intl Units Cap) 1 cap PO QWK [facility] Furosemide (Lasix) 40 mg PO DAILY [facility] Last Admin: 08/31/18 09:38 Dose: 40 mg Gabapentin (Neurontin) 300 mg PO BID [facility]; Protocol Last Admin: 08/31/18 09:38 Dose: 300 mg Hydralazine HCl (Apresoline) 10 mg PO TID [facility] Last Admin: 08/31/18 09:38 Dose: 10 mg Sodium Chloride (Sodium Chloride 0.9%) 1,000 mls @ 100 mls/hr IV .Q10H [facility] Last Admin: 08/30/18 12:35 Dose: 100 mls/hr Insulin Human Regular (Humulin R Low) 0 units SC ACHS [facility]; Protocol Last Admin: 08/31/18 08:11 Dose: Not Given Mirtazapine (Remeron) 15 mg PO HS [facility] Last Admin: 08/30/18 23:00 Dose: 15 mg Pantoprazole Sodium (Protonix Ec Tab) 40 mg PO ACB [facility] Last Admin: 08/31/18 09:38 Dose: 40 mg - Labs Labs: 08/30/18 12:25 08/30/18 12:25 PT 11.8 SECONDS (9.4-12.5) 08/30/18 12:25 INR 1.04 08/30/18 12:25 APTT 31.9 Seconds (26.9-38.3) 08/30/18 12:25 - Constitutional Appears: Non-toxic, No Acute Distress - Head Exam Head Exam: ATRAUMATIC - Extremities Exam Additional comments: Left lower extremity exam: Vasc: DP and PT unpalpable. Cap refill delayed to the digits > 3 seconds. Temperature gradient Warm to warm from proximal to distal on the right side and warm to cool from proximal to distal on the left side. Left hallux slightly warm. Mild edema noted to the left hallux and the right heel and b/l perimall eolar area. Neuro: protective sensation diminished. Gross sensation intact Derm: Right foot: Left foot: Open ulceration noted to the lateral aspect of the heel. Measuring 3cm X 1.5cmX0.2cm, dry necrotic base, no drainage, no malodor, no tunneling or undermining noted. No probe to bone. Lynda-wound erythema noted. Another area of erythema and superficial ulceration covered with necrotic scab noted on the lateral aspect of the foot at the level of styloid process, no drainage, no malodor, no tunneling or undermining noted. Left foot: Open ulceration noted to the medial aspect of the tip of the hallux. Measuring 5cm X 3cmX0.3cm, dry necrotic base, no drainage, no malodor, no tunneling or undermining noted. No probe to bone. Mild periwound erythema noted. MSK: pain with palpation to the left hallux, Sever pain on palpating the left heel. B/L HAV deformities, B/L cavus foot. Muscle power 4/5 to all groups b/l. - Neurological Exam Neurological Exam: Alert, Awake Assessment and Plan - Assessment and Plan (Free Text) Assessment: 73 y/o female seen and evaluated in the bedside for b/l foot ulcerations. Plan: Patient examined and evaluated in the bedside Discussed plan in detail with attending Dr. Monroy Labs, charts, vitals reviewed- afebrile and absent leukocytosis B/L Foot X-rays: Right foot: Amputation distal phalanx right great toe. No evidence of acute displaced fracture nor dislocation. No definitive cortical destructive changes are identified at time however the possibility of an early osteomyelitis cannot be excluded. Consider follow-up MRI if cellulitis and/or early osteomyelitis suspected clinically. Left foot: No evidence of acute displaced fracture nor dislocation. No definitive cortical destructive changes however the possibility of an early osteomyelitis not excluded.. Soft tissue swelling left great toe likely representing cellulitis. Consider follow-up MRI if further evaluation is required B/L foot MRI pending reports. ID on board; appreciate recs Vasc. on board; reccs appreciated. Patient to ambulate in surgical shoes. Patient to stay in multipodus boot all the times while in bed. Wound cultures: pending ESR: 140, CRP: 6.40. Ordered Santyl to be added to the dressing starting tomorrow. B/L feet dressed using xeroform and DSD. Podiatry will continue to follow while patient is in house <Jason Monroy - Last Filed: 09/02/18 07:46> Objective - Vital Signs/Intake and Output Vital Signs (last 24 hours): Temp Pulse Resp BP Pulse Ox 98.3 F 70 18 182/77 H 97 09/01/18 23:16 09/01/18 23:16 09/01/18 23:16 09/02/18 05:23 09/01/18 23:16 Intake and Output: 09/02/18 09/02/18 06:59 18:59 Intake Total 2920 Output Total 800 Balance 2120 - Medications Medications: Current Medications Amlodipine Besylate (Norvasc) 10 mg PO DAILY [facility] Last Admin: 09/02/18 05:23 Dose: 10 mg Atorvastatin Calcium (Lipitor) 10 mg PO DIN [facility] Last Admin: 09/01/18 18:42 Dose: 10 mg Carvedilol (Coreg) 3.125 mg PO BID [facility] Last Admin: 09/01/18 18:42 Dose: 3.125 mg Collagenase (Santyl) 1 gm TOP DAILY [facility] Last Admin: 09/01/18 11:04 Dose: 1 applic Ergocalciferol (Drisdol 50,000 Intl Units Cap) 1 cap PO QWK [facility] Furosemide (Lasix) 40 mg PO DAILY [facility] Last Admin: 09/01/18 11:02 Dose: 40 mg Gabapentin (Neurontin) 300 mg PO BID [facility]; Protocol Last Admin: 09/01/18 18:42 Dose: 300 mg Hydralazine HCl (Apresoline) 10 mg PO TID [facility] Last Admin: 09/01/18 18:44 Dose: 10 mg Sodium Chloride (Sodium Chloride 0.9%) 1,000 mls @ 100 mls/hr IV .Q10H [facility] Last Admin: 09/01/18 15:35 Dose: 100 mls/hr Insulin Human Regular (Humulin R Low) 0 units SC ACHS [facility]; Protocol Last Admin: 09/01/18 21:49 Dose: Not Given Mirtazapine (Remeron) 15 mg PO HS [facility] Last Admin: 09/01/18 21:57 Dose: 15 mg Pantoprazole Sodium (Protonix Ec Tab) 40 mg PO ACB [facility] Last Admin: 09/01/18 11:05 Dose: 40 mg - Labs Labs: 09/01/18 07:00 09/01/18 07:00 PT 11.8 SECONDS (9.4-12.5) 08/30/18 12:25 INR 1.04 08/30/18 12:25 APTT 31.9 Seconds (26.9-38.3) 08/30/18 12:25 Attending/Attestation - Attestation I have personally seen and examined this patient.: Yes I have fully participated in the care of the patient.: Yes I have reviewed all pertinent clinical information, including history, physical exam and plan: Yes
--- NOTE | 2018-08-31 20:03 | CON ---
DATE OF CONSULTATION: 08/31/2018 The patient is seen in Room 569, Bed 1. CHIEF COMPLAINT: Bilateral foot infection times several days. HISTORY OF PRESENT ILLNESS: This is a 73-year-old female with past medical history of diabetes mellitus, obesity, hyperlipidemia, severe peripheral arterial disease with left lower extremity stent placement, history of right eye blindness, who was admitted through the emergency room, was seen by Dr. Cosme Nuñez in the emergency room and states that the patient has had also a cerebrovascular accident in 2014 with a left upper extremity weakness and baseline confusion, who was admitted with extremity ulcers, no fevers and no chills. There have been no fevers reported, no chills, no chest pain, no abdominal pain, diarrhea or constipation. PAST MEDICAL HISTORY: Right eye blindness, diabetes mellitus, hypertension, obesity, hyperlipidemia, peripheral arterial disease, and cerebrovascular disease. PAST SURGICAL HISTORY: Significant for left lower extremity weakness and a cataract surgery. MEDICATIONS AT HOME: Norvasc, statin, omeprazole, Remeron, insulin, Neurontin, Lasix and Coreg. ALLERGIES: THE PATIENT HAS NO KNOWN ALLERGIES. REVIEW OF SYSTEMS: Reveals 12-point review of systems performed. PHYSICAL EXAMINATION: GENERAL: The patient is in bed in no acute distress. VITAL SIGNS: Temperature of 98, blood pressure is 150/70, respiratory rate of 18, heart rate of 79. HEENT: Unremarkable. NECK: Supple. LUNGS: Decreased breath sounds. HEART: Normal S1 and S2. ABDOMEN: Soft, nontender. EXTREMITIES: Examination of the foot reveals that right foot has a lateral heel ulcer approximately size of a nickel and the left foot big toe has also an ulcer, neither have any evidence of infection, as far as warm to touch or discharge. IMAGING DATA: The patient had an MRI of the foot, the results are not available. Podiatry consultation is reviewed. X-ray results are reviewed. Cannot rule out early osteo. Emergency room evaluation is reviewed by Dr. Cosme Nuñez. ASSESSMENT/PLAN: This is a 73-year-old female with diabetes, hypertension, obesity, peripheral arterial disease, now with a right lateral heel ulcer and a left big toe ulcer, must rule out underlying osteomyelitis and further progression of peripheral arterial disease. At this time, the patient is not having any systemic illness. We will hold off any antibiotics since she does have an elevated sed rate of 140 with creatinine of 2. The patient with a history of kidney disease. In the past, the patient's creatinine was 1.7-2.4 range and proteinuria. We will hold off on antibiotics pending culture results and MRI results. We will need either a deep tissue culture, a bone culture if it is osteomyelitis. Again, we will hold off on antibiotics. The patient is not systemically ill. Pending the bone culture results, MRI results, determine the extent and the microbiological diagnosis of osteomyelitis. If the MRI is positive, we follow with you. Delano Mohan MD
[2018-08-31] MEDS: Sodium Chloride 0.9% 1,000 ML IV SCH (21:47)
--- NOTE | 2018-08-31 23:18 | PN ---
DATE: 08/31/2018 SUBJECTIVE: The patient is a 73-year-old female. Looking comfortable. No fever. No chills. No hematuria. No hematochezia. No headache. No dizziness. No chest pain. No palpitation. Both feet have dressing. PHYSICAL EXAMINATION: VITAL SIGNS: Temperature 98, blood pressure 150/70, respiratory rate 18, heart rate 79. HEENT: Head; normocephalic, atraumatic. Eyes; PERRLA, extraocular muscles are intact, conjunctivae clear. Nose patent. NECK: Supple. No carotid bruits. No JVD or thyromegaly. CHEST: Bilaterally symmetrical. HEART: S1 and S2 positive. LUNGS: Clear to auscultation. ABDOMEN: Soft. Bowel sounds present. No organomegaly. EXTREMITIES: No edema. No cyanosis. NEUROLOGIC: The patient is awake and alert. Moving all four extremities. No focal deficits. LABORATORY DATA: White blood cells 7.5, hemoglobin 9.2, hematocrit 27.6, platelets 302. Sodium 138, potassium 5, BUN of 37, creatinine 2, glucose 140, random glucose 249. ASSESSMENT AND PLAN: Ms. Suzie Rosado is a 73-year-old lady with anemia, high erythrocyte sedimentation rate, renal insufficiency, hyperglycemia, proteinuria, glucosuria, hematuria, urinary tract infection, has history of right eye blindness, diabetes mellitus, hypertension, obesity, hypercholesterolemia, peripheral artery disease, cerebrovascular accident, history of osteomyelitis. According to Infectious Disease, they will hold off any antibiotics. She has elevated sed rate of 140. History of kidney disease. We will wait for MRI result. According Infectious Disease, we will need either a deep tissue culture or a deep bone culture if it is not osteomyelitis. Again, we will hold off the antibiotics as per Infectious Disease. Antibiotic duration depends on the result of osteomyelitis. Continue present treatment. Out of bed physical therapy. We will follow up. Elva Mooney MD
[2018-09-01 07:22] LABS: HEMOGLOBIN 8.6 g/dL (12.0-16.0); MEAN CELL VOLUME 94.6 fl (80.0-105.0); MEAN CORPUSCULAR HEMOGLOBIN 31.2 pg (25.0-35.0); MEAN PLATELET VOLUME 9.8 fl (7.0-11.0); RBC 2.76 10^6/uL (3.5-6.1); RED CELL DISTRIBUTION WIDTH 13.8 % (11.5-14.5); WHITE BLOOD COUNT 7.9 10^3/uL (4.5-11.0)
--- NOTE | 2018-09-01 07:30 | CON ---
DATE: 08/31/2018 ORTHOPEDIC REPORT LOCATION: Room 569, bed 1. HISTORY OF PRESENT ILLNESS: The patient is a 73-year-old female. She was admitted under Dr. Mooney's service, where she actually had Podiatry consults and she was followed by Podiatry for gangrenous big toe left foot and an ulcer of the right heel lateral side front position. She does have also consults for Vascular Surgery and a Podiatry consult. Right now, all the wounds are dry, there is no reason for any orthopedic procedures at this time, and her feet are warm. She has significant peripheral vascular disease. I would have her followup by the Podiatry and Vascular service, because these are going to be the two main compartments that are going to handle her diabetic foot ulcers with poor circulation. Right now, they are just doing dressing changes and they are going to be evaluated by Vascular Surgery and then Podiatry soon. El Vogel DO
[2018-09-01 07:32] LABS: IRON 61 ug/dL (45-180)
[2018-09-01 07:41] LABS: % IRON SATURATION 29 % (20-55); TOTAL IRON BINDING CAPACITY 210 ug/dL (265-497)
[2018-09-01 07:42] LABS: LDL CHOLESTEROL 44 mg/dL (0-129)
[2018-09-01 07:43] LABS: BLOOD UREA NITROGEN 26 mg/dL (7-21); CALCIUM 8.6 mg/dL (8.4-10.5); GFR NON-AFRICAN AMERICAN 24; HDL CHOLESTEROL 23 mg/dL (29-60)
--- NOTE | 2018-09-01 08:18 | HP ---
DATE OF EXAM: 08/30/2018 The patient is a 73-year-old female. The patient was seen and examined at the bedside on 08/30/2018. CHIEF COMPLAINT: Feet pain. HISTORY OF PRESENT ILLNESS: The patient is a 73-year-old female with past medical history of hypertension, PVD, left leg stent, and CVA. She is living at home with her sister. Had Podiatry see, Dr. Jason Monroy, for left foot diabetic ulcers. Per sister, the patient was seen by Wound Care nurse two days ago who noticed foul odor coming out of the left first digit. Then, sister brought the patient to Dr. Monroy who directed the patient for evaluation immediately in the ER. Sister mentioned the patient had similar fever yesterday; however, no longer at this moment. No hematuria or hematochezia. No headache or dizziness. No chest pain, no palpitations. PAST MEDICAL HISTORY: Diabetes mellitus type 2, anemia, history of fall, history of appendectomy, right hallux distal tip amputation, left lower extremity stent by Dr. Garcia. FAMILY HISTORY: Father and mother, noncontributory. HABITS: Never smoked, no drugs, no ethanol. ALLERGIES: THE PATIENT IS NOT ALLERGIC WITH ANY MEDICATION. HOME MEDICATIONS: Coreg, Lasix, Remeron, alprazolam, vitamin D, and Pulmicort. REVIEW OF SYSTEMS: The patient was seen and examined at the bedside, looking comfortable. No fever. No chills. No hematuria or hematochezia. No headache, no dizziness. No chest pain, no palpitations. PHYSICAL EXAMINATION: VITAL SIGNS: Temperature 98, pulse 87, respiratory rate 18, and blood pressure 153/55. HEENT: Head is normocephalic and atraumatic. Eyes; PERRLA, extraocular muscles intact, conjunctivae clear. Nose patent. NECK: Supple. No carotid bruits. No JVD. No thyromegaly. CHEST: Bilaterally symmetrical. HEART: S1 and S2 positive. LUNGS: Clear to auscultation. ABDOMEN: Soft. Bowel sounds present. No organomegaly. EXTREMITIES: No edema. No cyanosis. NEUROLOGIC: The patient is awake and alert, follows simple commands. Both feet have dressing. LABORATORY DATA: White blood cells 10.5, hemoglobin 9.2, hematocrit 27.6, and platelets 302. Sodium 138, potassium 5.0, BUN 37, creatinine 2.0, and glucose 140. ASSESSMENT AND PLAN: Ms. Suzie Rosado is 73 years of age. She has anemia, increased ESR, renal insufficiency, hyperglycemia, proteinuria, INR 1.04, , glucosuria, hematuria, small urinary tract infection. Gastrointestinal and deep vein thrombosis prophylaxis. Repeat labs. Appreciated other consultants' input. We will follow up. Elva Mooney MD MTDD
[2018-09-01] MEDS: Insulin Reg-LOW-Coverage SC SCH ×4 (08:28→21:49)
[2018-09-01] MEDS: Collagenase 250 Units/gm Ointment(30 gm) TOP SCH (11:04)
[2018-09-01] MEDS: Pantoprazole 40 mg EC Tab PO SCH (11:05)
--- NOTE | 2018-09-01 13:13 | CP.PCM.PN ---
Subjective - Date & Time of Evaluation Date of Evaluation: 09/01/18 Time of Evaluation: 13:09 - Subjective Subjective: Podiatry Consult Note- Dr. Monroy/Dr. Leos 73 y/o female seen and evaluated in the bedside for b/l foot ulcerations. Patient states that her right foot is still painful at the heel. Patient sister is at the bedside. Patient is a poor historian and is not able to provide full history. As per her chart there was no overnight n/v/sob/cp/chills or f. Objective - Vital Signs/Intake and Output Vital Signs (last 24 hours): Temp Pulse Resp BP Pulse Ox 98.9 F 72 18 178/84 H 98 09/01/18 06:00 09/01/18 06:00 09/01/18 06:00 09/01/18 11:02 09/01/18 06:00 Intake and Output: 09/01/18 09/01/18 06:59 18:59 Intake Total 120 360 Output Total 500 Balance -380 360 - Medications Medications: Current Medications Amlodipine Besylate (Norvasc) 10 mg PO DAILY [facility] Last Admin: 09/01/18 11:01 Dose: 10 mg Atorvastatin Calcium (Lipitor) 10 mg PO DIN [facility] Last Admin: 08/31/18 17:23 Dose: 10 mg Carvedilol (Coreg) 3.125 mg PO BID [facility] Last Admin: 09/01/18 11:02 Dose: 3.125 mg Collagenase (Santyl) 1 gm TOP DAILY [facility] Last Admin: 09/01/18 11:04 Dose: 1 applic Ergocalciferol (Drisdol 50,000 Intl Units Cap) 1 cap PO QWK [facility] Furosemide (Lasix) 40 mg PO DAILY [facility] Last Admin: 09/01/18 11:02 Dose: 40 mg Gabapentin (Neurontin) 300 mg PO BID [facility]; Protocol Last Admin: 09/01/18 11:02 Dose: 300 mg Hydralazine HCl (Apresoline) 10 mg PO TID [facility] Last Admin: 09/01/18 11:02 Dose: 10 mg Sodium Chloride (Sodium Chloride 0.9%) 1,000 mls @ 100 mls/hr IV .Q10H [facility] Last Admin: 08/31/18 21:47 Dose: 100 mls/hr Insulin Human Regular (Humulin R Low) 0 units SC ACHS [facility]; Protocol Last Admin: 09/01/18 11:58 Dose: 1 unit Mirtazapine (Remeron) 15 mg PO HS [facility] Last Admin: 08/31/18 21:41 Dose: 15 mg Pantoprazole Sodium (Protonix Ec Tab) 40 mg PO ACB [facility] Last Admin: 09/01/18 11:05 Dose: 40 mg - Labs Labs: 09/01/18 07:00 09/01/18 07:00 PT 11.8 SECONDS (9.4-12.5) 08/30/18 12:25 INR 1.04 08/30/18 12:25 APTT 31.9 Seconds (26.9-38.3) 08/30/18 12:25 - Constitutional Appears: Well, Non-toxic, No Acute Distress - Head Exam Head Exam: ATRAUMATIC, NORMOCEPHALIC - Extremities Exam Additional comments: Left lower extremity exam: Vasc: DP and PT unpalpable. Cap refill delayed to the digits > 3 seconds. T emperature gradient Warm to warm from proximal to distal on the right side and warm to cool from proximal to distal on the left side. Left hallux slightly warm. Mild edema noted to the left hallux and the right heel and b/l perimalleolar area. Neuro: protective sensation diminished. Gross sensation intact Derm: Right foot: Left foot: Open ulceration noted to the lateral aspect of the heel. Measuring 3cm X 1.5cmX0.2cm, dry necrotic base, no drainage, no malodor, no tunneling or undermining noted. No probe to bone. Lynda-wound erythema noted. Another area of erythema and superficial ulceration covered with necrotic scab noted on the lateral aspect of the foot at the level of styloid process, no drainage, no malodor, no tunneling or undermining noted. Left foot: Open ulceration noted to the medial aspect of the tip of the hallux. Measuring 5cm X 3cmX0.3cm, dry necrotic base, no drainage, no malodor, no tunneling or undermining noted. No probe to bone. Mild periwound erythema noted. MSK: pain with palpation to the left hallux, Sever pain on palpating the left heel. B/L HAV deformities, B/L cavus foot. Muscle power 4/5 to all groups b/l. - Neurological Exam Neurological Exam: Alert, Awake, Oriented x3 - Psychiatric Exam Psychiatric exam: Normal Affect, Normal Mood Assessment and Plan - Assessment and Plan (Free Text) Assessment: 73 y/o female seen and evaluated in the bedside for b/l foot ulcerations. Plan: Patient examined and evaluated in the bedside Discussed plan in detail with attending Dr. Leos Labs, charts, vitals reviewed- afebrile and absent leukocytosis ESR: 140, CRP: 6.40 B/L Foot X-rays:Right foot: Amputation distal phalanx right great toe. No evidence of acute displaced fracture nor dislocation. No definitive cortical destructive changes are identified at time however the possibility of an early osteomyelitis cannot be excluded. Consider follow-up MRI if cellulitis and/or early osteomyelitis suspected clinically; Left foot: No evidence of acute displaced fracture nor dislocation. No definitive cortical destructive changes however the possibility of an early osteomyelitis not excluded.. Soft tissue swelling left great toe likely representing cellulitis. Consider follow-up MRI if further evaluation is required MRI Reports: Right- no definite sign of osteomyelitis, Left- no definite sign of osteomyelitis ID on board: appreciate recs Vasc. on board: reccs appreciated. Patient to ambulate in surgical shoes Patient to stay in multipodus boot all the times while in bed B/L feet dressed using Santyl and DSD Podiatry will continue to follow while patient is in house
[2018-09-01 13:48] LABS: FOLATE > 20.0 ng/mL
--- NOTE | 2018-09-01 15:30 | MRI ---
Date of service: 08/30/2018 PROCEDURE: MRI Right Foot HISTORY: Pain. COMPARISON: None available. TECHNIQUE: Multiecho multiplanar sequences were performed through the right foot without the use of intravenous contrast. FINDINGS: BONES: Severe plantar and retrocalcaneal heel spurs significant thickening of the plantar fascia consistent with chronic plantar fasciitis with superimposed edema in the plantar musculature. MUSCLES: Normal. SOFT TISSUES: Normal. LISFRANC LIGAMENT: Normal. PLANTAR PLATE: Normal. EXTENSOR TENDONS: Normal. FLEXOR TENDONS: Normal. OTHER FINDINGS: None. IMPRESSION: Severe plantar and retrocalcaneal heel spurs significant thickening of the plantar fascia consistent with chronic plantar fasciitis with superimposed edema in the plantar musculature. No evidence of osteomyelitis.
[2018-09-01] MEDS: Sodium Chloride 0.9% 1,000 ML IV SCH (15:35)
--- NOTE | 2018-09-01 15:46 | MRI ---
Date of service: 08/30/2018 PROCEDURE: MRI Left Foot HISTORY: Pain. COMPARISON: None available. TECHNIQUE: Multiecho multiplanar sequences were performed through the left foot without the use of intravenous contrast. FINDINGS: BONES: Mild hallux valgus. No evidence of osteomyelitis. Mild degenerative marrow signal abnormality at the 1st proximal interphalangeal joint. MUSCLES: The mild edema in the plantar and intra digital musculature. SOFT TISSUES: Normal. LISFRANC LIGAMENT: Normal. PLANTAR PLATE: Normal. EXTENSOR TENDONS: Normal. FLEXOR TENDONS: Normal. OTHER FINDINGS: Thickening of the plantar fascia compatible with mild chronic plantar fasciitis. IMPRESSION: Mild hallux valgus. No evidence of osteomyelitis.
--- NOTE | 2018-09-01 18:06 | US ---
PROCEDURE: Lower extremity OLAMIDE exam HISTORY: Peripheral vascular disease with pain and ulceration. Diabetes. PHYSICIAN(S): Doron Garcia MD. FINDINGS: The resting ABIs may be inaccurate due to noncompliant vessels: Right, 0.62 and left, 0.7 The brachial systolic pressures are symmetric. The high thigh PVR waveforms are relatively symmetric and normal. The right calf PVR waveform is decreased in amplitude compared to the left. This is suggestive of right SFA occlusive disease. The left calf PVR waveform is normal and augments nor The ankle and metatarsal waveforms are moderately to severely blunted, greater on the right than the left. The findings are consistent with bilateral popliteal, trifurcation, and/or tibial disease. IMPRESSION: 1. Bilateral popliteal, trifurcation, and/or tibial disease 2. Possible right SFA occlusive disease. 3. If clinically indicated, further evaluation with MRA with gadolinium runoff, CTA runoff, or conventional arteriography can be considered
--- NOTE | 2018-09-01 20:14 | PN ---
DATE: 09/01/2018 This case was discussed with Dr. Guerin. SUBJECTIVE: This is a 73-year-old female patient came in with chest pain and also abdominal pain. She was diagnosed with diabetic foot ulcer, atrial fibrillation, UTI, and syncope. The patient has past medical history of diabetes type 2, hyperlipidemia, obesity, hypertension, cellulitis of the foot, chronic kidney disease. The patient was seen today at bedside. No acute distress is noted. Chronically ill. The patient denied facial pain or numbness, chest pain, palpitation, shortness of breath, abdominal pain, or constipation. She did report pain to both heels and more so on the right than left. MEDICATIONS: Norvasc 10 mg p.o. daily, Lipitor 10 mg p.o. daily, Coreg 8.125 mL twice a day, Santyl 1 mg to affected areas, Drisdol 50,000 unit weekly, Lasix 40 mg daily, Neurontin 300 mg b.i.d., Apresoline hydralazine 10 mg three times a day, Accu-Chek a.c. and at bedtime with insulin coverage, Remeron 15 mg at night, Protonix 40 mg. PHYSICAL EXAMINATION VITAL SIGNS: Temperature 97.6, pulse rate 75, blood pressure was elevated today at 183/72, O2 saturation at 97% on room air. HEENT: Normocephalic. PERRLA. NECK: Supple. LUNGS: No lung infection. Clear to auscultation. HEART: S1 and S2 regular rhythm. ABDOMEN: Soft and distended. Positive bowel sounds. EXTREMITIES: The patient has no joint swelling. Moves all extremities. SKIN: bilateraly decubitus ulcers to heels Normal inspection, was not measured today, they were wrapped up. The patient was not willing to get them unwrapped due to the pain. I did review note wound care nurse and podiatry regarding size and tissue. Otherwise, skin is intact, normal color. NEUROLOGY: The patient was alert and oriented x3. No focal deficits noted. LAB NOTED ASSESSMENT: PVD, IDDM, HTN, BILATERAL HEEL ULCERS, ANEMIA PLAN: Infectious Disease is on the case and Podiatry. We will follow up with their recommendations and their tests. The patient's blood sugar is 170 fasting. We will continue to monitor the patient's fasting blood sugars. she will need PT due to ulcers being on both heels, wound cultures will be reviewed. X-Ray was reviewed may consider MRI of foot r/o osteomylitis will f/u PT IS S/E AT BED SIDE , AGREED ALL ABOVE Herrera Smith APN Elva Mooney MD E[facility]
--- NOTE | 2018-09-01 22:57 | CP.PCM.PN ---
Subjective - Date & Time of Evaluation Date of Evaluation: 09/01/18 Time of Evaluation: 07:40 - Subjective Subjective: Afebrile, not in distress. Objective - Vital Signs/Intake and Output Vital Signs (last 24 hours): Temp Pulse Resp BP Pulse Ox 98.7 F 73 20 159/68 H 94 L 08/31/18 22:00 08/31/18 22:00 08/31/18 22:00 08/31/18 22:00 08/31/18 22:00 Intake and Output: 08/31/18 09/01/18 18:59 06:59 Intake Total 480 Output Total 500 Balance -20 - Medications Medications: Current Medications Amlodipine Besylate (Norvasc) 10 mg PO DAILY [facility] Last Admin: 08/31/18 09:38 Dose: 10 mg Atorvastatin Calcium (Lipitor) 10 mg PO DIN [facility] Last Admin: 08/31/18 17:23 Dose: 10 mg Carvedilol (Coreg) 3.125 mg PO BID [facility] Last Admin: 08/31/18 17:23 Dose: 3.125 mg Collagenase (Santyl) 1 gm TOP DAILY [facility] Ergocalciferol (Drisdol 50,000 Intl Units Cap) 1 cap PO QWK [facility] Furosemide (Lasix) 40 mg PO DAILY [facility] Last Admin: 08/31/18 09:38 Dose: 40 mg Gabapentin (Neurontin) 300 mg PO BID [facility]; Protocol Last Admin: 08/31/18 17:23 Dose: 300 mg Hydralazine HCl (Apresoline) 10 mg PO TID [facility] Last Admin: 08/31/18 17:23 Dose: 10 mg Sodium Chloride (Sodium Chloride 0.9%) 1,000 mls @ 100 mls/hr IV .Q10H [facility] Last Admin: 08/31/18 21:47 Dose: 100 mls/hr Insulin Human Regular (Humulin R Low) 0 units SC ACHS [facility]; Protocol Last Admin: 08/31/18 21:50 Dose: Not Given Mirtazapine (Remeron) 15 mg PO HS [facility] Last Admin: 08/31/18 21:41 Dose: 15 mg Pantoprazole Sodium (Protonix Ec Tab) 40 mg PO ACB [facility] Last Admin: 08/31/18 09:38 Dose: 40 mg - Labs Labs: 08/30/18 12:25 08/30/18 12:25 PT 11.8 SECONDS (9.4-12.5) 08/30/18 12:25 INR 1.04 08/30/18 12:25 APTT 31.9 Seconds (26.9-38.3) 08/30/18 12:25 - Constitutional Appears: Chronically Ill - Head Exam Head Exam: NORMAL INSPECTION - Respiratory Exam Respiratory Exam: Decreased Breath Sounds - Cardiovascular Exam Cardiovascular Exam: +S1, +S2 - GI/Abdominal Exam GI & Abdominal Exam: Soft. absent: Tenderness Assessment and Plan - Assessment and Plan (Free Text) Plan: Assessment Left hallux infected ulcer and right lateral ulcer consider UTI with gram negative bacilli chronic renal failure history of right hallux skin and skin structure infection DM HTN dyslipidemia Plan follow up MRI of the foot and will monitor off antibiotics since there are no signs of systemic infection
[2018-09-02] MEDS: Insulin Reg-LOW-Coverage SC SCH ×4 (07:53→21:53)
[2018-09-02] MEDS: Pantoprazole 40 mg EC Tab PO SCH (07:54)
[2018-09-02] MEDS: Collagenase 250 Units/gm Ointment(30 gm) TOP SCH (09:19)
--- NOTE | 2018-09-02 10:51 | CP.PCM.PN ---
Subjective - Date & Time of Evaluation Date of Evaluation: 09/02/18 Time of Evaluation: 10:46 - Subjective Subjective: Podiatry Consult Note- Dr. Monroy/Dr. Leos 73 y/o female seen and evaluated in the bedside for b/l foot ulcerations. Patient states that her right foot is still painful at the heel. Patient sister is at the bedside. Patient is a poor historian and is not able to provide full history. As per her chart there was no overnight n/v/sob/cp/chills or f. Objective - Vital Signs/Intake and Output Vital Signs (last 24 hours): Temp Pulse Resp BP Pulse Ox 98.3 F 87 18 176/87 H 97 09/02/18 06:00 09/02/18 09:27 09/02/18 06:00 09/02/18 09:27 09/02/18 06:00 Intake and Output: 09/02/18 09/02/18 06:59 18:59 Intake Total 2920 Output Total 800 Balance 2120 - Medications Medications: Current Medications Amlodipine Besylate (Norvasc) 10 mg PO DAILY [facility] Last Admin: 09/02/18 09:21 Dose: Not Given Atorvastatin Calcium (Lipitor) 10 mg PO DIN [facility] Last Admin: 09/01/18 18:42 Dose: 10 mg Carvedilol (Coreg) 3.125 mg PO BID [facility] Last Admin: 09/02/18 09:21 Dose: 3.125 mg Collagenase (Santyl) 1 gm TOP DAILY [facility] Last Admin: 09/02/18 09:19 Dose: 1 applic Ergocalciferol (Drisdol 50,000 Intl Units Cap) 1 cap PO QWK [facility] Furosemide (Lasix) 40 mg PO DAILY [facility] Last Admin: 09/02/18 09:21 Dose: 40 mg Gabapentin (Neurontin) 300 mg PO BID [facility]; Protocol Last Admin: 09/02/18 09:20 Dose: 300 mg Hydralazine HCl (Apresoline) 10 mg PO TID [facility] Last Admin: 09/02/18 09:27 Dose: 10 mg Sodium Chloride (Sodium Chloride 0.9%) 1,000 mls @ 100 mls/hr IV .Q10H [facility] Last Admin: 09/01/18 15:35 Dose: 100 mls/hr Insulin Human Regular (Humulin R Low) 0 units SC ACHS [facility]; Protocol Last Admin: 09/02/18 07:53 Dose: 1 unit Mirtazapine (Remeron) 15 mg PO HS [facility] Last Admin: 09/01/18 21:57 Dose: 15 mg Pantoprazole Sodium (Protonix Ec Tab) 40 mg PO ACB [facility] Last Admin: 09/02/18 07:54 Dose: 40 mg - Labs Labs: 09/01/18 07:00 09/01/18 07:00 PT 11.8 SECONDS (9.4-12.5) 08/30/18 12:25 INR 1.04 08/30/18 12:25 APTT 31.9 Seconds (26.9-38.3) 08/30/18 12:25 - Constitutional Appears: Well, Non-toxic, No Acute Distress - Head Exam Head Exam: ATRAUMATIC, NORMOCEPHALIC - Extremities Exam Additional comments: Left lower extremity exam: Vasc: DP and PT unpalpable. Cap refill delayed to the digits > 3 seconds. T emperature gradient Warm to warm from proximal to distal on the right side and warm to cool from proximal to distal on the left side. Left hallux slightly warm. Mild edema noted to the left hallux and the right heel and b/l perimalleolar area. Neuro: protective sensation diminished. Gross sensation intact Derm: Right foot: Left foot: ulceration noted to the lateral aspect of the heel. Measuring 3 cm X 1.5 cm X 0.2 cm, dry necrotic base, no drainage, no malodor, no tunneling or undermining noted. No probe to bone, Lynda-wound erythema noted, no drainage, no malodor, no tunneling or undermining noted. Left foot: ulceration noted to the medial aspect of the tip of the hallux. Measuring 5 cm X 3 cm X 0.3 cm, dry necrotic base, no drainage, no malodor, no tunneling or undermining noted. No probe to bone. MSK: pain with palpation to the left hallux and on palpating the left heel. B/L HAV deformities, B/L cavus foot. Muscle power 4/5 to all groups b/l. - Neurological Exam Neurological Exam: Alert, Awake, Oriented x3 - Psychiatric Exam Psychiatric exam: Normal Affect, Normal Mood Assessment and Plan - Assessment and Plan (Free Text) Assessment: 73 y/o female seen and evaluated in the bedside for b/l foot ulcerations. Plan: Patient examined and evaluated in the bedside Discussed plan in detail with attending Dr. Leos Labs, charts, vitals reviewed- afebrile and absent leukocytosis ESR: 140, CRP: 6.40 B/L Foot X-rays:Right foot: Amputation distal phalanx right great toe. No evidence of acute displaced fracture nor dislocation. No definitive cortical destructive changes are identified at time however the possibility of an early osteomyelitis cannot be excluded. Consider follow-up MRI if cellulitis and/or early osteomyelitis suspected clinically; Left foot: No evidence of acute displaced fracture nor dislocation. No definitive cortical destructive changes however the possibility of an early osteomyelitis not excluded.. Soft tissue swelling left great toe likely representing cellulitis. Consider follow-up MRI if further evaluation is required MRI Reports: Right- no definite sign of osteomyelitis, Left- no definite sign of osteomyelitis ID on board: appreciate recs Vasc. on board: reccs appreciated. Patient to ambulate in surgical shoes and to work with physical therapy In length conversation with patient regarding the importance of increased walking/exercising B/L feet dressed using Santyl and DSD, Patient to stay in multipodus boot all the times while in bed Ordered bactroban for further dressing changes Podiatry will continue to follow while patient is in house
--- NOTE | 2018-09-02 11:08 | CP.PCM.PCO ---
Additional Comments - Additional Comments Additional Comments: Pt seen and examined at bedside. In no acute distress. Arpit ft w/ dressing c/d/i. D/W Podiatry, plan to ambulate pt with surgical shoe, no wt bearing restrictions and c/w current wound care. Awaiting Vascular recs. Physical Therapy pending. Will continue to follow. ITS Impressions Foot X-Ray 08/30/18 12:15 IMPRESSION: No evidence of acute displaced fracture nor dislocation. No definitive cortical destructive changes however the possibility of an early osteomyelitis not excluded.. Soft tissue swelling left great toe likely representing cellulitis. Consider follow-up MRI if further evaluation is required Foot X-Ray 08/30/18 12:15 IMPRESSION: No evidence of acute displaced fracture nor dislocation. No definitive cortical destructive changes however the possibility of an early osteomyelitis not excluded.. Soft tissue swelling left great toe likely representing cellulitis. Consider follow-up MRI if further evaluation is required Foot MRI 08/30/18 13:30 IMPRESSION: Mild hallux valgus. No evidence of osteomyelitis. Foot MRI 08/30/18 13:30 IMPRESSION: Severe plantar and retrocalcaneal heel spurs significant thickening of the plantar fascia consistent with chronic plantar fasciitis with superimposed edema in the plantar musculature. No evidence of osteomyelitis. Foot X-Ray 08/30/18 13:30 IMPRESSION: Amputation distal phalanx right great toe. No evidence of acute displaced fracture nor dislocation. No definitive cortical destructive changes are identified at time however the possibility of an early osteomyelitis cannot be excluded. Consider follow-up MRI if cellulitis and/or early osteomyelitis suspected clinically. Questionable posterior plantar soft tissue swelling; rule out cellulitis. Extremity Ultrasound 09/01/18 13:30 IMPRESSION: 1. Bilateral popliteal, trifurcation, and/or tibial disease 2. Possible right SFA occlusive disease. 3. If clinically indicated, further evaluation with MRA with gadolinium runoff, CTA runoff, or conventional arteriography can be considered
[2018-09-02] MEDS: Sodium Chloride 0.9% 1,000 ML IV SCH (12:13)
[2018-09-02] MEDS: Mupirocin 2% Ointment 15 GM TUBE TOP SCH (17:01)
--- NOTE | 2018-09-02 20:22 | PN ---
DATE: 09/02/2018 SUBJECTIVE: The patient is a 73-year-old female. The patient was seen and examined at the bedside on 09/02/2018. Sister is sitting at the bedside also. No fevers. No chills. No hematuria. No hematochezia. No headache. No dizziness. No chest pain. No palpitation. The patient has dressing on both feet. PHYSICAL EXAMINATION: VITAL SIGNS: Temperature 98.3, pulse 57, respiratory rate 18, blood pressure 176/86, and pulse oximetry 97%. HEENT: Head; normocephalic and atraumatic. Eyes; PERRLA. Extraocular muscles are intact. Conjunctivae clear. Nose patent. Mucous membranes moist. NECK: Supple. No carotid bruits, JVD, or thyromegaly. CHEST: Bilaterally symmetrical. HEART: S1 and S2 positive. LUNGS: Clear to auscultation. ABDOMEN: Soft. Bowel sounds present. No organomegaly. EXTREMITIES: No edema. No cyanosis. Both feet has dressing. NEUROLOGIC: The patient is awake and alert and follow simple commands. MEDICATIONS: Amlodipine, Lipitor, Coreg, vitamin D, Lasix, Neurontin, hydralazine, insulin, Remeron, and pantoprazole. LABORATORY DATA: White blood cell 7.9, hemoglobin noted , hematocrit 26.1, and platelets 258. Sodium 145, potassium 4.2, BUN 26, creatinine 2, and glucose 147. ASSESSMENT AND PLAN: Ms. Suzie Rosado is a 73-year-old lady with anemia, hyperchloremia, renal insufficiency, hyperglycemia, peripheral vascular disease, and has bilateral foot ulceration. According to Podiatry, the patient should ambulate in surgical shoes and to work with physical therapy. Discussed with the patient for the importance of increased walking and exercising. The patient had left hallux infected ulcer and right lateral ulcer, consider urinary tract infection with Gram negative bacilli, chronic renal failure, hypertension, dyslipidemia, followup MRI of the foot, and we will monitor the antibiotics if there are no signs of stomach infection, discussion done with the sister, repeat labs, and we will follow up. Elva Mooney MD [facility] # [id number] MTDD
--- NOTE | 2018-09-02 22:04 | CP.PCM.PN ---
Subjective - Date & Time of Evaluation Date of Evaluation: 09/02/18 Time of Evaluation: 07:55 - Subjective Subjective: Resting comfortably in bed, no fevers. Objective - Vital Signs/Intake and Output Vital Signs (last 24 hours): Temp Pulse Resp BP Pulse Ox 97.6 F 75 18 180/82 H 97 09/01/18 13:57 09/01/18 13:57 09/01/18 13:57 09/01/18 18:44 09/01/18 13:57 Intake and Output: 09/01/18 09/02/18 18:59 06:59 Intake Total 360 400 Balance 360 400 - Medications Medications: Current Medications Amlodipine Besylate (Norvasc) 10 mg PO DAILY [facility] Last Admin: 09/01/18 11:01 Dose: 10 mg Atorvastatin Calcium (Lipitor) 10 mg PO DIN [facility] Last Admin: 09/01/18 18:42 Dose: 10 mg Carvedilol (Coreg) 3.125 mg PO BID [facility] Last Admin: 09/01/18 18:42 Dose: 3.125 mg Collagenase (Santyl) 1 gm TOP DAILY [facility] Last Admin: 09/01/18 11:04 Dose: 1 applic Ergocalciferol (Drisdol 50,000 Intl Units Cap) 1 cap PO QWK [facility] Furosemide (Lasix) 40 mg PO DAILY [facility] Last Admin: 09/01/18 11:02 Dose: 40 mg Gabapentin (Neurontin) 300 mg PO BID [facility]; Protocol Last Admin: 09/01/18 18:42 Dose: 300 mg Hydralazine HCl (Apresoline) 10 mg PO TID [facility] Last Admin: 09/01/18 18:44 Dose: 10 mg Sodium Chloride (Sodium Chloride 0.9%) 1,000 mls @ 100 mls/hr IV .Q10H [facility] Last Admin: 09/01/18 15:35 Dose: 100 mls/hr Insulin Human Regular (Humulin R Low) 0 units SC ACHS [facility]; Protocol Last Admin: 09/01/18 21:49 Dose: Not Given Mirtazapine (Remeron) 15 mg PO HS [facility] Last Admin: 09/01/18 21:57 Dose: 15 mg Pantoprazole Sodium (Protonix Ec Tab) 40 mg PO ACB [facility] Last Admin: 09/01/18 11:05 Dose: 40 mg - Labs Labs: 09/01/18 07:00 09/01/18 07:00 PT 11.8 SECONDS (9.4-12.5) 08/30/18 12:25 INR 1.04 08/30/18 12:25 APTT 31.9 Seconds (26.9-38.3) 08/30/18 12:25 - Constitutional Appears: Chronically Ill - Head Exam Head Exam: NORMAL INSPECTION - Respiratory Exam Respiratory Exam: Decreased Breath Sounds - Cardiovascular Exam Cardiovascular Exam: +S1, +S2 - GI/Abdominal Exam GI & Abdominal Exam: Soft. absent: Tenderness Assessment and Plan - Assessment and Plan (Free Text) Plan: Assessment Left hallux infected ulcer and right lateral ulcer consider UTI with gram negative bacilli chronic renal failure history of right hallux skin and skin structure infection DM HTN dyslipidemia Plan MRI of the foot does not show osteomyelitis will continue to monitor off antibiotics since there are no signs of systemic infection
[2018-09-03] MEDS: Insulin Reg-LOW-Coverage SC SCH ×2 (07:45→12:04)
[2018-09-03 07:54] VITALS: RESP 20
[2018-09-03] MEDS: Pantoprazole 40 mg EC Tab PO SCH (09:01)
[2018-09-03] MEDS: Mupirocin 2% Ointment 15 GM TUBE TOP SCH (09:03)
[2018-09-03] MEDS: Collagenase 250 Units/gm Ointment(30 gm) TOP SCH (09:03)
--- NOTE | 2018-09-03 12:49 | CP.PCM.PN ---
<Rolando Ryder - Last Filed: 09/03/18 12:47> Subjective - Date & Time of Evaluation Date of Evaluation: 09/03/18 Time of Evaluation: 12:47 - Subjective Subjective: Podiatry Consult Note- Dr. Monroy/Dr. Leos 73 y/o female seen and evaluated in the bedside for b/l foot ulcerations. Patient states that her right foot is still painful at the heel. Patient sister is at the bedside. Patient is a poor historian and is not able to provide full history. As per her chart there was no overnight n/v/sob/cp/chills or f. Objective - Vital Signs/Intake and Output Vital Signs (last 24 hours): Temp Pulse Resp BP Pulse Ox 97.5 F L 63 20 124/73 96 09/03/18 06:00 09/03/18 06:00 09/03/18 06:00 09/03/18 09:02 09/03/18 06:00 - Medications Medications: Current Medications Amlodipine Besylate (Norvasc) 10 mg PO DAILY [facility] Last Admin: 09/03/18 09:02 Dose: 10 mg Atorvastatin Calcium (Lipitor) 10 mg PO DIN [facility] Last Admin: 09/02/18 16:59 Dose: 10 mg Carvedilol (Coreg) 3.125 mg PO BID [facility] Last Admin: 09/03/18 09:02 Dose: 3.125 mg Collagenase (Santyl) 1 gm TOP DAILY [facility] Last Admin: 09/03/18 09:03 Dose: 1 applic Ergocalciferol (Drisdol 50,000 Intl Units Cap) 1 cap PO QWK [facility] Furosemide (Lasix) 40 mg PO DAILY [facility] Last Admin: 09/03/18 09:02 Dose: 40 mg Gabapentin (Neurontin) 300 mg PO BID [facility]; Protocol Last Admin: 09/03/18 09:01 Dose: 300 mg Hydralazine HCl (Apresoline) 10 mg PO TID [facility] Last Admin: 09/03/18 09:02 Dose: 10 mg Insulin Human Regular (Humulin R Low) 0 units SC ACHS [facility]; Protocol Last Admin: 09/03/18 12:04 Dose: 1 unit Lisinopril (Zestril) 40 mg PO DAILY [facility] Last Admin: 09/03/18 09:02 Dose: 40 mg Mirtazapine (Remeron) 15 mg PO HS [facility] Last Admin: 09/02/18 21:59 Dose: 15 mg Mupirocin (Bactroban Ointment) 0 gm TOP BID [facility] Last Admin: 09/03/18 09:03 Dose: 1 applic Pantoprazole Sodium (Protonix Ec Tab) 40 mg PO ACB [facility] Last Admin: 09/03/18 09:01 Dose: 40 mg - Labs Labs: 09/01/18 07:00 09/01/18 07:00 PT 11.8 SECONDS (9.4-12.5) 08/30/18 12:25 INR 1.04 08/30/18 12:25 APTT 31.9 Seconds (26.9-38.3) 08/30/18 12:25 - Constitutional Appears: Well, Non-toxic, No Acute Distress - Head Exam Head Exam: ATRAUMATIC, NORMOCEPHALIC - Extremities Exam Additional comments: Left lower extremity exam: Vasc: DP and PT unpalpable. Cap refill delayed to the digits > 3 seconds. Temperature gradient Warm to warm from proximal to distal on the right side and warm to cool from proximal to distal on the left side. Left hallux slightly warm. Mild edema noted to the left hallux and the right heel and b/l perimalleolar area. Neuro: protective sensation diminished. Gross sensation intact Derm: Right foot: Left foot: ulceration noted to the lateral aspect of the heel. Measuring 3 cm X 1.5 cm X 0.2 cm, dry necrotic base, no drainage, no malodor, no tunneling or undermining noted. No probe to bone, Lynda-wound erythema noted, no drainage, no malodor, no tunneling or undermining noted. Left foot: ulceration noted to the medial aspect of the tip of the hallux. Measuring 5 cm X 3 cm X 0.3 cm, dry necrotic base, no drainage, no malodor, no tunneling or undermining noted. No probe to bone. MSK: pain with palpation to the left hallux and on palpating the left heel. B/L HAV deformities, B/L cavus foot. Muscle power 4/5 to all groups b/l. - Neurological Exam Neurological Exam: Alert, Awake, Oriented x3 - Psychiatric Exam Psychiatric exam: Normal Affect, Normal Mood Assessment and Plan - Assessment and Plan (Free Text) Assessment: 73 y/o female seen and evaluated in the bedside for b/l foot ulcerations. Plan: Patient examined and evaluated with Dr. Monroy Discussed plan in detail with attending Dr. Monroy Labs, charts, vitals reviewed- afebrile and absent leukocytosis ESR: 140, CRP: 6.40 B/L Foot X-rays:Right foot: Amputation distal phalanx right great toe. No evidence of acute displaced fracture nor dislocation. No definitive cortical destructive changes are identified at time however the possibility of an early osteomyelitis cannot be excluded. Consider follow-up MRI if cellulitis and/or early osteomyelitis suspected clinically; Left foot: No evidence of acute displaced fracture nor dislocation. No definitive cortical destructive changes however the possibility of an early osteomyelitis not excluded.. Soft tissue swelling left great toe likely representing cellulitis. Consider follow-up MRI if further evaluation is required MRI Reports: Right- no definite sign of osteomyelitis, Left- no definite sign of osteomyelitis ID on board: appreciate recs Pending evaluation by Dr. Garcia, recs appreciated Patient to ambulate in surgical shoes and to work with physical therapy In length conversation with patient regarding the importance of increased walking/exercising B/L feet dressed using Bactroban and DSD, Patient to stay in multipodus boot all the times while in bed Podiatry will continue to follow while patient is in house <Jason Monroy - Last Filed: 09/03/18 14:34> Objective - Vital Signs/Intake and Output Vital Signs (last 24 hours): Temp Pulse Resp BP Pulse Ox 97.5 F L 70 20 144/61 96 09/03/18 06:00 09/03/18 14:33 09/03/18 06:00 09/03/18 14:33 09/03/18 06:00 - Medications Medications: Current Medications Amlodipine Besylate (Norvasc) 10 mg PO DAILY [facility] Last Admin: 09/03/18 09:02 Dose: 10 mg Atorvastatin Calcium (Lipitor) 10 mg PO DIN [facility] Last Admin: 09/02/18 16:59 Dose: 10 mg Carvedilol (Coreg) 3.125 mg PO BID [facility] Last Admin: 09/03/18 09:02 Dose: 3.125 mg Collagenase (Santyl) 1 gm TOP DAILY [facility] Last Admin: 09/03/18 09:03 Dose: 1 applic Ergocalciferol (Drisdol 50,000 Intl Units Cap) 1 cap PO QWK [facility] Furosemide (Lasix) 40 mg PO DAILY [facility] Last Admin: 09/03/18 09:02 Dose: 40 mg Gabapentin (Neurontin) 300 mg PO BID [facility]; Protocol Last Admin: 09/03/18 09:01 Dose: 300 mg Hydralazine HCl (Apresoline) 10 mg PO TID [facility] Last Admin: 09/03/18 14:33 Dose: 10 mg Insulin Human Regular (Humulin R Low) 0 units SC ACHS [facility]; Protocol Last Admin: 09/03/18 12:04 Dose: 1 unit Lisinopril (Zestril) 40 mg PO DAILY [facility] Last Admin: 09/03/18 09:02 Dose: 40 mg Mirtazapine (Remeron) 15 mg PO HS [facility] Last Admin: 09/02/18 21:59 Dose: 15 mg Mupirocin (Bactroban Ointment) 0 gm TOP BID [facility] Last Admin: 09/03/18 09:03 Dose: 1 applic Pantoprazole Sodium (Protonix Ec Tab) 40 mg PO ACB [facility] Last Admin: 09/03/18 09:01 Dose: 40 mg - Labs Labs: 09/01/18 07:00 09/01/18 07:00 PT 11.8 SECONDS (9.4-12.5) 08/30/18 12:25 INR 1.04 08/30/18 12:25 APTT 31.9 Seconds (26.9-38.3) 08/30/18 12:25 Attending/Attestation - Attestation I have personally seen and examined this patient.: Yes I have fully participated in the care of the patient.: Yes I have reviewed all pertinent clinical information, including history, physical exam and plan: Yes
[2018-09-03 14:34] VITALS: BP 144/61; PULSE 70
[2018-09-03 14:44] VITALS: TEMP 98; O2SAT 98
--- NOTE | 2018-09-03 19:49 | CON ---
DATE OF CONSULTATION: 09/03/2018 TIME: 04:25 p.m. CHIEF COMPLAINT/HISTORY OF PRESENT ILLNESS: I am familiar with Ms. Rosado from a recent lower extremity arteriogram and intervention in 05/2018. She is a 73-year-old essentially homebound, sedentary, noncompliant patient with advanced PVD and bilateral foot wounds. I performed a limited left lower extremity arteriogram in May for an ischemic ulceration on the left great toe. This revealed extensive trifurcation tibial and pedal occlusive disease. A left anterior tibial and TP trunk angioplasty was performed. Unfortunately, Ms. Rosado has not been compliant with offloading and wound care. Her left toe ulcer was not improved. In addition, she has developed heel ulcers. Her OLAMIDE/PVR exam on the current admission demonstrates bilateral popliteal, trifurcation and tibial occlusive disease. The left OLAMIDE and distal waveforms have improved slightly compared to the pre-intervention study in May. Her right ankle and metatarsal waveforms are severely blunted. Ms. Rosado's past medical history is significant for diabetes, hypertension and dyslipidemia. Her baseline creatinine is approximately 2. I had a conversation with Dr. Monroy and Dr. Leos concerning the situation. Unfortunately, she likely has similar tibial and pedal disease on the right. Risk of intervention is increased given her renal insufficiency. After discussing with Podiatry, offloading and wound care will be given a priority. No catheterization or intervention is scheduled at this time. This could be revisited if the situation deteriorates. Doron Garcia MD
--- NOTE | 2018-09-04 08:10 | DS ---
Case was discussed with Dr. Mooney. She is in agreement with the plan. HISTORY OF PRESENT ILLNESS: This is a 73-year-old female came in with a diagnosis of atrial fibrillation, dehydration, and diabetic foot ulcer secondary to diabetes. PAST MEDICAL HISTORY: Cellulitis, diabetes, hypertension, obesity, manic disorder, chronic kidney disease, unsteady gait, and urinary tract infection. SOCIAL HISTORY: The patient lives with her sister. No history of smoking or alcohol abuse. REVIEW OF SYSTEMS: today she denies shortness of breath, appeared in no acute distress, chronically ill. Denies palpitations, heartburn, abdominal pain, constipation, or dysuria. Has some complaints of bilateral heel pain due to diabetic ulcer, difficulty walking, unable to walk alone, needs assistance. PHYSICAL EXAMINATION: VITAL SIGNS: Temperature 98, pulse 70, blood pressure 144/61, respiratory rate 20, and saturation 90% on room air. GENERAL APPEARANCE: No acute distress. No agitation. Chronically ill. HEENT: Normocephalic. PERRLA. Mucous membranes moist. NECK: Supple. Normal inspection. RESPIRATORY: Clear to auscultation. CARDIOVASCULAR: S1 and S2. No JVD. No murmur. No gallop. GASTROINTESTINAL: Abdomen is distended. No tenderness. No organomegaly. SKIN: Normal color. Warm to touch. No cyanosis. The patient has diabetic ulcers to bilateral heel. on both toes due to peripheral vascular disease. NEUROLOGIC: The patient is alert and oriented x3. Cranial nerves II through XII intact. No cognitive deficits. ASSESSMENT AND PLAN: The patient has diabetes, hypertension, chronic kidney disease, obesity, and gait dysfunction. The patient is being discharged to Transitional Care Unit in [facility] for more rehab suggested by Physical Therapy and also Podiatry. We agree with the plan. The patient needs to be strong enough to ambulate at home. Spoke with sister about discharge plan. Sister wants the patient to get more rehab before being discharged to home. The patient was in agreement with plan. The patient discharged to TCU. Medications were discussed with nurse. We will follow up. ALL ABOVE NOTED , AGREED ALL ABOVE , D/D WITH [employer] , WILL F/U . Herrera Smith APN Elva Mooney MD [facility] # [id number] MTDStella
[2018-09-06] MEDS ORDERED: Ergocalciferol 50,000 Intl Units Cap PO SCH (10:00)
== END 2018-09-03 16:13 | DRG 300 ==
LOC: ED 11:56 → ERH 14:02 → 5RNO 16:24
PROVIDERS: ADMIT Internal Medicine; ATTEND Internal Medicine
DX: E11.52 Type 2 diabetes mellitus with diabetic peripheral angiopathy with gangrene (principal); N39.0 Urinary tract infection, site not specified; L03.90 Cellulitis, unspecified; L97.429 Non-pressure chronic ulcer of left heel and midfoot with unspecified severity; L97.419 Non-pressure chronic ulcer of right heel and midfoot with unspecified severity; E11.621 Type 2 diabetes mellitus with foot ulcer; Z86.73 Personal history of transient ischemic attack (TIA), and cerebral infarction without residual deficits; I10 Essential (primary) hypertension; L97.529 Non-pressure chronic ulcer of other part of left foot with unspecified severity; E11.65 Type 2 diabetes mellitus with hyperglycemia; R53.1 Weakness; Z79.899 Other long term (current) drug therapy; E11.628 Type 2 diabetes mellitus with other skin complications; L08.9 Local infection of the skin and subcutaneous tissue, unspecified; E78.00 Pure hypercholesterolemia, unspecified; E66.9 Obesity, unspecified; E11.69 Type 2 diabetes mellitus with other specified complication; R80.9 Proteinuria, unspecified; R31.9 Hematuria, unspecified; L97.519 Non-pressure chronic ulcer of other part of right foot with unspecified severity; D64.9 Anemia, unspecified; E11.22 Type 2 diabetes mellitus with diabetic chronic kidney disease; E78.5 Hyperlipidemia, unspecified; L03.032 Cellulitis of left toe; E86.0 Dehydration; E87.8 Other disorders of electrolyte and fluid balance, not elsewhere classified; H54.61 Unqualified visual loss, right eye, normal vision left eye; I12.9 Hypertensive chronic kidney disease with stage 1 through stage 4 chronic kidney disease, or unspecified chronic kidney disease; I48.91 Unspecified atrial fibrillation; I67.9 Cerebrovascular disease, unspecified; M20.10 Hallux valgus (acquired), unspecified foot; M72.2 Plantar fascial fibromatosis; M77.30 Calcaneal spur, unspecified foot; N18.9 Chronic kidney disease, unspecified; Z90.49 Acquired absence of other specified parts of digestive tract; Z91.19 Patient's noncompliance with other medical treatment and regimen

== ENCOUNTER 2018-09-03 16:19 | Inpatient (IN) | payer OTHER ==
[2018-09-01 13:08] VITALS: BMI 38.0
[2018-09-03] MEDS ORDERED: Pneumococcal 23-Valent Vaccine IM ONE (21:47)
[2018-09-03] MEDS: Insulin Reg-LOW-Coverage SC SCH (22:00)
[2018-09-04] MEDS: Pantoprazole 40 mg EC Tab PO SCH (05:39)
[2018-09-04] MEDS: Insulin Reg-LOW-Coverage SC SCH ×4 (06:45→21:44)
[2018-09-04] MEDS: Collagenase 250 Units/gm Ointment(30 gm) TOP SCH (10:51)
[2018-09-04] MEDS: Mupirocin 2% Ointment 15 GM TUBE TOP SCH (10:52)
--- NOTE | 2018-09-04 11:23 | CP.PCM.PN ---
<Rolando Ryder - Last Filed: 09/04/18 11:21> Subjective - Date & Time of Evaluation Date of Evaluation: 09/04/18 Time of Evaluation: 11:21 - Subjective Subjective: Podiatry Consult Note- Dr. Monroy/Dr. Leos 73 y/o female seen and evaluated in the bedside for b/l foot ulcerations. Patient states that her right foot is still painful at the heel. Patient sister is at the bedside. Patient is a poor historian and is not able to provide full history. As per her chart there was no overnight n/v/sob/cp/chills or f. Objective - Vital Signs/Intake and Output Vital Signs (last 24 hours): Temp Pulse Resp BP Pulse Ox 98 F 83 16 157/85 H 09/03/18 21:32 09/04/18 10:52 09/03/18 21:32 09/04/18 10:52 - Medications Medications: Current Medications Amlodipine Besylate (Norvasc) 10 mg PO DAILY EBEN; Protocol Last Admin: 09/04/18 10:51 Dose: 10 mg Atorvastatin Calcium (Lipitor) 10 mg PO DIN EBEN; Protocol Last Admin: 09/03/18 17:57 Dose: 10 mg Carvedilol (Coreg) 3.125 mg PO 0800,1800 EBEN; Protocol Last Admin: 09/04/18 08:10 Dose: 3.125 mg Collagenase (Santyl) 0 gm TOP DAILY EBEN; Protocol Last Admin: 09/04/18 10:51 Dose: Not Given Ergocalciferol (Drisdol 50,000 Intl Units Cap) 1 cap PO QWK EBEN; Protocol Furosemide (Lasix) 40 mg PO 0600 EBEN; Protocol Last Admin: 09/04/18 05:39 Dose: 40 mg Gabapentin (Neurontin) 300 mg PO BID EBEN; Protocol Last Admin: 09/04/18 10:51 Dose: 300 mg Hydralazine HCl (Apresoline) 10 mg PO TID EBEN; Protocol Last Admin: 09/04/18 10:52 Dose: 10 mg Insulin Human Regular (Humulin R Low) 0 units SC ACHS EBEN; Protocol Last Admin: 09/04/18 06:45 Dose: Not Given Lisinopril (Zestril) 40 mg PO DAILY EBEN; Protocol Last Admin: 09/04/18 10:51 Dose: 40 mg Mirtazapine (Remeron) 15 mg PO HS EBEN; Protocol Last Admin: 09/03/18 21:33 Dose: 15 mg Mupirocin (Bactroban Ointment) 0 gm TOP DAILY EBEN; Protocol Last Admin: 09/04/18 10:52 Dose: Not Given Pantoprazole Sodium (Protonix Ec Tab) 40 mg PO 0600 EBEN; Protocol Last Admin: 09/04/18 05:39 Dose: 40 mg - Constitutional Appears: Well, Non-toxic, No Acute Distress - Head Exam Head Exam: ATRAUMATIC, NORMOCEPHALIC - Extremities Exam Additional comments: Left lower extremity exam: Vasc: DP and PT unpalpable. Cap refill delayed to the digits > 3 seconds. Temperature gradient Warm to warm from proximal to distal on the right side and warm to cool from proximal to distal on the left side. Left hallux slightly warm. Mild edema noted to the left hallux and the right heel and b/l perimalleolar area. Neuro: protective sensation diminished. Gross sensation intact Derm: Right foot: Left foot: ulceration noted to the lateral aspect of the heel. Measuring 3 cm X 1.5 cm X 0.2 cm, dry necrotic base, no drainage, no malodor, no tunneling or undermining noted. No probe to bone, Lynda-wound erythema noted, no drainage, no malodor, no tunneling or undermining noted. Left foot: ulceration noted to the medial aspect of the tip of the hallux. Measuring 5 cm X 3 cm X 0.3 cm, dry necrotic base, no drainage, no malodor, no tunneling or undermining noted. No probe to bone. MSK: pain with palpation to the left hallux and on palpating the left heel. B/L HAV deformities, B/L cavus foot. Muscle power 4/5 to all groups b/l. - Neurological Exam Neurological Exam: Alert, Awake, Oriented x3 - Psychiatric Exam Psychiatric exam: Normal Affect, Normal Mood Assessment and Plan - Assessment and Plan (Free Text) Assessment: 73 y/o female seen and evaluated in the bedside for b/l foot ulcerations. Plan: Patient examined and evaluated with Dr. Leos Discussed plan in detail with attending Dr. Leos Labs, charts, vitals reviewed- afebrile and absent leukocytosis ESR: 140, CRP: 6.40 B/L Foot X-rays:Right foot: Amputation distal phalanx right great toe. No evidence of acute displaced fracture nor dislocation. No definitive cortical destructive changes are identified at time however the possibility of an early osteomyelitis cannot be excluded. Consider follow-up MRI if cellulitis and/or early osteomyelitis suspected clinically; Left foot: No evidence of acute displaced fracture nor dislocation. No definitive cortical destructive changes however the possibility of an early osteomyelitis not excluded.. Soft tissue swelling left great toe likely representing cellulitis. Consider follow-up MRI if further evaluation is required MRI Reports: Right- no definite sign of osteomyelitis, Left- no definite sign of osteomyelitis ID on board: appreciate recs Physician consult lashonda Riley appreciated Patient to ambulate in surgical shoes and to work with physical therapy In length conversation with patient regarding the importance of increased walking/exercising B/L feet dressed using Xeroform and DSD, Patient to stay in multipodus boot all the times while in bed Patient and sister showed various shoe-gear to purchase Podiatry will continue to follow while patient is in house <Irma Leos - Last Filed: 09/06/18 20:30> Objective - Vital Signs/Intake and Output Vital Signs (last 24 hours): Temp Pulse Resp BP Pulse Ox 97.6 F 74 18 138/82 99 09/06/18 16:00 09/06/18 17:44 09/06/18 16:00 09/06/18 17:44 09/06/18 16:00 - Medications Medications: Current Medications Amlodipine Besylate (Norvasc) 10 mg PO DAILY EBEN; Protocol Last Admin: 09/06/18 10:45 Dose: 10 mg Atorvastatin Calcium (Lipitor) 10 mg PO DIN EBEN; Protocol Last Admin: 09/06/18 17:46 Dose: 10 mg Carvedilol (Coreg) 3.125 mg PO 0800,1800 EBEN; Protocol Last Admin: 09/06/18 17:44 Dose: 3.125 mg Collagenase (Santyl) 0 gm TOP DAILY EBEN; Protocol Last Admin: 09/06/18 10:46 Dose: Not Given Ergocalciferol (Drisdol 50,000 Intl Units Cap) 1 cap PO QWK EBEN; Protocol Furosemide (Lasix) 40 mg PO 0600 EBEN; Protocol Last Admin: 09/06/18 06:43 Dose: 40 mg Gabapentin (Neurontin) 300 mg PO BID EBEN; Protocol Last Admin: 09/06/18 17:46 Dose: 300 mg Hydralazine HCl (Apresoline) 10 mg PO TID EBEN; Protocol Last Admin: 09/06/18 17:44 Dose: 10 mg Insulin Human Regular (Humulin R Low) 0 units SC ACHS EBEN; Protocol Last Admin: 09/06/18 17:30 Dose: 1 unit Lisinopril (Zestril) 40 mg PO DAILY EBEN; Protocol Last Admin: 09/06/18 10:46 Dose: 40 mg Mirtazapine (Remeron) 15 mg PO HS EBEN; Protocol Last Admin: 09/05/18 21:17 Dose: 15 mg Mupirocin (Bactroban Ointment) 0 gm TOP DAILY EBEN; Protocol Last Admin: 09/06/18 10:45 Dose: Not Given Pantoprazole Sodium (Protonix Ec Tab) 40 mg PO 0600 EBEN; Protocol Last Admin: 09/06/18 06:43 Dose: 40 mg - Labs Labs: 09/05/18 05:10 09/05/18 05:10 Attending/Attestation - Attestation I have personally seen and examined this patient.: Yes I have fully participated in the care of the patient.: Yes I have reviewed all pertinent clinical information, including history, physical exam and plan: Yes
--- NOTE | 2018-09-04 22:26 | CP.PCM.CON ---
History of Present Illness - History of Present Illness History of Present Illness: 72 year old female with PMH of DM, HTN, dyslipidemia obesity with BMI 38 came in initially to [facility] because of a left big toe ulcer and right foot ulcer. Wound care is being rendered daily for the patient. MRI was done which did not show osteomyelitis and the patient has been kept off antibiotics. She is now transferred to [facility] for continued medical care and physical rehab. Infectious Diseases consult is requested to see if she needs antibiotics. She denies fever or chills, no nausea or vomiting, no headache or dizziness, no chest pain, no SOB, no abdominal pain, no cough or rhinorrhea, no diarrhea, no dysuria, no increased pain on her feet. Review of Systems - Review of Systems All systems: reviewed and no additional remarkable complaints except (as per HPI) Past Patient History - Infectious Disease Hx of Infectious Diseases: None - Tetanus Immunizations Tetanus Immunization: Unknown - Past Social History Smoking Status: Never Smoked - CARDIAC Hx Cardiac Disorders: Yes Hx Hypertension: Yes - PULMONARY Hx Respiratory Disorders: No - NEUROLOGICAL HX Cerebrovascular Accident: Yes (L UPPER EXTREMITY WEAKNESS,SLIGHT TREMORS.) - HEENT Hx HEENT Problems: Yes (CATARACT SXL EYE) Hx Blind: Yes (RIGHT EYE) Hx Cataracts: Yes (LEFT EYE WITH SX) - RENAL Hx Chronic Kidney Disease: No - ENDOCRINE/METABOLIC Hx Diabetes Mellitus Type 2: Yes - HEMATOLOGICAL/ONCOLOGICAL Hx Blood Disorders: Yes Hx Anemia: Yes (BLOOD TRANSFUSION) - INTEGUMENTARY Hx Dermatological Problems: Yes Other/Comment: 08-30-18 RIGHT HEEL ULCER-EDEMA,ERYTHEMA,OPEN WOUND 3 X 1.5 DRY NECROTIC TISSUE. LEFT BIG TOE WITH MEDIAL OPEN WOUND TIP OF HALLUX 5 CM X 3 CM X0.3 OPEN WOUND. FOUL SMELLING .NECROTIC TISSUE.EDEMATOUS. MASD UNDER THE SKIN FOLDS OF BREAST,ABDOMEN. IASD-BILATERAL GROIN AND IN BETWEEN BUTTOCKS. - MUSCULOSKELETAL/RHEUMATOLOGICAL Hx Falls: Yes - GASTROINTESTINAL Hx Gastrointestinal Disorders: Yes - GENITOURINARY/GYNECOLOGICAL Hx Genitourinary Disorders: Yes (INCONTINENT) Hx Reproductive Disorders: No - PSYCHIATRIC Hx Psychophysiologic Disorder: Yes Hx Anxiety: Yes Hx Substance Use: No - SURGICAL HISTORY Hx Surgeries: Yes (L CATARACT SX.) Hx Amputation: Yes (Right hallux distal tip) Hx Appendectomy: Yes Other/Comment: LLE Stent - Dr Garcia - ANESTHESIA Hx Anesthesia: Yes Hx Anesthesia Reactions: No Hx Malignant Hyperthermia: No Meds Allergies/Adverse Reactions: Allergies Allergy/AdvReac Type Severity Reaction Status Date / Time No Known Allergies Allergy Verified 08/30/18 18:38 - Medications Medications: Current Medications Amlodipine Besylate (Norvasc) 10 mg PO DAILY EBEN; Protocol Atorvastatin Calcium (Lipitor) 10 mg PO DIN EBEN; Protocol Last Admin: 09/03/18 17:57 Dose: 10 mg Carvedilol (Coreg) 3.125 mg PO 0800,1800 EBEN; Protocol Last Admin: 09/03/18 17:57 Dose: 3.125 mg Collagenase (Santyl) 0 gm TOP DAILY EBEN; Protocol Ergocalciferol (Drisdol 50,000 Intl Units Cap) 1 cap PO QWK EBEN; Protocol Furosemide (Lasix) 40 mg PO 0600 EBEN; Protocol Gabapentin (Neurontin) 300 mg PO BID EBEN; Protocol Last Admin: 09/03/18 17:58 Dose: 300 mg Hydralazine HCl (Apresoline) 10 mg PO TID EBEN; Protocol Last Admin: 09/03/18 17:56 Dose: 10 mg Insulin Human Regular (Humulin R Low) 0 units SC ACHS EBEN; Protocol Lisinopril (Zestril) 40 mg PO DAILY EBEN; Protocol Mirtazapine (Remeron) 15 mg PO HS EBEN; Protocol Last Admin: 09/03/18 21:33 Dose: 15 mg Mupirocin (Bactroban Ointment) 0 gm TOP DAILY EBEN; Protocol Pantoprazole Sodium (Protonix Ec Tab) 40 mg PO 0600 EBEN; Protocol Physical Exam - Constitutional Appears: Non-toxic, Chronically Ill - Head Exam Head Exam: NORMAL INSPECTION - Respiratory Exam Respiratory Exam: Decreased Breath Sounds - Cardiovascular Exam Cardiovascular Exam: +S1, +S2 - GI/Abdominal Exam GI & Abdominal Exam: Soft. absent: Tenderness - Extremities Exam Additional comments: both feet with dressings in place Results - Vital Signs Recent Vital Signs: Last Vital Signs Temp 98 F 09/03/18 21:32 Pulse 78 09/03/18 21:32 Resp 16 09/03/18 21:32 BP 148/79 09/03/18 21:32 Pulse Ox Assessment & Plan - Assessment and Plan (Free Text) Plan: Assessment Left hallux infected ulcer and right lateral ulcer consider UTI with gram negative bacilli chronic renal failure history of right hallux skin and skin structure infection DM HTN dyslipidemia Plan MRI of the foot does not show osteomyelitis will continue to monitor off antibiotics since there are no signs of systemic infection
--- NOTE | 2018-09-04 23:23 | HP ---
DATE OF EXAM: 09/04/2018 The patient was seen and examined at the bedside on 09/04/2018. CHIEF COMPLAINTS: Feet pain, deconditioned, ulcers on the feet. HISTORY OF PRESENT ILLNESS: Ms. Suzie Rosado is a 73-year-old lady with history of hypertension, peripheral vascular disease, left leg stent, CVA, is living at home with her sister and getting house calls from nurse practitioners, came in [facility] for pain in the feet. Actually she has followup with Dr. Monroy/Deric for feet care, they sent her to emergency room for IV antibiotics. The patient is seen by Dr. Monroy, HELEN. The patient is deconditioned, send to TCU for continuity of care and for IV antibiotics. PAST MEDICAL HISTORY: Diabetes mellitus type 2, anemia, history of appendectomy, right hallux distal tip amputation, left lower extremity stent by Dr. Mukherjee. FAMILY HISTORY: Father and mother noncontributory. HABITS: Never smoked. No drugs. No ethanol. ALLERGIES: THE PATIENT IS NOT ALLERGIC WITH ANY MEDICATIONS. HOME MEDICATIONS: Reviewed by me. REVIEW OF SYSTEMS: The patient was seen and examined at the bedside sitting on the chair, getting fingerstick checked. No hematuria. No hematochezia. No headache. No dizziness. No chest pain. No palpitations. Pain in the feet. No fever. No chills. PHYSICAL EXAMINATION VITAL SIGNS: Temperature 98.6, pulse 84, blood pressure 133/77, respiratory rate 18. HEENT: Head; normocephalic, atraumatic. Eyes; PERRLA. Extraocular muscles intact. Conjunctivae clear. Nose patent. NECK: Supple. No carotid bruits. No JVD. No thyromegaly. CHEST: Bilaterally symmetrical. HEART: S1, S2 positive. LUNGS: Clear to auscultation. ABDOMEN: Soft. Bowel sounds present. No organomegaly. EXTREMITIES: No edema. No cyanosis. NEUROLOGIC: The patient awake and alert. Moving all four extremities. No focal deficits. LABORATORY DATA: We do not have recent labs today, but I reviewed old labs. Fingerstick is 195, 143, 205. MEDICATIONS: Hydralazine, Bactroban, Coreg, insulin, Lasix, Lipitor, Neurontin, Remeron, Zestril. ASSESSMENT AND PLAN: Ms. Suzie Rosado is a 73-year-old lady with history of multiple medical problems, came in for evaluation for bilateral foot ulcerations. Dr. Leos saw the patient, ESR 140, CRP 6.40. Foot x-ray done, noted by me. History of hypertension, hypercholesterolemia, vitamin D deficiency, peripheral neuropathy, diabetes mellitus, depression, insomnia. We will continue gastrointestinal and deep venous thrombosis prophylaxis. Discussion done with the patient's nursing staff. Continue physical therapy. Repeat labs. We will follow up. Elva Mooney MD
[2018-09-05] MEDS: Pantoprazole 40 mg EC Tab PO SCH (06:05)
[2018-09-05 06:30] LABS: HEMOGLOBIN 7.8 g/dL (12.0-16.0); MEAN CELL VOLUME 94.3 fl (80.0-105.0); MEAN CORPUSCULAR HGB CONC 33.9 g/dl (31.0-37.0); MEAN PLATELET VOLUME 9.6 fl (7.0-11.0); RBC 2.44 10^6/uL (3.5-6.1); RED CELL DISTRIBUTION WIDTH 13.7 % (11.5-14.5); WHITE BLOOD COUNT 8.2 10^3/uL (4.5-11.0)
[2018-09-05 06:39] LABS: CALCIUM 8.5 mg/dL (8.4-10.5)
[2018-09-05] MEDS: Insulin Reg-LOW-Coverage SC SCH ×4 (06:48→21:36)
[2018-09-05] MEDS: Mupirocin 2% Ointment 15 GM TUBE TOP SCH (10:04)
[2018-09-05] MEDS: Collagenase 250 Units/gm Ointment(30 gm) TOP SCH (10:05)
--- NOTE | 2018-09-05 16:39 | CP.PCM.PN ---
<Rolando Ryder - Last Filed: 09/05/18 16:38> Subjective - Date & Time of Evaluation Date of Evaluation: 09/05/18 Time of Evaluation: 16:38 - Subjective Subjective: Podiatry Consult Note- Dr. Monroy/Dr. Leos 73 y/o female seen and evaluated in the bedside for b/l foot ulcerations. Patient states that her right foot is still painful at the heel. As per her chart there was no overnight n/v/sob/cp/chills or f. Objective - Vital Signs/Intake and Output Vital Signs (last 24 hours): Temp Pulse Resp BP Pulse Ox 98 F 82 16 173/93 H 100 09/03/18 21:32 09/05/18 15:46 09/03/18 21:32 09/05/18 11:53 09/05/18 15:46 - Medications Medications: Current Medications Amlodipine Besylate (Norvasc) 10 mg PO DAILY EBEN; Protocol Last Admin: 09/05/18 10:05 Dose: 10 mg Atorvastatin Calcium (Lipitor) 10 mg PO DIN EBEN; Protocol Last Admin: 09/04/18 17:54 Dose: 10 mg Carvedilol (Coreg) 3.125 mg PO 0800,1800 EBEN; Protocol Last Admin: 09/05/18 09:00 Dose: 3.125 mg Collagenase (Santyl) 0 gm TOP DAILY EBEN; Protocol Last Admin: 09/05/18 10:05 Dose: Not Given Ergocalciferol (Drisdol 50,000 Intl Units Cap) 1 cap PO QWK EBEN; Protocol Furosemide (Lasix) 40 mg PO 0600 EBEN; Protocol Last Admin: 09/05/18 06:05 Dose: 40 mg Gabapentin (Neurontin) 300 mg PO BID EBEN; Protocol Last Admin: 09/05/18 10:03 Dose: 300 mg Hydralazine HCl (Apresoline) 10 mg PO TID EBEN; Protocol Last Admin: 09/05/18 14:12 Dose: Not Given Insulin Human Regular (Humulin R Low) 0 units SC ACHS EBEN; Protocol Last Admin: 09/05/18 11:52 Dose: 2 unit Lisinopril (Zestril) 40 mg PO DAILY EBEN; Protocol Last Admin: 09/05/18 10:03 Dose: 40 mg Mirtazapine (Remeron) 15 mg PO HS EBEN; Protocol Last Admin: 09/04/18 21:33 Dose: 15 mg Mupirocin (Bactroban Ointment) 0 gm TOP DAILY EBEN; Protocol Last Admin: 09/05/18 10:04 Dose: Not Given Pantoprazole Sodium (Protonix Ec Tab) 40 mg PO 0600 EBEN; Protocol Last Admin: 09/05/18 06:05 Dose: 40 mg - Labs Labs: 09/05/18 05:10 09/05/18 05:10 - Constitutional Appears: Well, Non-toxic, No Acute Distress - Head Exam Head Exam: ATRAUMATIC, NORMOCEPHALIC - Extremities Exam Additional comments: Left lower extremity exam: Vasc: DP and PT unpalpable. Cap refill delayed to the digits > 3 seconds. Temperature gradient Warm to warm from proximal to distal on the right side and warm to cool from proximal to distal on the left side. Left hallux slightly warm. Mild edema noted to the left hallux and the right heel and b/l perimalleolar area. Neuro: protective sensation diminished. Gross sensation intact Derm: Right foot: Left foot: ulceration noted to the lateral aspect of the heel. Measuring 3 cm X 1.5 cm X 0.2 cm, dry necrotic base, no drainage, no malodor, no tunneling or undermining noted. No probe to bone, Lynda-wound erythema noted, no drainage, no malodor, no tunneling or undermining noted. Left foot: ulceration noted to the medial aspect of the tip of the hallux. Measuring 5 cm X 3 cm X 0.3 cm, dry necrotic base, no drainage, no malodor, no tunneling or undermining noted. No probe to bone. MSK: pain with palpation to the left hallux and on palpating the left heel. B/L HAV deformities, B/L cavus foot. Muscle power 4/5 to all groups b/l. - Neurological Exam Neurological Exam: Alert, Awake, Oriented x3 - Psychiatric Exam Psychiatric exam: Normal Affect, Normal Mood Assessment and Plan - Assessment and Plan (Free Text) Assessment: 73 y/o female seen and evaluated in the bedside for b/l foot ulcerations Plan: Patient examined and evaluated Discussed plan in detail with attending Dr. Monroy Labs, charts, vitals reviewed- afebrile and absent leukocytosis ESR: 140, CRP: 6.40 B/L Foot X-rays:Right foot: Amputation distal phalanx right great toe. No evidence of acute displaced fracture nor dislocation. No definitive cortical destructive changes are identified at time however the possibility of an early osteomyelitis cannot be excluded. Consider follow-up MRI if cellulitis and/or early osteomyelitis suspected clinically; Left foot: No evidence of acute displaced fracture nor dislocation. No definitive cortical destructive changes however the possibility of an early osteomyelitis not excluded.. Soft tissue swelling left great toe likely representing cellulitis. Consider follow-up MRI if further evaluation is required MRI Reports: Right- no definite sign of osteomyelitis, Left- no definite sign of osteomyelitis ID on board: appreciate recs Physician consult lashonda Riley appreciated Patient to ambulate in surgical shoes and to work with physical therapy In length conversation with patient regarding the importance of increased walking/exercising B/L feet dressed using Xeroform and DSD, Patient to stay in multipodus boot all the times while in bed Patient and sister showed various shoe-gear to purchase Podiatry will continue to follow while patient is in house <Jason Monroy - Last Filed: 09/05/18 17:21> Objective - Vital Signs/Intake and Output Vital Signs (last 24 hours): Temp Pulse Resp BP Pulse Ox 98 F 82 16 173/93 H 100 09/03/18 21:32 09/05/18 15:46 09/03/18 21:32 09/05/18 11:53 09/05/18 15:46 - Medications Medications: Current Medications Amlodipine Besylate (Norvasc) 10 mg PO DAILY EBEN; Protocol Last Admin: 09/05/18 10:05 Dose: 10 mg Atorvastatin Calcium (Lipitor) 10 mg PO DIN EBEN; Protocol Last Admin: 09/04/18 17:54 Dose: 10 mg Carvedilol (Coreg) 3.125 mg PO 0800,1800 EBEN; Protocol Last Admin: 09/05/18 09:00 Dose: 3.125 mg Collagenase (Santyl) 0 gm TOP DAILY EBEN; Protocol Last Admin: 09/05/18 10:05 Dose: Not Given Ergocalciferol (Drisdol 50,000 Intl Units Cap) 1 cap PO QWK EBEN; Protocol Furosemide (Lasix) 40 mg PO 0600 EBEN; Protocol Last Admin: 09/05/18 06:05 Dose: 40 mg Gabapentin (Neurontin) 300 mg PO BID EBEN; Protocol Last Admin: 09/05/18 10:03 Dose: 300 mg Hydralazine HCl (Apresoline) 10 mg PO TID EBEN; Protocol Last Admin: 09/05/18 14:12 Dose: Not Given Insulin Human Regular (Humulin R Low) 0 units SC ACHS EBEN; Protocol Last Admin: 09/05/18 11:52 Dose: 2 unit Lisinopril (Zestril) 40 mg PO DAILY EBEN; Protocol Last Admin: 09/05/18 10:03 Dose: 40 mg Mirtazapine (Remeron) 15 mg PO HS EBEN; Protocol Last Admin: 09/04/18 21:33 Dose: 15 mg Mupirocin (Bactroban Ointment) 0 gm TOP DAILY EBEN; Protocol Last Admin: 09/05/18 10:04 Dose: Not Given Pantoprazole Sodium (Protonix Ec Tab) 40 mg PO 0600 EBEN; Protocol Last Admin: 09/05/18 06:05 Dose: 40 mg - Labs Labs: 09/05/18 05:10 09/05/18 05:10 Attending/Attestation - Attestation I have personally seen and examined this patient.: Yes I have fully participated in the care of the patient.: Yes I have reviewed all pertinent clinical information, including history, physical exam and plan: Yes
--- NOTE | 2018-09-05 19:36 | PN ---
DATE: 09/05/2018 This note was discussed with Dr. Mooney, she is in agreement with the treatment and plan. SUBJECTIVE: The patient is a 73-year-old female, came into the ER with UTI, bilateral diabetic foot ulcer, pain. She has a history of hypertension, syncope, diabetes mellitus, hypercholesterolemia, UTI, obesity, chronic anemia, and CVA. The patient was on medical floor, now she is on TCU unit. I saw the patient today, sister is at the bedside. The patient was alert and oriented x3. She denies shortness of breath, cough, hemoptysis, abdominal pain, hematuria, dysuria, fever, chills, nausea, or vomiting. She has some concerns with bilateral toes due to diabetic ulcers. She has lower back pain due to the bed per the patient. PHYSICAL EXAMINATION VITAL SIGNS: Temperature 97.8, pulse 82, blood pressure is still high 173/93, and saturation 99% on room air. HEENT: Normocephalic. PERRLA. Mucous membranes moist. NECK: Supple. Normal inspection. RESPIRATORY: Clear to auscultation. No wheeze. No rhonchi. CARDIOVASCULAR: S1 and S2. No murmur. No gallop. No JVD. LUNGS: ABDOMEN: Soft, distended, and positive bowel sounds. No guarding. No organomegaly. SKIN: Warm to touch. EXTREMITIES: No edema. The patient has bilateral foot ulcers. NEUROLOGIC: The patient is alert and oriented x2 to 3. Cranial nerves II through XII intact. No cognitive deficits. MEDICATIONS: Norvasc 10 mg p.o. daily, Lipitor 10 mg, Coreg 3.125 mg, saline, Santyl to affected area, Drisdol 50,000 units, Lasix 40 mg daily, Neurontin 300 mg b.i.d., hydralazine 10 mg t.i.d., Accu-Chek a.c. and at bedtime, Humulin insulin coverage, lisinopril 40 mg daily, Remeron 15 mg, Bactroban ointment to affected area, and Protonix 40 mg daily. LABORATORY DATA: White blood cells 8.2, hemoglobin 7.8, hematocrit 23, and platelets 248. Sodium 139, potassium 3.9, BUN is 28, creatinine is 2.6, glucose was 217. ASSESSMENT AND PLAN: This is a 73-year-old female who came in with fatigue, abdominal pain, diabetic foot ulcers. The patient has hypertension, hypercholesterolemia, diabetes mellitus. The patient is getting Accu-Chek and coverage with insulin Lispro, hydralazine three times a day, Lasix 40 mg, She is on Bactroban to toes, Coreg, and Lipitor. Podiatry is on the case. I saw the patient today, the sister was involved. The patient is walking with physical therapy daily, walking better in the orthopedic shoes. Sister says that she is really wanting the patient to be able to walk when she gets home. The patient reported that she is getting better with walking on her feet. We will follow up with the patient's labs and the physical therapy process. 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 SAME TREATMENT , WILL F/U Herrera Smith APN Elva Mooney MD MTDD
[2018-09-06] MEDS: Pantoprazole 40 mg EC Tab PO SCH (06:43)
[2018-09-06] MEDS: Insulin Reg-LOW-Coverage SC SCH ×4 (06:43→21:43)
[2018-09-06] MEDS: Mupirocin 2% Ointment 15 GM TUBE TOP SCH (10:45)
[2018-09-06] MEDS: Collagenase 250 Units/gm Ointment(30 gm) TOP SCH (10:46)
--- NOTE | 2018-09-06 11:43 | CP.PCM.PN ---
Subjective - Date & Time of Evaluation Date of Evaluation: 09/06/18 Time of Evaluation: 11:25 - Subjective Subjective: No fevers, not in distress, no increased pain in the feet. Objective - Vital Signs/Intake and Output Vital Signs (last 24 hours): Temp Pulse Resp BP Pulse Ox 98 F 84 16 136/77 09/03/18 21:32 09/04/18 17:49 09/03/18 21:32 09/04/18 17:49 Intake and Output: 09/04/18 09/05/18 18:59 06:59 Output Total 400 Balance -400 - Medications Medications: Current Medications Amlodipine Besylate (Norvasc) 10 mg PO DAILY EBEN; Protocol Last Admin: 09/04/18 10:51 Dose: 10 mg Atorvastatin Calcium (Lipitor) 10 mg PO DIN EBEN; Protocol Last Admin: 09/04/18 17:54 Dose: 10 mg Carvedilol (Coreg) 3.125 mg PO 0800,1800 EBEN; Protocol Last Admin: 09/04/18 17:49 Dose: 3.125 mg Collagenase (Santyl) 0 gm TOP DAILY EBEN; Protocol Last Admin: 09/04/18 10:51 Dose: Not Given Ergocalciferol (Drisdol 50,000 Intl Units Cap) 1 cap PO QWK EBEN; Protocol Furosemide (Lasix) 40 mg PO 0600 EEBN; Protocol Last Admin: 09/04/18 05:39 Dose: 40 mg Gabapentin (Neurontin) 300 mg PO BID EBEN; Protocol Last Admin: 09/04/18 17:54 Dose: 300 mg Hydralazine HCl (Apresoline) 10 mg PO TID EBEN; Protocol Last Admin: 09/04/18 17:49 Dose: 10 mg Insulin Human Regular (Humulin R Low) 0 units SC ACHS EBEN; Protocol Last Admin: 09/04/18 21:44 Dose: Not Given Lisinopril (Zestril) 40 mg PO DAILY EBEN; Protocol Last Admin: 09/04/18 10:51 Dose: 40 mg Mirtazapine (Remeron) 15 mg PO HS EBEN; Protocol Last Admin: 09/04/18 21:33 Dose: 15 mg Mupirocin (Bactroban Ointment) 0 gm TOP DAILY EBEN; Protocol Last Admin: 09/04/18 10:52 Dose: Not Given Pantoprazole Sodium (Protonix Ec Tab) 40 mg PO 0600 EBEN; Protocol Last Admin: 09/04/18 05:39 Dose: 40 mg - Constitutional Appears: Chronically Ill - Head Exam Head Exam: NORMAL INSPECTION - Respiratory Exam Respiratory Exam: Decreased Breath Sounds - Cardiovascular Exam Cardiovascular Exam: +S1, +S2 - GI/Abdominal Exam GI & Abdominal Exam: Soft. absent: Tenderness Assessment and Plan - Assessment and Plan (Free Text) Plan: Assessment Left hallux infected ulcer and right lateral ulcer consider UTI with gram negative bacilli chronic renal failure history of right hallux skin and skin structure infection DM HTN dyslipidemia Plan MRI of the foot does not show osteomyelitis will continue to monitor off antibiotics since there are no signs of clinical systemic infection Podiatry doing local wound care
--- NOTE | 2018-09-07 01:31 | PN ---
DATE: 09/06/2018 SUBJECTIVE: The patient is a 73-year-old female. The patient was seen and examined at the bedside on 09/06/2018. The patient is looking comfortable, sitting on the chair. No fever. No chills. No hematuria. No hematochezia. No headache. N dizziness. No chest pain. No palpitations. PHYSICAL EXAMINATION: VITAL SIGNS: Temperature 97.6, pulse 74, blood pressure 138/82, and respiratory rate 18. HEENT: Head is normocephalic, atraumatic. Eyes; PERRLA, extraocular muscles intact, conjunctivae clear. Nose patent. Mucous membrane moist. NECK: Supple. No carotid bruits. No JVD. No thyromegaly. CHEST: Bilaterally symmetrical. HEART: S1 and S2 positive. LUNGS: Clear to auscultation. ABDOMEN: Soft. Bowel sounds present. No organomegaly. EXTREMITIES: No edema. No cyanosis. NEUROLOGIC: The patient awake and alert. Moving all four extremities. No focal deficits. MEDICATIONS: Hydralazine, Coreg, vitamin D, Lasix, Lipitor, gabapentin, Norvasc, Protonix, Remeron, and Zestril. LABORATORY DATA: White blood cell 8.2, hemoglobin 7.8, hematocrit 23, Sodium 138, potassium 3.9, BUN 28, creatinine 2.6. ASSESSMENT AND PLAN: Ms. Suzie Rosado is a 73-year-old lady with hyperchloremia, renal insufficiency, hyperglycemia, anemia. We will repeat labs. We will do anemia workup. Seen by Infectious Disease, Dr. Justin Stark, and Podiatry, have left hallux infected ulcer and right lateral ulcers. Urinary tract infection with gram-negative bacilli, chronic renal failure, history of right hallux skin and skin subcutaneous infections, hypertension, dyslipidemia. MRI of the foot does not show any osteomyelitis. We will continue off the antibiotic since there are no signs of clinical systemic infection in the feet. Podiatry is doing dressing. Out of bed physical therapy. Gastrointestinal and deep venous thrombosis prophylaxes. The patient is getting physical therapy. We will follow up. Elva Mooney MD MTDStella
[2018-09-07] MEDS: Pantoprazole 40 mg EC Tab PO SCH (05:20)
[2018-09-07] MEDS: Insulin Reg-LOW-Coverage SC SCH ×4 (06:57→22:31)
[2018-09-07] MEDS: Mupirocin 2% Ointment 15 GM TUBE TOP SCH (10:23)
[2018-09-07] MEDS: Collagenase 250 Units/gm Ointment(30 gm) TOP SCH (10:25)
--- NOTE | 2018-09-07 12:14 | CP.PCM.PN ---
<Ephraim Paul - Last Filed: 09/07/18 12:10> Subjective - Date & Time of Evaluation Date of Evaluation: 09/07/18 Time of Evaluation: 12:10 - Subjective Subjective: Podiatry Progress Note for Dr. Monroy/ Deric 73F seen at bedside for b/l foot ulcerations. Patient is AAO x 3 and NAD. Denies any acute overnight events or new pedal complaints. Denies any recent N/V/F/C/CP/SOB/D Objective - Vital Signs/Intake and Output Vital Signs (last 24 hours): Temp Pulse Resp BP Pulse Ox 97.6 F 74 18 144/73 99 09/06/18 16:00 09/07/18 10:22 09/06/18 16:00 09/07/18 10:24 09/06/18 16:00 Intake and Output: 09/07/18 09/07/18 06:59 18:59 Intake Total 360 Balance 360 - Medications Medications: Current Medications Amlodipine Besylate (Norvasc) 10 mg PO DAILY EBEN; Protocol Last Admin: 09/07/18 10:24 Dose: 10 mg Atorvastatin Calcium (Lipitor) 10 mg PO DIN EBEN; Protocol Last Admin: 09/06/18 17:46 Dose: 10 mg Carvedilol (Coreg) 3.125 mg PO 0800,1800 EBEN; Protocol Last Admin: 09/07/18 08:25 Dose: 3.125 mg Collagenase (Santyl) 0 gm TOP DAILY EBEN; Protocol Last Admin: 09/07/18 10:25 Dose: Not Given Ergocalciferol (Drisdol 50,000 Intl Units Cap) 1 cap PO QWK EBEN; Protocol Furosemide (Lasix) 40 mg PO 0600 EBEN; Protocol Last Admin: 09/07/18 05:20 Dose: 40 mg Gabapentin (Neurontin) 300 mg PO BID EBEN; Protocol Last Admin: 09/07/18 10:24 Dose: 300 mg Hydralazine HCl (Apresoline) 10 mg PO TID EBEN; Protocol Last Admin: 09/07/18 10:22 Dose: 10 mg Insulin Human Regular (Humulin R Low) 0 units SC ACHS EBEN; Protocol Last Admin: 09/07/18 06:57 Dose: 1 unit Lisinopril (Zestril) 40 mg PO DAILY EBEN; Protocol Last Admin: 09/07/18 10:25 Dose: 40 mg Mirtazapine (Remeron) 15 mg PO HS EBEN; Protocol Last Admin: 09/06/18 21:06 Dose: 15 mg Mupirocin (Bactroban Ointment) 0 gm TOP DAILY EBEN; Protocol Last Admin: 09/07/18 10:23 Dose: Not Given Pantoprazole Sodium (Protonix Ec Tab) 40 mg PO 0600 EBEN; Protocol Last Admin: 09/07/18 05:20 Dose: 40 mg - Labs Labs: 09/05/18 05:10 09/05/18 05:10 - Constitutional Appears: Well, Non-toxic, No Acute Distress - Extremities Exam Additional comments: Lower extremity exam: Vasc: DP and PT unpalpable. Cap refill delayed to the digits > 3 seconds. Temperature gradient Warm to warm from proximal to distal on the right side and warm to cool from proximal to distal on the left side. Left hallux slightly warm. Mild edema noted to the left hallux and the right heel and b/l perimalleolar area. Neuro: Epicritic and protective sensation grossly diminished b/l Derm: Right foot: ulceration noted to the lateral aspect of the heel. Measuring 3 cm X 1.5 cm X 0.2 cm, dry necrotic base, no drainage, no malodor, no tunneling or undermining noted. No probe to bone, Lynda-wound erythema noted, no drainage, no malodor, no tunneling or undermining noted. Left foot: ulceration noted to the medial aspect of the tip of the hallux. Measuring 5 cm X 3 cm X 0.3 cm, dry necrotic base, no drainage, no malodor, no tunneling or undermining noted. No probe to bone. MSK: pain with palpation to the left hallux and on palpating the left heel. B/L HAV deformities, B/L cavus foot. Muscle power 4/5 to all groups b/l. - Neurological Exam Neurological Exam: Alert, Awake, Oriented x3 - Psychiatric Exam Psychiatric exam: Normal Affect, Normal Mood Assessment and Plan - Assessment and Plan (Free Text) Assessment: 73F seen at bedside for b/l foot ulcerations Plan: Patient seen and evaluated Plan discussed with Dr. Monroy Wounds dressed with xeroform, DSD No plan for surgical intervention at this time Podiatry will continue to follow while patient in house <Jason Monroy - Last Filed: 09/09/18 08:24> Objective - Vital Signs/Intake and Output Vital Signs (last 24 hours): Temp Pulse Resp BP Pulse Ox 98.5 F 70 18 125/50 L 97 09/09/18 06:00 09/09/18 06:00 09/09/18 06:00 09/09/18 07:53 09/09/18 06:00 Intake and Output: 09/09/18 09/09/18 06:59 18:59 Intake Total 380 Output Total 650 Balance -270 - Medications Medications: Current Medications Acetaminophen (Tylenol 325mg Tab) 650 mg PO Q6H PRN; Protocol PRN Reason: Pain, Mild (1-3) Amlodipine Besylate (Norvasc) 10 mg PO DAILY EBEN; Protocol Last Admin: 09/08/18 11:00 Dose: 10 mg Atorvastatin Calcium (Lipitor) 10 mg PO DIN EBEN; Protocol Last Admin: 09/08/18 17:55 Dose: 10 mg Carvedilol (Coreg) 3.125 mg PO 0800,1800 EBEN; Protocol Last Admin: 09/09/18 07:53 Dose: Not Given Collagenase (Santyl) 0 gm TOP DAILY EBEN; Protocol Last Admin: 09/08/18 11:00 Dose: Not Given Ergocalciferol (Drisdol 50,000 Intl Units Cap) 1 cap PO QWK EBEN; Protocol Furosemide (Lasix) 40 mg PO 0600 EBEN; Protocol Last Admin: 09/09/18 05:44 Dose: 40 mg Gabapentin (Neurontin) 300 mg PO BID EBEN; Protocol Last Admin: 09/08/18 17:55 Dose: 300 mg Hydralazine HCl (Apresoline) 10 mg PO TID EBEN; Protocol Last Admin: 09/08/18 17:53 Dose: 10 mg Insulin Human Regular (Humulin R Low) 0 units SC ACHS EBEN; Protocol Last Admin: 09/09/18 06:51 Dose: 1 unit Lisinopril (Zestril) 40 mg PO DAILY EBEN; Protocol Last Admin: 09/08/18 11:00 Dose: 40 mg Mirtazapine (Remeron) 15 mg PO HS EBEN; Protocol Last Admin: 09/08/18 21:08 Dose: 15 mg Mupirocin (Bactroban Ointment) 0 gm TOP DAILY EBEN; Protocol Last Admin: 09/08/18 11:00 Dose: Not Given Pantoprazole Sodium (Protonix Ec Tab) 40 mg PO 0600 EBEN; Protocol Last Admin: 09/09/18 05:45 Dose: 40 mg - Labs Labs: 09/05/18 05:10 09/05/18 05:10 Attending/Attestation - Attestation I have personally seen and examined this patient.: Yes I have fully participated in the care of the patient.: Yes I have reviewed all pertinent clinical information, including history, physical exam and plan: Yes
--- NOTE | 2018-09-07 23:18 | PN ---
DATE: 09/07/2018 SUBJECTIVE: The patient is in room 304. The patient is seen earlier today. No fevers. No chills. PHYSICAL EXAMINATION: VITAL SIGNS: Temperature is 97, blood pressure is 140/70, respiratory rate of 18. HEENT: Unremarkable. NECK: Supple. LUNGS: Decreased breath sounds. HEART: Normal S1 and S2. ABDOMEN: Soft and nontender. LABORATORY EXAMINATION: Reveals a white count of 8.2, hemoglobin of 7. Creatinine is 2.6. ASSESSMENT AND PLAN: A 73-year-old female with left hallux infected ulcer and right lateral ulcer with a gram-negative bacilli in urine, urinary tract infection. MRI is negative for osteomyelitis. Currently off antibiotics. Review of orders confirms that the patient has been off antibiotics. We will follow with you. The patient is at risk for developing nosocomial infections. Delano Mohan MD
--- NOTE | 2018-09-08 03:45 | PN ---
DATE: 09/07/2018 SUBJECTIVE: The patient was seen and examined at the bedside 09/07/2018, looking comfortable. Complaining about back pain. No fever. No chills. No hematuria. No hematochezia. No headache. No dizziness. No chest pain. No palpitations. Awake and alert. Denies any acute overnight event and even feet are better. PHYSICAL EXAMINATION VITAL SIGNS: Temperature 97.6, pulse 74, respiratory rate 19, blood pressure 144/73. HEENT: Head is normocephalic, atraumatic. Eyes; PERRLA. Extraocular muscles intact. Conjunctivae clear. Nose patent. Mucous membrane moist. NECK: Supple. No carotid bruits . No JVD. No thyromegaly. CHEST: Bilateral symmetrical. HEART: S1, S2 positive. LUNGS: Clear to auscultation. ABDOMEN: Soft. Bowel sounds present. No organomegaly. EXTREMITIES: No edema. No cyanosis. NEUROLOGIC: The patient awake and alert. Moving all four extremities. No focal deficits. MEDICATIONS: Amlodipine, Lipitor, Coreg, vitamin D, gabapentin, hydralazine, lisinopril, pantoprazole. LABORATORY DATA: White blood cell 8.3, hemoglobin 7.8, hematocrit noted platelet 248. Sodium 139, potassium 3.9, BUN 20, creatinine 2.7, glucose 151. ASSESSMENT AND PLAN: Mr. Suzie Rosado is a 73-year-old male with anemia, hypochloremia, renal insufficiency, hyperglycemia, has bilateral foot ulceration. Podiatry is on the case, doing dressing. Infectious Disease, Dr. Mohan is on the case. The patient has left hallux infected ulcer and right lateral ulcer with gram-negative bacilli in the urine. Urinary tract infection. MRI is negative for osteomyelitis. Currently off of antibiotics. Getting physical therapy. History of gastroesophageal reflux disease and dyspepsia. Hypertension and dyslipidemia. Continue present treatment. Gastrointestinal and deep vein thrombosis prophylaxis. Repeat laboratories. We will follow up. Elva Monoey MD MTDStella
[2018-09-08] MEDS: Pantoprazole 40 mg EC Tab PO SCH (05:32)
[2018-09-08] MEDS: Insulin Reg-LOW-Coverage SC SCH ×4 (06:43→22:09)
--- NOTE | 2018-09-08 10:36 | CP.PCM.PN ---
Subjective - Date & Time of Evaluation Date of Evaluation: 09/08/18 Time of Evaluation: 10:35 - Subjective Subjective: Podiatry Progress Note for Dr. Monroy/ Deric 73F seen at bedside for b/l foot ulcerations. Patient is AAO x 3 and NAD. Denies any acute overnight events or new pedal complaints. Denies any recent N/V/F/C/CP/SOB/D Objective - Vital Signs/Intake and Output Vital Signs (last 24 hours): Temp Pulse Resp BP Pulse Ox 97.5 F L 76 19 144/62 95 09/07/18 10:00 09/08/18 08:53 09/07/18 10:00 09/08/18 08:53 09/07/18 10:00 - Medications Medications: Current Medications Acetaminophen (Tylenol 325mg Tab) 650 mg PO Q6H PRN; Protocol PRN Reason: Pain, Mild (1-3) Amlodipine Besylate (Norvasc) 10 mg PO DAILY EBEN; Protocol Last Admin: 09/07/18 10:24 Dose: 10 mg Atorvastatin Calcium (Lipitor) 10 mg PO DIN EBEN; Protocol Last Admin: 09/07/18 17:47 Dose: 10 mg Carvedilol (Coreg) 3.125 mg PO 0800,1800 EBEN; Protocol Last Admin: 09/08/18 08:53 Dose: 3.125 mg Collagenase (Santyl) 0 gm TOP DAILY EBEN; Protocol Last Admin: 09/07/18 10:25 Dose: Not Given Ergocalciferol (Drisdol 50,000 Intl Units Cap) 1 cap PO QWK EBEN; Protocol Furosemide (Lasix) 40 mg PO 0600 EBEN; Protocol Last Admin: 09/08/18 05:30 Dose: Not Given Gabapentin (Neurontin) 300 mg PO BID EBEN; Protocol Last Admin: 09/07/18 17:47 Dose: 300 mg Hydralazine HCl (Apresoline) 10 mg PO TID EBEN; Protocol Last Admin: 09/07/18 17:46 Dose: 10 mg Insulin Human Regular (Humulin R Low) 0 units SC ACHS EBEN; Protocol Last Admin: 09/08/18 06:43 Dose: 1 unit Lisinopril (Zestril) 40 mg PO DAILY EBEN; Protocol Last Admin: 09/07/18 10:25 Dose: 40 mg Mirtazapine (Remeron) 15 mg PO HS EBEN; Protocol Last Admin: 09/07/18 21:45 Dose: 15 mg Mupirocin (Bactroban Ointment) 0 gm TOP DAILY EBEN; Protocol Last Admin: 09/07/18 10:23 Dose: Not Given Pantoprazole Sodium (Protonix Ec Tab) 40 mg PO 0600 EBEN; Protocol Last Admin: 09/08/18 05:32 Dose: 40 mg - Labs Labs: 09/05/18 05:10 09/05/18 05:10 - Constitutional Appears: Well, Non-toxic, No Acute Distress - Head Exam Head Exam: ATRAUMATIC - Extremities Exam Additional comments: Lower extremity exam: Vasc: DP and PT unpalpable. Cap refill delayed to the digits > 3 seconds. Temperature gradient Warm to warm from proximal to distal on the right side and warm to cool from proximal to distal on the left side. Left hallux slightly warm. Mild edema noted to the left hallux and the right heel and b/l perimalleolar area. Neuro: Epicritic and protective sensation grossly diminished b/l Derm: Right foot: ulceration noted to the lateral aspect of the heel. Measuring 3 cm X 1.5 cm X 0.2 cm, dry necrotic base, no drainage, no malodor, no tunneling or undermining noted. No probe to bone, Lynda-wound erythema noted, no drainage, no malodor, no tunneling or undermining noted. Left foot: ulceration noted to the medial aspect of the tip of the hallux. Me asuring 5 cm X 3 cm X 0.3 cm, dry necrotic base, no drainage, no malodor, no tunneling or undermining noted. No probe to bone. MSK: pain with palpation to the left hallux and on palpating the left heel. B/L HAV deformities, B/L cavus foot. Muscle power 4/5 to all groups b/l. - Neurological Exam Neurological Exam: Alert, Awake, Oriented x3 - Psychiatric Exam Psychiatric exam: Normal Affect, Normal Mood Assessment and Plan - Assessment and Plan (Free Text) Assessment: 73F seen at bedside for b/l foot ulcerations Plan: Patient seen and evaluated with Dr. Leos Plan discussed Wounds dressed with xeroform, DSD No plan for surgical intervention at this time Podiatry will continue to follow while patient in house
[2018-09-08] MEDS: Mupirocin 2% Ointment 15 GM TUBE TOP SCH (11:00)
[2018-09-08] MEDS: Collagenase 250 Units/gm Ointment(30 gm) TOP SCH (11:00)
--- NOTE | 2018-09-08 22:52 | PN ---
DATE: 09/08/2018 SUBJECTIVE: The patient is in bed in no acute distress, nontoxic. PHYSICAL EXAMINATION: VITAL SIGNS: Temperature is 98, blood pressure is 120/60, respiratory rate of 18. HEENT: Unremarkable. NECK: Supple. LUNGS: Decreased breath sounds. HEART: Normal S1, S2. ABDOMEN: Soft. LABORATORY EXAMINATION: Reveals the patient's white count is 8.2, hemoglobin of 7. Chemistries are noted. Creatinine of 2.6. Microbiology. ASSESSMENT/PLAN: A 73-year-old female with left hallux infected ulcer, right lateral ulcer, gram-negative bacillus in the urine, urinary tract infection. MRI is negative for osteomyelitis. Currently off of antibiotics, local wound care. Podiatry note is reviewed. Dr. Mooney's note from today is reviewed. We will follow with you. Delano Mhoan MD
[2018-09-09] MEDS: Pantoprazole 40 mg EC Tab PO SCH (05:45)
[2018-09-09] MEDS: Insulin Reg-LOW-Coverage SC SCH ×4 (06:51→22:51)
--- NOTE | 2018-09-09 09:56 | PN ---
DATE: 09/08/2018 SUBJECTIVE: The patient was seen and examined at bedside on 09/08/2018, looking comfortable. No fever. No chills. No hematuria. No hematochezia. No headache. No dizziness. No chest pain. No palpitations. Feeling fatigued and tired. Has sometimes joint pains, especially feet pain, getting physical therapy. PHYSICAL EXAMINATION: VITAL SIGNS: Temperature 98, blood pressure 120/60, respiratory rate 18. HEENT: Head is normocephalic, atraumatic. Eyes; PERRLA. Extraocular muscles intact. Conjunctivae clear. Nose patent. Mucous membrane moist. NECK: Supple. No carotid bruits . No JVD. No thyromegaly. CHEST: Bilateral symmetrical. HEART: S1, S2 positive. LUNGS: Clear to auscultation. ABDOMEN: Soft. Bowel sounds present. No organomegaly. EXTREMITIES: No edema. No cyanosis. NEUROLOGIC: The patient is awake and alert. Moving all four extremities. No focal deficits. MEDICATIONS: Hydralazine, Bacitracin, Coreg, Lasix, Lipitor, Neurontin, Norvasc, Protonix, Remeron, Santyl, Tylenol Zestril. LABORATORY DATA: White blood cells 8.3, hemoglobin 7.8, hematocrit 23.0, and platelets 248. Glucose 196. ASSESSMENT AND PLAN: Ms. Alonzo Larsen is a 73-year-old lady with multiple medical problems, has bilateral foot ulcers, getting wound care, Podiatry is on the case. History of diabetes mellitus, hypertension, hypercholesterolemia, degenerative joint disease, Gram negative bacilli in the urine, urinary tract infection. MRI is negative for osteomyelitis of the feet. Currently, off of antibiotics, local wound care, Dr. Mohan and Podiatry notes appreciated. CONT. physical therapy. History of hypochloremia, renal insufficiency, hyperglycemia, gastrointestinal and deep vein thrombosis prophylaxis, continue physical therapy. We will follow up. Elva Mooney MD [facility]
--- NOTE | 2018-09-09 10:24 | CP.PCM.PN ---
Subjective - Date & Time of Evaluation Date of Evaluation: 09/09/18 Time of Evaluation: 10:21 - Subjective Subjective: Podiatry Progress Note for Dr. Monroy/ Deric 73 y/o female seen at bedside for b/l foot ulcerations. Patient is AAO x 3 and NAD. Denies any acute overnight events or new pedal complaints. Denies any recent N/V/F/C/CP/SOB/D Objective - Vital Signs/Intake and Output Vital Signs (last 24 hours): Temp Pulse Resp BP Pulse Ox 98.1 F 74 18 128/66 98 09/09/18 10:00 09/09/18 10:00 09/09/18 10:00 09/09/18 10:00 09/09/18 10:00 Intake and Output: 09/09/18 09/09/18 06:59 18:59 Intake Total 380 Output Total 650 Balance -270 - Medications Medications: Current Medications Acetaminophen (Tylenol 325mg Tab) 650 mg PO Q6H PRN; Protocol PRN Reason: Pain, Mild (1-3) Amlodipine Besylate (Norvasc) 10 mg PO DAILY EBEN; Protocol Last Admin: 09/08/18 11:00 Dose: 10 mg Atorvastatin Calcium (Lipitor) 10 mg PO DIN EBEN; Protocol Last Admin: 09/08/18 17:55 Dose: 10 mg Carvedilol (Coreg) 3.125 mg PO 0800,1800 EBEN; Protocol Last Admin: 09/09/18 07:53 Dose: Not Given Collagenase (Santyl) 0 gm TOP DAILY EBEN; Protocol Last Admin: 09/08/18 11:00 Dose: Not Given Ergocalciferol (Drisdol 50,000 Intl Units Cap) 1 cap PO QWK EBEN; Protocol Furosemide (Lasix) 40 mg PO 0600 EBEN; Protocol Last Admin: 09/09/18 05:44 Dose: 40 mg Gabapentin (Neurontin) 300 mg PO BID EBEN; Protocol Last Admin: 09/08/18 17:55 Dose: 300 mg Hydralazine HCl (Apresoline) 10 mg PO TID EBEN; Protocol Last Admin: 09/08/18 17:53 Dose: 10 mg Insulin Human Regular (Humulin R Low) 0 units SC ACHS EBEN; Protocol Last Admin: 09/09/18 06:51 Dose: 1 unit Lisinopril (Zestril) 40 mg PO DAILY EBEN; Protocol Last Admin: 09/08/18 11:00 Dose: 40 mg Mirtazapine (Remeron) 15 mg PO HS EBEN; Protocol Last Admin: 09/08/18 21:08 Dose: 15 mg Mupirocin (Bactroban Ointment) 0 gm TOP DAILY EBEN; Protocol Last Admin: 09/08/18 11:00 Dose: Not Given Pantoprazole Sodium (Protonix Ec Tab) 40 mg PO 0600 EBEN; Protocol Last Admin: 09/09/18 05:45 Dose: 40 mg - Labs Labs: 09/05/18 05:10 09/05/18 05:10 - Constitutional Appears: Well, Non-toxic, No Acute Distress - Head Exam Head Exam: ATRAUMATIC, NORMOCEPHALIC - Extremities Exam Additional comments: Lower extremity exam: Vasc: DP and PT unpalpable. Cap refill delayed to the digits > 3 seconds. Temperature gradient Warm to warm from proximal to distal on the right side and warm to cool from proximal to distal on the left side. Left hallux slightly warm. Mild edema noted to the left hallux and the right heel and b/l perimalleolar area. Neuro: Epicritic and protective sensation grossly diminished b/l Derm: Right foot: ulceration noted to the lateral aspect of the heel. Measuring 3 cm X 1.5 cm X 0.2 cm, dry necrotic base, no drainage, no malodor, no tunneling or undermining noted. No probe to bone, Lynda-wound erythema noted, no drainage, no malodor, no tunneling or undermining noted. Left foot: ulceration noted to the medial aspect of the tip of the hallux. Measuring 5 cm X 3 cm X 0.3 cm, dry necrotic base, no drainage, no malodor, no tunneling or undermining noted. No probe to bone. MSK: pain with palpation to the left hallux and on palpating the left heel. B/L HAV deformities, B/L cavus foot. Muscle power 4/5 to all groups b/l. - Neurological Exam Neurological Exam: Alert, Awake, Oriented x3 - Psychiatric Exam Psychiatric exam: Normal Affect, Normal Mood Assessment and Plan - Assessment and Plan (Free Text) Assessment: 73 y/o female seen at bedside for b/l foot ulcerations Plan: Patient seen and evaluated with Dr. Leos Plan discussed Right hallux wound debrided and dressed with Mepilex Ordered Santyl for future dressing changes Patient to be in Multipodus boots at all times No plan for surgical intervention at this time Podiatry will continue to follow while patient in house
[2018-09-09] MEDS: Mupirocin 2% Ointment 15 GM TUBE TOP SCH (10:54)
[2018-09-09] MEDS: Collagenase 250 Units/gm Ointment(30 gm) TOP SCH (11:32)
--- NOTE | 2018-09-09 14:19 | PN ---
DATE: 09/09/2018 SUBJECTIVE: The patient is in bed in no acute distress, nontoxic. PHYSICAL EXAMINATION VITAL SIGNS: Temperature is 98, blood pressure is 128/60, respiratory rate of 80, heart rate of 74. HEENT: Unremarkable. NECK: Supple. LUNGS: Have decreased breath sounds. HEART: Normal S1, S2. ABDOMEN: Soft, nontender. LABORATORY EXAMINATION: Reveals a white count of 8.2, hemoglobin of seven. Microbiology is noted. ASSESSMENT AND PLAN: This is a 73-year-old female with a left hallux infected ulcer, right lateral ulcer, gram-negative francesca in the urine, urinary tract infection. MRI is negative for osteomyelitis and has complete the antibiotic therapy and currently off of antibiotics, afebrile. The patient is at risk for developing nosocomial infections. Delano Mohan MD
[2018-09-09 19:54] LABS: URINE BILIRUBIN NEGATIVE (NEGATIVE); URINE BLOOD LARGE (NEGATIVE); URINE GLUCOSE (UA) NEGATIVE (NEGATIVE); URINE LEUKOCYTE ESTERASE LARGE Leu/uL (NEGATIVE); URINE PROTEIN 100 mg/dL (<30 mg/dL); URINE UROBILINOGEN 0.2 E.U./dL (<1 E.U./dL)
[2018-09-09 19:55] LABS: URINE APPEARANCE CLOUDY (CLEAR); URINE COLOR YELLOW (YELLOW)
--- NOTE | 2018-09-09 20:05 | PN ---
DATE: 09/09/2018 This note was discussed with Dr. Mooney, she is in agreement with the treatment and plan. SUBJECTIVE: A 73-year-old female, came in with bilateral heel ulcerations, UTI, deconditioning. Has a past medical history of diabetes mellitus type 2, anemia, atrial fibrillation, obesity, hyperlipidemia, chronic kidney disease, rheumatoid disorders, stroke. The patient was seen at the bedside today. She was alert and oriented. She denied chest pain, shortness of breath, cough, hematuria, hematochezia, fevers or chills. PHYSICAL EXAMINATION VITAL SIGNS: Temperature 98.1, pulse 74, blood pressure 128/56, respiratory rate 18, oxygen saturation 98% on room air. GENERAL: The patient appears in no acute distress, chronically ill. HEENT: Normocephalic. PERRLA. Mucous membranes moist. NECK: Supple. Normal inspection. RESPIRATORY: Clear to auscultation. No rhonchi. No wheeze. CARDIOVASCULAR: S1 and S2. No murmur. No gallop. GASTROINTESTINAL: Abdomen is soft and distended. No guarding. No organomegaly. SKIN: Intact. EXTREMITIES: No cyanosis. No edema. NEUROLOGIC: The patient is alert and oriented x2 to x3. Some cognitive deficits. Cranial nerves II through XII intact. MEDICATIONS: Accu-Chek a.c. and at bedtime with insulin regular covers, Lisinopril 40 mg, Remeron 15 mg p.o. at bedtime, Bactroban to affected area, Protonix 40 mg p.o., Neurontin 300 mg b.i.d., hydralazine t.i.d. with parameters, Drisdol 50,000 units weekly, Santyl to affected area, Coreg 3.125 mg p.o., Lipitor 10 mg p.o., and Norvasc 10 mg p.o. LABORATORY DATA: White blood cells 8.2, hemoglobin 7.8, and hematocrit 23. Chemistries for 09/05/2018; sodium 139, potassium 3.9, BUN was 28, creatinine was 2.6, glucose was 151. ASSESSMENT AND PLAN: This is a 73-year-old female who came with bilateral foot heel ulcerations, urinary tract infection, diabetes mellitus, hypertension, obesity, deconditioning. The patient continues Accu-Chek a.c. and at bedtime for Humulin coverage. Podiatry is currently doing the treatment. She is on Santyl, Bactroban. She continues on Drisdol 50,000 units, Norvasc, Lasix, and hydralazine. The patient is getting rehabilitation services. Stated that she still does not feel that she is walking a little bit more, not yet strong enough to walk on her own with the walker. We will follow up with physical therapy and their recommendations. We will plan accordingly. We will follow up. ALL ABOVE NOTED ,D/D WITH ASSOCIATE PROFESSOR OF PSYCHOLOGY AGREED WITH ASSOCIATE PROFESSOR OF PSYCHOLOGY , WILL F/U Herrera Smith APN Elva Mooney MD [facility]
[2018-09-09 20:13] LABS: URINE BACTERIA LARGE /hpf; URINE WBC TNTC /hpf (0-6)
[2018-09-09 20:14] LABS: URINE COARSE GRANULAR CAST TRACE /hpf
[2018-09-10] MEDS: Pantoprazole 40 mg EC Tab PO SCH (05:21)
[2018-09-10] MEDS: Insulin Reg-LOW-Coverage SC SCH ×4 (06:40→22:05)
[2018-09-10] MEDS ORDERED: Ergocalciferol 50,000 Intl Units Cap PO SCH (10:00)
[2018-09-10] MEDS: Mupirocin 2% Ointment 15 GM TUBE TOP SCH (10:32)
[2018-09-10] MEDS: Collagenase 250 Units/gm Ointment(30 gm) TOP SCH (10:33)
--- NOTE | 2018-09-10 12:27 | CP.PCM.PN ---
<AlekseyRolando - Last Filed: 09/10/18 12:26> Subjective - Date & Time of Evaluation Date of Evaluation: 09/10/18 Time of Evaluation: 12:26 - Subjective Subjective: Podiatry Progress Note for Dr. Monroy/ Deric 73 y/o female seen at bedside for b/l foot ulcerations. Patient is AAO x 3 and NAD. Denies any acute overnight events or new pedal complaints. Denies any recent N/V/F/C/CP/SOB/D Objective - Vital Signs/Intake and Output Vital Signs (last 24 hours): Temp Pulse Resp BP Pulse Ox 98.7 F 77 20 125/57 L 100 09/10/18 11:28 09/10/18 12:14 09/10/18 11:28 09/10/18 11:28 09/10/18 12:14 Intake and Output: 09/10/18 09/10/18 06:59 18:59 Intake Total 380 Output Total 400 Balance -20 - Medications Medications: Current Medications Acetaminophen (Tylenol 325mg Tab) 650 mg PO Q6H PRN; Protocol PRN Reason: Pain, Mild (1-3) Amlodipine Besylate (Norvasc) 10 mg PO DAILY EBEN; Protocol Last Admin: 09/10/18 10:32 Dose: 10 mg Atorvastatin Calcium (Lipitor) 10 mg PO DIN EBEN; Protocol Last Admin: 09/09/18 18:03 Dose: 10 mg Carvedilol (Coreg) 3.125 mg PO 0800,1800 EBEN; Protocol Last Admin: 09/10/18 08:21 Dose: 3.125 mg Collagenase (Santyl) 0 gm TOP DAILY EBEN Last Admin: 09/10/18 10:33 Dose: Not Given Ergocalciferol (Drisdol 50,000 Intl Units Cap) 1 cap PO QWK EBEN; Protocol Last Admin: 09/10/18 11:00 Dose: 1 cap Furosemide (Lasix) 40 mg PO 0600 EBEN; Protocol Last Admin: 09/10/18 05:21 Dose: 40 mg Gabapentin (Neurontin) 300 mg PO BID EBEN; Protocol Last Admin: 09/10/18 10:32 Dose: 300 mg Hydralazine HCl (Apresoline) 10 mg PO TID EBEN; Protocol Last Admin: 09/10/18 10:31 Dose: 10 mg Insulin Human Regular (Humulin R Low) 0 units SC ACHS EBEN; Protocol Last Admin: 09/10/18 12:19 Dose: 2 unit Lisinopril (Zestril) 40 mg PO DAILY EBEN; Protocol Last Admin: 09/10/18 10:33 Dose: 40 mg Mirtazapine (Remeron) 15 mg PO HS EBEN; Protocol Last Admin: 09/09/18 21:17 Dose: 15 mg Mupirocin (Bactroban Ointment) 0 gm TOP DAILY EBEN; Protocol Last Admin: 09/10/18 10:32 Dose: Not Given Pantoprazole Sodium (Protonix Ec Tab) 40 mg PO 0600 EBEN; Protocol Last Admin: 09/10/18 05:21 Dose: 40 mg - Labs Labs: 09/05/18 05:10 09/05/18 05:10 - Constitutional Appears: Well, Non-toxic, No Acute Distress - Head Exam Head Exam: ATRAUMATIC, NORMOCEPHALIC - Extremities Exam Additional comments: Lower extremity exam: Vasc: DP and PT unpalpable. Cap refill delayed to the digits > 3 seconds. Temperature gradient Warm to warm from proximal to distal on the right side and warm to cool from proximal to distal on the left side. Left hallux slightly warm. Mild edema noted to the left hallux and the right heel and b/l perimalleolar area. Neuro: Epicritic and protective sensation grossly diminished b/l Derm: Right foot: ulceration noted to the lateral aspect of the heel. Measuring 3 cm X 1.5 cm X 0.2 cm, dry necrotic base, no drainage, no malodor, no tunneling or undermining noted. No probe to bone, Lynda-wound erythema noted, no drainage, no malodor, no tunneling or undermining noted. Left foot: ulceration noted to the medial aspect of the tip of the hallux. Measuring 5 cm X 3 cm X 0.3 cm, dry necrotic base, no drainage, no malodor, no tunneling or undermining noted. No probe to bone. MSK: pain with palpation to the left hallux and on palpating the left heel. B/L HAV deformities, B/L cavus foot. Muscle power 4/5 to all groups b/l. - Neurological Exam Neurological Exam: Alert, Awake, Oriented x3 - Psychiatric Exam Psychiatric exam: Normal Affect, Normal Mood Assessment and Plan - Assessment and Plan (Free Text) Assessment: 73 y/o female seen at bedside for b/l foot ulcerations Plan: Patient seen and evaluated with Dr. Monroy Plan discussed Right hallux wound dressed with Santdamián and Mepilex Patient to be in Multipodus boots at all times No plan for surgical intervention at this time Podiatry will continue to follow while patient in house <Jason Monroy - Last Filed: 09/10/18 18:22> Objective - Vital Signs/Intake and Output Vital Signs (last 24 hours): Temp Pulse Resp BP Pulse Ox 98.4 F 71 18 135/61 95 09/10/18 14:00 09/10/18 17:47 09/10/18 14:00 09/10/18 17:47 09/10/18 14:00 Intake and Output: 09/10/18 09/10/18 06:59 18:59 Intake Total 380 Output Total 400 Balance -20 - Medications Medications: Current Medications Acetaminophen (Tylenol 325mg Tab) 650 mg PO Q6H PRN; Protocol PRN Reason: Pain, Mild (1-3) Amlodipine Besylate (Norvasc) 10 mg PO DAILY EBEN; Protocol Last Admin: 09/10/18 10:32 Dose: 10 mg Atorvastatin Calcium (Lipitor) 10 mg PO DIN EBEN; Protocol Last Admin: 09/10/18 17:49 Dose: 10 mg Carvedilol (Coreg) 3.125 mg PO 0800,1800 EBEN; Protocol Last Admin: 09/10/18 17:47 Dose: 3.125 mg Collagenase (Santyl) 0 gm TOP DAILY EBEN Last Admin: 09/10/18 10:33 Dose: Not Given Ergocalciferol (Drisdol 50,000 Intl Units Cap) 1 cap PO QWK EBEN; Protocol Last Admin: 09/10/18 11:00 Dose: 1 cap Furosemide (Lasix) 40 mg PO 0600 EBEN; Protocol Last Admin: 09/10/18 05:21 Dose: 40 mg Gabapentin (Neurontin) 300 mg PO BID EBEN; Protocol Last Admin: 09/10/18 17:49 Dose: 300 mg Hydralazine HCl (Apresoline) 10 mg PO TID EBEN; Protocol Last Admin: 09/10/18 17:46 Dose: 10 mg Insulin Human Regular (Humulin R Low) 0 units SC ACHS EBEN; Protocol Last Admin: 09/10/18 17:47 Dose: 1 unit Lisinopril (Zestril) 40 mg PO DAILY EBEN; Protocol Last Admin: 09/10/18 10:33 Dose: 40 mg Mirtazapine (Remeron) 15 mg PO HS EBEN; Protocol Last Admin: 09/09/18 21:17 Dose: 15 mg Mupirocin (Bactroban Ointment) 0 gm TOP DAILY EBEN; Protocol Last Admin: 09/10/18 10:32 Dose: Not Given Pantoprazole Sodium (Protonix Ec Tab) 40 mg PO 0600 EBEN; Protocol Last Admin: 09/10/18 05:21 Dose: 40 mg - Labs Labs: 09/05/18 05:10 09/05/18 05:10 Attending/Attestation - Attestation I have personally seen and examined this patient.: Yes I have fully participated in the care of the patient.: Yes I have reviewed all pertinent clinical information, including history, physical exam and plan: Yes
[2018-09-10 18:05] VITALS: RESP 18
--- NOTE | 2018-09-10 21:50 | PN ---
DATE: 09/10/2018 SUBJECTIVE: The patient is in bed in no acute distress, nontoxic. PHYSICAL EXAMINATION VITAL SIGNS: Temperature is 98, blood pressure is 130/60, respiratory rate of 18. HEENT: Unremarkable. NECK: Supple. LUNGS: Have decreased breath sounds. HEART: Normal S1, S2. ABDOMEN: Soft. LABORATORY DATA: Reveals a white count is 8, hemoglobin is 7. Chemistries are noted. Creatinine is 2.6. Review of orders. ASSESSMENT AND PLAN: A 73-year-old female with left hallux infected ulcer, right lateral ulcer, gram-negative francesca in the urine, urinary tract infection. MRI negative for osteomyelitis. Has completed the antibiotics and currently off of antibiotics, afebrile. She is at risk for developing nosocomial infections. Delano Mohan MD
--- NOTE | 2018-09-10 23:04 | PN ---
DATE: 09/10/2018 SUBJECTIVE: Patient was seen and examined at the bedside on 09/10/2018. Patient is looking comfortable. Still has ulceration on the feet, having surgical shoes. No fever. No chills. No headache. No dizziness. No chest pain. No palpitations. PHYSICAL EXAMINATION: VITAL SIGNS: Temperature 98.7, pulse 77, respiratory rate 20, blood pressure 125/55, pulse oximetry 100%. HEENT: Head; normocephalic, atraumatic. Eyes; PERRLA. Extraocular muscles intact. Conjunctivae clear. Nose patent. Mucous membranes moist. NECK: Supple. No carotid bruits. No JVD. No thyromegaly. CHEST: Bilaterally symmetrical. HEART: S1, S2 positive. LUNGS: Clear to auscultation. ABDOMEN: Soft. Bowel sounds present. No organomegaly. EXTREMITIES: No edema. No cyanosis. NEUROLOGIC: Patient is awake and alert. Moving all four extremities. No focal deficits. MEDICATIONS: Tylenol, amlodipine, Coreg, gabapentin, Zestril, Remeron, pantoprazole. LABORATORY DATA: White blood cells 8.2, hemoglobin 7.8, hematocrit 23, and platelets 248. Sodium 139, potassium 3.9, BUN 20, creatinine 2.6. Glucose 151. ASSESSMENT AND PLAN: Ms. Suzie Rosado is a 73-year-old female with anemia, hyperglycemia, renal insufficiency, thrombocytosis, hyperchloremia, has bilateral feet ulcerations, right hallux wound dressing with Santyl and Mepilex. Patient to be in Multi Podus boots at all the time. No plans of surgical intervention as per Podiatry. Patient's history of multiple medical problems; diabetes mellitus, urinary tract infection, hypertension, obesity, hypercholesterolemia, deconditioned, getting physical therapy. We will continue present treatment. We will follow up. Elva Mooney MD
[2018-09-11] MEDS: Pantoprazole 40 mg EC Tab PO SCH (05:48)
[2018-09-11] MEDS: Insulin Reg-LOW-Coverage SC SCH ×2 (06:59→12:15)
[2018-09-11] MEDS: Collagenase 250 Units/gm Ointment(30 gm) TOP SCH (10:06)
[2018-09-11] MEDS: Mupirocin 2% Ointment 15 GM TUBE TOP SCH (10:06)
[2018-09-11 10:07] VITALS: BP 128/77; PULSE 72
[2018-09-11 10:58] VITALS: TEMP 98.1; O2SAT 97
--- NOTE | 2018-09-11 11:43 | CP.PCM.PN ---
Subjective - Date & Time of Evaluation Date of Evaluation: 09/11/18 Time of Evaluation: 11:39 - Subjective Subjective: Podiatry Progress Note for Dr. Monroy/ Deric 73 y/o female seen at bedside for b/l foot ulcerations. Patient is AAO x 3 and NAD. Denies any acute overnight events or new pedal complaints. Denies any recent N/V/F/C/CP/SOB/D Objective - Vital Signs/Intake and Output Vital Signs (last 24 hours): Temp Pulse Resp BP Pulse Ox 98.1 F 72 18 128/77 97 09/11/18 10:00 09/11/18 10:05 09/11/18 10:00 09/11/18 10:05 09/11/18 10:00 - Medications Medications: Current Medications Acetaminophen (Tylenol 325mg Tab) 650 mg PO Q6H PRN; Protocol PRN Reason: Pain, Mild (1-3) Amlodipine Besylate (Norvasc) 10 mg PO DAILY EBEN; Protocol Last Admin: 09/11/18 10:05 Dose: 10 mg Atorvastatin Calcium (Lipitor) 10 mg PO DIN EBEN; Protocol Last Admin: 09/10/18 17:49 Dose: 10 mg Carvedilol (Coreg) 3.125 mg PO 0800,1800 EBEN; Protocol Last Admin: 09/11/18 08:18 Dose: 3.125 mg Collagenase (Santyl) 0 gm TOP DAILY EBEN Last Admin: 09/11/18 10:06 Dose: 1 applic Ergocalciferol (Drisdol 50,000 Intl Units Cap) 1 cap PO QWK EBEN; Protocol Last Admin: 09/10/18 11:00 Dose: 1 cap Furosemide (Lasix) 40 mg PO 0600 EBEN; Protocol Last Admin: 09/11/18 05:47 Dose: 40 mg Gabapentin (Neurontin) 300 mg PO BID EBEN; Protocol Last Admin: 09/11/18 10:05 Dose: 300 mg Hydralazine HCl (Apresoline) 10 mg PO TID EBEN; Protocol Last Admin: 09/11/18 10:05 Dose: 10 mg Insulin Human Regular (Humulin R Low) 0 units SC ACHS EBEN; Protocol Last Admin: 09/11/18 06:59 Dose: 1 unit Lisinopril (Zestril) 40 mg PO DAILY EBEN; Protocol Last Admin: 09/11/18 10:05 Dose: 40 mg Mirtazapine (Remeron) 15 mg PO HS EBEN; Protocol Last Admin: 09/10/18 21:15 Dose: 15 mg Mupirocin (Bactroban Ointment) 0 gm TOP DAILY [facility]; Protocol Last Admin: 09/11/18 10:06 Dose: 1 applic Pantoprazole Sodium (Protonix Ec Tab) 40 mg PO 0600 EBEN; Protocol Last Admin: 09/11/18 05:48 Dose: 40 mg - Labs Labs: 09/05/18 05:10 09/05/18 05:10 - Constitutional Appears: Well, Non-toxic, No Acute Distress - Head Exam Head Exam: ATRAUMATIC, NORMOCEPHALIC - Extremities Exam Additional comments: Lower extremity exam: Vasc: DP and PT unpalpable. Cap refill delayed to the digits > 3 seconds. Temperature gradient Warm to warm from proximal to distal on the right side and warm to cool from proximal to distal on the left side. Left hallux slightly warm. Mild edema noted to the left hallux and the right heel and b/l perimal leolar area. Neuro: Epicritic and protective sensation grossly diminished b/l Derm: Right foot: ulceration noted to the lateral aspect of the heel. Measuring 3 cm X 1.5 cm X 0.2 cm, dry necrotic base, positive lynda wound erythema, no drainage, no malodor, no tunneling or undermining noted. No probe to bone, Lynda-wound erythema noted, no drainage, no malodor, no tunneling or undermining noted. Left foot: ulceration noted to the medial aspect of the tip of the hallux. Measuring 5 cm X 3 cm X 0.3 cm, inflammed center, no drainage, no malodor, no tunneling or undermining noted. No probe to bone. MSK: pain with palpation to the left hallux and on palpating the left heel. B/L HAV deformities, B/L cavus foot. Muscle power 4/5 to all groups b/l. - Neurological Exam Neurological Exam: Alert, Awake, Oriented x3 - Psychiatric Exam Psychiatric exam: Normal Affect, Normal Mood Assessment and Plan - Assessment and Plan (Free Text) Assessment: 73 y/o female seen at bedside for b/l foot ulcerations Plan: Patient seen and evaluated with Dr. Leos Plan discussed Wound dressed with Mepilex Discontinue Alaina Ordered Silvadene for future dressings Patient to be in Multipodus boots at all times No plan for surgical intervention at this time Podiatry will continue to follow while patient in house
--- NOTE | 2018-09-11 17:50 | PN ---
DATE: 09/11/2018 SUBJECTIVE: The patient is in bed in no acute distress, and nontoxic. No fevers or chills. PHYSICAL EXAMINATION VITAL SIGNS: Temperature is 98, blood pressure is 120/70, respiratory rate of 18, and heart rate of 69. HEENT: Unremarkable. NECK: Supple. LUNGS: Have decreased breath sounds. HEART: Normal S1 and S2. ABDOMEN: Soft and nontender. LABORATORY EXAMINATION: Reveals a white count of 8.2 and hemoglobin of 7. Chemistries are reviewed. ASSESSMENT AND PLAN: This is a 73-year-old female, seen earlier today in room 304 with left hallux infected ulcer, right lateral ulcer, gram-negative francesca in the urine, and urinary tract infection. MRI is negative for osteomyelitis. Has completed the antibiotics and currently off of antibiotics. The patient is for discharge today. Follow up with primary medical doctor and Podiatry. Delano Mohan MD
--- NOTE | 2018-09-12 07:37 | DS ---
This case was discussed with Dr. Mooney. She is in agreement with the treatment plan. HISTORY OF PRESENT ILLNESS: This is a 73-year-old female, came in with UTI, bilateral heel ulcerations, shortness of breath and fatigue. 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 I saw the patient today at the bedside, she was sitting up in a chair, looking comfortable. Denies shortness of breath, chest pain, fevers or chills, hematuria or hematochezia. The patient reported that she is walking more in the podiatry shoes, able to ambulate with assist of a walker. She had some concerns and some difficulty because has prosthetic right eye; other than that, the patient was comfortable. PHYSICAL EXAMINATION: VITAL SIGNS: Temperature 98.1, pulse 72, blood pressure 128/77, respirations 18, and saturating at 97% on room air. GENERAL: The patient appeared to be comfortable. In no acute distress. HEENT: Normocephalic. PERRLA. Mucous membranes moist. NECK: Supple. Normal inspection. RESPIRATORY: Clear to auscultation. No wheeze. No rhonchi. CARDIOVASCULAR: S1 and S2. No murmur. No gallop. No JVD. ABDOMEN: Soft and nontender. No guarding. No tenderness. Positive bowel sounds. SKIN: Intact. No cyanosis. No edema. EXTREMITIES: She has bilateral heel ulcerations, which has improved from notes from Podiatry and wound nurse. NEUROLOGIC: The patient is alert and oriented x2 to 3 with some cognitive deficits. Cranial nerves II through XII intact. MEDICATIONS: Tylenol 325 mg, Norvasc, Lipitor, Coreg, Lasix, Neurontin, hydralazine, Accu-Chek with Humulin insulin coverage, Zestril, Remeron, Bactroban, Protonix, Silvadene to heels. LABORATORY DATA: White blood cells 8.2, hemoglobin stable 7.8, hematocrit 23 and platelets 248. Current laboratory sodium 139, potassium 3.9, BUN 28 and creatinine 2.6. ASSESSMENT AND PLAN: This is 73-year-old female who came in with bilateral heel ulcerations, urinary tract infection, malacia, diabetes, hypertension, chronic kidney disease and obesity. She was treated with antibiotics for urinary tract infection, received fluids for her elevated BUN and creatinine. The patient then went to rehab for generalized weakness, deconditioning, did well with rehabilitation. She was cleared by Cardiology and Pulmonology. Podiatry is on her case. she will f/u with podiatry out-patient; she is ready for discharge today with home care services and medication at bedside. medications at the bedside. We will see patient in office in next week. ALL ABOVE NOTED , EDUCATION DONE , AGREED ALL ABOVE , WILL F/U Herrera Smith APN Elva Mooney MD MTDStella
[2018-09-12] MEDS ORDERED: Silver Sulfadiazine 1% Cream (25 gm) TP SCH (10:00)
== END 2018-09-11 14:50 | disposition home or self-care (01) | DRG 945 ==
LOC: TRCU 16:19 → UNDODISIN 20:21
PROVIDERS: ADMIT Internal Medicine; ATTEND Internal Medicine
PROC: F07Z9FZ Gait Training/Functional Ambulation Treatment using Assistive, Adaptive, Supportive or Protective Equipment (ICD-10-PCS; principal; 2018-09-04)
PROC: F08Z4FZ Home Management Treatment using Assistive, Adaptive, Supportive or Protective Equipment (ICD-10-PCS; 2018-09-04)
DX: R53.1 Weakness (principal); L97.419 Non-pressure chronic ulcer of right heel and midfoot with unspecified severity; L97.429 Non-pressure chronic ulcer of left heel and midfoot with unspecified severity; N39.0 Urinary tract infection, site not specified; E11.621 Type 2 diabetes mellitus with foot ulcer; E11.22 Type 2 diabetes mellitus with diabetic chronic kidney disease; N18.9 Chronic kidney disease, unspecified; E11.51 Type 2 diabetes mellitus with diabetic peripheral angiopathy without gangrene; E11.42 Type 2 diabetes mellitus with diabetic polyneuropathy; E11.65 Type 2 diabetes mellitus with hyperglycemia; L97.529 Non-pressure chronic ulcer of other part of left foot with unspecified severity; E78.00 Pure hypercholesterolemia, unspecified; D64.9 Anemia, unspecified; I12.9 Hypertensive chronic kidney disease with stage 1 through stage 4 chronic kidney disease, or unspecified chronic kidney disease; E78.5 Hyperlipidemia, unspecified; I48.91 Unspecified atrial fibrillation; K21.9 Gastro-esophageal reflux disease without esophagitis; E66.9 Obesity, unspecified; Z68.38 Body mass index [BMI] 38.0-38.9, adult; Z86.73 Personal history of transient ischemic attack (TIA), and cerebral infarction without residual deficits; Z97.0 Presence of artificial eye